=== PATIENT | male | born 1950 | race Caucasian/White ===

== ENCOUNTER → 2017-09-06 12:02 | Outpatient (CLI) | payer MEDICARE, OTHER, SELFPAY ==
--- NOTE | 2017-09-06 12:15 | XR_ITS ---
XR knee RT 3V HISTORY: ITS.REASON: ANNEL KNEE PAIN ORDERING PHYSICIAN: Kostas Campa MD PATIENT AGE: 67 years COMPARISON: 11/09/2011 FINDINGS: There are mild osteoarthritic changes of the medial compartment and patellofemoral joint. There is a defect involving the articular surface of the medial femoral condyle consistent with an osteochondral defect. No other significant anomalies are evident. 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
--- NOTE | 2017-09-06 12:15 | XR_ITS ---
XR knee LT 3V HISTORY: ITS.REASON: ANNEL KNEE PAIN ORDERING PHYSICIAN: Kostas Campa MD PATIENT AGE: 67 years COMPARISON: 04/07/2016 FINDINGS: There is an old fracture involving the proximal aspect of the tibia with callus formation and mild deformity. There are osteoarthritic changes involving the patellofemoral joint. There is mild spurring along the lateral aspect of the medial femoral condyle. No acute fracture or dislocation. No lytic or blastic change. IMPRESSION: No acute finding. Old proximal tibial fracture with mild osteoarthritis
== END ==
PROVIDERS: PCP Family Medicine; Visit Provider Family Medicine
DX: M25.561 Pain in right knee (principal); M25.562 Pain in left knee
CPT/HCPCS: 73562

== ENCOUNTER 2018-02-25 21:41 | Inpatient (IN) ==
--- NOTE | 2018-02-25 22:11 | Emergency Department Note ---
ED Disposition Clinical Impression: Febrile illness, acute, Renal insufficiency syndrome, Lymphadenopathy Disposition: Admitted as Observation Condition on Discharge: Good Instructions: DI for Nausea -- Adult Referrals: Kostas Campa MD [Primary Care Provider] - - Critical Care Critical Care Time: No Attestation: On 02/25/18, the high probability of a clinically significant, sudden or life threatening deterioration of the following system(s) required my full and direct attention, intervention and personal management. The time I documented below is in addition to time spent performing reported procedures but includes the following listed in this critical care notation. Medical Decision Making - Medical Records Medical records reviewed: Yes: I reviewed the patient's medical records. - Abraham Inquiry Pt receiving controlled substance: No Vital Signs: 02/25/18 21:44 02/25/18 23:06 Temperature 100.3 F H 102 F H Temperature Source Oral Oral Pulse Rate [Right Radial] 70 88 Respiratory Rate 15 18 Blood Pressure [Left Arm] 91/48 L 122/78 Blood Pressure Mean [Left Arm] 62 92 Blood Pressure Source [Left Arm] Automatic Cuff Automatic Cuff Blood Pressure Position [Left Arm] Sitting Sitting 02 Sat by Pulse Oximetry 93 L 92 L Oxygen Delivery Method Room Air Room Air - Lab Data Lab results reviewed: Yes: I reviewed the patient's lab results. Lab Results 02/25/18 22:00: WBC 9.4, RBC 4.88, Hgb 14.8, Hct 44.9, MCV 92.0, MCH 30.3, MCHC 33.0, RDW 13.3, Plt Count 114 L, MPV 7.6, Neut % (Auto) 91.7 H, Lymph % (Auto) 4.4 L, [place] % (Auto) 2.8, Eos % (Auto) 1.0, Baso % (Auto) 0.1, Neut # (Auto) 8.6 H, Lymph # (Auto) 0.4 L, [place] # (Auto) 0.3, Eos # (Auto) 0.1, Baso # (Auto) 0.0, Total Counted 100, Neutrophils % (Manual) 84 H, Band Neutrophils % 14.0 H, L ymphocytes % (Manual) 2 L, Platelet Estimate Slight decrease, RBC Morphology Normal 02/25/18 22:00: Sodium 137, Potassium 3.8, Chloride 100, Carbon Dioxide 28, Ani on Gap 12.8, BUN 24 H, Creatinine 1.39 H, Estimated Creat Clear 78, Estimated GFR 51 L, Est GFR ( Amer) 62, Glucose 127 H, Calcium 8.8, Total Bilirubin 0.6, AST 15, ALT 24, Alkaline Phosphatase 65, C-Reactive Protein 3.1 H, Total Protein 7.3, Albumin 3.7, Globulin 3.6 H, Albumin/Globulin Ratio 1.0 L 02/25/18 22:00: Lactate 1.5 02/25/18 22:00: Influenza Type A Ag Negative, Influenza Type B Ag Negative 02/25/18 22:00: ESR 7 02/25/18 22:10: Ammonia 21 02/25/18 22:50: Urine Color Yellow, Urine Appearance Clear, Urine pH 6.0, Ur Specific [place] 1.020, Urine Protein Negative, Urine Glucose (UA) Negative, Urine Ketones Negative, Urine Blood Negative, Urine Nitrate Negative, Urine Bilirubin Negative, Urine Urobilinogen 0.2, Ur Leukocyte Esterase Negative, Urine WBC 3-5, Amorphous Sediment 2+, Urine Mucus 4+ Result diagrams: 02/25/18 22:00 02/25/18 22:00 Orders (Tests/Meds): ED MEDICATIONS Generic Name Dose Route Start Last Admin Trade Name Freq PRN Reason Stop Dose Admin Ceftriaxone Sodium 1 gm/ 50 mls @ 100 mls/hr 02/25/18 23:30 Sodium Chloride IV 03/11/18 23:29 Q24H DARIEN Protocol Discontinued Medications Generic Name Dose Route Start Last Admin Trade Name Freq PRN Reason Stop Dose Admin Acetaminophen 1,000 mg 02/25/18 23:09 02/25/18 23:11 Tylenol 500mg Tablet PO 02/25/18 23:10 1,000 mg ONCE ONE Administration Sodium Chloride 1,000 mls @ 999 mls/hr 02/25/18 22:00 02/25/18 22:04 Sod Chlor 0.9% 1000ml Bag IV 02/25/18 23:00 999 mls/hr .Q1H1M DARIEN Administration Ketorolac Tromethamine 30 mg 02/25/18 22:12 02/25/18 22:50 Toradol 30mg/Ml Vial IV 02/25/18 22:13 30 mg ONCE ONE Administration Ondansetron HCl 4 mg 02/25/18 21:55 02/25/18 22:04 Zofran 4mg/2ml Vial IV 02/25/18 21:56 4 mg ONCE ONE Administration ORDERS Category Date Time Status CT abdomen pelvis wo con Stat Cat Scan 02/25/18 22:11 Taken CXR AP view [XR chest AP] Stat Exams 02/25/18 22:10 Taken Diarrhea Panel, PCR Stat Lab 02/25/18 22:12 Ordered UA [Urinalysis and Microscopic] Stat Lab 02/25/18 22:50 Ordered Blood Culture Stat Micro 02/25/18 22:00 Received Urine Culture Stat Micro 02/25/18 23:24 Ordered - Radiology Data #1 Image(s): Chest Image Reviewed: Yes I reviewed the patient's radiology image Preliminary Findings: Normal/NAD - CT Data CT Scan: Abdomen, Pelvis Time Received: 23:[address] Reviewed: Yes: I have viewed the radiologist's interpretation Preliminary Findings: Abnormal (see report) - Physician Consults Physician Consulted: sound Reason -: Admission Fever HPI - General Chief Complaint: Nausea/Vomiting/Diarrhea Stated Complaint: JACOB, nausea Time Seen by Provider: 02/25/18 22:00 Mode of Arrival: Wheelchair Source of Information: Patient, Relative, Medical Record Limitations: Physical Limitations Description of Symptoms (Recalled from ER Triage Doc. by RN): Pt reports fever nausea chills and generalized weakness that started today. Pt reports he took 400mg of Motrin about an hour ago. - History of Present Illness HPI Narrative: wm who has acute onset of fever and weakness and not feeling well with no rash or cough and nausa w/o vomiting MD complaint: fever, malaise, weakness Onset (ago): day(s) Associated symptoms: denies other symptoms Treatments prior to arrival fever: ibuprofen - Related Data Home Medications Medication Instructions Recorded Confirmed celecoxib 200 mg capsule 200 mg PO ONCE cap 09/15/17 02/25/18 clonazepam 2 mg tablet 5 mg PO ONCE tab 09/15/17 02/25/18 hydrocodone 10 mg-acetaminophen 1 tab PO Q12H PRN tab 09/15/17 02/25/18 325 mg tablet losartan 100 1 tab PO ONCE 09/15/17 02/25/18 mg-hydrochlorothiazide 12.5 mg tablet morphine ER 15 mg tablet,extended 15 mg PO ONCE tab 09/15/17 02/25/18 release omeprazole 20 mg capsule,delayed 40 mg PO ONCE 09/15/17 02/25/18 release pregabalin 150 mg capsule 150 mg PO ONCE cap 09/15/17 02/25/18 tadalafil 2.5 mg tablet 2.5 mg PO ONCE PRN 09/15/17 02/25/18 Duloxetine HCl [Cymbalta 30mg 30 mg PO DAILY 02/25/18 02/25/18 capsule] Allergies Allergy/AdvReac Type Severity Reaction Status Date / Time No Known Allergies Allergy Verified 02/25/18 21:54 [facility] History I have reviewed the patient's past medical history: Yes Medical History: Denies:: Chronic Obstructive Pulmonary Disease (COPD), Diabetes Mellitus Type 1 Other Medical History: Reports: Arthritis, Sinus Problems Laterality Cases: Right: Arthroscopy Knee, Bilateral: Other Amputation: No Fractures: Yes Comment: RT arthroscopy, LT tib-fib nailing/hardware removal, back sx x7, spinal cord stimulator placement - Social History Smoking Status: Never smoker Alcohol Intake: never Alcohol Intake Frequency:: a few times a month - Psychiatric History Expresses thoughts of harming self/others: None Suicide Plan Description: No Plan ROS Obtained: Yes All systems reviewed & no additional complaints - Constitutional Constitutional: Reports as per HPI, Reports chills, Reports fever(s) - Eyes Eyes: Denies photophobia - ENT Ears, Nose, Mouth, and Throat: Denies sore throat - Cardiovascular Cardiovascular: Denies chest pain - Respiratory Respiratory: No cough - Gastrointestinal Gastrointestingal: Reports: as per HPI, diarrhea, nausea, vomiting - Genitourinary Male Genitourinary: Denies hematuria - Musculoskeletal Musculoskeletal: Denies joint pain - Neurologic Neurologic: Reports headache(s), Denies seizure-like activity Physical Exam - General General appearance: alert - Head Head exam: normocephalic - Eye Eye exam: Present: PERRL, EOMI. Absent: scleral icterus - ENT ENT exam: Present: mucous membranes dry - Neck Neck exam: Present: trachea midline - Respiratory Respiratory exam: Present: normal lung sounds bilaterally - Cardiovascular Cardiovascular exam: Present: regular rate, systolic murmur. Absent: rubs - Abdominal Exam Abdominal exam: Present: soft - Extremities Exam Extremities exam: Absent: tenderness - Neurological Exam Neurological exam: Present: alert, CN II-XII intact - Psychiatric Psychiatric exam: Present: normal affect - Skin Skin exam: Absent: rash - Lymphatic Lymphatic Findings: no adenopathy
[2018-02-25 22:22] LABS: Basophils % 0.1 % (0.1-2.0); Eosinophils # 0.1 K/mm3 (0.0-0.4); Hematocrit 44.9 % (42.0-52.0); Hemoglobin 14.8 g/dL (14.1-18.0); Lymphocytes # 0.4 K/mm3 (0.7-4.5); Lymphocytes % 4.4 K/mm3 (10-50); Mean Corpuscular Hemoglobin 30.3 pg (27.0-31.2); Mean Platelet Volume 7.6 fl (7.4-10.4); Monocytes # 0.3 K/mm3 (0.1-1.0); Monocytes % 2.8 % (1.7-9.3); Neutrophils # 8.6 K/mm3 (1.8-7.8); Neutrophils % 91.7 % (37.0-80.0); Platelet Count 114 K/mm3 (142-424); Red Blood Count 4.88 M/mm3 (4.60-6.20); Red Cell Distribution Width 13.3 % (11.5-17.5); White Blood Count 9.4 K/mm3 (4.8-10.8)
[2018-02-25 22:35] LABS: Albumin Level 3.7 gm/dL (3.4-5.0); Anion Gap 12.8 mEq/L (5-15); Bilirubin,Total 0.6 mg/dL (0.2-1.0); C-Reactive Protein 3.1 mg/L (0.0-0.9); Calcium 8.8 mg/dL (8.5-10.1); Globulin 3.6 gm/dl (1.3-3.2); Potassium 3.8 mmoL/L (3.5-5.1); Total Protein,Serum 7.3 gm/dL (6.4-8.2)
[2018-02-25 22:40] LABS: Lymphocytes % 2 % (10-50); Neutrophils % 84 % (42-76); Total Cells Counted 100
[2018-02-25 22:41] LABS: RBC Morphology Normal
[2018-02-25 22:55] LABS: Microscopic, Urine URINE MICROSCOPIC (MICROSCOPIC)
[2018-02-25 22:58] LABS: Appearance,Urine CLEAR (Clear); Blood, Urine Negative (Negative); Color,Urine YELLOW (Yellow); Glucose,Urine (UA) Negative (Negative); Ketones,Urine Negative (Negative); Leukocyte Esterase,Urine Negative (Negative); Protein,Urine Negative (Negative); Urobilinogen,Urine 0.2 EU/dl (0.2)
[2018-02-25 23:03] LABS: Amorphous Sediment,Urine 2+ /lpf; Bilirubin,Urine Negative (Negative); Mucus,Urine 4+ /lpf
[2018-02-26 07:04] LABS: Anion Gap 10.3 mEq/L (5-15); Potassium 4.3 mmoL/L (3.5-5.1)
[2018-02-26 07:30] LABS: Basophils % 0.2 % (0.1-2.0); Eosinophils % 0.1 % (0.1-12.0); Hematocrit 42.2 % (42.0-52.0); Hemoglobin 13.8 g/dL (14.1-18.0); Lymphocytes # 0.3 K/mm3 (0.7-4.5); Mean Corpuscular HGB Conc 32.8 g/dL (31.8-35.4); Mean Corpuscular Hemoglobin 30.8 pg (27.0-31.2); Mean Platelet Volume 7.9 fl (7.4-10.4); Monocytes # 0.1 K/mm3 (0.1-1.0); Monocytes % 1.3 % (1.7-9.3); Neutrophils % 95.4 % (37.0-80.0); Platelet Count 96 K/mm3 (142-424); Red Blood Count 4.49 M/mm3 (4.60-6.20); Red Cell Distribution Width 13.3 % (11.5-17.5); White Blood Count 9.4 K/mm3 (4.8-10.8)
[2018-02-26 09:17] LABS: Lymphocytes % 4 % (10-50); Monocytes % 1 % (2-9); Neutrophils % 93 % (42-76); Total Cells Counted 100
--- NOTE | 2018-02-26 09:40 | History & Physical Report ---
*Admission Date: 02/25/18 *Chief complaint: fever and chills *History of present illness: Patient is a 67 year old who mentioned that was using the bathroom at home and all of a sudden he felt dizzy. He started having fever about 2 days ago that is not breakable with any medications. He also mentions that he has been having some headaches. He is getting extensive pain management interventions from multiple specialists. also mentions that he has spinal cord simulator put in few years ago and it is about time for him to get another simulator with morphine pump. However, his appt is on late February. He is denying any nausea, vomiting, diarrhea at this time. Positive for back pain that is chronic. No sites of infections and/or pus notable. [facility] History Medical History: Reports:: Cancer (Colon CA), Heart Murmur, Hypertension Denies:: Chronic Obstructive Pulmonary Disease (COPD), Diabetes Mellitus Type 1, Diabetes Mellitus Type 2, MRSA Other Medical History: Reports: Arthritis, Sinus Problems Laterality Cases: Right: Arthroscopy Knee, Bilateral: Other Other Surgeries: Yes: Colon Resection Amputation: No Fractures: Yes - *Social History Educational Level: Attended High School Smoking Status: Never smoker Alcohol Intake: current Alcohol Intake Frequency:: a few times a week Occupational Status: disabled Housing: house Household Members: spouse, family - Psychiatric History Expresses thoughts of harming self/others: None Suicide Plan Description: No Plan *Family Hx:: Diabetes, Heart Attack, Hyperlipidemia, Hypertension Review of Systems - Constitutional Reports chills, Reports fever(s), Reports headache(s), Reports malaise - Eyes Denies change in vision, Denies discharge - ENT Denies sore throat - *Cardiovascular Denies chest pain, Denies shortness of breath - *Respiratory Denies shortness of breath - *Gastrointestinal Denies abdominal pain, Denies change in bowel habits, Denies nausea, Denies vomiting - *Genitourinary Denies difficulty urinating - *Musculoskeletal Reports back pain (chronic) - *Neurologic Reports headache(s), Denies seizure-like activity Meds Home Medications Medication Instructions Recorded Confirmed Type celecoxib 200 mg capsule 200 mg PO DAILY cap 09/15/17 02/26/18 History hydrocodone 10 mg-acetaminophen 1 tab PO Q8H tab 09/15/17 02/26/18 History 325 mg tablet losartan 100 1 tab PO DAILY 09/15/17 02/26/18 History mg-hydrochlorothiazide 12.5 mg tablet morphine ER 15 mg tablet,extended 15 mg PO Q12H tab 09/15/17 02/26/18 History release omeprazole 20 mg capsule,delayed 40 mg PO DAILY 09/15/17 02/26/18 History release pregabalin 150 mg capsule 150 mg PO Q12H cap 09/15/17 02/26/18 History Tadalafil [Cialis] 5 mg PO DAILYP PRN 02/26/18 02/26/18 History clonazePAM [Clonazepam] 1 mg PO HS 02/26/18 02/26/18 History Allergies Allergy/AdvReac Type Severity Reaction Status Date / Time No Known Allergies Allergy Verified 02/25/18 21:54 Exam Vital signs and Labs for Last 24 Hours: Temp Pulse Resp BP Pulse Ox 101.9 F H 83 18 93/46 L 100 02/26/18 07:59 02/26/18 07:59 02/26/18 07:59 02/26/18 07:59 02/26/18 07:59 Laboratory Results - last 24 hr 02/25/18 22:00: WBC 9.4, RBC 4.88, Hgb 14.8, Hct 44.9, MCV 92.0, MCH 30.3, MCHC 33.0, RDW 13.3, Plt Count 114 L, MPV 7.6, Neut % (Auto) 91.7 H, Lymph % (Auto) 4.4 L, [place] % (Auto) 2.8, Eos % (Auto) 1.0, Baso % (Auto) 0.1, Neut # (Auto) 8.6 H, Lymph # (Auto) 0.4 L, [place] # (Auto) 0.3, Eos # (Auto) 0.1, Baso # (Auto) 0.0, Total Counted 100, Neutrophils % (Manual) 84 H, Band Neutrophils % 14.0 H, Lymphocytes % (Manual) 2 L, Platelet Estimate Slight decrease, RBC Morphology No rmal 02/25/18 22:00: Sodium 137, Potassium 3.8, Chloride 100, Carbon Dioxide 28, Anion Gap 12.8, BUN 24 H, Creatinine 1.39 H, Estimated Creat Clear 78, Estimated GFR 51 L, Est GFR ( Amer) 62, Glucose 127 H, Calcium 8.8, Total Bilirubin 0.6, AST 15, ALT 24, Alkaline Phosphatase 65, C-Reactive Protein 3.1 H , Total Protein 7.3, Albumin 3.7, Globulin 3.6 H, Albumin/Globulin Ratio 1.0 L 02/25/18 22:00: Lactate 1.5 02/25/18 22:00: Influenza Type A Ag Negative, Influenza Type B Ag Negative 02/25/18 22:00: ESR 7 02/25/18 22:10: Ammonia 21 02/25/18 22:50: Urine Color Yellow, Urine Appearance Clear, Urine pH 6.0, Ur Specific [place] 1.020, Urine Protein Negative, Urine Glucose (UA) Negative, Ur ine Ketones Negative, Urine Blood Negative, Urine Nitrate Negative, Urine Bilirubin Negative, Urine Urobilinogen 0.2, Ur Leukocyte Esterase Negative, Urine WBC 3-5, Amorphous Sediment 2+, Urine Mucus 4+ 02/26/18 06:38: WBC 9.4, RBC 4.49 L, Hgb 13.8 L, Hct 42.2, MCV 94.0, MCH 30.8, MCHC 32.8, RDW 13.3, Plt Count 96 L, MPV 7.9, Neut % (Auto) 95.4 H, Lymph % (Auto) 3.0 L, [place] % (Auto) 1.3 L, Eos % (Auto) 0.1, Baso % (Auto) 0.2, Neut # (Auto) 9.0 H, Lymph # (Auto) 0.3 L, [place] # (Auto) 0.1, Eos # (Auto) 0.0, Baso # (Auto) 0.0, Total Counted 100, Neutrophils % (Manual) 93 H, Band Neutrophils % 2.0, Lymphocytes % (Manual) 4 L, Monocytes % (Manual) 1 L, Platelet Estimate Moderate decrease 02/26/18 06:38: Sodium 137, Potassium 4.3, Chloride 100, Carbon Dioxide 31, Anion Gap 10.3, BUN 25 H, Creatinine 1.52 H, Estimated Creat Clear 70, Estimated GFR 46 L, Est GFR ( Amer) 56 L, Glucose 132 H, Calcium 8.0 L I & O for Last 24 hours: Intake & Output 02/23/18 02/24/18 02/25/18 02/26/18 11:59 11:59 11:59 11:59 Intake Total 0 / 0 Balance 0 / 0 Weight 225 lb 2 oz - *Routine HEENT Exam Head: Present: normocephalic Eye: Present: EOMI ENT: Present: mucous membranes moist - *Routine Neck Exam Present: supple - *Routine Respiratory Exam Present: CTA bilaterally - *Routine Cardiovascular Exam Present: RRR - *Routine Abdominal Exam Present: soft, normoactive bowel sounds - *Routine Extremities Exam Absent: edema - Routine Back/Spine/Pelvis Exam Back/Spine: Present: paraspinal tenderness, pain with flexion, pain with lateral flexion, warmth. Absent: erythema - *Routine Skin Exam Present: intact - *Routine Neurological Exam Present: alert, oriented X3 - Routine Psychiatric Exam Present: normal affect Assessment and Plan (1) Febrile illness, acute Current visit: Yes Status: Acute Category: Medical Code(s): R50.9 - Fever, unspecified will await for cultures and treat with IV broad spectrum abx until then (2) Renal insufficiency syndrome Current visit: Yes Status: Acute Category: Medical Code(s): N28.9 - Disorder of kidney and ureter, unspecified Hydrate and will trend renal function (3) Lymphadenopathy Current visit: Yes Status: Acute Category: Medical Code(s): R59.1 - Generalized enlarged lymph nodes (4) Chronic back pain Current visit: Yes Status: Acute Category: Medical Code(s): M54.9 - Dorsalgia, unspecified; G89.29 - Other chronic pain will hold Thompson for now but continue morphine and lyrica. (5) Spinal cord stimulator status Current visit: Yes Status: Acute Category: Medical Code(s): Z96.89 - Presence of other specified functional implants will get CT of lumbar spine to make sure there is no infection/abscess
--- NOTE | 2018-02-26 10:32 | Pharmacy Consult Notes ---
[facility] Pharmacy VTE Monitoring - Patient Demographics Admission date: 02/25/18 Report Date: 02/26/18 Time: 10:32 Allergies/Adverse Reactions: Patient Allergies No Known Allergies Allergy (Verified 02/25/18 21:54) Height: 1.78 m Weight: 102.115 kg Patient Problems: Current Active Problems Febrile illness, acute (Acute) Renal insufficiency syndrome (Acute) Lymphadenopathy (Acute) - VTE Risk Labs: VTE Related Lab Results Hgb 13.8 g/dL (14.1-18.0) L 02/26/18 06:38 Hct 42.2 % (42.0-52.0) 02/26/18 06:38 Plt Count 96 K/mm3 (142-424) L 02/26/18 06:38 BUN 25 mg/dL (7-18) H 02/26/18 06:38 Creatinine 1.52 mg/dL (0.70-1.30) H 02/26/18 06:38 Estimated Creat Clear 70 mL/min (0-300) 02/26/18 06:38 Was VTE Risk Assessment Performed: Yes VTE Score: 5 VTE Risk Level: Low Risk - Prophylaxis VTE Prophylaxis Ordered?: Yes Types of VTE Prophylaxis: TEDS Knee High Location of Applied Device: Bilateral Lower Extremeties
--- NOTE | 2018-02-27 10:14 | Progress Note ---
Internal Medicine - PN: Subj *Date: 02/27/18 *Time: 09:00 Interval history: Patient was still having spiking fevers overnight. He is still complaining of headaches. Exam Vital signs and Labs for Last 24 Hours: Temp Pulse Resp BP Pulse Ox 101.6 F H 61 18 98/47 L 96 02/27/18 07:27 02/27/18 07:27 02/27/18 07:27 02/27/18 07:27 02/27/18 07:27 I & O for Last 24 hours: Intake & Output 02/24/18 02/25/18 02/26/18 02/27/18 11:59 11:59 11:59 10:59 Intake Total 0 / 0 3190 / 3190 Output Total 650 / 650 Balance 0 / 0 2540 / 2540 Weight 225 lb 2 oz Microbiology Reports for the Last 24 Hours: Microbiology 02/25/18 22:00 Blood Blood Culture - Preliminary Gram Positive Cocci 02/25/18 22:00 Blood Blood Culture - Preliminary Gram Positive Cocci 02/25/18 22:50 Urine,Clean Catch Urine Culture - Preliminary NO GROWTH AFTER 24 HOURS - *Routine HEENT Exam Head: Present: normocephalic Eye: Present: EOMI ENT: Present: mucous membranes moist - *Routine Neck Exam Present: supple - *Routine Respiratory Exam Present: CTA bilaterally - *Routine Cardiovascular Exam Present: RRR - *Routine Abdominal Exam Present: soft. Absent: tenderness - *Routine Extremities Exam Absent: edema (Cellulitis on right leg noted, status dermatitis noted on the left leg) - Routine Back/Spine/Pelvis Exam Back/Spine: Present: paraspinal tenderness, vertebral tenderness, pain with flexion, pain with lateral flexion, pain with rotation. Absent: erythema, warmth - *Routine Skin Exam Present: erythema (On right lower leg) - *Routine Neurological Exam Present: alert, oriented X3 Assessment and Plan (1) Bacteremia due to Streptococcus Current visit: Yes Status: Acute Category: Medical Code(s): R78.81 - Bacteremia; B95.5 - Unspecified streptococcus as the cause of diseases classified elsewhere Secondary to Streptococcus pyogenes, group A. He mentioned that he had a recent dental implants done. Continue Rocephin, added Augmentin today. Advised to talk to his PCP about getting prescription for antibiotics for future dental implants as this could have contributed to his bacteremia. (2) Febrile illness, acute Problem details: Secondary to strep pygenes bacteremia Current visit: Yes Status: Acute Category: Medical Code(s): R50.9 - Fever, unspecified (3) Renal insufficiency syndrome Current visit: Yes Status: Acute Category: Medical Code(s): N28.9 - Disorder of kidney and ureter, unspecified Stable for now (4) Lymphadenopathy Current visit: Yes Status: Acute Category: Medical Code(s): R59.1 - Generalized enlarged lymph nodes (5) Chronic back pain Current visit: Yes Status: Acute Category: Medical Code(s): M54.9 - Dorsalgia, unspecified; G89.29 - Other chronic pain Continue home medication (6) Spinal cord stimulator status Current visit: Yes Status: Acute Category: Medical Code(s): Z96.89 - Presence of other specified functional implants No evidence of abscess or infection on CT scan
--- NOTE | 2018-02-28 09:30 | Progress Note ---
Internal Medicine - PN: Subj *Date: 02/28/18 *Time: 09:24 Interval history: Patient feels better today, still has a headache. He states there is more redness on the top part of his left thigh. Exam Vital signs and Labs for Last 24 Hours: Temp Pulse Resp BP Pulse Ox 98.4 F 62 18 114/42 L 94 L 02/28/18 07:49 02/28/18 07:49 02/28/18 07:49 02/28/18 07:49 02/28/18 07:49 I & O for Last 24 hours: Intake & Output 02/25/18 02/26/18 02/27/18 02/28/18 12:59 12:59 11:59 11:59 Intake Total 1748 / 1748 Output Total 150 / 150 Balance 1598 / 1598 Weight Microbiology Reports for the Last 24 Hours: Microbiology 02/25/18 22:00 Blood Blood Culture - Preliminary Strep pyogenes (grp a) 02/25/18 22:00 Blood Blood Culture - Preliminary Strep pyogenes (grp a) 02/25/18 22:50 Urine,Clean Catch Urine Culture - Final NO GROWTH AFTER 48 HOURS - Constitutional no acute distress - *Routine HEENT Exam Head: Present: normocephalic Eye: Present: EOMI, PERRL ENT: Present: mucous membranes moist - *Routine Neck Exam Present: supple. Absent: lymphadenopathy - *Routine Respiratory Exam Present: CTA bilaterally - *Routine Cardiovascular Exam Present: RRR - *Routine Abdominal Exam Present: soft, normoactive bowel sounds. Absent: tenderness - *Routine Extremities Exam Present: edema (both legs). Absent: clubbing - *Routine Skin Exam Present: warm, rash (Extensive, confluent redness over the shins, small area of redness on left upper thigh) - *Routine Neurological Exam Present: alert, oriented X3 Assessment and Plan (1) Bacteremia due to Streptococcus Current visit: Yes Status: Acute Category: Medical Code(s): R78.81 - Bacteremia; B95.5 - Unspecified streptococcus as the cause of diseases classified elsewhere (2) Febrile illness, acute Problem details: Secondary to strep pygenes bacteremia Current visit: Yes Status: Acute Category: Medical Code(s): R50.9 - Fever, unspecified (3) Renal insufficiency syndrome Current visit: Yes Status: Acute Category: Medical Code(s): N28.9 - Disorder of kidney and ureter, unspecified (4) Lymphadenopathy Current visit: Yes Status: Acute Category: Medical Code(s): R59.1 - Generalized enlarged lymph nodes (5) Chronic back pain Current visit: Yes Status: Acute Category: Medical Code(s): M54.9 - Dorsalgia, unspecified; G89.29 - Other chronic pain (6) Spinal cord stimulator status Current visit: Yes Status: Acute Category: Medical Code(s): Z96.89 - Presence of other specified functional implants (7) Obesity (BMI 30.0-34.9) Current visit: Yes Status: Acute Category: Medical Code(s): E66.9 - Obesity, unspecified (8) BMI 32.0-32.9,adult Current visit: Yes Status: Acute Category: Medical Code(s): Z68.32 - Body mass index (BMI) 32.0-32.9, adult (9) Bilateral lower leg cellulitis Current visit: Yes Status: Acute Category: Medical Code(s): L03.116 - Cellulitis of left lower limb; L03.115 - Cellulitis of right lower limb (10) History of colon cancer Current visit: Yes Status: Acute Category: Medical Code(s): Z85.038 - Personal history of other malignant neoplasm of large intestine - Assessment and plan all Dx Assessment and Plan for all problems:: Patient with extensive bilateral leg cellulitis and Group a Strep bacteremia. Will change antibiotics to Zosyn and Clindamycin today.
[2018-03-01 07:00] LABS: Basophils % 0.1 % (0.1-2.0); Eosinophils # 0.1 K/mm3 (0.0-0.4); Eosinophils % 1.7 % (0.1-12.0); Hematocrit 34.9 % (42.0-52.0); Hemoglobin 12.3 g/dL (14.1-18.0); Lymphocytes # 1.4 K/mm3 (0.7-4.5); Lymphocytes % 17.3 K/mm3 (10-50); Mean Corpuscular HGB Conc 35.1 g/dL (31.8-35.4); Mean Corpuscular Hemoglobin 32.8 pg (27.0-31.2); Mean Corpuscular Volume 93.3 fl (80-94); Mean Platelet Volume 8.2 fl (7.4-10.4); Monocytes # 0.4 K/mm3 (0.1-1.0); Monocytes % 4.6 % (1.7-9.3); Neutrophils # 6.1 K/mm3 (1.8-7.8); Neutrophils % 76.2 % (37.0-80.0); Platelet Count 114 K/mm3 (142-424); Red Blood Count 3.74 M/mm3 (4.60-6.20); Red Cell Distribution Width 13.7 % (11.5-17.5)
[2018-03-01 07:36] LABS: Anion Gap 10.7 mEq/L (5-15); Calcium 8.1 mg/dL (8.5-10.1); Potassium 3.7 mmoL/L (3.5-5.1)
--- NOTE | 2018-03-01 08:31 | Progress Note ---
<Yoselin Sanchez - Last Filed: 03/01/18 08:27> Internal Medicine - PN: Subj *Date: 03/01/18 *Time: 08:27 Interval history: Patient is aggravated this morning. Everyone keeps waking him up. He got the wrong breakfast. He needs a tooth less diet. He denies chest pain. He states he has been wheezing and is a little short of breath. He has been up to the bathroom. Bowels are moving. He is voiding without problems. Exam Vital signs and Labs for Last 24 Hours: Temp Pulse Resp BP Pulse Ox 99.6 F 78 17 119/62 96 03/01/18 07:39 03/01/18 07:39 03/01/18 07:39 03/01/18 07:39 03/01/18 07:39 Laboratory Results - last 24 hr 02/26/18 12:50: Ionized Calcium 4.9 03/01/18 06:35: WBC 8.0, RBC 3.74 L, Hgb 12.3 L, Hct 34.9 L, MCV 93.3, MCH 32.8 H, MCHC 35.1, RDW 13.7, Plt Count 114 L, MPV 8.2, Neut % (Auto) 76.2, Lymph % (Auto) 17.3, [place] % (Auto) 4.6, Eos % (Auto) 1.7, Baso % (Auto) 0.1, Neut # (Auto) 6.1, Lymph # (Auto) 1.4, [place] # (Auto) 0.4, Eos # (Auto) 0.1, Baso # (Auto) 0.0 03/01/18 06:35: Sodium 137, Potassium 3.7, Chloride 101, Carbon Dioxide 29, Anion Gap 10.7, BUN 19 H, Creatinine 1.27, Estimated Creat Clear 84, Estimated GFR 57 L, Est GFR ( Amer) 69 D, Glucose 92, Calcium 8.1 L I & O for Last 24 hours: Intake & Output 02/26/18 02/27/18 02/28/18 03/01/18 12:59 11:59 11:59 11:59 Intake Total 1748 / 1748 2486 / 2486 Output Total 150 / 150 Balance 1598 / 1598 2486 / 2486 Weight Microbiology Reports for the Last 24 Hours: Microbiology 02/25/18 22:00 Blood Blood Culture - Preliminary Strep pyogenes (grp a) 02/25/18 22:00 Blood Blood Culture - Preliminary Strep pyogenes (grp a) - Constitutional no acute distress Comments: Awakened for exam - *Routine Respiratory Exam Comments: Scattered expiratory wheezing anteriorly and posteriorly - *Routine Cardiovascular Exam Present: RRR - *Routine Abdominal Exam Present: soft, normoactive bowel sounds. Absent: tenderness - *Routine Extremities Exam Comments: Bilateral leg edema with the left being larger than the right. Erythemia on the right lower extremity appears less intense and with less area. Erythema on the left lower extremity appears more of a brownish color today. Left groin area with scattered papular rash is drying and also appears less intense. - *Routine Neurological Exam Present: alert, oriented X3 Assessment and Plan (1) Bacteremia due to Streptococcus Current visit: Yes Status: Acute Category: Medical Code(s): R78.81 - Bacteremia; B95.5 - Unspecified streptococcus as the cause of diseases classified elsewhere (2) Febrile illness, acute Problem details: Secondary to strep pygenes bacteremia Current visit: Yes Status: Acute Category: Medical Code(s): R50.9 - Fever, unspecified (3) Renal insufficiency syndrome Current visit: Yes Status: Acute Category: Medical Code(s): N28.9 - Disorder of kidney and ureter, unspecified (4) Lymphadenopathy Current visit: Yes Status: Acute Category: Medical Code(s): R59.1 - Generalized enlarged lymph nodes (5) Chronic back pain Current visit: Yes Status: Acute Category: Medical Code(s): M54.9 - Dorsalgia, unspecified; G89.29 - Other chronic pain (6) Spinal cord stimulator status Current visit: Yes Status: Acute Category: Medical Code(s): Z96.89 - Presence of other specified functional implants (7) Obesity (BMI 30.0-34.9) Current visit: Yes Status: Acute Category: Medical Code(s): E66.9 - Obesity, unspecified (8) BMI 32.0-32.9,adult Current visit: Yes Status: Acute Category: Medical Code(s): Z68.32 - Body mass index (BMI) 32.0-32.9, adult (9) Bilateral lower leg cellulitis Current visit: Yes Status: Acute Category: Medical Code(s): L03.116 - Cellulitis of left lower limb; L03.115 - Cellulitis of right lower limb (10) History of colon cancer Current visit: Yes Status: Acute Category: Medical Code(s): Z85.038 - Personal history of other malignant neoplasm of large intestine (11) Shortness of breath Current visit: Yes Status: Acute Category: Medical Code(s): R06.02 - Shortness of breath - Assessment and plan all Dx Assessment and Plan for all problems:: We will recheck chest x-ray and start DuoNeb treatments 3 times daily. We will continue with IV antibiotic treatment. <Kostas Campa - Last Filed: 03/01/18 08:47> Exam Vital signs and Labs for Last 24 Hours: Temp Pulse Resp BP Pulse Ox 99.6 F 78 17 119/62 96 03/01/18 07:39 03/01/18 07:39 03/01/18 07:39 03/01/18 07:39 03/01/18 07:39 Laboratory Results - last 24 hr 02/26/18 12:50: Ionized Calcium 4.9 03/01/18 06:35: WBC 8.0, RBC 3.74 L, Hgb 12.3 L, Hct 34.9 L, MCV 93.3, MCH 32.8 H, MCHC 35.1, RDW 13.7, Plt Count 114 L, MPV 8.2, Neut % (Auto) 76.2, Lymph % (Auto) 17.3, [place] % (Auto) 4.6, Eos % (Auto) 1.7, Baso % (Auto) 0.1, Neut # (Auto) 6.1, Lymph # (Auto) 1.4, [place] # (Auto) 0.4, Eos # (Auto) 0.1, Baso # (Auto) 0.0 03/01/18 06:35: Sodium 137, Potassium 3.7, Chloride 101, Carbon Dioxide 29, Anion Gap 10.7, BUN 19 H, Creatinine 1.27, Estimated Creat Clear 84, Estimated GFR 57 L, Est GFR ( Amer) 69 D, Glucose 92, Calcium 8.1 L I & O for Last 24 hours: Intake & Output 02/26/18 02/27/18 02/28/18 03/01/18 12:59 11:59 11:59 11:59 Intake Total 1748 / 1748 2486 / 2486 Output Total 150 / 150 Balance 1598 / 1598 2486 / 2486 Weight Microbiology Reports for the Last 24 Hours: Microbiology 02/25/18 22:00 Blood Blood Culture - Preliminary Strep pyogenes (grp a) 02/25/18 22:00 Blood Blood Culture - Preliminary Strep pyogenes (grp a) Assessment and Plan (1) Bacteremia due to Streptococcus Current visit: Yes Status: Acute Category: Medical Code(s): R78.81 - Bacteremia; B95.5 - Unspecified streptococcus as the cause of diseases classified elsewhere (2) Febrile illness, acute Problem details: Secondary to strep pygenes bacteremia Current visit: Yes Status: Acute Category: Medical Code(s): R50.9 - Fever, unspecified (3) Renal insufficiency syndrome Current visit: Yes Status: Acute Category: Medical Code(s): N28.9 - D isorder of kidney and ureter, unspecified (4) Lymphadenopathy Current visit: Yes Status: Acute Category: Medical Code(s): R59.1 - Generalized enlarged lymph nodes (5) Chronic back pain Current visit: Yes Status: Acute Category: Medical Code(s): M54.9 - Dorsalgia, unspecified; G89.29 - Other chronic pain (6) Spinal cord stimulator status Current visit: Yes Status: Acute Category: Medical Code(s): Z96.89 - Presence of other specified functional implants (7) Obesity (BMI 30.0-34.9) Current visit: Yes Status: Acute Category: Medical Code(s): E66.9 - Obesity, unspecified (8) BMI 32.0-32.9,adult Current visit: Yes Status: Acute Category: Medical Code(s): Z68.32 - Body mass index (BMI) 32.0-32.9, adult (9) Bilateral lower leg cellulitis Current visit: Yes Status: Acute Category: Medical Code(s): L03.116 - Cellulitis of left lower limb; L03.115 - Cellulitis of right lower limb (10) History of colon cancer Current visit: Yes Status: Acute Category: Medical Code(s): Z85.038 - Personal history of other malignant neoplasm of large intestine (11) Shortness of breath Current visit: Yes Status: Acute Category: Medical Code(s): R06.02 - Shortness of breath (12) Neuropathy Current visit: Yes Status: Acute Category: Medical Code(s): G62.9 - Polyneuropathy, unspecified - Assessment and plan all Dx Assessment and Plan for all problems:: Saw patient, agree with above note. He was afebrile the past 24 hours and his leg redness has improved slightly
--- NOTE | 2018-03-02 07:51 | Progress Note ---
<Yoselin Sanchez - Last Filed: 03/02/18 07:48> Internal Medicine - PN: Subj *Date: 03/02/18 *Time: 07:48 Interval history: Is doing better today. Slept some. Has ambulated in the room. He feels his legs are little better. Wheezing has resolved. He had Lasix last night and is voiding quantities. Bowels are moving and he is eating better Exam Vital signs and Labs for Last 24 Hours: Temp Pulse Resp BP Pulse Ox 98.4 F 77 16 136/65 95 03/02/18 07:45 03/02/18 07:45 03/02/18 07:45 03/02/18 07:45 03/02/18 07:45 I & O for Last 24 hours: Intake & Output 02/27/18 02/28/18 03/01/18 03/02/18 11:59 11:59 11:59 11:59 Intake Total 1748 / 1748 2486 / 2486 1560 / 1560 Output Total 150 / 150 2650 / 2650 Balance 1598 / 1598 2486 / 2486 -1090 / -1090 Radiology Reports for the Last 24 Hours: 02/29/2000 and 8 repeat chest x-ray IMPRESSION: Negative chest, no acute finding - Constitutional no acute distress Comments: Awake this a.m. Appears comfortable. - *Routine Respiratory Exam Present: CTA bilaterally (Anteriorly and posteriorly. No wheezing.) - *Routine Cardiovascular Exam Present: RRR - *Routine Abdominal Exam Present: soft, normoactive bowel sounds. Absent: tenderness, distended - *Routine Extremities Exam Comments: Bilateral leg edema has decreased. Left leg remains a little larger than the r ight. Lower legs coloration is more of a brownish red. Left upper inner thigh with fading erythema. - *Routine Neurological Exam Present: alert, oriented X3 Assessment and Plan (1) Bacteremia due to Streptococcus Current visit: Yes Status: Acute Category: Medical Code(s): R78.81 - Bacteremia; B95.5 - Unspecified streptococcus as the cause of diseases classified elsewhere (2) Febrile illness, acute Problem details: Secondary to strep pygenes bacteremia Current visit: Yes Status: Acute Category: Medical Code(s): R50.9 - Fever, unspecified (3) Renal insufficiency syndrome Current visit: Yes Status: Acute Category: Medical Code(s): N28.9 - Disorder of kidney and ureter, unspecified (4) Lymphadenopathy Current visit: Yes Status: Acute Category: Medical Code(s): R59.1 - Generalized enlarged lymph nodes (5) Chronic back pain Current visit: Yes Status: Acute Category: Medical Code(s): M54.9 - Dorsalgia, unspecified; G89.29 - Other chronic pain (6) Spinal cord stimulator status Current visit: Yes Status: Acute Category: Medical Code(s): Z96.89 - Presence of other specified functional implants (7) Obesity (BMI 30.0-34.9) Current visit: Yes Status: Acute Category: Medical Code(s): E66.9 - Obesity, unspecified (8) BMI 32.0-32.9,adult Current visit: Yes Status: Acute Category: Medical Code(s): Z68.32 - Body mass index (BMI) 32.0-32.9, adult (9) Bilateral lower leg cellulitis Current visit: Yes Status: Acute Category: Medical Code(s): L03.116 - Cellulitis of left lower limb; L03.115 - Cellulitis of right lower limb (10) History of colon cancer Current visit: Yes Status: Acute Category: Medical Code(s): Z85.038 - Personal history of other malignant neoplasm of large intestine (11) Shortness of breath Current visit: Yes Status: Acute Category: Medical Code(s): R06.02 - Shortness of breath (12) Neuropathy Current visit: Yes Status: Acute Category: Medical Code(s): G62.9 - Polyneuropathy, unspecified - Assessment and plan all Dx Assessment and Plan for all problems:: Continue with IV antibiotics. PICC line is planned for ongoing long-term antibiotics. <Kostas Campa - Last Filed: 03/02/18 08:28> Exam Vital signs and Labs for Last 24 Hours: Temp Pulse Resp BP Pulse Ox 98.4 F 77 16 136/65 95 03/02/18 07:45 03/02/18 07:45 03/02/18 07:45 03/02/18 07:45 03/02/18 07:45 I & O for Last 24 hours: Intake & Output 02/27/18 02/28/18 03/01/18 03/02/18 11:59 11:59 11:59 11:59 Intake Total 1748 / 1748 2486 / 2486 1560 / 1560 Output Total 150 / 150 2650 / 2650 Balance 1598 / 1598 2486 / 2486 -1090 / -1090 Assessment and Plan (1) Bacteremia due to Streptococcus Current visit: Yes Status: Acute Category: Medical Code(s): R78.81 - Bacteremia; B95.5 - Unspecified streptococcus as the cause of diseases classified elsewhere (2) Febrile illness, acute Problem details: Secondary to strep pygenes bacteremia Current visit: Yes Status: Acute Category: Medical Code(s): R50.9 - Fever, unspecified (3) Renal insufficiency syndrome Current visit: Yes Status: Acute Category: Medical Code(s): N28.9 - Disorder of kidney and ureter, unspecified (4) Lymphadenopathy Current visit: Yes Status: Acute Category: Medical Code(s): R59.1 - Generalized enlarged lymph nodes (5) Chronic back pain Current visit: Yes Status: Acute Category: Medical Code(s): M54.9 - Dorsalgia, unspecified; G89.29 - Other chronic pain (6) Spinal cord stimulator status Current visit: Yes Status: Acute Category: Medical Code(s): Z96.89 - Presence of other specified functional implants (7) Obesity (BMI 30.0-34.9) Current visit: Yes Status: Acute Category: Medical Code(s): E66.9 - Obesity, unspecified (8) BMI 32.0-32.9,adult Current visit: Yes Status: Acute Category: Medical Code(s): Z68.32 - Body mass index (BMI) 32.0-32.9, adult (9) Bilateral lower leg cellulitis Current visit: Yes Status: Acute Category: Medical Code(s): L03.116 - Cellulitis of left lower limb; L03.115 - Cellulitis of right lower limb (10) History of colon cancer Current visit: Yes Status: Acute Category: Medical Code(s): Z85.038 - Personal history of other malignant neoplasm of large intestine (11) Shortness of breath Current visit: Yes Status: Acute Category: Medical Code(s): R06.02 - Shortness of breath (12) Neuropathy Current visit: Yes Status: Acute Category: Medical Code(s): G62.9 - Polyneuropathy, unspecified - Assessment and plan all Dx Assessment and Plan for all problems:: Saw patient, agree with above note. He has improved some, will order PICC line today.
[2018-03-03 06:20] LABS: Basophils % 0.2 % (0.1-2.0); Eosinophils # 0.1 K/mm3 (0.0-0.4); Hematocrit 33.8 % (42.0-52.0); Hemoglobin 11.1 g/dL (14.1-18.0); Lymphocytes # 1.4 K/mm3 (0.7-4.5); Lymphocytes % 19.1 % (10-50); Mean Corpuscular HGB Conc 32.8 g/dL (31.8-35.4); Mean Corpuscular Hemoglobin 30.3 pg (27.0-31.2); Mean Corpuscular Volume 92.4 fl (80-94); Mean Platelet Volume 7.5 fl (7.4-10.4); Monocytes # 0.4 K/mm3 (0.1-1.0); Monocytes % 5.3 % (1.7-9.3); Neutrophils # 5.4 K/mm3 (1.8-7.8); Neutrophils % 74.4 % (37.0-80.0); Platelet Count 167 K/mm3 (142-424); Red Blood Count 3.65 M/mm3 (4.60-6.20); Red Cell Distribution Width 13.6 % (11.5-17.5); White Blood Count 7.2 K/mm3 (4.8-10.8)
[2018-03-03 06:27] LABS: Anion Gap 10.8 mEq/L (5-15); Calcium 8.7 mg/dL (8.5-10.1); Potassium 3.8 mmoL/L (3.5-5.1)
--- NOTE | 2018-03-03 08:15 | Progress Note ---
<Katarzyna Metcalf - Last Filed: 03/03/18 08:13> Internal Medicine - PN: Subj *Date: 03/03/18 *Time: 08:13 Interval history: Patient states he feels about the same today. His back and legs are still hurting. His states she thinks his legs look better this morning as does his groin. He is anxious to go home. Exam Vital signs and Labs for Last 24 Hours: Temp Pulse Resp BP Pulse Ox 98.3 F 60 19 134/61 97 03/03/18 04:00 03/03/18 04:00 03/03/18 04:00 03/03/18 04:00 03/03/18 04:00 Laboratory Results - last 24 hr 03/03/18 06:05: WBC 7.2, RBC 3.65 L, Hgb 11.1 L, Hct 33.8 L, MCV 92.4, MCH 30.3, MCHC 32.8, RDW 13.6, Plt Count 167 D, MPV 7.5, Neut % (Auto) 74.4, Lymph % ( Auto) 19.1, [place] % (Auto) 5.3, Eos % (Auto) 1.0, Baso % (Auto) 0.2, Neut # (Auto) 5.4, Lymph # (Auto) 1.4, [place] # (Auto) 0.4, Eos # (Auto) 0.1, Baso # (Auto) 0.0 03/03/18 06:05: Sodium 141, Potassium 3.8, Chloride 102, Carbon Dioxide 32, Anion Gap 10.8, BUN 13 D, Creatinine 0.94 D, Estimated Creat Clear 106, Estimated GFR 81, Est GFR ( Amer) 97 D, Glucose 99, Calcium 8.7 I & O for Last 24 hours: Intake & Output 02/28/18 03/01/18 03/02/18 03/03/18 11:59 11:59 11:59 11:59 Intake Total 1748 / 1748 2486 / 2486 1560 / 1560 360 / 360 Output Total 150 / 150 2650 / 2650 2575 / 2575 Balance 1598 / 1598 2486 / 2486 -1090 / -1090 -2215 / -2215 - Constitutional no acute distress - *Routine Respiratory Exam Present: CTA bilaterally - *Routine Cardiovascular Exam Present: RRR - *Routine Abdominal Exam Present: soft, normoactive bowel sounds. Absent: tenderness - *Routine Extremities Exam Present: edema (bilateral LE's (left worse than right)) - *Routine Skin Exam Comments: There is still erythema of the bilateral LE's (left worse than the right), there is improvement in the erythema of the left groin Assessment and Plan (1) Bacteremia due to Streptococcus Current visit: Yes Status: Acute Category: Medical Code(s): R78.81 - Bacteremia; B95.5 - Unspecified streptococcus as the cause of diseases classified elsewhere (2) Febrile illness, acute Problem details: Secondary to strep pygenes bacteremia Current visit: Yes Status: Acute Category: Medical Code(s): R50.9 - Fever, unspecified (3) Renal insufficiency syndrome Current visit: Yes Status: Acute Category: Medical Code(s): N28.9 - Disorder of kidney and ureter, unspecified (4) Lymphadenopathy Current visit: Yes Status: Acute Category: Medical Code(s): R59.1 - Generalized enlarged lymph nodes (5) Chronic back pain Current visit: Yes Status: Acute Category: Medical Code(s): M54.9 - Dorsalgia, unspecified; G89.29 - Other chronic pain (6) Spinal cord stimulator status Current visit: Yes Status: Acute Category: Medical Code(s): Z96.89 - Presence of other specified functional implants (7) Obesity (BMI 30.0-34.9) Current visit: Yes Status: Acute Category: Medical Code(s): E66.9 - Obes ity, unspecified (8) BMI 32.0-32.9,adult Current visit: Yes Status: Acute Category: Medical Code(s): Z68.32 - Body mass index (BMI) 32.0-32.9, adult (9) Bilateral lower leg cellulitis Current visit: Yes Status: Acute Category: Medical Code(s): L03.116 - Cellulitis of left lower limb; L03.115 - Cellulitis of right lower limb (10) History of colon cancer Current visit: Yes Status: Acute Category: Medical Code(s): Z85.038 - Personal history of other malignant neoplasm of large intestine (11) Shortness of breath Current visit: Yes Status: Acute Category: Medical Code(s): R06.02 - Shortness of breath (12) Neuropathy Current visit: Yes Status: Acute Category: Medical Code(s): G62.9 - Polyneuropathy, unspecified - Assessment and plan all Dx Assessment and Plan for all problems:: Patient got PICC line placed yesterday. Anxious to go home today. Will discuss disposition with Dr. Campa. <Kostas Campa - Last Filed: 03/03/18 08:52> Exam Vital signs and Labs for Last 24 Hours: Temp Pulse Resp BP Pulse Ox 98.3 F 60 19 134/61 97 03/03/18 04:00 03/03/18 04:00 03/03/18 04:00 03/03/18 04:00 03/03/18 04:00 Laboratory Results - last 24 hr 03/03/18 06:05: WBC 7.2, RBC 3.65 L, Hgb 11.1 L, Hct 33.8 L, MCV 92.4, MCH 30.3, MCHC 32.8, RDW 13.6, Plt Count 167 D, MPV 7.5, Neut % (Auto) 74.4, Lymph % (Auto) 19.1, [place] % (Auto) 5.3, Eos % (Auto) 1.0, Baso % (Auto) 0.2, Neut # (Auto) 5.4, Lymph # (Auto) 1.4, [place] # (Auto) 0.4, Eos # (Auto) 0.1, Baso # (Auto) 0.0 03/03/18 06:05: Sodium 141, Potassium 3.8, Chloride 102, Carbon Dioxide 32, Anion Gap 10.8, BUN 13 D, Creatinine 0.94 D, Estimated Creat Clear 106, Estimated GFR 81, Est GFR ( Amer) 97 D, Glucose 99, Calcium 8.7 I & O for Last 24 hours: Intake & Output 02/28/18 03/01/18 03/02/18 03/03/18 11:59 11:59 11:59 11:59 Intake Total 1748 / 1748 2486 / 2486 1560 / 1560 360 / 360 Output Total 150 / 150 2650 / 2650 2575 / 2575 Balance 1598 / 1598 2486 / 2486 -1090 / -1090 -2215 / -2215 Assessment and Plan (1) Bacteremia due to Streptococcus Current visit: Yes Status: Acute Category: Medical Code(s): R78.81 - Bacteremia; B95.5 - Unspecified streptococcus as the cause of diseases classified elsewhere (2) Febrile illness, acute Problem details: Secondary to strep pygenes bacteremia Current visit: Yes Status: Acute Category: Medical Code(s): R50.9 - Fever, unspecified (3) Renal insufficiency syndrome Current visit: Yes Status: Acute Category: Medical Code(s): N28.9 - Disorder of kidney and ureter, unspecified (4) Lymphadenopathy Current visit: Yes Status: Acute Category: Medical Code(s): R59.1 - Generalized enlarged lymph nodes (5) Chronic back pain Current visit: Yes Status: Acute Category: Medical Code(s): M54.9 - Ac salgia, unspecified; G89.29 - Other chronic pain (6) Spinal cord stimulator status Current visit: Yes Status: Acute Category: Medical Code(s): Z96.89 - Presence of other specified functional implants (7) Obesity (BMI 30.0-34.9) Current visit: Yes Status: Acute Category: Medical Code(s): E66.9 - Obesity, unspecified (8) BMI 32.0-32.9,adult Current visit: Yes Status: Acute Category: Medical Code(s): Z68.32 - Body mass index (BMI) 32.0-32.9, adult (9) Bilateral lower leg cellulitis Current visit: Yes Status: Acute Category: Medical Code(s): L03.116 - Cellulitis of left lower limb; L03.115 - Cellulitis of right lower limb (10) History of colon cancer Current visit: Yes Status: Acute Category: Medical Code(s): Z85.038 - Personal history of other malignant neoplasm of large intestine (11) Shortness of breath Current visit: Yes Status: Acute Category: Medical Code(s): R06.02 - Shortness of breath (12) Neuropathy Current visit: Yes Status: Acute Category: Medical Code(s): G62.9 - Polyneuropathy, unspecified - Assessment and plan all Dx Assessment and Plan for all problems:: Saw patient, agree with above note, he had a low grade fever last night but otherwise continues to improve. OK to discharge today with Rocephin 2 grams IV daily and Levaquin by mouth and Lasix 20 mg daily. He will need home health for PICC line care and IV antibiotics. Plan office f/u in 4 days.
--- NOTE | 2018-03-04 15:34 | Discharge Summary ---
General - General Admission date:: 02/26/18 Discharge date: 03/03/18 HPI HPI: Patient is a 67 year old who mentioned that he was using the bathroom at home and all of a sudden he felt dizzy. He started having fever about 2 days ago that is not breakable with any medications. He also mentions that he has been having some headaches. He is getting extensive pain management interventions from multiple specialists. also mentions that he had a spinal cord simulator put in a few years ago and it is about time for him to get another simulator with morphine pump. However, his appt is on late February. He is denying any nausea, vomiting, diarrhea at this time. Positive for back pain that is chronic. No sites of infections and/or pus notable. Hospital Course Hospital Course: A CT of the lumbar spine was ordered and showed no evidence of abscess or infection. He did have cellulitis of his bilateral LE's and he had positive blood cultures for Streptococcus pyogenes, group A. He mentioned that he had a recent dental implants done. He was continued on Rocephin and augmentin was added. He developed extensive bilateral leg cellulitis and with the group A bacteremia, his abx were then changed to Zosyn and Clindamycin. He began wheezing so duonebs were added and a repeat CXR was ordered. It was normal. He did get a dose of lasix and felt better. His wheezing resolved as did his fever. His cellulitis improved. He had a PICC line placed and was stable to be discharged on Rocephin 2 grams IV daily and Levaquin by mouth as well as lasix 20 mg daily. He will need home health for PICC line care and IV antibiotics. He will f/u in the office in 4 days. Objective Vital signs: Temp Pulse Resp BP Pulse Ox 98.6 F 73 19 128/53 L 98 03/03/18 08:00 03/03/18 08:00 03/03/18 08:00 03/03/18 08:00 03/03/18 08:00 Narrative: - *Routine HEENT Exam Head: Present: normocephalic Eye: Present: EOMI ENT: Present: mucous membranes moist - *Routine Neck Exam Present: supple - *Routine Respiratory Exam Present: CTA bilaterally - *Routine Cardiovascular Exam Present: RRR - *Routine Abdominal Exam Present: soft, normoactive bowel sounds - *Routine Extremities Exam Absent: edema - Routine Back/Spine/Pelvis Exam Back/Spine: Present: paraspinal tenderness, pain with flexion, pain with lateral flexion, warmth. Absent: erythema - *Routine Skin Exam Present: intact - *Routine Neurological Exam Present: alert, oriented X3 - Routine Psychiatric Exam Present: normal affect Results Labs on day of discharge: Preliminary micro results at discharge 02/25/18 22:00 Blood Culture - Preliminary Blood Strep pyogenes (grp a) 02/25/18 22:00 Blood Culture - Preliminary Blood Strep pyogenes (grp a) DS: Diagnosis - Discharge Diagnosis (1) Bacteremia due to Streptococcus Status: Acute (2) Febrile illness, acute Status: Acute Problem details: Secondary to strep pygenes bacteremia (3) Renal insufficiency syndrome Status: Acute (4) Lymphadenopathy Status: Acute (5) Chronic back pain Status: Acute (6) Spinal cord stimulator status Status: Acute (7) Obesity (BMI 30.0-34.9) Status: Acute (8) BMI 32.0-32.9,adult Status: Acute (9) Bilateral lower leg cellulitis Status: Acute (10) History of colon cancer Status: Acute (11) Shortness of breath Status: Acute (12) Neuropathy Status: Acute Discharge Plan - Patient Discharge Instructions ACTIVITY: Continue current activity DIET: continue same diet Additional Instructions: antibiotics given today will start tomorrow. watch for worsening of infection follow up as scheduled Patient Instructions: DI for Cellulitis -- Adult, Peripherally Inserted Central Catheter - Follow up Plan Follow up with: Kostas Campa MD [Primary Care Provider] - 03/07/18 Disposition: Home Health Service Home Medications: Home Medications Medication Instructions Recorded Confirmed Type celecoxib 200 mg capsule 200 mg PO DAILY cap 09/15/17 02/26/18 History hydrocodone 10 mg-acetaminophen 1 tab PO Q8H tab 09/15/17 02/26/18 History 325 mg tablet losartan 100 1 tab PO DAILY 09/15/17 02/26/18 History mg-hydrochlorothiazide 12.5 mg tablet morphine ER 15 mg tablet,extended 15 mg PO Q12H tab 09/15/17 02/26/18 History release omeprazole 20 mg capsule,delayed 40 mg PO DAILY 09/15/17 02/26/18 History release pregabalin 150 mg capsule 150 mg PO Q12H cap 09/15/17 02/26/18 History Tadalafil [Cialis] 5 mg PO DAILYP PRN 02/26/18 02/26/18 History clonazePAM [Clonazepam] 1 mg PO HS 02/26/18 02/26/18 History Prescriptions/Medication Reconciliation: New Furosemide [Lasix 20mg tab] 20 mg PO DAILY #30 tab levoFLOXacin [Levaquin 500mg tab] 500 mg PO DAILY #14 tablet Ceftriaxone Sodium [Rocephin 2gm ADV] 2 gm IV DAILY #13 vial.port Continue celecoxib 200 mg capsule 200 mg PO DAILY cap omeprazole 20 mg capsule,delayed release 40 mg PO DAILY losartan 100 mg-hydrochlorothiazide 12.5 mg tablet 1 tab PO DAILY hydrocodone 10 mg-acetaminophen 325 mg tablet 1 tab PO Q8H tab morphine ER 15 mg tablet,extended release 15 mg PO Q12H tab pregabalin 150 mg capsule 150 mg PO Q12H cap clonazePAM [Clonazepam] 1 mg PO HS Tadalafil [Cialis] 5 mg PO DAILYP PRN PRN Reason: ED
== END 2018-03-03 12:50 | disposition home health service (06) ==
LOC: ER 21:41 → 2ND 21:41
PROVIDERS: ADMIT Emergency Medicine; ATTEND Family Medicine

== ENCOUNTER → 2018-03-11 08:20 | Outpatient (CLI) | payer OTHER, MEDICARE, SELFPAY ==
--- NOTE | 2018-03-11 | CA_ITS ---
PROCEDURE: 2-D M-mode and color Doppler study INDICATIONS FOR THE TEST: Chest pain COPD Heart Murmur+ Tobacco Smoking Palpitations Fatigue Syncope Edema Hypertension+Diabetes Mellitus Rheumatic Fever SOB TELLEZ+Obesity Hyperlipidemia Family History HD+ Additional History colon cancer, murmur, dizziness PATIENT INFORMATION HEIGHT: 70 WEIGHT: 225 GENDER: Male B/P: 93/46 2-D/M-MODE INTERPRETATION: 2-D MEASUREMENTS OBSERVED VALUES IN CMS Right Ventricular Dimension (RVDd) 2.2 Interventricular Septum (Thickness)(IVsd) 1.2 Left Ventricular Internal Dimensions(LVIDd) 3.3 Left Ventricular Posterior Wall (Thickness)(LVPWd) 1.2 Aortic Root 2.8 Aortic Cusp Separation 2.2 Left Atrial Dimensions (LAD) 3.5 2D 1. Left atrium is mildly enlarged, left ventricle is normal size, mild concentric left ventricular hypertrophy, visually estimated ejection fraction of 55% with no regional wall motion abnormality. 2. The right atrium and right ventricle are normal size and contractility. 3. The aortic valve is minimally thickened and fibrosed. 4. Mitral and tricuspid valvular grossly normal. 5. The pulmonic valve is poorly visualized. 6. No significant pericardial effusion noted. DOPPLER INTERROGATION: Doppler interrogation of the aortic, mitral and tricuspid valvular presence of mild mitral and tricuspid regurgitation, calculated right ventricular systolic pressure 35 mmHg, grade 1 diastolic dysfunction seen without tissue Doppler evidence of raised left atrial pressure. CONCLUSION: 1. Mildly enlarged left atrium, normal left ventricular size, mild concentric left ventricular hypertrophy, visually estimated ejection fraction 55% with no regional wall motion abnormality, grade 1 diastolic dysfunction seen without tissue Doppler evidence of raised left atrial pressure. 2. Mild mitral and tricuspid regurgitation, calculated right ventricular systolic pressure is 35 mmHg consistent with mild pulmonary hypertension. 3. No significant pericardial effusion noted.
== END ==
PROVIDERS: PCP Family Medicine; Visit Provider Family Medicine
DX: R78.81 Bacteremia (principal)
CPT/HCPCS: 93306

== ENCOUNTER → 2018-04-20 06:20 | Outpatient (CLI) | payer OTHER, MEDICARE, SELFPAY ==
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
--- NOTE | 2018-04-20 06:22 | NM_ITS ---
CARDIOLITE SPECT MYOCARDIAL PERFUSION SCAN, REST AND STRESS: EXERCISE STRESS [facility] REVIEW QGS EF AND WALL MOTION EVALUATION: QPS - PERFUSION EVALUATION HISTORY: Abnormal EKG, SOB, HTN DOSE: 10.64 mCi technetium 99m mibi intravenously at rest followed by 31.3 mCi technetium 99m mibi following the intravenous ministration of 0.4 mg of Lexiscan. Resting blood pressure is 116/58. Stress blood pressure 109/59. FINDINGS: Ejection fraction is calculated to be 58%. Uniform myocardial activity at both stress and resting images calculated ejection fraction of 58% with normal wall motion IMPRESSION: No scintigraphic evidence of Lexiscan-induced myocardial ischemia with normal ejection fraction normal wall motion
--- NOTE | 2018-04-20 07:15 | HMH.ITSHM ---
Current Home Medications as stated by this patient Valente Gonzalez or client account representative. []PREGABALIN OMEPRAZOLE MORPHINE LOSARTAN LEVOFLOXACIN HYDROCODONE CLONAZEPAM CELECOXIB CIALIS LASIX ROCEPHIN
== END ==
PROVIDERS: PCP Family Medicine; Visit Provider Internal Medicine Cardiovascular Disease
DX: I10 Essential (primary) hypertension (principal); I27.20 Pulmonary hypertension, unspecified; R53.83 Other fatigue; R06.02 Shortness of breath
CPT/HCPCS: 36415; 71250; 78452; 83880; 93017; A9502; J2785

== ENCOUNTER → 2018-05-05 09:51 | Outpatient (CLI) | payer OTHER, MEDICARE, SELFPAY ==
[2018-05-05 10:24] LABS: Alanine Aminotransferase 27 U/L (12-78); Albumin Level 3.8 gm/dL (3.4-5.0); Alkaline Phosphatase 63 U/L (46-116); Aspartate Amino Transferase 20 U/L (15-37); Bilirubin,Direct 0.2 mg/dL (0.0-0.2); Bilirubin,Indirect 0.6 mg/dL (0.0-0.9); Bilirubin,Total 0.8 mg/dL (0.2-1.0); Chol/HDL Ratio 3.1 (1-3.5); Cholesterol 165 mg/dL (140-200); HDL Cholesterol 53 mg/dL (27-67); LDL Cholesterol 83 mg/dL (0-130); Total Protein,Serum 7.9 gm/dL (6.4-8.2); Triglycerides 144 mg/dL (30-200); VLDL Cholesterol 29 mg/dL (0-40)
== END ==
PROVIDERS: PCP Family Medicine; Visit Provider Internal Medicine Cardiovascular Disease
DX: G47.33 Obstructive sleep apnea (adult) (pediatric) (principal); I10 Essential (primary) hypertension; I27.20 Pulmonary hypertension, unspecified; I51.9 Heart disease, unspecified; R06.09 Other forms of dyspnea
CPT/HCPCS: 36415; 80061; 80076; G0399

== ENCOUNTER → 2018-07-22 12:41 | Outpatient (CLI) | payer OTHER, MEDICARE, SELFPAY ==
--- NOTE | 2018-07-22 12:50 | XR_ITS ---
XR knee RT 4V HISTORY: Chronic right knee pain ITS.REASON: Ap lateral, Serge paige weightbearing ORDERING PHYSICIAN: Sushma Cheatham MD PATIENT AGE: 68 years COMPARISON: 09 06 17 FINDINGS: There are moderate osteoarthritic changes of the medial compartment and patellofemoral joint. A cortical defect is once again noted involving the articular surface of the medial femoral condyle with an osteochondral defect. No acute fracture or dislocation is evident. No lytic changes are apparent. 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
== END ==
PROVIDERS: PCP Family Medicine; Visit Provider Orthopaedic Surgery
DX: M25.561 Pain in right knee (principal)
CPT/HCPCS: 73564

== ENCOUNTER → 2018-08-08 16:28 | Outpatient (CLI) | payer OTHER, MEDICARE, SELFPAY ==
[2018-08-08 17:47] LABS: Ferritin 68 ng/mL (8-388)
== END ==
PROVIDERS: Visit Provider Specialist
DX: E83.10 Disorder of iron metabolism, unspecified (principal); G47.33 Obstructive sleep apnea (adult) (pediatric)
CPT/HCPCS: 36415; 82728

== ENCOUNTER → 2018-09-21 11:55 | Outpatient (CLI) | payer OTHER, MEDICARE, SELFPAY ==
--- NOTE | 2018-09-21 12:00 | NVE_ITS ---
Venous Exam Indications: 729.5 Pain in limb. 729.5 Pain in limb. IMPRESSIONS 1. There is no evidence of significant Reflux. 2. No evidence of deep or superficial vein thrombosis involving the left lower extremity Left lower extremity venous duplex evaluation. Doppler flow study including spectral analysis, color and adams scale imaging. Location: Vascular laboratory. Patient status: Outpatient. CRITICAL FINDINGS - Reported to: [facility] - Read back and verified. - 09/21/18 - 1215 - NONE Tables: Venous flow and imaging: + +-------+ + Location Overall Flow properties + +-------+ + Left common femoral Patent Normal phasicity; spontaneous; normal augmentation; compressible + +-------+ + Left saphenofemoral junction Patent Compressible + +-------+ + Left profunda femoral Patent Compressible + +-------+ + Left femoral Patent Normal phasicity; spontaneous; normal augmentation; compressible + +-------+ + Left greater saphenous Patent Normal phasicity; spontaneous; normal augmentation; compressible + +-------+ + Left popliteal Patent Normal phasicity; spontaneous; normal augmentation; compressible + +-------+ + Left posterior tibial Patent Compressible + +-------+ + Left peroneal Patent Compressible + +-------+ + Left gastrocnemius Patent Compressible + +-------+ + Left soleal Patent Compressible + +-------+ + (Report amended ) Electronically signed by: Juanjo Coughlin [id number]
[2018-09-21 13:33] LABS: Basophils % 0.3 % (0.1-2.0); Eosinophils # 0.1 K/mm3 (0.0-0.4); Eosinophils % 2.4 % (0.1-12.0); Hematocrit 38.6 % (42.0-52.0); Hemoglobin 13.4 g/dL (14.1-18.0); Lymphocytes # 1.4 K/mm3 (0.7-4.5); Mean Corpuscular HGB Conc 34.8 g/dL (31.8-35.4); Mean Corpuscular Hemoglobin 31.2 pg (27.0-31.2); Mean Corpuscular Volume 89.8 fl (80-94); Mean Platelet Volume 7.6 fl (7.4-10.4); Monocytes # 0.3 K/mm3 (0.1-1.0); Monocytes % 5.3 % (1.7-9.3); Neutrophils % 67.8 % (37.0-80.0); Platelet Count 116 K/mm3 (142-424); Red Cell Distribution Width 14.8 % (11.5-17.5); White Blood Count 5.9 K/mm3 (4.8-10.8)
[2018-09-21 14:25] LABS: D-Dimer 229 ng/mL (0-400)
[2018-09-21 14:52] LABS: Blood Urea Nitrogen 17 mg/dL (7-18); Chloride 104 mmol/L (98-107); Potassium 3.9 mmoL/L (3.5-5.1); Sodium 142 mmol/L (136-145)
[2018-09-21 15:07] LABS: Alanine Aminotransferase 30 U/L (12-78); Albumin Level 3.6 gm/dL (3.4-5.0); Glucose 92 mg/dL (74-106); Troponin I < 0.02 ng/ml (0.00-0.06)
[2018-09-21 15:59] LABS: Albumin/Globulin Ratio 1.1 (1.1-1.8); Alkaline Phosphatase 77 U/L (46-116); Anion Gap 11.9 mEq/L (5-15); Aspartate Amino Transferase 13 U/L (15-37); Bilirubin,Total 0.5 mg/dL (0.2-1.0); CKMB Relative Index 1.1 U/L (0-4.0); Calcium 8.5 mg/dL (8.5-10.1); Carbon Dioxide 30 mmol/L (21.0-32.0); Creatine Kinase 65 U/L (39-308); Creatine Kinase MB 0.7 ng/ml (0.0-3.6); Estimated Glomerular Filt Rate 67 ml/min (>60); GFR (African American) 81 ML/MIN (>60); Globulin 3.4 gm/dl (1.3-3.2)
== END ==
PROVIDERS: PCP Physician Assistant; Visit Provider Physician Assistant
DX: R07.9 Chest pain, unspecified (principal); R06.02 Shortness of breath; R60.0 Localized edema; J06.9 Acute upper respiratory infection, unspecified; L53.9 Erythematous condition, unspecified
CPT/HCPCS: 36415; 80053; 82550; 82553; 83880; 84484; 85025; 85378; 87040; 93971

== ENCOUNTER → 2019-06-19 11:28 | Outpatient (CLI) | payer OTHER, MEDICARE, SELFPAY ==
[2019-06-19 12:47] LABS: Blood Urea Nitrogen 19 mg/dl (9-20); Estimated Glomerular Filt Rate 75 ml/min (>60); GFR (African American) 90 ML/MIN (>60)
== END ==
PROVIDERS: Visit Provider Physical Medicine & Rehabilitation
DX: Z01.812 Encounter for preprocedural laboratory examination (principal)
CPT/HCPCS: 36415; 82565; 84520

== ENCOUNTER → 2019-12-28 10:13 | Outpatient (CLI) | payer OTHER, MEDICARE, SELFPAY ==
[2019-12-28 10:45] LABS: Basophils % 0.3 % (0.1-2.0); Eosinophils # 0.1 K/mm3 (0.0-0.4); Eosinophils % 2.1 % (0.1-12.0); Hematocrit 40.2 % (42.0-52.0); Hemoglobin 13.6 g/dL (14.1-18.0); Lymphocytes # 1.7 K/mm3 (0.7-4.5); Lymphocytes % 34.4 % (10-50); Mean Corpuscular HGB Conc 33.8 g/dL (31.8-35.4); Mean Corpuscular Hemoglobin 31.7 pg (27.0-31.2); Mean Corpuscular Volume 93.8 fl (80-94); Mean Platelet Volume 8.1 fl (7.4-10.4); Monocytes # 0.2 K/mm3 (0.1-1.0); Monocytes % 4.2 % (1.7-9.3); Neutrophils # 2.9 K/mm3 (1.8-7.8); Platelet Count 127 K/mm3 (142-424); Red Blood Count 4.29 M/mm3 (4.60-6.20); Red Cell Distribution Width 14.5 % (11.5-17.5); White Blood Count 4.9 K/mm3 (4.8-10.8)
[2019-12-28 11:11] LABS: Alanine Aminotransferase 25 U/L (12-78); Albumin/Globulin Ratio 1.5 (1.1-1.8); Alkaline Phosphatase 69 U/L (38-126); Anion Gap 7.7 mEq/L (5-15); Aspartate Amino Transferase 25 U/L (17-59); Bilirubin,Total 0.4 mg/dl (0.2-1.3); Blood Urea Nitrogen 16 mg/dl (9-20); Calcium 9.2 mg/dl (8.4-10.2); Carbon Dioxide 36 mmol/L (22.0-30.0); Chloride 99 mmol/L (98-107); Chol/HDL Ratio 2.7 (1-3.5); Cholesterol 163 mg/dl (140-200); Estimated Glomerular Filt Rate 84 ml/min (>60); GFR (African American) 102 ML/MIN (>60); Globulin 2.7 g/dL (1.3-3.2); Glucose 119 mg/dl (74-100); HDL Cholesterol 60 mg/dl (40-60); Magnesium 2.3 mg/dl (1.6-2.3); Phosphorous 3.4 mg/dl (2.5-4.5); Potassium 4.7 mmoL/L (3.5-5.1); Sodium 138 mmol/L (136-145); Total Protein,Serum 6.7 g/dl (6.3-8.2); Triglycerides 133 mg/dl (30-150); VLDL Cholesterol 27 mg/dL (0-40)
[2019-12-28 11:23] LABS: Direct LDL Cholesterol 83.55 mg/dL (100-129)
[2019-12-28 11:41] LABS: Thyroid Stimulating Hormone 0.61 uIU/mL (0.465-4.68)
[2019-12-28 12:03] LABS: Creatinine,Urine Random 127 mg/dL (Not Estab.)
[2019-12-28 12:07] LABS: Microalbumin < 6.000 mg/L (0-16.7)
== END ==
PROVIDERS: Visit Provider Family Medicine
DX: R25.2 Cramp and spasm (principal); I10 Essential (primary) hypertension
CPT/HCPCS: 36415; 80053; 80061; 82043; 82570; 83735; 84100; 84443; 85025

== ENCOUNTER → 2020-02-03 11:44 | Outpatient (CLI) | payer OTHER, MEDICARE, SELFPAY ==
[2020-02-03 14:48] LABS: Coronavirus 19 IgG Antibody Negative (Negative); Coronavirus 19 IgM Antibody Negative (Negative)
== END ==
PROVIDERS: Visit Provider Internal Medicine Gastroenterology
DX: Z01.89 Encounter for other specified special examinations (principal); Z12.11 Encounter for screening for malignant neoplasm of colon
CPT/HCPCS: 36415; 86328

== ENCOUNTER 2020-02-05 12:48 | Day surgery (SDC) | payer OTHER, MEDICARE, SELFPAY ==
[2020-01-30 10:54] VITALS: BMI 34.4
[2020-02-05] VITALS (7 sets, daily range): BP systolic 122–136; BP diastolic 68–84; PULSE 59–95; RESP 18–19; TEMP 36.3–36.5; O2SAT 93–97
--- NOTE | 2020-02-05 14:38 | HMH.PROC ---
[facility] Procedure Note Procedure Note:: Colonoscopy Procedure Report: Colonoscopy with cold snare polypectomy Endoscopist: Iglesia Hyde II, MD Referring physician: Kostas Campa MD Date of Procedure: February 05, 2020 Equipment: Olympus 180 variable stiffness pediatric colonoscope Sedation: MAC sedation Indication: Mr. Gonzalez is a 69-year-old gentleman who is here for high risk rating colonoscopy secondary to a personal history of colon cancer. He was diagnosed with sigmoid colon cancer in August 2009 and had surgery (Dr. Abebe Amanda). The patient reports no abdominal pain, weight loss, change in his bowel habits or rectal bleeding. He reports no family history of colon cancer. His last colonoscopy was approximately 5 years ago (according to the patient). Procedure: Prior to the procedure, a history and physical exam was performed, and patient's medications and allergies were reviewed. The risks, benefits and alternatives of the sedation and procedure were discussed with the patient. All questions were answered and informed consent was obtained. The patient was brought to the procedure room. Patient identification and proposed procedure were verified by the physician and the nurse. The patient was placed in a left lateral decubitus position and the scope was passed under direct vision. Throughout the procedure, the patient's blood pressure, pulse, and oxygen saturations were monitored continuously. The colonoscopy was accomplished without difficulty. The patient tolerated the procedure well. Findings: On digital rectal examination there was normal rectal tone. There were no external hemorrhoids. The prostate was moderately firm but symmetric without nodules (2-3+). The colonoscope was introduced through the anal canal to the rectum and advanced to the cecum. The ileocecal valve and appendiceal orifice were identified. The scope was advanced a short distance into the ileum which appeared grossly normal. The scope was then withdrawn into the colon. There were a total of 4 colon polyps (cecum x3 (3, 4 and 5 mm) and sigmoid x1 (4 mm)) which were all removed via cold snare polypectomy. The remainder of the ascending, transverse, descending colon was normal. The anastomosis appeared normal. The rectum itself was normal. Upon retroflexion within the rectum there were 1-2 internal hemorrhoids. The preparation was excellent throughout with [place] Preparation Score of 9. The cecal time was 12 minutes. Impression: 1. Diminutive colonic polyps x4 2. Grade 1-2 internal hemorrhoids Plan: I will follow up the polyp pathology and recommend repeat colonoscopy again in 3-5 years based upon the polyp histology. I would encourage fiber supplementation on a long-term daily maintenance basis.
--- NOTE | 2020-02-05 16:22 | P.PN_ITS ---
[facility] Anesthesia Checklist - Structural Data Admitted From: Home Planned Operative Procedure/s: colonoscopy Consent for Planned Operative Procedure(s) Verified: Yes - Airway Assessment C-Spine Mobility Assessed: Yes TMJ Mobility Assessed: Yes Dentition: Good Dentition - Neurological Assessment Level of Consciousness: Awake, Alert, Appropriate - Anesthesia Plan Anesthesia Risk discussed: Yes Anesthesia Plan: Verified ASA Class: II Anesthesia Type: MAC [facility] History I have reviewed the patient's past medical history: Yes Medical History: Reports:: Cancer (colon), Heart Murmur, Hyperlipidemia, Hypertension Denies:: Chronic Obstructive Pulmonary Disease (COPD), Diabetes Mellitus Type 1, Diabetes Mellitus Type 2, Internal Pacemaker, MRSA, Seizures *Have you ever received a pneumonia vaccine?: No *Have you received a flu vaccine this season?: No Other Medical History: Reports: Arthritis, Sinus Problems Anesthesia experience/problems:: none Laterality Cases: Right: Arthroscopy Knee, Bilateral: Other Other Surgeries: Yes: Colon Resection, Other. No: Pacemaker Amputation: No Fractures: Yes - *Social History Smoking Status: Never smoker Alcohol Intake: never Alcohol Intake Frequency:: a few times a week Substance Use Type: denies use *Occupational Status:: retired Housing: house Household Members: spouse, family *Travel in the last 8 weeks: None Family Hx:: Diabetes, Heart Attack, Hyperlipidemia, Hypertension
== END 2020-02-05 15:35 | disposition home or self-care (01) ==
LOC: OUTP 12:51
PROVIDERS: PCP Family Medicine; Visit Provider Internal Medicine Gastroenterology
PROC: 0DJD8ZZ Inspection of Lower Intestinal Tract, Via Natural or Artificial Opening Endoscopic (ICD-10-PCS; CPT 45378; principal; 2020-02-05 14:00)
DX: Z12.11 Encounter for screening for malignant neoplasm of colon (principal); K63.5 Polyp of colon; K64.0 First degree hemorrhoids; Z85.038 Personal history of other malignant neoplasm of large intestine; E78.5 Hyperlipidemia, unspecified; I10 Essential (primary) hypertension; M19.90 Unspecified osteoarthritis, unspecified site; G47.33 Obstructive sleep apnea (adult) (pediatric); I27.20 Pulmonary hypertension, unspecified; Z87.39 Personal history of other diseases of the musculoskeletal system and connective tissue; Z96.89 Presence of other specified functional implants; Z79.899 Other long term (current) drug therapy
CPT/HCPCS: 45385

== ENCOUNTER 2020-11-30 16:42 | Emergency (ER) | payer OTHER, MEDICARE, SELFPAY ==
[2020-11-30 16:43] VITALS: BP 153/68; PULSE 77; RESP 18; TEMP 36.7; O2SAT 96; BMI 33.0
--- NOTE | 2020-11-30 17:40 | HMH.EDUTC ---
[facility] Disposition Clinical Impression: Infected blister of great toe of right foot Qualifiers: Encounter type: initial encounter Qualified Code(s): S90.421A - Blister (nonthermal), right great toe, initial encounter; L08.9 - Local infection of the skin and subcutaneous tissue, unspecified Edema Qualifiers: Edema type: unspecified Qualified Code(s): R60.9 - Edema, unspecified Disposition: Home, Self-Care Condition on Discharge: Good Instructions: DI for Skin Abscess Additional Instructions: Follow up with Dr Campa next week Return to [facility] or ER if infection worsens Prescriptions: Sulfamethoxazole/Trimethoprim [Bactrim DS tablet] 1 each PO BID 10 Days #20 tab Transmission Status: Pending to [facility] Furosemide [Lasix 20mg tab] 20 mg PO DAILY 3 Days #3 tab Transmission Status: Pending to [facility] Referrals: Kostas Campa MD [Primary Care Provider] - Time of Disposition: 17:52 Medical Decision Making - Abraham Inquiry Pt receiving controlled substance: No Vital Signs: 11/30/20 16:43 Temperature 98.1 F Temperature Source Oral Pulse Rate [Left Radial] 77 Respiratory Rate 18 Blood Pressure [Right Arm] 153/68 H Blood Pressure Mean [Right Arm] 96 Blood Pressure Source [Right Arm] Automatic Cuff Blood Pressure Position [Right Arm] Sitting 02 Sat by Pulse Oximetry 96 [facility] HPI - General Stated complaint: sore on r foot Time Seen by Provider: 11/30/20 17:40 Mode of Arrival: Ambulatory Source of Information: Patient Limitations: No Limitations Description of Symptoms (Recalled from Triage Doc. by RN): c/o right big toe sore for 2 weeks HEENT Symptoms (Recalled from RN notes): No Resp Symptoms (Recalled from RN notes): No Skin Symptoms (Recalled from RN notes): Yes MS Symptoms (Recalled from RN notes): No Functional Status (Recalled from RN notes): wnl - History of Present Illness Provider Complaint: Bottom of right great toe infected, swelling, peeling. Has had for two weeks. No pain. No history of diabetes. Has history of what sounds like MRSA sepsis, but he isn't sure. That was several years ago. No fever. He states his legs have been swollen the past few days as well. Onset (ago): week(s) (2) Location: right, lower extremity Relieving factors: none Exacerbating factors: none Associated symptoms: denies other symptoms Treatments prior to arrival: none - Related Data Home Medications Medication Instructions Recorded Confirmed celecoxib 200 mg capsule 200 mg PO DAILY cap 09/15/17 02/05/20 omeprazole 20 mg capsule,delayed 40 mg PO DAILY 09/15/17 02/05/20 release pregabalin 150 mg capsule 150 mg PO Q12H cap 09/15/17 02/05/20 clonazePAM [Clonazepam] 1 mg PO HS 02/26/18 02/05/20 tadalafiL [Cialis] 5 mg PO DAILYP PRN 02/26/18 02/05/20 morphine 15 mg tablet,extended 15 mg PO BID tab 06/10/18 02/05/20 release losartan 100 mg tablet 100 mg PO DAILY 10/07/18 02/05/20 Aspirin [Low Dose Aspirin EC] 81 mg PO DAILY 01/30/20 02/05/20 Oxycodone HCl/Acetaminophen 1 tab PO BID 01/30/20 02/05/20 [Percocet 10-325 mg Tablet] Pramipexole Di-HCl [Pramipexole 0.25 mg PO QHS 01/30/20 02/05/20 Dihydrochloride] Previous Rx's Medication Instructions Recorded Furosemide [Lasix 20mg tab] 20 mg PO DAILY 3 Days #3 tab 11/30/20 Sulfamethoxazole/Trimethoprim 1 each PO BID 10 Days #20 tab 11/30/20 [Bactrim DS tablet] Allergies Allergy/AdvReac Type Severity Reaction Status Date / Time No Known Allergies Allergy Verified 10/07/18 09:32 - Worker's Comp Is this a Worker's Comp case?: No [facility] History - Hepatitis A Screen Drug use history?: No High risk sexual behaviors?: No History of sexually transmitted infection?: No Currently employed?: No Childcare worker?: No Do you have indoor plumbing?: Yes Do you have electricity?: Yes Attestation statement:: This patient has been screened for Hepatitis A risk factors. I have reviewed the patient's pa
[2020-11-30 18:01] VITALS: BP 153/68; PULSE 77; RESP 18; TEMP 36.7; O2SAT 96
--- NOTE | 2020-12-03 10:43 | PC.NURSE ---
Lab Results- [facility]- Wound culture positive for MRSA
== END 2020-11-30 18:01 | disposition home or self-care (01) ==
PROVIDERS: Emergency Provider Physician Assistant; PCP Family Medicine
DX: S90.421A Blister (nonthermal), right great toe, initial encounter (principal); L08.9 Local infection of the skin and subcutaneous tissue, unspecified; R60.9 Edema, unspecified; I10 Essential (primary) hypertension; E78.5 Hyperlipidemia, unspecified; Z79.899 Other long term (current) drug therapy
CPT/HCPCS: 87070; 87077; 87186; 87205; 96372; 99202; G0463

== ENCOUNTER → 2020-12-06 11:28 | Outpatient (CLI) | payer OTHER, MEDICARE, SELFPAY ==
--- NOTE | 2020-12-06 11:34 | XR_ITS ---
PROCEDURE: XR FOOT RT MIN 3V CLINICAL INDICATION: RT FOOT PAIN COMPARISON: No exams were available for comparison FINDINGS: No fracture or dislocation. No lytic or blastic change. There is normal mineralization. The joint spaces are well-preserved. No significant degenerative/arthritic changes. No erosive changes evident. Other findings:None. IMPRESSION: No acute findings. Dictated by: Juanjo Coughlin MD 12/06/2020 12:04 Juanjo Coughlin MD in [place] 12/06/2020 12:04
== END ==
PROVIDERS: PCP Family Medicine; Visit Provider Family Medicine
DX: M79.671 Pain in right foot (principal); S91.101A Unspecified open wound of right great toe without damage to nail, initial encounter
CPT/HCPCS: 73630

== ENCOUNTER → 2021-02-03 12:11 | Outpatient (CLI) | payer OTHER, MEDICARE, SELFPAY ==
--- NOTE | 2021-02-03 12:17 | XR_ITS ---
PROCEDURE: XR CHEST 2V CLINICAL HISTORY: CHEST PAIN, UNSPECIFIED TYPE COMPARISON: CR CXR2 XR chest AP from 02/25/2018 CR [id number] XR chest portable from 03/01/2018 CR [id number] XR chest portable PICC plac from 03/02/[address] chest wo con from 04/20/2018 FINDINGS: The cardiomediastinal silhouette and pulmonary vascularity are within normal limits. The lungs are clear without infiltrates, suspicious nodules, or pleural effusions. There is a bifid 4th rib. Epidural stimulator devices are present extending from the lower thoracic region to the T8 level.. IMPRESSION: As above, no change no acute finding Dictated by: Juanjo Coughlin MD 02/03/2021 12:42 Juanjo Coughlin MD in [place] 02/03/2021 12:42
--- NOTE | 2021-02-03 12:48 | ECG_ITS ---
APPROVED REPORT Exam: Resting ECG HR:67 bpm ECG Measurements Heart Rate 67 AXES RI 160 P 43 QRSd 96 QRS -7 QT 382 T 59 QTc 403 Conclusion Normal sinus rhythm Normal ECG Electronically signed by : Charly Hilton MD 02/03/2021 21:18:59
[2021-02-03 13:22] LABS: Basophils # 0.1 K/mm3 (0-0.2); Eosinophils # 0.1 K/mm3 (0.0-0.4); Eosinophils % 1.5 % (0.1-12.0); Hematocrit 45.1 % (42.0-52.0); Hemoglobin 15.2 g/dL (14.1-18.0); Lymphocytes # 1.9 K/mm3 (0.7-4.5); Lymphocytes % 34.5 % (10-50); Mean Corpuscular HGB Conc 33.7 g/dL (31.8-35.4); Mean Corpuscular Volume 95.1 fl (80-94); Mean Platelet Volume 8.2 fl (7.4-10.4); Monocytes # 0.3 K/mm3 (0.1-1.0); Monocytes % 5.4 % (1.7-9.3); Neutrophils # 3.1 K/mm3 (1.8-7.8); Neutrophils % 57.6 % (37.0-80.0); Platelet Count 162 K/mm3 (142-424); Red Blood Count 4.75 M/mm3 (4.60-6.20); White Blood Count 5.4 K/mm3 (4.8-10.8)
[2021-02-03 13:47] LABS: Anion Gap 9.5 mEq/L (5-15); Blood Urea Nitrogen 18 mg/dl (9-20); Calcium 9.3 mg/dl (8.4-10.2); Carbon Dioxide 33 mmol/L (22.0-30.0); Chloride 102 mmol/L (98-107); Estimated Glomerular Filt Rate 67 ml/min (>60); GFR (African American) 81 ML/MIN (>60); Glucose 99 mg/dl (74-100); Potassium 4.5 mmoL/L (3.5-5.1); Sodium 140 mmol/L (136-145)
== END ==
PROVIDERS: PCP Family Medicine; Visit Provider Family Medicine
DX: R07.9 Chest pain, unspecified (principal); L03.031 Cellulitis of right toe
CPT/HCPCS: 36415; 71046; 80048; 85025; 93005

== ENCOUNTER → 2021-02-27 14:03 | Outpatient (CLI) | payer OTHER, MEDICARE, SELFPAY ==
[2021-02-27 14:33] LABS: Basophils # 0.1 K/mm3 (0-0.2); Basophils % 0.9 % (0.1-2.0); Eosinophils # 0.1 K/mm3 (0.0-0.4); Eosinophils % 1.6 % (0.1-12.0); Hematocrit 49.1 % (42.0-52.0); Lymphocytes # 2.2 K/mm3 (0.7-4.5); Mean Corpuscular HGB Conc 32.6 g/dL (31.8-35.4); Mean Corpuscular Hemoglobin 31.8 pg (27.0-31.2); Mean Corpuscular Volume 97.7 fl (80-94); Monocytes # 0.3 K/mm3 (0.1-1.0); Monocytes % 5.5 % (1.7-9.3); Neutrophils # 2.9 K/mm3 (1.8-7.8); Platelet Count 160 K/mm3 (142-424); Red Blood Count 5.02 M/mm3 (4.60-6.20); Red Cell Distribution Width 13.8 % (11.5-17.5); White Blood Count 5.6 K/mm3 (4.8-10.8)
[2021-02-27 15:18] LABS: Alanine Aminotransferase 26 U/L (12-78); Albumin Level 4.6 g/dl (3.5-5.0); Albumin/Globulin Ratio 1.6 (1.1-1.8); Alkaline Phosphatase 75 U/L (38-126); Anion Gap 13.3 mEq/L (5-15); Aspartate Amino Transferase 32 U/L (17-59); Bilirubin,Total 0.3 mg/dl (0.2-1.3); Blood Urea Nitrogen 19 mg/dl (9-20); Calcium 9.1 mg/dl (8.4-10.2); Carbon Dioxide 31 mmol/L (22.0-30.0); Chloride 101 mmol/L (98-107); Estimated Glomerular Filt Rate 74 ml/min (>60); GFR (African American) 90 ML/MIN (>60); Globulin 2.8 g/dL (1.3-3.2); Glucose 78 mg/dl (74-100); Potassium 4.3 mmoL/L (3.5-5.1); Sodium 141 mmol/L (136-145); Total Protein,Serum 7.4 g/dl (6.3-8.2)
[2021-02-27 15:23] LABS: C-Reactive Protein 5.7 mg/L (0-4)
[2021-02-27 15:37] LABS: Erythrocyte Sedimentation Rate 6 mm/hr (0-20)
== END ==
PROVIDERS: Visit Provider Nurse Practitioner
DX: Z51.89 Encounter for other specified aftercare (principal); L97.512 Non-pressure chronic ulcer of other part of right foot with fat layer exposed
CPT/HCPCS: 36415; 80053; 85025; 85651; 86140

== ENCOUNTER → 2021-03-18 09:55 | Outpatient (CLI) | payer OTHER, MEDICARE, SELFPAY ==
[2021-03-18 10:30] LABS: Basophils % 0.7 % (0.1-2.0); Eosinophils # 0.1 K/mm3 (0.0-0.4); Eosinophils % 1.5 % (0.1-12.0); Hematocrit 46.2 % (42.0-52.0); Lymphocytes # 2.1 K/mm3 (0.7-4.5); Lymphocytes % 38.1 % (10-50); Mean Corpuscular HGB Conc 34.6 g/dL (31.8-35.4); Mean Corpuscular Hemoglobin 31.8 pg (27.0-31.2); Mean Corpuscular Volume 91.9 fl (80-94); Mean Platelet Volume 8.5 fl (7.4-10.4); Monocytes # 0.3 K/mm3 (0.1-1.0); Monocytes % 5.1 % (1.7-9.3); Neutrophils # 3.1 K/mm3 (1.8-7.8); Neutrophils % 54.7 % (37.0-80.0); Platelet Count 174 K/mm3 (142-424); Red Blood Count 5.02 M/mm3 (4.60-6.20); Red Cell Distribution Width 13.6 % (11.5-17.5); White Blood Count 5.6 K/mm3 (4.8-10.8)
[2021-03-18 11:18] LABS: Chloride 102 mmol/L (98-107); Sodium 139 mmol/L (136-145)
[2021-03-18 11:19] LABS: Potassium 4.2 mmoL/L (3.5-5.1)
[2021-03-18 11:21] LABS: Alanine Aminotransferase 25 U/L (12-78); Alkaline Phosphatase 60 U/L (38-126); Anion Gap 11.2 mEq/L (5-15); Aspartate Amino Transferase 34 U/L (17-59); Bilirubin,Total 0.3 mg/dl (0.2-1.3); Blood Urea Nitrogen 20 mg/dl (9-20); Carbon Dioxide 30 mmol/L (22.0-30.0); Estimated Glomerular Filt Rate 67 ml/min (>60); GFR (African American) 81 ML/MIN (>60)
[2021-03-18 11:22] LABS: Albumin Level 4.5 g/dl (3.5-5.0); Albumin/Globulin Ratio 1.8 (1.1-1.8); Calcium 9.4 mg/dl (8.4-10.2); Globulin 2.5 g/dL (1.3-3.2); Glucose 130 mg/dl (74-100)
[2021-03-18 11:27] LABS: C-Reactive Protein 2.4 mg/L (0-4)
[2021-03-18 12:27] LABS: Erythrocyte Sedimentation Rate 15 mm/hr (0-20)
== END ==
PROVIDERS: Visit Provider Nurse Practitioner
DX: L08.9 Local infection of the skin and subcutaneous tissue, unspecified (principal); S90.421A Blister (nonthermal), right great toe, initial encounter
CPT/HCPCS: 36415; 80053; 85025; 85651; 86140

== ENCOUNTER 2021-04-20 09:20 | Emergency (ER) | payer OTHER, MEDICARE, SELFPAY ==
[2021-04-20 09:40] VITALS: BP 128/76; PULSE 76; RESP 18; TEMP 37; O2SAT 100; BMI 33.0
--- NOTE | 2021-04-20 10:37 | HMH.EDUTC ---
[facility] [place] Impression: Impacted cerumen of right ear Contact dermatitis Qualifiers: Contact dermatitis type: allergic Contact dermatitis trigger: other chemical product Qualified Code(s): L23.5 - Allergic contact dermatitis due to other chemical products Disposition: Home, Self-Care Condition on Discharge: Good Instructions: DI for Cerumen Impaction, DI for Contact Dermatitis Additional Instructions: follow up with pcp if symptoms worsen or do not improve return or be seen in ed Prescriptions: predniSONE [Prednisone 20mg Tab] 20 mg PO BID #10 tab Transmission Status: Pending to [facility] Referrals: Kostas Campa MD [Primary Care Provider] - Time of Disposition: 10:48 Medical Decision Making - Abraham Inquiry Pt receiving controlled substance: No Vital Signs: 04/20/21 09:40 Temperature 98.6 F Temperature Source Oral Pulse Rate [Right Brachial] 76 Respiratory Rate 18 Blood Pressure [Right Arm] 128/76 Blood Pressure Mean [Right Arm] 93 Blood Pressure Source [Right Arm] Automatic Cuff Blood Pressure Position [Right Arm] Sitting 02 Sat by Pulse Oximetry 100 Oxygen Delivery Method Room Air [facility] [place] - General Chief complaint: [facility] Stated complaint: right ear pain Time Seen by Provider: 04/20/21 10:37 Mode of Arrival: Ambulatory Source of Information: Patient, Spouse Limitations: No Limitations Description of Symptoms (Recalled from Triage Doc. by RN): PATIENT C/O RIGHT EAR PAIN AND FEVER BLISTERS ON MOUTH X 1 WEEK HEENT Symptoms (Recalled from RN notes): Yes Resp Symptoms (Recalled from RN notes): No Skin Symptoms (Recalled from RN notes): No MS Symptoms (Recalled from RN notes): No Functional Status (Recalled from RN notes): WNL - History of Present Illness Provider Complaint: 70 yr old male presnets for rt ear pain, hard to hear and he was working and stuck a metal pin in mouth and is allergic to it now has a rash to lip and chin. - Related Data Home Medications Medication Instructions Recorded Confirmed celecoxib 200 mg capsule 200 mg PO DAILY cap 09/15/17 04/01/21 omeprazole 20 mg capsule,delayed 40 mg PO DAILY 09/15/17 04/01/21 release pregabalin 150 mg capsule 150 mg PO Q12H cap 09/15/17 04/01/21 clonazePAM [Clonazepam] 1 mg PO HS 02/26/18 04/01/21 tadalafiL [Cialis] 5 mg PO DAILYP PRN 02/26/18 04/01/21 morphine 15 mg tablet,extended 15 mg PO BID tab 06/10/18 04/01/21 release losartan 100 mg tablet 100 mg PO DAILY 10/07/18 04/01/21 Aspirin [Low Dose Aspirin EC] 81 mg PO DAILY 01/30/20 04/01/21 Oxycodone HCl/Acetaminophen 1 tab PO BID 01/30/20 04/01/21 [Percocet 10-325 mg Tablet] cefuroxime axetil 500 mg tablet 500 mg PO tab 12/11/20 04/01/21 cyclobenzaprine 10 mg tablet 10 mg PO tab 12/11/20 04/01/21 Previous Rx's Medication Instructions Recorded clindamycin HCl 300 mg capsule 300 mg PO TID 14 Days #42 cap 03/17/21 predniSONE [Prednisone 20mg 20 mg PO BID #10 tab 04/20/21 Tab] Allergies Allergy/AdvReac Type Severity Reaction Status Date / Time No Known Allergies Allergy Verified 04/01/21 11:46 - Worker's Comp Is this a Worker's Comp case?: No H History - Hepatitis A Screen Drug use history?: No High risk sexual behaviors?: No History of sexually transmitted infection?: No Currently employed?: No Childcare worker?: No Do you have indoor plumbing?: Yes Do you have electricity?: Yes Attestation statement:: This patient has been screened for Hepatitis A risk factors. I have reviewed the patient's past medical history: Yes Medical History: Reports:: Cancer, Heart Murmur, Hyperlipidemia, Hypertension Denies:: Chronic Obstructive Pulmonary Disease (COPD), Diabetes Mellitus Type 1, Diabetes Mellitus Type 2, Internal Pacemaker, MRSA, Seizures Other Medical History: Reports: Arthritis, Sinus Problems Laterality Cases: Right: Arthroscopy Knee, Bilateral: Other Other Surgeries: Yes: Cancer Samuel
[2021-04-20 10:50] VITALS: BP 128/76; PULSE 76; RESP 18; TEMP 37; O2SAT 100
== END 2021-04-20 10:55 | disposition home or self-care (01) ==
PROVIDERS: Emergency Provider Nurse Practitioner Family; PCP Family Medicine
DX: L23.5 Allergic contact dermatitis due to other chemical products (principal); H61.21 Impacted cerumen, right ear; I10 Essential (primary) hypertension; E78.5 Hyperlipidemia, unspecified; Z79.899 Other long term (current) drug therapy
CPT/HCPCS: 99202; G0463

== ENCOUNTER → 2021-11-11 11:43 | Outpatient (CLI) | payer OTHER, MEDICARE, SELFPAY ==
--- NOTE | 2021-11-11 12:28 | XR_ITS ---
FINAL REPORT CLINICAL HISTORY: COVID OUTPATIENT, fever, cough COMPARISON: 02/03/2021 FINDINGS: SINGLE-VIEW CHEST The heart size is normal. The mediastinum is normal. The lungs are clear. There is no pneumothorax. Spinal stimulators are present. IMPRESSION: No acute cardiopulmonary process. Reviewed, Interpreted and Dictated by Abebe Bowser III, MD Transcribed by Yoselin Daniel Authenticated and [facility]
== END ==
PROVIDERS: PCP Family Medicine; Visit Provider Family Medicine
DX: Z20.822 Contact with and (suspected) exposure to COVID-19 (principal)
CPT/HCPCS: 71045; C9803; U0003; U0005

== ENCOUNTER 2022-12-19 08:27 | Emergency (ER) | payer BC, MEDICARE, SELFPAY ==
[2022-12-19 08:29] VITALS: BP 146/64; PULSE 86; RESP 23; TEMP 36.9; O2SAT 96; BMI 33.7
--- NOTE | 2022-12-19 08:33 | PC.NURSE ---
Dr. Callahan at bedside
[2022-12-19 08:39] VITALS: BP 146/64; PULSE 86; RESP 18; O2SAT 96
--- NOTE | 2022-12-19 08:41 | ECG_ITS ---
APPROVED REPORT Exam: Resting ECG HR:85 bpm ECG Measurements Heart Rate 85 AXES TX 172 P 74 QRSd 110 QRS -37 QT 372 T 59 QTc 414 Conclusion SINUS RHYTHM LEFT AXIS DEVIATION [QRS AXIS < -30] ABNORMAL ECG UNCONFIRMED REPORT Electronically signed by : Charly Hilton MD 12/22/2022 17:26:11
--- NOTE | 2022-12-19 08:46 | XR_ITS ---
PROCEDURE INFORMATION: Exam: XR Chest Exam date and time: 12/19/2022 9:13 AM Age: 72 years old Clinical indication: Dyspnea TECHNIQUE: Imaging protocol: Radiologic exam of the chest. Views: 1 view. COMPARISON: CR XR CHEST PORTABLE 11/11/2021 12:42 PM FINDINGS: Lungs: Unremarkable. No consolidation. Pleural spaces: Unremarkable. No pleural effusion. No pneumothorax. Heart/Mediastinum: Unremarkable. No cardiomegaly. Bones/joints: Unremarkable. IMPRESSION: No acute findings.
--- NOTE | 2022-12-19 08:48 | HMH.EDGENADL ---
Discharge Plan Disposition Patient Disposition: Home, Self-Care Prescriptions Prescriptions: New Paxlovid 300 mg (150 mg x 2)-100 mg tablets,dose pack See Rx Instructions PO .COMPLEX Qty: 30 0RF Rx Instructions: take TWO 150 mg tablets of nirmatrelvir with ONE 100 mg tablet of ritonavir twice daily for 5 days No Action pregabalin [Lyrica] 150 mg capsule 150 mg PO Q12H celecoxib 200 mg capsule 200 mg PO DAILY omeprazole 20 mg capsule,delayed release(DR/EC) 40 mg PO DAILY losartan 100 mg tablet 100 mg PO DAILY aspirin 81 MG tablet,delayed release (DR/EC) 81 mg PO DAILY hydroxyzine HCl 25 mg tablet 25 mg PO TIDP PRN (Reason: Muscle Pain) Referrals Follow up/Referrals: Kostas Campa MD [Primary Care Provider] - See instructions Activity Restrictions/Add. Instructions Additional Instructions/Restrictions: Return with worsening shortness of breath or other concerns. Take Tylenol and ibuprofen as needed for your symptoms. Clinical Impressions Clinical Impression: COVID-19, Acute viral syndrome Discharge ED Provider: Hiwot Fishman General Adult HPI General Chief complaint: Shortness of Breath/Dyspnea Stated complaint: JACOB, Walter, painful brathing Time Seen by Provider: 12/19/22 08:33 History of Present Illness HPI narrative: Patient is a 72-year-old male who presents with I think I have COVID. He began feeling ill yesterday where he was having some congestion and headache nausea and vomiting cough difficulty breathing and some pain with respirations. States that he had some household contacts that were recently positive for COVID. Denies any fevers at home but did have Tylenol just prior to arrival. Related Data Home Medications Medication Instructions Recorded Confirmed celecoxib 200 mg capsule 200 mg PO DAILY INFLAMMATION 09/15/17 12/19/22 omeprazole 20 mg capsule,delayed 40 mg PO DAILY STOMACH 09/15/17 12/19/22 release pregabalin 150 mg capsule (Lyrica) 150 mg PO Q12H NERVE PAIN 09/15/17 12/19/22 losartan 100 mg tablet 100 mg PO DAILY blood pressure 10/07/18 12/19/22 aspirin 81 mg tablet,delayed 81 mg PO DAILY Heart disease 01/30/20 12/19/22 release hydroxyzine HCl 25 mg tablet 25 mg PO TIDP PRN Muscle Pain 12/19/22 12/19/22 Previous Rx's Medication Instructions Recorded nirmatrelvir 300 mg (150 mg See Rx Instructions PO .COMPLEX 12/19/22 x2)-ritonavir 100 mg tablet,dose #30 tabs pack (Paxlovid) Allergies Allergy/AdvReac Type Severity Reaction Status Date / Time No Known Allergies Allergy Verified 04/01/21 11:46 [facility] Disclaimer: The information contained in this section may have been updated after the patient was seen, as this information can be updated by other users. Medical History (Updated 12/19/22 @ 10:02 by Earnestine Callahan MD) Fatigue HTN (hypertension) REY (obstructive sleep apnea) Pulmonary hypertension Social History Smoking Status: Never smoker alcohol intake: never substance use type: denies use current occupational status: retired Travel in the last 8 weeks: None household members: spouse and family housing: house current occupational exposures/hazards: No caffeine: Yes ROS Obtained: Yes All systems reviewed & no additional complaints except as documented Physical Exam General General appearance: alert Respiratory Respiratory exam: Absent normal lung sounds bilaterally, respiratory distress or wheezes Cardiovascular Cardiovascular exam: Present regular rate; Absent normal rhythm or tachycardia Neurological Exam Neurological exam: Present alert and oriented X3 Medical Decision Making Abraham Inquiry Pt receiving controlled substance: No Vital Signs: 12/19/22 08:29 12/19/22 08:39 12/19/22 09:00 Temperature 98.4 F Temperature Source Oral Pulse Rate 86 81 Pulse Rate [Right] 86 Respiratory Rate 23 18 18 Blood Pressure 146/64 H 138/63 Blood Pr
[2022-12-19 08:50] LABS: Influenza A, PCR Not Detected (NotDetected); Influenza B, PCR Not Detected (NotDetected)
[2022-12-19 09:00] VITALS: BP 138/63; PULSE 81; RESP 18; O2SAT 95
[2022-12-19 09:11] LABS: Coronavirus 19, PCR Detected (NotDetected)
[2022-12-19 09:42] LABS: Basophils % 0.2 % (0.1-2.0); Eosinophils % 1.1 % (0.1-12.0); Hematocrit 39.7 % (42.0-52.0); Hemoglobin 13.3 g/dL (14.1-18.0); Lymphocytes # 0.4 K/mm3 (0.7-4.5); Lymphocytes % 11.7 % (10-50); Mean Corpuscular HGB Conc 33.5 g/dL (31.8-35.4); Mean Corpuscular Hemoglobin 30.3 pg (27.0-31.2); Mean Corpuscular Volume 90.4 fl (80-94); Monocytes # 0.3 K/mm3 (0.1-1.0); Monocytes % 8.7 % (1.7-9.3); Neutrophils # 2.4 K/mm3 (1.8-7.8); Neutrophils % 78.3 % (37.0-80.0); Platelet Count 97 K/mm3 (142-424); Red Cell Distribution Width 13.9 % (11.5-17.5); White Blood Count 3.1 K/mm3 (4.8-10.8)
--- NOTE | 2022-12-19 09:43 | PC.NURSE ---
pt & updated on COVID + results.
[2022-12-19 09:51] LABS: Alanine Aminotransferase 24 U/L (12-78); Albumin Level 3.9 g/dl (3.5-5.0); Albumin/Globulin Ratio 1.4 (1.1-1.8); Alkaline Phosphatase 66 U/L (38-126); Aspartate Amino Transferase 31 U/L (17-59); Bilirubin,Total 0.3 mg/dl (0.2-1.3); Blood Urea Nitrogen 15 mg/dl (9-20); Calcium 8.6 mg/dl (8.4-10.2); Carbon Dioxide 31 mmol/L (22.0-30.0); Chloride 99 mmol/L (98-107); Creatinine Clearance Estimated 94 mL/min (50-200); Estimated Glomerular Filt Rate 66 ml/min (>60); GFR (African American) 80 ML/MIN (>60); Globulin 2.7 g/dL (1.3-3.2); Glucose 144 mg/dl (74-100); Sodium 138 mmol/L (136-145); Total Protein,Serum 6.6 g/dl (6.3-8.2)
[2022-12-19 10:05] LABS: Troponin I < 0.01 ng/ml (0.00-0.034)
[2022-12-19 10:09] VITALS: BP 135/65; PULSE 74; RESP 18; TEMP 36.7; O2SAT 95
== END 2022-12-19 10:09 | disposition home or self-care (01) ==
PROVIDERS: Student in an Organized Health Care Education/Training Program; Emergency Provider Physician Assistant; PCP Family Medicine
DX: U07.1 COVID-19 (principal); R51.9 Headache, unspecified; R06.02 Shortness of breath; R11.2 Nausea with vomiting, unspecified; B34.9 Viral infection, unspecified; I10 Essential (primary) hypertension; G47.33 Obstructive sleep apnea (adult) (pediatric); I27.20 Pulmonary hypertension, unspecified; I49.9 Cardiac arrhythmia, unspecified
CPT/HCPCS: 71045; 80053; 84484; 85025; 85378; 87636; 93005; 96361; 96374; 96375; 99285

== ENCOUNTER → 2023-02-16 10:17 | Outpatient (CLI) | payer BC, MEDICARE, SELFPAY ==
--- NOTE | 2023-02-16 10:22 | XR_ITS ---
FINAL REPORT CLINICAL HISTORY: RIGHT HIP PAIN FINDINGS: 2 views of the right hip and an AP pelvis were obtained. There is no acute fracture or dislocation. There are mild to moderate degenerative changes of the bilateral hips and lower lumbar spine. There are no soft tissue abnormalities. IMPRESSION: Mild to moderate degenerative change. Reviewed, Interpreted and Dictated by Abebe Bowser III, MD Transcribed by Jan Olvera Authenticated and [facility]
== END ==
PROVIDERS: PCP Family Medicine; Visit Provider Family Medicine
DX: M25.551 Pain in right hip (principal)
CPT/HCPCS: 73502

== ENCOUNTER 2023-11-12 08:19 | Day surgery (SDC) | payer MEDICARE, SELFPAY ==
[2023-11-10 15:30] VITALS: BMI 33.0
[2023-11-12] VITALS (7 sets, daily range): BP systolic 98–159; BP diastolic 54–76; PULSE 60–72; RESP 14–18; TEMP 36.2–36.8; O2SAT 94–96; BMI 33.0
[2023-11-12] MEDS: LACTATED RINGERS 1000ML 1,000 ML 25 ML IV (08:47)
--- NOTE | 2023-11-12 09:09 | P.PNANES_ITS ---
[facility] Disclaimer: The information contained in this section may have been updated after the patient was seen, as this information can be updated by other users. Medical History (Updated 11/12/23 @ 08:36 by Paradise Guan RN) Disc disorder Broken leg REY (obstructive sleep apnea) Pulmonary hypertension Fatigue HTN (hypertension) Surgical History (Updated 11/12/23 @ 08:35 by Paradise Guan RN) History of knee replacement Family History Other No significant family history Social History Smoking Status: Never smoker alcohol intake: never substance use type: denies use current occupational status: retired Travel in the last 8 weeks: None household members: spouse and family housing: house current occupational exposures/hazards: No caffeine: Yes [facility] Anesthesia Checklist Patient Identification Patient Identification: Arm Band Structural Data Admitted From: Home Planned Operative Procedure/s: Colonoscopy Consent for Planned Operative Procedure(s) Verified: Yes Verified Documents: Surgical Consent and History and Physical NPO Status Verified Time NPO: 00:00 Additional verifications Anesthesia Reactions: No Airway Assessment Mallampati Score:: Class III C-Spine Mobility Assessed: Yes TMJ Mobility Assessed: Yes Dentition: Dentures-good fit (removed) Neurological Assessment Level of Consciousness: Awake, Alert and Appropriate Anesthesia Plan Anesthesia Risk discussed: Yes Anesthesia Plan: Verified ASA Class: III Anesthesia Type: MAC
--- NOTE | 2023-11-12 09:58 | P.PCN_ITS ---
Procedure: Date: 11/12/23 Patient Date of :: 1950 Procedure Performed:: Total colonoscopy to terminal ileum with polypectomy x 2 using snare Indications:: Patient is a 73 year old male whom I had performed sigmoid colon resection on 09/16/2009. He had undergone colonoscopy just prior to that and had a sigmoid polyp removed that had cancer involving the base. Therefore this area was resected one week later. He had a followup colonoscopy on 08/04/2011. Dr. Iglesia Hyde had performed colonoscopy on 02/05/2020 at which time he had 3 tubular adenomas removed. . Performing Provider:: Abebe Amanda MD Referring Provider:: Kostas Campa MD . Sedation:: MAC Sedation Procedure:: Patient history was obtained and appropriate physical examination was performed. Patient's medications and allergies were reviewed. Informed consent was obtained after explaining the benefits, alternatives, and risks of the procedure including, but not limited to, bleeding, perforation, missed lesions, and adverse reaction to anesthesia medications. Patient was transported to endoscopy procedure room. Patient was connected to monitoring devices. Throughout the procedure the patient's blood pressure, pulse, and oxygen saturations were monitored continuously. Patient identification and planned procedure were verified by the staff. Patient was positioned in lateral decubitus position. Digital anorectal exam was performed. Variable stiffness Olympus colonoscope was inserted and advanced under direct visualization to the cecum. Adequacy of the colonic preparation was noted. The colonoscope was advanced a short distance into the terminal ileum. The colonoscope was then slowly withdrawn while carefully examining the color, texture, anatomy, and integrity of the mucosoa circumferentially. Within the rectum retroflexion was performed. Colonoscope was then withdrawn. IMPRESSION: Colonoscope was ultimately advanced to the cecum as there was some redundancy to the colon. There was some particulate stool in the colon which was mostly cleared with transcolonoscopic irrigation and suctioining. In the left colon there were a couple of large undigested mushrooms which somewhat limited visual ization. In the descending colon there was a small adenomatous appearing polyp removed with cold snare. In the rectum there was a small possible serrated adenoma removed with snare. There were minimal internal hemorroids. . Findings:: Adenomatous polyp in descending colon near splenic flexure Possible serrated polyp in rectum Undigested food matter in left colon . Recommendations:: Repeat colonoscopy pending pathology. Given history of colon cancer and early development of polyps likely 3 years. . Complications:: None immediately apparent Estimated blood obtained (mL): 2 Colonoscopy Component Colonoscopy Component Was a colonoscopy performed during today's procedure?: Yes Recommended follow up colonoscopy of at least 10 years?: No If no, follow up colonoscopy recommended in ___ years?: 3 Reason for not recommending >/= 10 yr follow-up interval?: See above
--- NOTE | 2023-11-12 11:08 | EXP.ANES.I ---
[facility] Anesthesia Record Part I Anesthesia Record I Intake, IV Amount: 350 Hydration: Adequate Estimated blood loss (mL): 1 Urine output (mL): 0 Blood Products used (#): none Blood Pressure: 98/54 SaO2: 94 Pulse Rate: 62 Airway Patency: Patent Respiratory Rate: 14 Temperature: 98.2 F Patient is:: Awake (Talking) and Stable Stable to PACU at:: 11:11
== END 2023-11-12 11:37 | disposition home or self-care (01) ==
PROVIDERS: PCP Family Medicine; Visit Provider Surgery
PROC: 0DJD8ZZ Inspection of Lower Intestinal Tract, Via Natural or Artificial Opening Endoscopic (ICD-10-PCS; CPT 45385; principal; 2023-11-12 09:30)
DX: Z12.11 Encounter for screening for malignant neoplasm of colon (principal); Z09 Encounter for follow-up examination after completed treatment for conditions other than malignant neoplasm; Z86.010 Personal history of colon polyps; Z08 Encounter for follow-up examination after completed treatment for malignant neoplasm; Z85.038 Personal history of other malignant neoplasm of large intestine; D12.4 Benign neoplasm of descending colon; K62.1 Rectal polyp; K64.8 Other hemorrhoids
CPT/HCPCS: 45385; J7120

== ENCOUNTER 2024-03-30 07:39 | Outpatient (CLI) | payer MEDICARE, SELFPAY ==
[2024-03-30 08:37] LABS: Basophils # 0.1 K/mm3 (0-0.2); Eosinophils # 0.1 K/mm3 (0.0-0.4); Eosinophils % 2.6 % (0.1-12.0); Hematocrit 41.9 % (42.0-52.0); Hemoglobin 14.7 g/dL (14.1-18.0); Lymphocytes # 1.8 K/mm3 (0.7-4.5); Lymphocytes % 49.9 % (10-50); Mean Corpuscular Hemoglobin 31.4 pg (27.0-31.2); Mean Corpuscular Volume 89.5 fl (80-94); Mean Platelet Volume 7.1 fl (7.4-10.4); Monocytes # 0.2 K/mm3 (0.1-1.0); Monocytes % 5.5 % (1.7-9.3); Neutrophils # 1.4 K/mm3 (1.8-7.8); Platelet Count 124 K/mm3 (142-424); Red Blood Count 4.69 M/mm3 (4.60-6.20); Red Cell Distribution Width 13.5 % (11.5-17.5); White Blood Count 3.6 K/mm3 (4.8-10.8)
[2024-03-30 09:04] LABS: Albumin Level 3.8 g/dl (3.5-5.0); Chloride 103 mmol/L (98-107); Sodium 141 mmol/L (136-145)
[2024-03-30 09:05] LABS: Potassium 4.2 mmoL/L (3.5-5.1)
[2024-03-30 09:07] LABS: Alanine Aminotransferase 22 U/L (12-78); Albumin/Globulin Ratio 1.6 (1.1-1.8); Alkaline Phosphatase 65 U/L (38-126); Anion Gap 9.2 mEq/L (5-15); Aspartate Amino Transferase 29 U/L (17-59); Bilirubin,Total 0.4 mg/dl (0.2-1.3); Blood Urea Nitrogen 16 mg/dl (9-20); Calcium 9.2 mg/dl (8.4-10.2); Carbon Dioxide 33 mmol/L (22.0-30.0); Cholesterol 182 mg/dl (140-200); Estimated Glomerular Filt Rate 60 ml/min (>60); GFR (African American) 72 ML/MIN (>60); Globulin 2.4 g/dL (1.3-3.2); Glucose 127 mg/dl (74-100); Magnesium 1.9 mg/dl (1.6-2.3); Total Protein,Serum 6.2 g/dl (6.3-8.2); Triglycerides 199 mg/dl (30-150); VLDL Cholesterol 40 mg/dL (0-40)
[2024-03-30 09:08] LABS: Chol/HDL Ratio 4.9 (1-3.5); HDL Cholesterol 37 mg/dl (40-60)
[2024-03-30 09:18] LABS: Direct LDL Cholesterol 105.97 mg/dL (100-129)
[2024-03-30 09:49] LABS: 25-OH Vitamin D, Total 27.4 ng/mL (30-100)
[2024-03-30 10:12] LABS: Hemoglobin A1C 6.2 % (4.0-6.0)
[2024-03-30 11:47] LABS: Vitamin B12 274 pg/mL (239-931)
== END 2024-03-30 23:59 | disposition home or self-care (01) ==
LOC: LAB 07:41
PROVIDERS: PCP Family Medicine; Visit Provider Physician Assistant
DX: E78.2 Mixed hyperlipidemia (principal); R73.09 Other abnormal glucose; E55.9 Vitamin D deficiency, unspecified; G25.0 Essential tremor; E53.8 Deficiency of other specified B group vitamins
CPT/HCPCS: 36415; 80053; 80061; 82306; 82607; 83036; 83735; 84443; 85025

== ENCOUNTER 2024-04-11 15:17 | Inpatient (IN) | payer MEDICARE, SELFPAY ==
[2024-04-11] VITALS (9 sets, daily range): BP systolic 128–161; BP diastolic 53–106; PULSE 75–84; RESP 13–22; TEMP 36.6–37; O2SAT 94–98; BMI 33.7
--- NOTE | 2024-04-11 15:26 | ECG_ITS ---
APPROVED REPORT Exam: Resting ECG HR:73 bpm ECG Measurements Heart Rate 73 AXES OR 160 P 73 QRSd 113 QRS -27 QT 392 T 52 QTc 418 Conclusion SINUS RHYTHM BORDERLINE LEFT AXIS DEVIATION Electronically signed by : DEMETRIUS LEUNG, 04/11/2024 23:54:55
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
--- NOTE | 2024-04-11 15:35 | CT_ITS ---
PROCEDURE INFORMATION: Exam: CTA Chest With Contrast Exam date and time: 04/11/2024 4:35 PM Age: 73 years old Clinical indication: Shortness of breath; Additional info: Post op, new SOA and cough TECHNIQUE: Imaging protocol: Computed tomographic angiography of the chest with contrast. Exam focused on the arteries. 3D rendering (Not supervised by radiologist): MIP and/or 3D reconstructed images were created by the technologist. Radiation optimization: All CT scans at this facility use at least one of these dose optimization techniques: automated exposure control; mA and/or kV adjustment per patient size (includes targeted exams where dose is matched to clinical indication); or iterative reconstruction. Contrast material: ISO 370; Contrast volume: 70 ml; Contrast route: INTRAVENOUS (IV); COMPARISON: CHESTWO CT chest wo con 04/20/2018 9:31 AM FINDINGS: Tubes, catheters and devices: Thoracic spine neurostimulator device in place. Pulmonary arteries: Normal. No pulmonary emboli. Aorta: Unremarkable. No aortic aneurysm. No aortic dissection. Lungs: Unremarkable. No consolidation. No masses. Pleural spaces: Unremarkable. No pneumothorax. No pleural effusion. Heart: Unremarkable. No cardiomegaly. No pericardial effusion. Lymph nodes: Unremarkable. No enlarged lymph nodes. Bones/joints: Mild multilevel degenerative disc change and osteophyte formation throughout the thoracic spine. No vertebral body compression or acute fracture. Soft tissues: Unremarkable. IMPRESSION: No acute abnormality.
--- NOTE | 2024-04-11 15:43 | PC.NURSE ---
Patient in room. Given a warm blanket.
[2024-04-11 15:49] LABS: Activated Partial Thrombo Time 25.4 seconds (22.8-30.6); Prothrombin Time 11.2 seconds (10.1-12.5)
[2024-04-11] MEDS: KETOROLAC 30MG/ML VIAL 15 MG IV (15:50)
[2024-04-11] MEDS: LORazepam 1MG TABLET 1 MG PO (15:50)
[2024-04-11 15:51] LABS: Albumin Level 3.9 g/dl (3.5-5.0); Chloride 94 mmol/L (98-107)
[2024-04-11 15:52] LABS: Potassium 3.6 mmoL/L (3.5-5.1); Sodium 128 mmol/L (136-145)
[2024-04-11 15:54] LABS: Alanine Aminotransferase 27 U/L (12-78); Albumin/Globulin Ratio 1.6 (1.1-1.8); Alkaline Phosphatase 44 U/L (38-126); Anion Gap 5.6 mEq/L (5-15); Aspartate Amino Transferase 64 U/L (17-59); Bilirubin,Total 0.7 mg/dl (0.2-1.3); Blood Urea Nitrogen 16 mg/dl (9-20); Carbon Dioxide 32 mmol/L (22.0-30.0); Estimated Glomerular Filt Rate 66 ml/min (>60); GFR (African American) 80 ML/MIN (>60); Globulin 2.5 g/dL (1.3-3.2); Total Protein,Serum 6.4 g/dl (6.3-8.2)
[2024-04-11 15:55] LABS: Calcium 8.6 mg/dl (8.4-10.2); Glucose 138 mg/dl (74-100); Magnesium 1.8 mg/dl (1.6-2.3)
[2024-04-11 15:58] LABS: Hematocrit 35.8 % (42.0-52.0); Hemoglobin 12.5 g/dL (14.1-18.0); Mean Corpuscular Volume 85.4 fl (80-94); Red Blood Count 4.19 M/mm3 (4.60-6.20); White Blood Count 7.9 K/mm3 (4.8-10.8)
[2024-04-11 15:59] LABS: Basophils % 0.1 % (0.1-2.0); Lymphocytes # 1.5 K/mm3 (0.7-4.5); Lymphocytes % 18.4 % (10-50); Mean Corpuscular HGB Conc 34.9 g/dL (31.8-35.4); Mean Corpuscular Hemoglobin 29.8 pg (27.0-31.2); Mean Platelet Volume 9.8 fl (7.4-10.4); Monocytes # 0.6 K/mm3 (0.1-1.0); Neutrophils # 5.8 K/mm3 (1.8-7.8); Neutrophils % 72.9 % (37.0-80.0); Platelet Count 127 K/mm3 (142-424)
[2024-04-11 16:04] LABS: NT Pro Brain Natriuretic Pep. 540 pg/mL (0-125)
[2024-04-11 16:11] LABS: Troponin I < 0.01 ng/ml (0.00-0.034)
--- NOTE | 2024-04-11 16:13 | ED_ITS ---
Discharge Plan Disposition Patient Disposition: Xfer Short-Term Hosp Chief Complaint: PAIN Prescriptions Prescriptions: No Action celecoxib 200 mg capsule 200 mg PO DAILY omeprazole 20 mg capsule,delayed release(DR/EC) 40 mg PO DAILY losartan 100 mg tablet 100 mg PO DAILY omeprazole 40 mg capsule,delayed release(DR/EC) 40 mg PO DAILY furosemide 20 mg tablet 20 mg PO DAILY aspirin 81 MG tablet,delayed release (DR/EC) 81 mg PO DAILY hydroxyzine HCl 25 mg tablet 25 mg PO TIDP PRN (Reason: Muscle Pain) Paxlovid 300 mg (150 mg x 2)-100 mg tablets,dose pack See Rx Instructions PO .COMPLEX Qty: 30 0RF Rx Instructions: take TWO 150 mg tablets of nirmatrelvir with ONE 100 mg tablet of ritonavir twice daily for 5 days tadalafil 5 mg Tablet 5 mg PO DAILY pregabalin 150 mg Capsule 150 mg PO DAILY lidocaine 5 % Adhesive Patch,Medicated 1 patch topical DAILY morphine (PF) 30 mg/30 mL (1 mg/mL) Patient Control.Analgesia Soln 0 mg continuous intrathecal infusion DAILY Rx Instructions: spinal cord stimulator implant Referrals Follow up/Referrals: Kostas Campa MD [Primary Care Provider] - See instructions Clinical Impressions Clinical Impression: Chest pain, Acute hyponatremia, Disorientation Print Language Print Language: [place] Discharge ED Provider: Jose Ace General Adult HPI General Chief complaint: PAIN Stated complaint: back surgery 04/10 so[facility] Time Seen by Provider: 04/11/24 15:18 Mode of Arrival: Family Vehicle Source of Information: Patient and Spouse Limitations: No Limitations Description of Symptoms (Recalled from ER Triage Doc. by RN): Pt c/o SOA, pain to legs ad all over , and nausea. states he woke up @ approx 230am having trouble breathing with his cpap after hainv gvomiting or spit-up coming up into the mask. He is post-op day 1 from lumbar discsectomy @ [facility] with Dr. Pham ([facility]). History of Present Illness HPI narrative: Please note that above description of symptoms, in this electronic medical record under categorization of recalled from ER triage doctor by RN are reflective of an initial nursing assessment, however, is not reflective of my full history and physical exam that was personally taken and clarified. Consequentially, this preceding description of symptoms, which may include the patient's categorized chief complaint in the EMR, do not reflect my personal clinical impression, and the ultimate description of history of present illness and patient stated complaints should be deferred to this section of the note. Unless stated otherwise or congruent with this section of the note, additional signs, symptoms, or incongruence should be interpreted as inaccurate with my clinical impression. Related Data Home Medications ?Medication ?Instructions ?Recorded ?Confirmed celecoxib 200 mg capsule 200 mg PO DAILY INFLAMMATION 09/15/17 11/12/23 omeprazole 20 mg capsule,delayed 40 mg PO DAILY STOMACH 09/15/17 11/12/23 release losartan 100 mg tablet 100 mg PO DAILY blood pressure 10/07/18 11/12/23 aspirin 81 mg tablet,delayed 81 mg PO DAILY Heart disease 01/30/20 11/12/23 release hydroxyzine HCl 25 mg tablet 25 mg PO TIDP PRN Muscle Pain 12/19/22 11/12/23 furosemide 20 mg tablet 20 mg PO DAILY 04/01/23 11/12/23 omeprazole 40 mg capsule,delayed 40 mg PO DAILY 04/01/23 11/12/23 release lidocaine 5 % topical patch 1 patch topical DAILY 11/12/23 11/12/23 morphine (PF) 30 mg/30 mL (1 0 mg continuous intrathecal 11/12/23 11/12/23 mg/mL) BARREL [employer]ATOR intravenous solution infusion DAILY pregabalin 150 mg capsule 150 mg PO DAILY 11/12/23 11/12/23 tadalafil 5 mg tablet 5 mg PO DAILY 11/12/23 11/12/23 Previous Rx's ?Medication ?Instructions ?Recorded nirmatrelvir 300 mg (150 mg See Rx Instructions PO .COMPLEX 12/19/22 x2)-ritonavir 100 mg tablet,dose #30 tabs pack (Paxlovid) Allergies Allergy/AdvReac Type Severity Reaction Status Date / Time No Known Allergies Allergy Verified 11/10/23 15:28 [facility] Disclaimer: The information contained in this section may have been updated after the patient was seen, as this information can be updated by other users. Medical History (Updated 04/11/24 @ 19:01 by Jose Ace MD) Disc disorder Broken leg REY (obstructive sleep apnea) Pulmonary hypertension Fatigue HTN (hypertension) Surgical History (Updated 11/12/23 @ 08:35 by Paradise Guan RN) History of knee replacement Family History Other No significant family history Social History Smoking Status: Never smoker alcohol intake: never substance use type: denies use current occupational status: retired Travel in the last 8 weeks: None household members: spouse and family housing: house current occupational exposures/hazards: No caffeine: Yes Have you lived/traveled outside US in past 30 days?: No Contact w/someone who lives/traveled outside US past 30 days?: No Exposure to someone with infectious disease in past 14 days?: No Do you have a fever (greater than 100.4 F or 38 C)?: No Have you tested positive for COVID-19: No Exposed to someone with COVID-19 in past 14 days?: No Do you have a sore throat?: No Do you have a cough?: No Do you have any weakness?: No Do you have any diarrhea?: No Are you experiencing any unusual bleeding?: No Do you have any muscle aches/pain?: No Do you have any abdominal pain?: No Are you experiencing loss of taste or smell?: No Other Medical History Have you received the Flu Vaccine for this season: No Have you received the Pneumonia Vaccine: No ROS Obtained: Yes All systems reviewed & no additional complaints except as documented Physical Exam General General appearance: alert, in no apparent distress and anxious Head Head exam: atraumatic and normocephalic Eye Eye exam: Present normal appearance, PERRL and EOMI Neck Neck exam: Present normal inspection, full ROM and trachea midline Respiratory Respiratory exam: Present normal lung sounds bilaterally; Absent respiratory distress, wheezes, stridor, accessory muscle use or prolonged expiratory phase Cardiovascular Cardiovascular exam: Present other (Pulses equal symmetric in upper and lower extremities) Abdominal Exam Abdominal exam: Present soft and scar; Absent distention, tenderness, guarding, rebound, rigidity or pulsatile mass Extremities Exam Extremities exam: Absent edema Back Exam Back exam: Present tenderness (Multiple incisions. Numerous postop incision clean, intact, serosanguineous drainage. Numerous david overlying. No evidence of dehiscence.) Neurological Exam Neurological exam: Present alert, oriented X3 and CN II-XII intact; Absent motor sensory deficit Psychiatric Psychiatric exam: Present anxious (With associated restless legs) Skin Skin exam: Present warm and dry; Absent diaphoresis or erythema Medical Decision Making Medical Records Medical records reviewed: Yes I reviewed the patient's medical records. Screening: Per USPSTF and CDC recommendations, given the prevalence of disease in our region, it is our hospital?s policy to screen for HIV and viral Hepatitis for all patients aged 18 and over and those with ongoing risk factors. Abraham Inquiry Pt receiving controlled substance: No Abraham was queried for this patient: No Vital Signs: 04/11/24 15:18 04/11/24 15:30 04/11/24 16:01 Temperature 98.6 F Temperature Source Oral Pulse Rate 75 82 Pulse Rate [Right] 75 Respiratory Rate 22 13 13 Blood Pressure 147/61 H 152/82 H Blood Pressure [Right Arm] 147/61 H Blood Pressure Mean Blood Pressure Mean [Right Arm] 89 Blood Pressure Source [Right Arm] Automatic Cuff 02 Sat by Pulse Oximetry 96 95 96 Oxygen Delivery Method Room Air Room Air Room Air 04/11/24 17:01 04/11/24 17:26 04/11/24 18:01 Temperature Temperature Source Pulse Rate 82 83 84 Pulse Rate [Right] Respiratory Rate 16 18 Blood Pressure 128/69 142/75 H 143/106 H Blood Pressure [Right Arm] Blood Pressure Mean 117 Blood Pressure Mean [Right Arm] Blood Pressure Source [Right Arm] 02 Sat by Pulse Oximetry 95 94 L 98 Oxygen Delivery Method Room Air Room Air Room Air 04/11/24 18:30 Temperature Temperature Source Pulse Rate 83 Pulse Rate [Right] Respiratory Rate Blood Pressure 153/71 H Blood Pressure [Right Arm] Blood Pressure Mean 98 Blood Pressure Mean [Right Arm] Blood Pressure Source [Right Arm] 02 Sat by Pulse Oximetry 95 Oxygen Delivery Method Room Air Lab Data Lab Results 04/11/24 15:28: WBC 7.9, RBC 4.19 L, Hgb 12.5 L, Hct 35.8 L, MCV 85.4, MCH 29.8, MCHC 34.9, RDW 12.0, Plt Count 127 L, MPV 9.8, Neut % (Auto) 72.9, Lymph % (Auto) 18.4, [place] % (Auto) 8.0, Eos % (Auto) 0.0 L, Baso % (Auto) 0.1, Neut # (Auto) 5.8, Lymph # (Auto) 1.5, [place] # (Auto) 0.6, Eos # (Auto) 0.0, Baso # (Auto) 0.0, PT 11.2, INR 1.00, APTT 25.4, Sodium 128 L, Potassium 3.6, Chloride 94 L, Carbon Dioxide 32 H, Anion Gap 5.6, BUN 16, Creatinine 1.10, Estimated GFR 66, Est GFR ( Amer) 80, Glucose 138 H, Calcium 8.6, Magnesium 1.8, Total Bilirubin 0.7, AST 64 H, ALT 27, Alkaline Phosphatase 44, Troponin I < 0.01, N T-Pro-B Natriuret Pep 540 H, Total Protein 6.4, Albumin 3.9, Globulin 2.5, Albumin/Globulin Ratio 1.6 04/11/24 15:28 04/11/24 15:28 Orders (Tests/Meds): ED MEDICATIONS Discontinued Medications Generic Name Dose Route Start Last Admin Trade Name Freq PRN Reason Stop Dose Admin Haloperidol Lactate 1.25 mg 04/11/24 17:34 04/11/24 18:06 Haloperidol Lactate 5 Mg/Ml Vial IV 04/11/24 17:35 1.25 mg ONCE ONE Administration Haloperidol Lactate 1.25 mg 04/11/24 18:05 04/11/24 18:06 Haloperidol Lactate 5 Mg/Ml Vial IV 04/11/24 18:06 1.25 mg ONCE ONE Administration Sodium Chloride 1,000 mls @ 999 mls/hr 04/11/24 17:36 04/11/24 18:05 Sod Chlor 0.9% 1000ml Bag IV 04/11/24 18:36 999 mls/hr .Q1H1M ONE Administration Iopamidol 70 ml 04/11/24 16:38 04/11/24 16:47 Iopamidol-370 (76%);100ml Bottle IV 04/11/24 16:39 70 ml ONCE ONE Administration Ketorolac Tromethamine 15 mg 04/11/24 15:35 04/11/24 15:50 Ketorolac 30mg/Ml Vial IV 04/11/24 15:36 15 mg ONCE ONE Administration Lorazepam 1 mg 04/11/24 15:38 04/11/24 15:50 Lorazepam 1mg Tablet PO 04/11/24 15:39 1 mg ONCE ONE Administration Sodium Chloride 10 ml 04/11/24 16:38 04/11/24 16:47 Sodium Chloride 0.9% 10ml Syr (Rad Only) IV 04/11/24 16:39 10 ml ONCE ONE Administration Sodium Chloride 50 ml 04/11/24 16:38 04/11/24 16:47 0.9 % Sodium Chloride 50 Ml Vial IV 04/11/24 16:39 50 ml ONCE ONE Administration ORDERS Category Date Time Status CT angio chest PE protocol Stat Cat Scan 04/11/24 15:35 Completed XR chest portable Stat Exams 04/11/24 15:35 Completed Complete Blood Count Auto Diff Stat Lab 04/11/24 15:28 Completed Comprehensive Metabolic Panel Stat Lab 04/11/24 15:28 Completed HIV Combo Stat Lab 04/11/24 15:28 Received Hep C Ab with Reflex to RNA Stat Lab 04/11/24 15:28 Received Magnesium Stat Lab 04/11/24 15:28 Completed NT Pro Brain Natriuretic Pep. Stat Lab 04/11/24 15:28 Completed PT INR [Prothrombin Time INR] Stat Lab 04/11/24 15:28 Completed PTT [Activated Partial Thrombo Time] Stat Lab 04/11/24 15:28 Completed Troponin I Q3H Lab 04/11/24 18:45 Ordered Troponin I Q3H Lab 04/11/24 21:45 Ordered Troponin I Stat Lab 04/11/24 15:28 Completed HEART Score History (anamnesis): Slightly suspicious ECG: Non-specific disturbance Age: >65 years Risk factors: 3 or more risk factors Troponin: </= normal limit HEART Score: 5 Medical Decision Narrative: 73-year-old male history of hypertension, hyperlipidemia, obesity, REY, CKD, chronic back pain with spinal stimulator in place as well as pain pump status post numerous back surgeries presenting with shortness of breath and chest pain after back surgery. Patient states that he had his seventh laminectomy/discectomy yesterday, 04/10 at [facility]. Was doing well postop, so sent home shortly thereafter. Has been having chest pain on and off since that time, getting worse throughout today. Came in for further evaluation at the behest of his surgeon. Stating that the chest pain is substernal, does not radiate, associate with shortness of breath and a feeling of smothering. Was wearing his CPAP last night, states that it was causing phlegm to come up, but he was unable to cough it out. No fevers or chills, nausea or vomiting, diarrhea. No new neurologic deficits from baseline. History was obtained via conversation with patient, family. On arrival, patient hemodynamically stable, alert, oriented x4, appropriate, GCS 15, moving all extremities spontaneously, pupils equal and reactive to light. Full physical exam performed and significant for anxious, restless legs. No acute distress and clinically well- appearing. Mildly hypertensive, nontachycardic. Lungs are clear to auscultation bilaterally anterior and posterior, no evidence of decreased breath sounds. Patient's abdomen is soft. Spinal surgery site very well-appearing. Differential includes mucous plug, pneumothorax, PE, pneumonia, ACS, PA, esophageal perforation, among others. Patient placed on continuous cardiac monitoring and continuous pulse ox with initial blood pressure 147/61, heart rate 75, saturation 96% on room air. Independent interpretation of EKG shows sinus rhythm 73 bpm with AL interval 160, QRS 113, QTc 418. Leftward bleeding axis. No acute ischemic change.. Patient was given Toradol and 1 mg p.o. Ativan for symptomatic management and correction of underlying abnormalities. Workup independently interpreted and significant for no acute changes on CBC, stable from 03/30. Coags normal. Chemistry with sodium acutely 128 down from 141 on 03/30 electrolytes normal. Troponin negative, BNP elevated 540. on independent interpretation of imaging, no PE or dissection, no pneumothorax. See radiology read for full review of final results. On reevaluation, patient having paradoxical reaction to Ativan which was given for anxiety and CT. Having visual and tactile hallucinations.. Patient was given total of 2.5 mg of Haldol which seemed to help. Because patient freshly postop, neurosurgery at [place] was contacted and case was discussed, they stated that he is appropriate for transfer, but no acute surgical emergency and they would consult on him. Hospitalist was contacted and case was discussed, graciously excepted transfer. Given patient presentation, workup, history, this most likely represents postop chest pain, acute hyponatremia, iatrogenic altered mental status. Because patient high risk for clinical decompensation if discharged, deemed appropriate for transfer and inpatient admission. Results were relayed to patient who voiced understanding and patient was agreeable to transfer, inpatient admission, and management. Patient was graciously accepted and transferred to [place] for further definitive management, under Dr. Morrow. Behavioral Technician disclaimer Much of this encounter note is an electronic service counselor spoken language to printed text. Electronic service counselor of the spoken language may permit errors. Although I have reviewed the note, some errors may still exist. Critical Care Critical Care Time Critical Care Time: Yes (metabolic, neuro) Attestation: On 04/11/24, the high probability of a clinically significant, sudden or life threatening deterioration of the following system(s) required my full and direct attention, intervention and personal management. The time I documented below is in addition to time spent performing reported procedures but includes the following listed in this critical care notation. Total Time Total Critical Care Time: 40
[2024-04-11] MEDS: IOPAMIDOL-370 (76%);100ML BOTTLE 70 ML IV (16:47)
[2024-04-11] MEDS: 0.9 % SODIUM CHLORIDE 50 ML VIAL IV (16:47)
[2024-04-11] MEDS: SODIUM CHLORIDE 0.9% 10ML SYR (RAD ONLY) 10 ML IV (16:47)
--- NOTE | 2024-04-11 17:54 | PC.NURSE ---
IS TALKING WITH FOR
[2024-04-11] MEDS: 0.9 % SODIUM CHLORIDE 1000ML 1,000 ML 999 ML IV (18:05)
[2024-04-11] MEDS: HALOPERIDOL LACTATE 5 MG/ML VIAL 1.25 MG IV ×2 (18:06)
--- NOTE | 2024-04-11 18:14 | PC.NURSE ---
Dr. Ace s/w Dr. Waggoner, hospitalist at [facility]
--- NOTE | 2024-04-11 18:50 | PC.NURSE ---
Dr. Ace s/w Dr. Morrow, hospitalist at [facility] for admission
--- NOTE | 2024-04-11 19:02 | PC.NURSE ---
[facility] SENT TO LAB AT THIS TIME
[2024-04-11 19:30] LABS: Troponin I < 0.01 ng/ml (0.00-0.034)
[2024-04-11] MEDS: HALOPERIDOL LACTATE 5 MG/ML VIAL 2.5 MG IV (20:16)
--- NOTE | 2024-04-11 20:19 | PC.NURSE ---
Spoke with [facility] to see if they have received a bed assignment and they do not have a available bed for him at this time. they are not sure when they will have one. Spoke with [facility] and we had talked about admitting pt here until [facility] got a bed available. Doctor is aware of this.
[2024-04-11 20:44] LABS: HIV Combo NEGATIVE (Negative)
--- NOTE | 2024-04-11 20:54 | PC.NURSE ---
Attempted to call report to Shana on M/S; unable to take report at this time. States she will call back in around 5 min
--- NOTE | 2024-04-11 20:59 | P.HP_ITS ---
History of Present Illness *Admission Date: 04/11/24 *Reason for visit:: Choking burning chest pain *History of present illness: 73-year-old male L3 L5 laminectomy at [facility] 04/10 presents to the emergency room today with choking chest discomfort/cough. 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 Per patient's , patient suffering from choking, cough like substernal discomfort since 2:30 AM after waking on CPAP. States patient complains of gas stomach. And dry heaving all morning. Patient brought to emergency room for evaluation, and given 1 mg p.o. Ativan prior to CTA chest then suffered from metabolic encephalopathy. Patient disoriented, shaking, slightly diaphoretic during my examination of patient today in emergency room. Patient already accepted by [facility] for transfer ELZA. Patient admitted while awaiting transfer to [facility] for metabolic encephalopathy management. Patient's brother and present in emergency room and acted as independent historians. Denies fevers, chills, known sick contacts, recent travel, dysuria. CTA chest: No pulmonary embolus, no acute disease. WBC 7.9, Hgb 12.5, platelets 127, NA 128, K3.6, CL 94, BUN 16, CR 1.1, BNP 540, AST 64, ALT 27, alk phos 44, troponin<0.01, ALB 3.9. [facility] Disclaimer: The information contained in this section may have been updated after the patient was seen, as this information can be updated by other users. Medical History (Updated 04/11/24 @ 19:01 by Jose Ace MD) Disc disorder Broken leg REY (obstructive sleep apnea) Pulmonary hypertension Fatigue HTN (hypertension) Surgical History (Updated 11/12/23 @ 08:35 by Paradise Guan RN) History of knee replacement Family History Other No significant family history Social History Smoking Status: Never smoker alcohol intake: never substance use type: denies use current occupational status: retired Travel in the last 8 weeks: None household members: spouse and family housing: house current occupational exposures/hazards: No caffeine: Yes Have you lived/traveled outside US in past 30 days?: No Contact w/someone who lives/traveled outside US past 30 days?: No Exposure to someone with infectious disease in past 14 days?: No Do you have a fever (greater than 100.4 F or 38 C)?: No Have you tested positive for COVID-19: No Exposed to someone with COVID-19 in past 14 days?: No Do you have a sore throat?: No Do you have a cough?: No Do you have any weakness?: No Do you have any diarrhea?: No Are you experiencing any unusual bleeding?: No Do you have any muscle aches/pain?: No Do you have any abdominal pain?: No Are you experiencing loss of taste or smell?: No Other Medical History Have you received the Flu Vaccine for this season: No Have you received the Pneumonia Vaccine: No Review of Systems Review of Systems Review of systems:: pertinent systems reviewed and negative unless documented below Constitutional Constitutional: Reports system reviewed and no additional complaints, except as documented Meds Home Medications and Allergies Home Medications ?Medication ?Instructions ?Recorded ?Confirmed ?Type celecoxib 200 mg capsule 200 mg PO DAILY INFLAMMATION 09/15/17 11/12/23 History omeprazole 20 mg capsule,delayed 40 mg PO DAILY STOMACH 09/15/17 11/12/23 History release losartan 100 mg tablet 100 mg PO DAILY blood pressure 10/07/18 11/12/23 History aspirin 81 mg tablet,delayed 81 mg PO DAILY Heart disease 01/30/20 11/12/23 History release hydroxyzine HCl 25 mg tablet 25 mg PO TIDP PRN Muscle Pain 12/19/22 11/12/23 History nirmatrelvir 300 mg (150 mg See Rx Instructions PO .COMPLEX 12/19/22 11/12/23 Rx x2)-ritonavir 100 mg tablet,dose #30 tabs pack (Paxlovid) furosemide 20 mg tablet 20 mg PO DAILY 04/01/23 11/12/23 History omeprazole 40 mg capsule,delayed 40 mg PO DAILY 04/01/23 11/12/23 History release lidocaine 5 % topical patch 1 patch topical DAILY 11/12/23 11/12/23 History morphine (PF) 30 mg/30 mL (1 0 mg continuous intrathecal 11/12/23 11/12/23 History mg/mL) [employer] intravenous solution infusion DAILY pregabalin 150 mg capsule 150 mg PO DAILY 11/12/23 11/12/23 History tadalafil 5 mg tablet 5 mg PO DAILY 11/12/23 11/12/23 History New Prescriptions to Start Prescriptions: Allergies Allergy/AdvReac Type Severity Reaction Status Date / Time No Known Allergies Allergy Verified 11/10/23 15:28 Exam Data for Last 24 hours Vital signs and Labs for Last 24 Hours: Temp Pulse Resp BP Pulse Ox O2 Del Method 98.6 F 83 18 144/53 H 95 Room Air 04/11/24 15:18 04/11/24 18:30 04/11/24 17:26 04/11/24 19:31 04/11/24 18:30 04/11/24 18:30 Laboratory Results - last 24 hr 04/11/24 15:28: WBC 7.9, RBC 4.19 L, Hgb 12.5 L, Hct 35.8 L, MCV 85.4, MCH 29.8, MCHC 34.9, RDW 12.0, Plt Count 127 L, MPV 9.8, Neut % (Auto) 72.9, Lymph % (Auto) 18.4, [place] % (Auto) 8.0, Eos % (Auto) 0.0 L, Baso % (Auto) 0.1, Neut # (Auto) 5.8, Lymph # (Auto) 1.5, [place] # (Auto) 0.6, Eos # (Auto) 0.0, Baso # (Auto) 0.0, PT 11.2, INR 1.00, APTT 25.4, Sodium 128 L, Potassium 3.6, Chloride 94 L, Carbon Dioxide 32 H, Anion Gap 5.6, BUN 16, Creatinine 1.10, Estimated GFR 66, Est GFR ( Amer) 80, Glucose 138 H, Calcium 8.6, Magnesium 1.8, Total Bilirubin 0.7, AST 64 H, ALT 27, Alkaline Phosphatase 44, Troponin I < 0.01, NT-Pro-B Natriuret Pep 540 H, Total Protein 6.4, Albumin 3.9, Globulin 2.5, Albumin/Globulin Ratio 1.6, HIV Ag/Ab Combo Qual Negative 04/11/24 19:00: Troponin I < 0.01 I & O for Last 24 hours: Intake & Output 04/08/24 04/09/24 04/10/24 04/11/24 23:59 23:59 23:59 23:59 Weight 106.594 kg Constitutional Constitutional: moderate distress, diaphoretic, disheveled and agitated *Routine HEENT Exam Head: Present normocephalic Eye: Present EOMI ENT: Present mucous membranes dry *Routine Neck Exam Neck: Present supple and full ROM *Routine Respiratory Exam Respiratory: Present decreased breath sounds and diminished air movement *Routine Cardiovascular Exam Cardiovascular: Present RRR, Normal S1 and Normal S2 *Routine Abdominal Exam Abdominal: Present soft and normoactive bowel sounds *Routine Rectal Exam Rectal:: deferred *Routine Genitalia Exam Genitalia:: deferred *Routine Extremities Exam Extremities: Present full ROM and normal capillary refill *Routine Skin Exam Skin: Present intact *Routine Neurological Exam Neurological: Present alert, altered mental status, abnormal gait, moving all extremities, normal tone, hearing grossly intact and tremors Assessment and Plan *Assessment and plan (1) Disorientation: Status: Acute Category: Medical Code(s): R41.0 - Disorientation, unspecified (2) Acute hyponatremia: Status: Acute Category: Medical Code(s): E87.1 - Hypo-osmolality and hyponatremia (3) Chest pain: Status: Acute Category: Medical Code(s): R07.9 - Chest pain, unspecified (4) Sacroiliac joint disease: Status: Acute Category: Medical Code(s): M53.3 - Sacrococcygeal disorders, not elsewhere classified (5) Renal insufficiency syndrome: Status: Acute Category: Medical Code(s): N28.9 - Disorder of kidney and ureter, unspecified (6) HTN (hypertension): Status: Chronic Qualifiers: Hypertension type: essential hypertension Qualified Code(s): I10 - Essential (primary) hypertension Category: Medical Code(s): I10 - Essential (primary) hypertension (7) Pulmonary hypertension: Status: Chronic Category: Medical Code(s): I27.20 - Pulmonary hypertension, unspecified Plan 73-year-old male L3 L5 laminectomy at [facility] 04/10 presents to the emergency room today with choking chest discomfort/cough. 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 Patient given 1 mg p.o. Ativan prior to CTA chest and currently suffering from metabolic encephalopathy. Patient admitted while awaiting transfer to [facility] for metabolic encephalopathy management. Problems as listed below: Lab/imaging reviewed at time of admission: ? Portable chest x-ray: No acute disease, CTA chest: No pulmonary embolus, no acute disease. ? WBC 7.9, Hgb 12.5, platelets 127, NA 128, K3.6, CL 94, serum bicarb 32, BUN 16, CR 1.1, BNP 540, AST 64, ALT 27, alk phos 44, troponin<0.01, ALB 3.9. I will repeat CMP, mag, CBC with differential in AM. Chest pain likely noncardiac: ? Patient's choking, coughing chest discomfort sounds more GI in etiology than cardiac. Will perform serial troponins overnight. Will monitor patient on telemetry. Order echocardiogram for a.m.. I expect remainder of chest discomfort workup to occur at [facility] after transfer; unless patient suf fers from worsening chest discomfort. Patient may require EGD after transfer to [facility] if choking/burning substernal chest discomfort continues. Will change patient's home p.o. omeprazole to IV Protonix during his hospitalization. Metabolic encephalopathy after Ativan with visual, auditory, tactile hallucination: ? Probably caused by Ativan. Explored patient's L3-L5 laminectomy site from 04/10 without signs of acute infection or purulent drainage. Will rule out infection with procalcitonin, lactic acid, respiratory panel. Will consider empirical antibiotics if procalcitonin/lactic acid elevated. Benadryl 50 mg IV x 1 to alleviate agitation. Patient received Haldol 1.25 IV x 2 and Haldol 2.5 mg x 1 in ED. Admit on seizure precautions.Will also check UA and urine culture. Will write for IM Haldol 2 mg every 8 as needed hallucinations Dehydration: Patient's sodium/chloride low at time of admission. Will place patient on MIVF 125 cc/h with 20 KCl x 24 hours. Status post L4-L5 laminectomy 04/10: - Surgical site without signs of infection. Nicho appropriately in place. Consult wound care. ?Morphine 2 mg IV every 6 hours as needed moderate pain, morphine 4 mg IV every 6 hours as needed severe pain. Flexeril 10 mg p.o. 3 times daily as needed pain Hypertension: Losartan 100 mg p.o. daily, furosemide 20 mg p.o. daily, hydralazine 10 mg IV every 6 as needed SBP greater than 160. Borderline diabetes: Hold metformin, twice daily Accu-Cheks, sliding scale insulin for Accu-Cheks REY: CPAP 10 cm H2O overnight GERD: IV Protonix 40 mg daily Renal insufficiency: Cautious use of nephrotoxic drugs during hospitalization CODE STATUS full PPx Lovenox subcutaneous Diet: Start with full liquids elevated. MDM: Copa: Moderate. Patient with acute metabolic encephalopathy, choking chest discomfort. Data: High. See above. Patient's brother and acted as independent historians during interview with Dr. Fernandez today. I spoke with emergency room doctor, and agreed that patient required admission for medical management until [facility] bed available for transfer. Risk: Moderate. Prescription drug management including MIVF, IV hydralazine/morphine as mentioned above. 35 minutes of total care time spent in patient by Dr. Fernandez 04/11/2024
--- NOTE | 2024-04-11 21:35 | PC.NURSE ---
Patient arrived to floor via stretcher from ED at 21:26.
[2024-04-11 22:20] LABS: Lactic Acid 1.5 mmol/L (0.7-2.1)
[2024-04-11 22:51] LABS: Troponin I < 0.01 ng/ml (0.00-0.034)
[2024-04-11] MEDS: 0.9% NaCl w/40mEq KCL 1,000 ML 125 ML IV (23:07)
[2024-04-11 23:19] LABS: POC Glucose,Bedside 157 (70-110)
[2024-04-11] MEDS: diphenhydrAMINE 50MG/ML VIAL 50 MG IV (23:24)
[2024-04-11] MEDS: humaLOG 100 UNITS/ML 10ML VIAL (SSI) SUBCUT (23:25)
[2024-04-11] MEDS: MORPHINE 2MG/ML SYRINGE 2 MG IV (23:27)
[2024-04-12] VITALS: BP 158/84; PULSE 76; RESP 22; TEMP 38.7; O2SAT 94
[2024-04-12] MEDS: ACETAMINOPHEN 325MG TAB 650 MG PO ×2 (00:41→14:18)
--- NOTE | 2024-04-12 00:50 | P.EN_ITS ---
Patient with temperature 101.7 overnight with O2 sat 94% on room air. UA without signs of infection. CTA chest shows no PE or signs of respiratory infection. Could possibly be atelectasis. However, considering patient just underwent laminectomy 04/10 extremely worried about possible surgical infection. As mentioned in H&P I thoroughly inspected wound site during my admission asses sment with no signs of purulent drainage, or wound infection. However, will empirically start IV Zosyn/cefepime. Anticipate patient will be transferred to [facility] when bed available. Lactic acid 0.15, procalcitonin 0.07 overnight. Will also order incentive spirometer and encourage patient to use every 2 hours.
[2024-04-12] MEDS: CEFEPIME HCL 1 GM in 0.9 % SODIUM CHLORIDE 50 ML IV (01:14)
[2024-04-12 02:14] LABS: Troponin I 0.01 ng/ml (0.00-0.034)
[2024-04-12 03:04] LABS: Adenovirus,PCR Not Detected (NotDetected); Bordetella Pertussis Not Detected (NotDetected); Chlamydophila Pneumoniae, PCR Not Detected (NotDetected); Coronavirus 19, PCR Not Detected (NotDetected); Coronavirus 229E Not Detected (NotDetected); Coronavirus NL63 Not Detected (NotDetected); Coronavirus OC43 Not Detected (NotDetected); Coronovirus HKU1,PCR Not Detected (NotDetected); Human Metapneumovirus Not Detected (NotDetected); Influenza A, PCR Not Detected (NotDetected); Influenza AH1, 2009 Not Detected (NotDetected); Influenza AH1, PCR Not Detected (NotDetected); Influenza AH3,PCR Not Detected (NotDetected); Influenza B, PCR Not Detected (NotDetected); Mycoplasma Pneumoniae, PCR Not Detected (NotDetected); Parainfluenza 1, PCR Not Detected (NotDetected); Parainfluenza 2, PCR Not Detected (NotDetected); Parainfluenza 3, PCR Not Detected (NotDetected); Parainfluenza 4, PCR Not Detected (NotDetected); Respiratory Syncytial Virus Not Detected (NotDetected); Rhinovirus/Enterovirus Not Detected (NotDetected)
[2024-04-12] MEDS: VANCOMYCIN HCL 1,000 MG in 0.9 % SODIUM CHLORIDE 250 ML 125 MG IV (03:45)
[2024-04-12 04:00] VITALS: BP 145/75; PULSE 75; RESP 18; TEMP 37.9; O2SAT 93; BMI 33.6
--- NOTE | 2024-04-12 04:32 | CT_ITS ---
PROCEDURE INFORMATION: Exam: CT Head Without Contrast Exam date and time: 04/12/2024 4:58 AM Age: 73 years old Clinical indication: Altered mental status/memory loss; Additional info: Confusion TECHNIQUE: Imaging protocol: Computed tomography of the head without contrast. Radiation optimization: All CT scans at this facility use at least one of these dose optimization techniques: automated exposure control; mA and/or kV adjustment per patient size (includes targeted exams where dose is matched to clinical indication); or iterative reconstruction. COMPARISON: No relevant prior studies available. FINDINGS: Brain: There is no evidence of acute parenchymal hemorrhage, extra-axial collection, or acute infarction. There is no mass effect, midline shift, or downward herniation. Cerebral ventricles: No ventriculomegaly. Paranasal sinuses: There is mild paranasal sinus mucosal thickening. Mastoid air cells: Visualized mastoid air cells are well aerated. Bones: Unremarkable. No acute fracture. Soft tissues: Unremarkable. IMPRESSION: No evidence of acute intracranial process.
--- NOTE | 2024-04-12 04:48 | PC.NURSE ---
Patient left floor with staff for CT at 04:47.
--- NOTE | 2024-04-12 05:03 | PC.NURSE ---
Patient back on floor from CT at 05:02.
--- NOTE | 2024-04-12 05:18 | PC.NURSE ---
Addendum entered by Sonia Araujo RN 04/12/24 05:19: Kal comfirmed it was ok to run the fluids together. the Cefapime dose followed by the Vancmycin dose. Original Note: 04/12/24 0110 I spoke to Kal at [facility] pharmacy to confirm it was OK to run Cefapime and Vancomycin in 0.9 NS with 40 meq KCL.
--- NOTE | 2024-04-12 05:21 | PC.NURSE ---
0450: Pt. to CT scan for CT of head.
[2024-04-12] MEDS: KETOROLAC 30MG/ML VIAL 15 MG IV (05:45)
[2024-04-12 06:18] LABS: POC Glucose,Bedside 150 (70-110)
[2024-04-12 06:22] LABS: HCV Ab Non Reactive (Non Reactive)
[2024-04-12 07:13] LABS: Albumin Level 3.6 g/dl (3.5-5.0); Chloride 98 mmol/L (98-107); Potassium 3.6 mmoL/L (3.5-5.1); Sodium 128 mmol/L (136-145)
[2024-04-12 07:16] LABS: Alanine Aminotransferase 24 U/L (12-78); Albumin/Globulin Ratio 1.5 (1.1-1.8); Alkaline Phosphatase 41 U/L (38-126); Anion Gap 6.6 mEq/L (5-15); Aspartate Amino Transferase 63 U/L (17-59); Bilirubin,Total 0.9 mg/dl (0.2-1.3); Blood Urea Nitrogen 16 mg/dl (9-20); Calcium 8.2 mg/dl (8.4-10.2); Carbon Dioxide 27 mmol/L (22.0-30.0); Creatinine Clearance Estimated 102 mL/min (50-200); Estimated Glomerular Filt Rate 74 ml/min (>60); GFR (African American) 89 ML/MIN (>60); Globulin 2.4 g/dL (1.3-3.2); Glucose 150 mg/dl (74-100); Magnesium 1.8 mg/dl (1.6-2.3)
[2024-04-12 07:37] VITALS: BP 155/70; PULSE 75; RESP 21; TEMP 37.4; O2SAT 96
[2024-04-12 08:04] LABS: Red Blood Count 3.87 M/mm3 (4.60-6.20); White Blood Count 7.1 K/mm3 (4.8-10.8)
--- NOTE | 2024-04-12 08:04 | PC.NURSE ---
04/12/24 0700 Pt. admitted overnight for metabolic encephalopathy . Pt. had Lamenectomy 04/10/24 at [facility]. Pt. was supposed to be transferred to [facility] but no bed were available. Overnight. pt. febrile, confused, restless. Head CT done . IVF and antibiotics were started. Pt. has lowback incision with david, oozing bright red blood, dressing changes x 2.
[2024-04-12 08:05] LABS: Hematocrit 32.8 % (42.0-52.0); Hemoglobin 11.6 g/dL (14.1-18.0); Lymphocytes % 13.5 % (10-50); Mean Corpuscular HGB Conc 35.4 g/dL (31.8-35.4); Mean Corpuscular Volume 84.8 fl (80-94); Mean Platelet Volume 9.9 fl (7.4-10.4); Monocytes # 0.7 K/mm3 (0.1-1.0); Monocytes % 9.4 % (1.7-9.3); Neutrophils # 5.4 K/mm3 (1.8-7.8); Neutrophils % 76.7 % (37.0-80.0); Platelet Count 105 K/mm3 (142-424); Red Cell Distribution Width 11.9 % (11.5-17.5)
--- NOTE | 2024-04-12 08:37 | HMH.PHAINT1 ---
Pharmacy Intervention Comments: MEDICATION RECONCILIATION COMPLETED ON PATIENT USING EXTERNAL FILL HISTORY FROM PHARMACY AND ISHAAN REPORT. -ELIZABETH CAMARENA, BROCKD
--- NOTE | 2024-04-12 08:47 | EXP.ACUTE.PN ---
Subjective *Date: 04/12/24 *Time: 08:55 Interval history: Patient has pain in his back. He has had movements of his arms and legs that have not stopped. The ativan made it worse. Morphine helped with pain but did not help the movements. He has been very confused. He has not slept. Medical Exam Vital signs and Labs for Last 24 Hours: Vital Signs Temp Pulse Pulse Resp BP BP Pulse Ox 04/12/24 07:37 99.3 F 75 21 155/70 H 96 04/12/24 07:00 04/12/24 05:00 04/12/24 04:00 100.3 F H 75 18 145/75 H 93 L 04/12/24 03:00 04/12/24 01:00 04/12/24 00:00 101.7 F H 76 22 158/84 H 94 L 04/11/24 23:00 04/11/24 21:30 04/11/24 21:10 97.9 F 83 16 161/74 H 04/11/24 21:00 04/11/24 19:31 144/53 H 04/11/24 18:30 83 153/71 H 95 04/11/24 18:01 84 143/106 H 98 04/11/24 17:26 83 18 142/75 H 94 L 04/11/24 17:01 82 16 128/69 95 04/11/24 16:01 82 13 152/82 H 96 04/11/24 15:30 75 13 147/61 H 95 04/11/24 15:18 98.6 F 75 22 147/61 H 96 O2 Del Method 04/12/24 07:37 Room Air 04/12/24 07:00 Room Air 04/12/24 05:00 Room Air 04/12/24 04:00 Room Air 04/12/24 03:00 Room Air 04/12/24 01:00 Room Air 04/12/24 00:00 Room Air 04/11/24 23:00 Room Air 04/11/24 21:30 Room Air 04/11/24 21:10 Room Air 04/11/24 21:00 Room Air 04/11/24 19:31 04/11/24 18:30 Room Air 04/11/24 18:01 Room Air 04/11/24 17:26 Room Air 12/17/24 17:01 Room Air 04/11/24 16:01 Room Air 04/11/24 15:30 Room Air 04/11/24 15:18 Room Air Intake and Output 04/11/24 04/12/24 04/12/24 19:59 03:59 11:59 Intake Total 20 / 20 Output Total 500 / 1025 525 / 1025 Balance -500 / -1005 -505 / -1005 Intake: Intake, Oral Amount 20 / 20 Output: Output, Urine Amount 500 / 1025 525 / 1025 Other: Number of Unmeasured Voids 0 0 Weight 235 lb 234 lb 15.992 oz Patient Weight 04/12/24 11:59 Weight 234 lb 15.992 oz Laboratory Results - last 24 hr 04/11/24 15:28: WBC 7.9, RBC 4.19 L, Hgb 12.5 L, Hct 35.8 L, MCV 85.4, MCH 29.8, MCHC 34.9, RDW 12.0, Plt Count 127 L, MPV 9.8, Neut % (Auto) 72.9, Lymph % (Auto) 18.4, [place] % (Auto) 8.0, Eos % (Auto) 0.0 L, Baso % (Auto) 0.1, Neut # (Auto) 5.8, Lymph # (Auto) 1.5, [place] # (Auto) 0.6, Eos # (Auto) 0.0, Baso # (Auto) 0.0, PT 11.2, INR 1.00, APTT 25.4, Sodium 128 L, Potassium 3.6, Chloride 94 L, Carbon Dioxide 32 H, Anion Gap 5.6, BUN 16, Creatinine 1.10, Estimated GFR 66, Est GFR ( Amer) 80, Glucose 138 H, Calcium 8.6, Magnesium 1.8, Total Bilirubin 0.7, AST 64 H, ALT 27, Alkaline Phosphatase 44, Troponin I < 0.01, NT-Pro-B Natriuret Pep 540 H, Total Protein 6.4, Albumin 3.9, Globulin 2.5, Albumin/Globulin Ratio 1.6, Hepatitis C Antibody Non reactive, HIV Ag/Ab Combo Qual Negative 04/11/24 19:00: Troponin I < 0.01 04/11/24 22:00: Lactate 1.5, Troponin I < 0.01, Procalcitonin 0.070 04/11/24 22:58: POC Glucose 157 H 04/12/24 01:35: Troponin I 0.01 04/12/24 02:45: Chlamy pneumoniae PCR Not detected, Adenovirus (PCR) Not detected, B. pertussis DNA (PCR) Not detected, Coronavirus OC43 (PCR) Not detected, Coronavirus HKU1 (PCR) Not detected, Coronavirus 229E (PCR) Not detected, SARS-CoV-2 (PCR) Not detected, Coronavirus NL63 (PCR) Not detected, Human Metapneumovir PCR Not detected, Influenza A (H1) PCR Not detected, Influ A (H1N1/09) PCR Not detected, Influenza A (H3) PCR Not detected, Influenza Type A (PCR) Not detected, Influenza Type B (PCR) Not detected, M. pneumoniae (PCR) Not detected, Parainfluenza 1 (PCR) Not detected, Parainfluenza 2 (PCR) Not detected, Parainfluenza 3 (PCR) Not detected, Parainfluenza 4 (PCR) Not detected, RSV (PCR) Not detected, Entero/Rhino (PCR) Not detected 04/12/24 05:59: POC Glucose 150 H 04/12/24 06:27: WBC 7.1, RBC 3.87 L, Hgb 11.6 L, Hct 32.8 L, MCV 84.8, MCH 30.0, MCHC 35.4, RDW 11.9, Plt Count 105 L, MPV 9.9, Neut % (Auto) 76.7, Lymph % (Auto) 13.5, [place] % (Auto) 9.4 H, Eos % (Auto) 0.0 L, Baso % (Auto) 0.0 L, Neut # (Auto) 5.4, Lymph # (Auto) 1.0, [place] # (Auto) 0.7, Eos # (Auto) 0.0, Baso # (Auto) 0.0, Sodium 128 L, Potassium 3.6, Chloride 98, Carbon Dioxide 27, Anion Gap 6.6, BUN 16, Creatinine 1.00, Estimated Creat Clear 102, Estimated GFR 74, Est GFR ( Amer) 89, Glucose 150 H, Calcium 8.2 L, Magnesium 1.8, Total Bilirubin 0.9, AST 63 H, ALT 24, Alkaline Phosphatase 41, Total Protein 6.0 L, Albumin 3.6, Globulin 2.4, Albumin/Globulin Ratio 1.5 I & O for Labs for Last 24 Hours: Intake & Output 04/09/24 04/10/24 04/11/24 04/12/24 11:59 11:59 11:59 11:59 Intake Total Output Total 1025 / 1025 Balance -1005 / -1005 Weight 234 lb 15.992 oz Constitutional: Present mild distress Respiratory: Present CTA bilaterally Cardiac: Present Reg Rate and Rhythm GI: Present soft; Absent distention or tenderness Extremities: Absent edema Comment:: surgical site on back is draining bloody drainage. dressing in place Neuro: Present Other (confused, can answer some questions, continuous movements of arms and legs) Assessment and Plan *Assessment and plan (1) Disorientation: Status: Acute Category: Medical Code(s): R41.0 - Disorientation, unspecified (2) Acute hyponatremia: Status: Acute Category: Medical Code(s): E87.1 - Hypo-osmolality and hyponatremia (3) Status post laminectomy: Status: Acute Category: Surgical Code(s): Z98.890 - Other specified postprocedural states (4) Chest pain: Status: Acute Category: Medical Code(s): R07.9 - Chest pain, unspecified (5) Sacroiliac joint disease: Status: Acute Category: Medical Code(s): M53.3 - Sacrococcygeal disorders, not elsewhere classified (6) Renal insufficiency syndrome: Status: Acute Category: Medical Code(s): N28.9 - Disorder of kidney and ureter, unspecified (7) HTN (hypertension): Status: Chronic Qualifiers: Hypertension type: essential hypertension Qualified Code(s): I10 - Essential (primary) hypertension Category: Medical Code(s): I10 - Essential (primary) hypertension (8) Pulmonary hypertension: Status: Chronic Category: Medical Code(s): I27.20 - Pulmonary hypertension, unspecified (9) Acute febrile illness: Status: Acute Category: Medical Code(s): R50.9 - Fever, unspecified (10) Drainage from surgical wound: Status: Acute Category: Medical Plan Patient has been started on antibiotics by the hospitalist. Chest CT and head CT normal. He is awaiting a bed at [facility]. Will discuss further care with Dr. Campa. Dr. Campa entry - Saw patient, agree with above note. He was admitted by the hospitalist overnight. See H&P, medical history/problem list updated, transfer to [facility] should be today, continue current treatment.
[2024-04-12] MEDS: hydrOXYzine pamoate 25MG CAPSULE 25 MG PO (09:03)
[2024-04-12] MEDS: IRBESARTAN 150MG TAB 150 MG PO (09:04)
[2024-04-12] MEDS: CYCLOBENZAPRINE 10MG TABLET 10 MG PO (09:04)
[2024-04-12] MEDS: ASPIRIN EC 81MG TABLET 81 MG PO (09:04)
[2024-04-12] MEDS: CELECOXIB 100MG CAPSULE 200 MG PO (09:04)
[2024-04-12] MEDS: ENOXAPARIN 40MG/0.4ML SYRINGE 40 MG SUBCUT (09:05)
[2024-04-12] MEDS: PREGABALIN 50MG CAPSULE 150 MG PO (09:09)
[2024-04-12] MEDS: CEFEPIME HCL 2 GM in 0.9 % SODIUM CHLORIDE 100 ML IV ×2 (10:00→16:14)
[2024-04-12] MEDS: 0.9% NaCl w/40mEq KCL 1,000 ML 125 ML IV (10:00)
[2024-04-12] MEDS: HALOPERIDOL LACTATE 5 MG/ML VIAL 2 MG IM (10:23)
[2024-04-12 11:38] LABS: POC Glucose,Bedside 146 (70-110)
[2024-04-12 11:56] VITALS: BP 157/65; PULSE 68; RESP 22; TEMP 38.2; O2SAT 96
--- NOTE | 2024-04-12 13:01 | CARE MANAGER ---
Addendum entered by Sheila Roland RN 04/12/24 15:47: Still no bed available. Spoke with Dr. Campa and let him know. Talked to access center again and paged neurosurgeon for Dr. Campa. They are to contact Dr. Campa soon. Original Note: Contacted access center at [facility] and updated on patient condition. Remains on list and still no beds available.
[2024-04-12] MEDS: IPRATROPIUM/ALBUTEROL 3 ML NEB IH (14:57)
[2024-04-12] MEDS: MORPHINE 2MG/ML SYRINGE 2 MG IV (14:58)
--- NOTE | 2024-04-12 15:42 | P.CONPHA_ITS ---
Pharmacy Consult Date: 04/12/24 Time: 15:43 Referring provider: DR. CAMPA Reason for Consult:: VANCOMYCIN DOSING Allergies Allergy/AdvReac Type Severity Reaction Status Date / Time No Known Allergies Allergy Verified 11/10/23 15:28 Home Medications ?Medication ?Instructions ?Recorded ?Confirmed ?Type celecoxib 200 mg capsule 200 mg PO DAILY 09/15/17 04/12/24 History aspirin 81 mg tablet,delayed 81 mg PO DAILY 01/30/20 04/12/24 History release hydroxyzine HCl 25 mg tablet 25 mg PO BIDP PRN Anxiety 12/19/22 04/12/24 History furosemide 20 mg tablet 20 mg PO DAILY 04/01/23 04/12/24 History omeprazole 40 mg capsule,delayed 40 mg PO BID 04/01/23 04/12/24 History release lidocaine 5 % topical patch 1 patch topical DAILY 11/12/23 04/12/24 History morphine (PF) 30 mg/30 mL (1 0 mg continuous intrathecal 11/12/23 04/12/24 History mg/mL) SKID MAN intravenous solution infusion DAILY pregabalin 150 mg capsule 150 mg PO BID 11/12/23 04/12/24 History losartan 25 mg tablet 25 mg PO DAILY 04/12/24 04/12/24 History metformin 500 mg tablet,extended 500 mg PO BID 04/12/24 04/12/24 History release 24 hr ondansetron 8 mg disintegrating 8 mg PO BIDP PRN Nausea And 04/12/24 04/12/24 History tablet Vomiting oxycodone-acetaminophen 5 mg-325 1 tab PO Q6HP PRN Moderate Pain 04/12/24 04/12/24 History mg tablet (Percocet) (Scale Score 5-6) New Prescriptions to Start Prescriptions: Height: 1.78 m Weight: 106.594 kg Laboratory Results:: Laboratory Results - last 24 hr 04/11/24 15:28: WBC 7.9, RBC 4.19 L, Hgb 12.5 L, Hct 35.8 L, MCV 85.4, MCH 29.8, MCHC 34.9, RDW 12.0, Plt Count 127 L, MPV 9.8, Neut % (Auto) 72.9, Lymph % (Auto) 18.4, [place] % (Auto) 8.0, Eos % (Auto) 0.0 L, Baso % (Auto) 0.1, Neut # (Auto) 5.8, Lymph # (Auto) 1.5, [place] # (Auto) 0.6, Eos # (Auto) 0.0, Baso # (Auto) 0.0, PT 11.2, INR 1.00, APTT 25.4, Sodium 128 L, Potassium 3.6, Chloride 94 L, Carbon Dioxide 32 H, Anion Gap 5.6, BUN 16, Creatinine 1.10, Estimated GFR 66, Est GFR ( Amer) 80, Glucose 138 H, Calcium 8.6, Magnesium 1.8, Total Bilirubin 0.7, AST 64 H, ALT 27, Alkaline Phosphatase 44, Troponin I < 0.01, NT-Pro-B Natriuret Pep 540 H, Total Protein 6.4, Albumin 3.9, Globulin 2.5, Albumin/Globulin Ratio 1.6, Hepatitis C Antibody Non reactive, HIV Ag/Ab Combo Qual Negative 04/11/24 19:00: Troponin I < 0.01 04/11/24 22:00: Lactate 1.5, Troponin I < 0.01, Procalcitonin 0.070 04/11/24 22:58: POC Glucose 157 H 04/12/24 01:35: Troponin I 0.01 04/12/24 02:45: Chlamy pneumoniae PCR Not detected, Adenovirus (PCR) Not detected, B. pertussis DNA (PCR) Not detected, Coronavirus OC43 (PCR) Not detected, Coronavirus HKU1 (PCR) Not detected, Coronavirus 229E (PCR) Not detected, SARS-CoV-2 (PCR) Not detected, Coronavirus NL63 (PCR) Not detected, Human Metapneumovir PCR Not detected, Influenza A (H1) PCR Not detected, Influ A (H1N1/09) PCR Not detected, Influenza A (H3) PCR Not detected, Influenza Type A (PCR) Not detected, Influenza Type B (PCR) Not detected, M. pneumoniae (PCR) Not detected, Parainfluenza 1 (PCR) Not detected, Parainfluenza 2 (PCR) Not detected, Parainfluenza 3 (PCR) Not detected, Parainfluenza 4 (PCR) Not detected, RSV (PCR) Not detected, Entero/Rhino (PCR) Not detected 04/12/24 05:59: POC Glucose 150 H 04/12/24 06:27: WBC 7.1, RBC 3.87 L, Hgb 11.6 L, Hct 32.8 L, MCV 84.8, MCH 30.0, MCHC 35.4, RDW 11.9, Plt Count 105 L, MPV 9.9, Neut % (Auto) 76.7, Lymph % (Auto) 13.5, [place] % (Auto) 9.4 H, Eos % (Auto) 0.0 L, Baso % (Auto) 0.0 L, Neut # (Auto) 5.4, Lymph # (Auto) 1.0, [place] # (Auto) 0.7, Eos # (Auto) 0.0, Baso # (Auto) 0.0, Sodium 128 L, Potassium 3.6, Chloride 98, Carbon Dioxide 27, Anion Gap 6.6, BUN 16, Creatinine 1.00, Estimated Creat Clear 102, Estimated GFR 74, Est GFR ( Amer) 89, Glucose 150 H, Calcium 8.2 L, Magnesium 1.8, Total Bilirubin 0.9, AST 63 H, ALT 24, Alkaline Phosphatase 41, Total Protein 6.0 L, Albumin 3.6, Globulin 2.4, Albumin/Globulin Ratio 1.5 04/12/24 11:29: POC Glucose 146 H Medical History: Medical History (Updated 04/12/24 @ 09:01 by Kostas Campa MD) Essential tremor Raynauds disease Depression OA (osteoarthritis) of hip IFG (impaired fasting glucose) Hyperlipidemia Vitamin D deficiency BPH (benign prostatic hyperplasia) GERD (gastroesophageal reflux disease) Bacteremia Colon cancer Disc disorder Broken leg REY (obstructive sleep apnea) Pulmonary hypertension Fatigue HTN (hypertension) Assessment and Plan Assessment and plan all Dx Assessment and Plan for all problems:: Pharmacokinetic dosing service Objective: Patient: Floor: Age: 73 yo Serum creatinine: 1.00 mg/dL Height: 70.1 Inches Weight (kg): 106.6 Assessment: IBW (kg): 73.23 Dosing wt(kg): 106.6 Estimated Creatinine clearance (ml/min): 70.2 CRCL method: Cockcroft and Gault using ibw(default). Drug selected: Vancomycin Loading dose (mg): Vd (liters): 85.3 (factor used: 0.8 L/kg) Tyree (hr-1): 0.063 Half life (hrs): 11.00 CLvanco=?? 5.374 L/hr Recommended dose: 2250 mg Interval: 18 hrs Infusion time (hrs): 2.0 Predicted peak (mcg/mL): 36.5 Predicted trough (mcg/mL): 13.32 Total body weight is being used for vancomycin dosing. Recommendations: Give Vancomycin 2250 mg q 18 hrs with an expected Cpeak of 36.5 mcg/ml and an expected Ctrough of 13.32 mcg/ml AUC 0-24 /KAMILLA Data: KAMILLA 0.5 mcg/mL:?? AUC/KAMILLA:? 1116.5 KAMILLA 1.0 mcg/mL:?? AUC/KAMILLA:? 558.2 --------- KAMILLA 1.5 mcg/mL:?? AUC/KAMILLA:? 372.2 KAMILLA 2.0 mcg/mL:?? AUC/KAMILLA:? 279.1 Thank you for the consult, will continue to follow. -ELIZABETH CAMARENA, BROCKD
[2024-04-12 16:00] VITALS: BP 160/80; PULSE 74; RESP 20; TEMP 37.1; O2SAT 94
[2024-04-12] MEDS: MORPHINE 2MG/ML SYRINGE 2 MG IM (16:48)
[2024-04-12 17:38] LABS: POC Glucose,Bedside 142 (70-110)
[2024-04-12] MEDS: VANCOMYCIN HCL 2,250 MG in 0.9 % SODIUM CHLORIDE 250 ML 125 MG IV (17:43)
[2024-04-12] MEDS: PROCHLORPERAZINE 10MG/2ML VIAL 10 MG IV (17:57)
[2024-04-12] MEDS: ALUMINUM/MAGNESIUM/SIMETHICONE 30ML UDC 30 ML PO (17:59)
--- NOTE | 2024-04-12 18:32 | PC.NURSE ---
TRANSFER TO [facility]. REPORT GIVEN TO [facility] ON 3B MED/SURG FLOOR. EMS EN ROUTE ETA UNKNOWN.
--- NOTE | 2024-04-12 21:36 | CA_ITS ---
APPROVED REPORT EXAM: Comprehensive 2D, Doppler, and color-flow Echocardiogram Construction Operations Manager: Stephanie Russo CRT Ht: 5 ft 10 in Wt: 235lbs BSA: 2.24 BP: 144/53 mmHg Indications: s/p Laminectomy L3-L5 12/16 [facility], fever, AMS, HTN, HLD, DM, Hx colon CA, REY Pt very confused and uncooperative moved thru out exam 2D Dimensions LA Volume 32.50 mL LA Volume Index 14.51 mL/m2 (M/F) 16-34 M-Mode Dimensions RVDd 2.34 cm (0.9-2.6) LA Diam 3.67 cm (1.9-4.0) LVDd 5.44 cm (3.5-5.7) LVDs 3.46 cm (3.5-5.7) IVSd 0.93 cm (0.6-1.1) PWd 0.60 cm (0.6-1.1) EF (Teich) 65.60% FS 36.40% EDV (Teich) 143.70 mL TAPSE 1.09 (<1.7) ESV (Teich) 49.50 mL LV Diastology MED A' 10.20 cm/s LAT A' 13.70 cm/s Aortic Valve AO Peak GR. 8.70 mmHg Pulmonary Valve PV Peak Velocity 102.0 (50-150 cm/s) Tricuspid Valve TR P. Velocity 173.00 cm/s RAP Estimate 10.00 mmHg RVSP 21.90 mmHg Left Ventricle The left ventricle is normal size. The left ventricular systolic function is normal. The left ventricular ejection fraction is within the normal range. There is increased LV wall thickness. There is normal LV segmental wall motion. The left ventricular diastolic function is normal. LVEF is 60%. Right Ventricle Right ventricle is mildly dilated. The right ventricular systolic function is normal. Atria The left atrium size is normal. The right atrium size is normal. There is no Doppler evidence of interatrial shunt. Aortic Valve Aortic valve is mildly thickened. There is no aortic valvular stenosis. No aortic regurgitation is present. Mitral Valve The mitral valve leaflets are mildly thickened. No evidence of mitral valve stenosis. Trace mitral regurgitation. Tricuspid Valve Tricuspid valve is grossly normal in structure and function. Trace tricuspid regurgitation. There is insufficient TR jet to estimate RVSP. Pulmonic Valve The pulmonary valve is normal in structure. Trace pulmonic regurgitation. Great Vessels The aortic root is normal in size. The ascending aorta is not well-visualized. IVC is normal in size and collapses >50% with inspiration. Pericardium Trivial, anterior pericardial effusion is present. No echo indications of tamponade. Other Information Study Quality: Fair Conclusion Normal biventricular systolic function. Mild RV dilation. No significant valvular stenosis or regurgitation. Trivial anterior pericardial effusion. No echo indications of tamponade. Electronically signed by : Eli Montelongo MD 04/12/2024 10:25:26
--- NOTE | 2024-04-14 15:21 | EXP.DC.SUM ---
General Admission date:: 04/11/24 Discharge date: 04/12/24 HPI HPI HPI: 73-year-old male L3 L5 laminectomy at [facility] 04/10 presents to the emergency room today with choking chest discomfort/cough. 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 Per patient's , patient suffering from choking, cough like substernal discomfort since 2:30 AM after waking on CPAP. States patient complains of gas stomach. And dry heaving all morning. Patient brought to emergency room for evaluation, and given 1 mg p.o. Ativan prior to CTA chest then suffered from metabolic encephalopathy. Patient disoriented, shaking, slightly diaphoretic during my examination of patient today in emergency room. Patient already accepted by [facility] for transfer ELZA. Patient admitted while awaiting transfer to [facility] for metabolic encephalopathy management. Patient's brother and present in emergency room and acted as independent historians. Denies fevers, chills, known sick contacts, recent travel, dysuria. CTA chest: No pulmonary embolus, no acute disease. WBC 7.9, Hgb 12.5, platelets 127, NA 128, K3.6, CL 94, BUN 16, CR 1.1, BNP 540, AST 64, ALT 27, alk phos 44, troponin<0.01, ALB 3.9. Hospital Course Hospital Course Hospital Course: The patient was given 1 mg p.o. of Ativan prior to his CTA and this caused him to be very confused and agitated. The hospitalist initially saw him and he was admitted while awaiting transfer to [facility] for metabolic encephalopathy management. Serial troponins were ordered for his chest discomfort and he was placed on telemetry. An echo was also ordered. The hospitalist did explore the patient's laminectomy site and there were no signs of acute infection or drainage. He did order a procalcitonin, lactic acid, and respiratory panel and started him on empiric antibiotics. He was given Benadryl 50 mg IV once to alleviate agitation and Haldol 2 mg every 8 hours was also ordered as needed. He had a low sodium and was started on IV fluids. Wound care was consulted for the surgical site and he was started on morphine 2 mg every 6 hours as needed. The patient did spike a fever of 101.7 during the night. By 04/12/2024, he was having continuous movements of his arms and legs. The morphine helped with his pain but did not stop the movements. He had not rested and been very confused. His surgical site was now draining. His respiratory panel was negative. A bed was found for him at [place] and he was transported for further evaluation and treatment. Exam Data for Last 24 hours Vital signs and Labs for Last 24 Hours: Temp Pulse Resp BP Pulse Ox O2 Del Method 98.8 F 74 20 160/80 H 94 L Room Air 04/12/24 16:00 04/12/24 16:00 04/12/24 16:00 04/12/24 16:00 04/12/24 16:00 04/12/24 18:32 I & O for Last 24 hours: Intake & Output 04/12/24 04/13/24 04/14/24 04/15/24 11:59 11:59 11:59 11:59 Intake Total 118 / 118 Output Total 1025 / 1025 550 / 550 Balance -1005 / -1005 -432 / -432 Weight 234 lb 15.992 oz 234 lb 15.992 oz Microbiology Reports for the Last 24 Hours: Microbiology 04/12/24 01:30 Blood Blood Culture - Preliminary NO GROWTH AFTER 48 HOURS 04/12/24 01:35 Blood Blood Culture - Preliminary NO GROWTH AFTER 48 HOURS Narrative: Constitutional Constitutional: moderate distress, diaphoretic, disheveled and agitated *Routine HEENT Exam Head: Present normocephalic Eye: Present EOMI ENT: Present mucous membranes dry *Routine Neck Exam Neck: Present supple and full ROM *Routine Respiratory Exam Respiratory: Present decreased breath sounds and diminished air movement *Routine Cardiovascular Exam Cardiovascular: Present RRR, Normal S1 and Normal S2 *Routine Abdominal Exam Abdominal: Present soft and normoactive bowel sounds *Routine Rectal Exam Rectal:: deferred *Routine Genitalia Exam Genitalia:: deferred *Routine Extremities Exam Extremities: Present full ROM and normal capillary refill *Routine Skin Exam Skin: Present intact *Routine Neurological Exam Neurological: Present alert, altered mental status, abnormal gait, moving all extremities, normal tone, hearing grossly intact and tremors Results Data Completed and Pending Labs on day of discharge: Preliminary micro results at discharge 04/12/24 01:30 Blood Culture - Preliminary Blood NO GROWTH AFTER 48 HOURS 04/12/24 01:35 Blood Culture - Preliminary Blood NO GROWTH AFTER 48 HOURS DS: Diagnosis Discharge Diagnosis (1) Disorientation: Status: Acute Code(s): R41.0 - Disorientation, unspecified (2) Acute hyponatremia: Status: Acute Code(s): E87.1 - Hypo-osmolality and hyponatremia (3) Status post laminectomy: Status: Acute Code(s): Z98.890 - Other specified postprocedural states (4) Chest pain: Status: Acute Code(s): R07.9 - Chest pain, unspecified (5) Sacroiliac joint disease: Status: Acute Code(s): M53.3 - Sacrococcygeal disorders, not elsewhere classified (6) Renal insufficiency syndrome: Status: Acute Code(s): N28.9 - Disorder of kidney and ureter, unspecified (7) HTN (hypertension): Status: Chronic Code(s): I10 - Essential (primary) hypertension Qualifiers: Hypertension type: essential hypertension Qualified Code(s): I10 - Essential (primary) hypertension (8) Pulmonary hypertension: Status: Chronic Code(s): I27.20 - Pulmonary hypertension, unspecified (9) Acute febrile illness: Status: Acute Code(s): R50.9 - Fever, unspecified (10) Drainage from surgical wound: Status: Acute Meds Home Medications and Allergies Home Medications ?Medication ?Instructions ?Recorded ?Confirmed ?Type celecoxib 200 mg capsule 200 mg PO DAILY 09/15/17 04/12/24 History aspirin 81 mg tablet,delayed 81 mg PO DAILY 01/30/20 04/12/24 History release hydroxyzine HCl 25 mg tablet 25 mg PO BIDP PRN Anxiety 12/19/22 04/12/24 History furosemide 20 mg tablet 20 mg PO DAILY 04/01/23 04/12/24 History omeprazole 40 mg capsule,delayed 40 mg PO BID 04/01/23 04/12/24 History release lidocaine 5 % topical patch 1 patch topical DAILY 11/12/23 04/12/24 History morphine (PF) 30 mg/30 mL (1 0 mg continuous intrathecal 11/12/23 04/12/24 History mg/mL) EMPLOYMENT [employer]UCATIONAL [employer]ORD intravenous solution infusion DAILY pregabalin 150 mg capsule 150 mg PO BID 11/12/23 04/12/24 History losartan 25 mg tablet 25 mg PO DAILY 04/12/24 04/12/24 History metformin 500 mg tablet,extended 500 mg PO BID 04/12/24 04/12/24 History release 24 hr ondansetron 8 mg disintegrating 8 mg PO BIDP PRN Nausea And 04/12/24 04/12/24 History tablet Vomiting oxycodone-acetaminophen 5 mg-325 1 tab PO Q6HP PRN Moderate Pain 04/12/24 04/12/24 History mg tablet (Percocet) (Scale Score 5-6) New Prescriptions to Start Prescriptions: Allergies Allergy/AdvReac Type Severity Reaction Status Date / Time No Known Allergies Allergy Verified 11/10/23 15:28 Discharge Plan Disposition Patient Disposition: Xfer Short-Term Hosp Condition: Serious Discharge Order Discharge Orders: Discharge Order (Routine); Ordered 04/12/24 Ordered By: Kostas Campa Follow up Plan Prescriptions/Medication Reconciliation: Continued celecoxib 200 mg capsule 200 mg PO DAILY omeprazole 40 mg capsule,delayed release(DR/EC) 40 mg PO BID furosemide 20 mg tablet 20 mg PO DAILY aspirin 81 MG tablet,delayed release (DR/EC) 81 mg PO DAILY ondansetron 8 mg tablet,disintegrating 8 mg PO BIDP PRN (Reason: Nausea And Vomiting) losartan 25 mg tablet 25 mg PO DAILY metformin 500 mg tablet extended release 24 hr 500 mg PO BID oxycodone-acetaminophen [Percocet] 5-325 mg Tablet 1 tab PO Q6HP PRN (Reason: Moderate Pain (Scale Score 5-6)) hydroxyzine HCl 25 mg tablet 25 mg PO BIDP PRN (Reason: Anxiety) pregabalin 150 mg Capsule 150 mg PO BID lidocaine 5 % Adhesive Patch,Medicated 1 patch topical DAILY morphine (PF) 30 mg/30 mL (1 mg/mL) Patient Control.Analgesia Soln 0 mg continuous intrathecal infusion DAILY Rx Instructions: spinal cord stimulator implant Problem Reconciliation Problems Reviewed?: Yes Patient Discharge Instructions ACTIVITY: Limited activity DIET: continue same diet Stand Alone Forms: Transfer Record Patient Instructions: DI for Hyponatremia, DI for Chest Pain Print Language: Tajik Providers Primary Care Provider: Kostas Campa Admit Provider: Kostas Campa Attending Provider: Kostas Campa
== END 2024-04-12 19:22 | disposition short-term general hospital (02) | DRG 640 ==
LOC: ER 19:03 → 2ND 20:43
PROVIDERS: Internal Medicine; Admitting Provider Family Medicine; Emergency Provider Emergency Medicine; PCP Family Medicine; Visit Provider Family Medicine
DX: E87.1 Hypo-osmolality and hyponatremia (principal); G93.41 Metabolic encephalopathy; R07.9 Chest pain, unspecified; M53.3 Sacrococcygeal disorders, not elsewhere classified; N28.9 Disorder of kidney and ureter, unspecified; I10 Essential (primary) hypertension; I27.20 Pulmonary hypertension, unspecified; Z98.890 Other specified postprocedural states; G47.33 Obstructive sleep apnea (adult) (pediatric); K21.9 Gastro-esophageal reflux disease without esophagitis
CPT/HCPCS: 36415; 70450; 71045; 71275; 80053; 82962; 83605; 83735; 83880; 84145; 84484; 85025; 85610; 85730; 86803; 87040; 87389; 87633; 93005; 93306; 99291; J0692; J0780; J1200; J1630; J1650; J1885; J2270; J3370; J7030; J7620; Q9967

== ENCOUNTER 2024-04-24 03:15 | Emergency (ER) | payer MEDICARE, SELFPAY ==
--- NOTE | 2024-04-24 03:22 | CT_ITS ---
PROCEDURE INFORMATION: Exam: CTA Chest With Contrast Exam date and time: 04/24/2024 3:53 AM Age: 73 years old Clinical indication: Shortness of breath; Prior surgery; Surgery date: <1 month; Surgery type: Laminectomy; Additional info: SOA recent laminectomy TECHNIQUE: Imaging protocol: Computed tomographic angiography of the chest with contrast. Exam focused on the arteries. 3D rendering (Not supervised by radiologist): MIP and/or 3D reconstructed images were created by the technologist. Radiation optimization: All CT scans at this facility use at least one of these dose optimization techniques: automated exposure control; mA and/or kV adjustment per patient size (includes targeted exams where dose is matched to clinical indication); or iterative reconstruction. Contrast material: ISOUVE 370; Contrast volume: 70 ml; Contrast route: INTRAVENOUS (IV); COMPARISON: CT ANGIO CHEST PE PROTOCOL 04/11/2024 4:35 PM FINDINGS: Tubes, catheters and devices: Incompletely evaluated nerve stimulator device. Pulmonary arteries: Normal. No pulmonary emboli. Aorta: Mild atherosclerotic disease of the aorta. Lungs: Right upper lobe nodule with partial calcification, likely evolving granulomatous disease. Pleural spaces: Unremarkable. No pneumothorax. No pleural effusion. Heart: Unremarkable. No cardiomegaly. No pericardial effusion. Coronary arteries: Moderate coronary calcified atherosclerotic disease. Lymph nodes: Right hilar calcified lymph nodes. Pancreas: Pancreatic atrophy, mild. Spleen: Splenic granulomas. Bones/joints: Diffuse degenerative change of the visualized osseous structures. Soft tissues: Stable heavy metallic object in the posterior right supraclavicular fossa. IMPRESSION: 1. No pulmonary embolus. 2. No acute thoracic findings.
--- NOTE | 2024-04-24 03:25 | ECG_ITS ---
APPROVED REPORT Exam: Resting ECG HR:79 bpm ECG Measurements Heart Rate 79 AXES WV 155 P 83 QRSd 94 QRS -72 QT 385 T 67 QTc 420 Conclusion SINUS RHYTHM LEFT AXIS DEVIATION [QRS AXIS < -30] no STEMI Electronically signed by : KAT WASHINGTON, 04/24/2024 07:42:04
--- NOTE | 2024-04-24 03:31 | ED_ITS ---
Discharge Plan Disposition Patient Disposition: Home, Self-Care Condition: Good Prescriptions Prescriptions: New ondansetron 4 mg tablet,disintegrating 4 mg PO Q6H PRN (Reason: nausea and vomiting) Qty: 7 0RF No Action celecoxib 200 mg capsule 200 mg PO DAILY omeprazole 40 mg capsule,delayed release(DR/EC) 40 mg PO BID furosemide 20 mg tablet 20 mg PO DAILY aspirin 81 MG tablet,delayed release (DR/EC) 81 mg PO DAILY ondansetron 8 mg tablet,disintegrating 8 mg PO BIDP PRN (Reason: Nausea And Vomiting) losartan 25 mg tablet 25 mg PO DAILY metformin 500 mg tablet extended release 24 hr 500 mg PO BID oxycodone-acetaminophen [Percocet] 5-325 mg Tablet 1 tab PO Q6HP PRN (Reason: Moderate Pain (Scale Score 5-6)) hydroxyzine HCl 25 mg tablet 25 mg PO BIDP PRN (Reason: Anxiety) pregabalin 150 mg Capsule 150 mg PO BID lidocaine 5 % Adhesive Patch,Medicated 1 patch topical DAILY morphine (PF) 30 mg/30 mL (1 mg/mL) Patient Control.Analgesia Soln 0 mg continuous intrathecal infusion DAILY Rx Instructions: spinal cord stimulator implant Referrals Follow up/Referrals: Kostas Campa MD [Primary Care Provider] - See instructions Activity Restrictions/Add. Instructions Additional Instructions/Restrictions: You were evaluated in the ER and are appropriate for discharge at this time. Use the provided inhaler 2 puffs every 6 hours if needed for shortness of breath. Continue taking the antibiotics that you were previously prescribed. Do not skip doses, do not stop taking them early. Take the prescribed ondansetron if needed for nausea or vomiting. Drink plenty of water to maintain good hydration. Make an appointment with your primary care doctor for reevaluation in a few days. Return to the ER with new, worsening, or otherwise concerning symptoms Clinical Impressions Clinical Impression: Cough, Shortness of breath, Influenza A Print Language Print Language: Malay Discharge ED Provider: Mayra Sandhu HPI General Chief Complaint: Upper Respiratory Infection Stated Complaint: SOA Time Seen by Provider: 04/24/24 03:21 History of Present Illness HPI narrative: 73-year-old male with history of multiple previous spine surgeries, neuropathy, REY, hypertension presents to the ER with complaints of cough, shortness of breath, persistent chest pain. Patient was evaluated in our ER on 04/11/2024 and had findings concerning for aspiration pneumonia. He was transferred to [place] where he had just had his laminectomy surgery 1 day prior. Patient and at bedside report he was treated with cefdinir for the pneumonia. He has completed the antibiotic. He is still on doxycycline which was originally prescribed by the back surgeon to prevent infection. Patient is also currently taking once daily Tamiflu for a 10-day course because his tested positive for flu 7 days ago. Patient reports he has been having chest pain, cough, shortness of breath since the time he was discharged from the hospital, his chest pain has been chronic, unchanged. He does describe it as midsternal but nonradiating. He denies fevers, chills, nausea, vomiting, does report that patient has had mild diarrhea but they are also concerned that he has had significant weight loss due to poor oral intake and generalized malaise. They report 20 pounds of weight loss since his laminectomy surgery on 04/10/2024. Patient reports he has never smoked, has no known history of COPD or asthma. Per review of ER note from 04/11, patient has substernal chest pain at that time and he reports it has not ever resolved. Related Data Home Medications ?Medication ?Instructions ?Recorded ?Confirmed celecoxib 200 mg capsule 200 mg PO DAILY 09/15/17 04/12/24 aspirin 81 mg tablet,delayed 81 mg PO DAILY 01/30/20 04/12/24 release hydroxyzine HCl 25 mg tablet 25 mg PO BIDP PRN Anxiety 12/19/22 04/12/24 furosemide 20 mg tablet 20 mg PO DAILY 04/01/23 04/12/24 omeprazole 40 mg capsule,delayed 40 mg PO BID 04/01/23 04/12/24 release lidocaine 5 % topical patch 1 patch topical DAILY 11/12/23 04/12/24 morphine (PF) 30 mg/30 mL (1 0 mg continuous intrathecal 11/12/23 04/12/24 mg/mL) CHECKER IN intravenous solution infusion DAILY pregabalin 150 mg capsule 150 mg PO BID 11/12/23 04/12/24 losartan 25 mg tablet 25 mg PO DAILY 04/12/24 04/12/24 metformin 500 mg tablet,extended 500 mg PO BID 04/12/24 04/12/24 release 24 hr ondansetron 8 mg disintegrating 8 mg PO BIDP PRN Nausea And 04/12/24 04/12/24 tablet Vomiting oxycodone-acetaminophen 5 mg-325 1 tab PO Q6HP PRN Moderate Pain 04/12/24 04/12/24 mg tablet (Percocet) (Scale Score 5-6) Previous Rx's ?Medication ?Instructions ?Recorded ondansetron 4 mg disintegrating 4 mg PO Q6H PRN nausea and 04/24/24 tablet vomiting #7 tabs Allergies Allergy/AdvReac Type Severity Reaction Status Date / Time No Known Allergies Allergy Verified 11/10/23 15:28 [facility] Disclaimer: The information contained in this section may have been updated after the patient was seen, as this information can be updated by other users. Medical History (Updated 04/24/24 @ 06:03 by Mayra Sandhu MD) COVID-19 Acute viral syndrome Contact dermatitis Impacted cerumen of right ear Skin ulcer of great toe with fat layer exposed Pain of right great toe Infected blister of great toe of right foot Bilateral lower leg cellulitis Bacteremia due to Streptococcus Essential tremor Raynauds disease Depression OA (osteoarthritis) of hip IFG (impaired fasting glucose) Hyperlipidemia Vitamin D deficiency BPH (benign prostatic hyperplasia) GERD (gastroesophageal reflux disease) Bacteremia Colon cancer Disc disorder Broken leg REY (obstructive sleep apnea) Pulmonary hypertension HTN (hypertension) Surgical History (Updated 04/16/24 @ 00:00 by Dionicio Ayoub) History of knee replacement Family History Other No significant family history Social History (Updated 04/11/24 @ 22:28 by Sonia Araujo RN) Smoking Status: Never smoker alcohol intake: never substance use type: denies use current occupational status: employed and retired Travel in the last 8 weeks: None household members: spouse and family housing: house current occupational exposures/hazards: No caffeine: Yes Have you lived/traveled outside [place] in past 30 days?: No Contact w/someone who lives/traveled outside US past 30 days?: No Exposure to someone with infectious disease in past 14 days?: No Do you have a fever (greater than 100.4 F or 38 C)?: No Have you tested positive for COVID-19: No Exposed to someone with COVID-19 in past 14 days?: No Do you have a sore throat?: No Do you have a cough?: No Do you have any weakness?: No Do you have any diarrhea?: No Are you experiencing any unusual bleeding?: No Do you have any muscle aches/pain?: No Do you have any abdominal pain?: No Are you experiencing loss of taste or smell?: No Other Medical History Have you received the Flu Vaccine for this season: No Have you received the Pneumonia Vaccine: No ROS Obtained: Yes Systems reviewed as appropriate & no additional complaints except as documented Per HPI Physical Exam General General appearance: alert and in no apparent distress Comment: Chronically ill-appearing Head Head exam: atraumatic and normocephalic Eye Eye exam: Present PERRL and EOMI ENT ENT exam: Present mucous membranes dry Neck Neck exam: Present normal inspection and full ROM Chest Chest inspection: Present symmetric chest wall rise Respiratory Respiratory exam: Present wheezes (Right lung ribera and expiratory); Absent normal lung sounds bilaterally (Mildly diminished breath sounds throughout, left lung ribera with rhonchi and rales), respiratory distress, stridor, accessory muscle use or prolonged expiratory phase Cardiovascular Cardiovascular exam: Present regular rate and normal rhythm Abdominal Exam Abdominal exam: Present soft and other (Pain device palpable in left lower quadrant abdominal wall); Absent distention or tenderness Extremities Exam Extremities exam: Present full ROM; Absent edema Neurological Exam Neurological exam: Present alert and oriented X3; Absent motor sensory deficit Psychiatric Psychiatric exam: Present normal affect and normal mood Skin Skin exam: Present warm and dry HEART Score HEART Score HEART Score assessment performed?: Yes History (anamnesis): Slightly suspicious ECG: Normal Age: >65 years Risk factors: 3 or more risk factors Troponin: </= normal limit HEART Score: 4 Critical Care Critical Care Time Critical Care Time: No Medical Decision Making Medical Records Medical records reviewed: Yes I reviewed the patient's medical records. MR Comment: See HPI; CT imaging of the chest from last encounter in our ER demonstrated no acute intrathoracic abnormality, no PE. Echocardiogram from 04/12/2024 demonstrates normal biventricular systolic function with mild RV dilation, trivial anterior pericardial effusion without tamponade. Abraham Inquiry Pt receiving controlled substance: No Vital Signs Vital Signs: 04/24/24 03:32 04/24/24 03:44 04/24/24 03:46 Temperature 98.7 F Temperature Source Oral Pulse Rate 81 79 Pulse Rate [Right Brachial] 78 Respiratory Rate 20 Blood Pressure Blood Pressure [Right Arm] 156/81 H Blood Pressure Mean [Right Arm] 106 Blood Pressure Source Blood Pressure Source [Right Arm] Automatic Cuff Blood Pressure Position 02 Sat by Pulse Oximetry 99 Oxygen Delivery Method Room Air 04/24/24 06:07 Temperature 98.4 F Temperature Source Oral Pulse Rate 78 Pulse Rate [Right Brachial] Respiratory Rate 20 Blood Pressure 144/84 H Blood Pressure [Right Arm] Blood Pressure Mean [Right Arm] Blood Pressure Source Automatic Cuff Blood Pressure Source [Right Arm] Blood Pressure Position Supine 02 Sat by Pulse Oximetry Oxygen Delivery Method Room Air Lab Data Labs: Lab Results 04/24/24 03:21: WBC 7.7, RBC 5.50, Hgb 16.4, Hct 45.7, MCV 83.1, MCH 29.8, MCHC 35.9 H, RDW 12.1, Plt Count 219, MPV 9.1, Neut % (Auto) 58.1, Lymph % (Auto) 34.2, [place] % (Auto) 6.3, Eos % (Auto) 0.5, Baso % (Auto) 0.4, Neut # (Auto) 4.5, Lymph # (Auto) 2.6, [place] # (Auto) 0.5, Eos # (Auto) 0.0, Baso # (Auto) 0.0, PT 11.3, INR 1.01, Sodium 132 L, Potassium 4.0, Chloride 96 L, Carbon Dioxide 25, Anion Gap 15.0, BUN 12, Creatinine 0.90, Estimated Creat Clear 91, Estimated GFR 83, Est GFR ( Amer) 101, Glucose 134 H, Calcium 10.0, Total Bilirubin 0.9, AST 34, ALT 37, Alkaline Phosphatase 67, Troponin I < 0.01, NT-Pro-B Natriuret Pep 36.7, Total Protein 7.9 D, Albumin 4.7, Globulin 3.2, Albumin/Globulin Ratio 1.5, HIV Ag/Ab Combo Qual Negative 04/24/24 03:27: SARS-CoV-2 (PCR) Not detected, Influenza A Untype (PCR) Detected A, Influenza Type B (PCR) Not detected 04/24/24 03:21 04/24/24 03:21 Response Orders (Tests/Meds): ED MEDICATIONS Generic Name Dose Route Start Last Admin Trade Name Jose Miguel PRN Reason Stop Dose Admin Sodium Chloride 10 ml 04/24/24 04:12 04/24/24 04:13 Sodium Chloride 0.9% 10ml Syr (Rad Only) IV 05/24/24 04:11 10 ml NEEDED PRN Administration Maintain IV Site Discontinued Medications Generic Name Dose Route Start Last Admin Trade Name Jose Miguel PRN Reason Stop Dose Admin Albuterol Sulfate 2 puff 04/24/24 04:55 04/24/24 04:57 Albuterol-Hfa 90mcg/Puff Inhaler 8gm IH 04/24/24 04:56 2 puff ONCE ONE Administration Albuterol/Ipratropium 3 ml 04/24/24 03:31 04/24/24 03:37 Ipratropium/Albuterol 3 Ml Neb IH 04/24/24 03:32 3 ml ONCE ONE Administration Lactated Ringer's 1,000 mls @ 999 mls/hr 04/24/24 03:46 04/24/24 04:21 Lactated Ringer's 1000 Ml Bag IV 04/24/24 04:46 999 mls/hr .Q1H1M ONE Administration Iopamidol 70 ml 04/24/24 04:12 04/24/24 04:13 Iopamidol-370 (76%);100ml Bottle IV 04/24/24 04:13 70 ml ONCE ONE Administration Ketorolac Tromethamine 15 mg 04/24/24 03:31 04/24/24 04:21 Ketorolac 30mg/Ml Vial IV 04/24/24 03:32 15 mg ONCE ONE Administration Miscellaneous 1 unit 04/24/24 04:55 04/24/24 04:57 Aerochamber/Optihaler MC 04/24/24 04:56 1 unit ONCE ONE Administration Sodium Chloride 40 ml 04/24/24 04:12 04/24/24 04:12 0.9 % Sodium Chloride 50 Ml Vial IV 04/24/24 04:13 40 ml ONCE ONE Administration ORDERS Category Date Time Status CT angio chest PE protocol Stat Cat Scan 04/24/24 03:22 Completed BNP [NT Pro Brain Natriuretic Pep.] Stat Lab 04/24/24 03:21 Completed CBC w/Auto Diff [Complete Blood Count Auto Diff] Stat Lab 04/24/24 03:21 Completed CMP [Comprehensive Metabolic Panel] Stat Lab 04/24/24 03:21 Completed HIV Combo Routine Lab 04/24/24 03:21 Completed PT INR [Prothrombin Time INR] Stat Lab 04/24/24 03:21 Completed Rapid PCR Covid and Flu A/B Stat Lab 04/24/24 03:27 Completed Trop I [Troponin I] Stat Lab 04/24/24 03:21 Completed Troponin I Q3H Lab 04/24/24 06:30 Ordered Troponin I Q3H Lab 04/24/24 09:30 Ordered MDM Narrative Medical Decision Narrative: In summary, this 73-year-old male with comorbidities as described in HPI presents to the emergency department today with cough, shortness of breath, chest pain. On initial evaluation patient is hemodynamically stable, afebrile, mucous membranes are dry, wheezing present in the right lung, rhonchi and rales present in the left lung. Remainder of exam reassuring. Differential diagnosis includes but is not limited to ACS, PE, pneumonia, lung abscess, pleural effusion, electrolyte abnormality, dehydration, among others. Based on these concerns, I ordered serum labs, CTA PE, cardiac workup. ECG personally interpreted demonstrates normal sinus rhythm, rate 79, left axis deviation, normal NC and QTc, no STEMI. Patient received IV fluids, DuoNeb for treatment. Labs personally reviewed demonstrate patient is positive for influenza A, no leukocytosis, no anemia, normal platelets, PT/INR normal, CMP nonactionable, troponin undetectably low less than 0.01 which is significantly reassuring given patient's duration of symptoms, I do not believe serial troponins are indicated at this time since he has had symptoms for so long that have been unchanged and has negative troponin with reassuring ECG at this time. CTA PE performed and personally interpreted does not demonstrate large pulmonary embolus, I do not appreciate any parenchymal disease either. This is reassuring against pneumonia. See radiology read for final interpretation. Patient has had dramatic improvement after receiving DuoNeb. He states he feels better now than he has since his surgery. He is breathing comfortably and saturating well on room air. Lungs are now clear to auscultation bilaterally. I believe he is appropriate for discharge at this time. He is tolerating oral intake and his nausea is controlled. I counseled him on the use of Tamiflu which she has already been prescribed, he received albuterol MDI and this was administered to him in the ER, the MDI was provided to him for home use with instructions on how to use it. I also prescribed ondansetron for nausea management. I instructed him to finish his previously prescribed antibiotics. Patient was given instructions on symptomatic management, follow up instructions, and return precautions for the emergency department. Patient indicated understanding and was discharged in stable condition.
[2024-04-24 03:32] VITALS: BP 156/81; PULSE 78; RESP 20; TEMP 37.1; O2SAT 99; BMI 30.1
[2024-04-24 03:34] LABS: Basophils % 0.4 % (0.1-2.0); Eosinophils % 0.5 % (0.1-12.0); Hematocrit 45.7 % (42.0-52.0); Hemoglobin 16.4 g/dL (14.1-18.0); Lymphocytes # 2.6 K/mm3 (0.7-4.5); Lymphocytes % 34.2 % (10-50); Mean Corpuscular HGB Conc 35.9 g/dL (31.8-35.4); Mean Corpuscular Hemoglobin 29.8 pg (27.0-31.2); Mean Corpuscular Volume 83.1 fl (80-94); Mean Platelet Volume 9.1 fl (7.4-10.4); Monocytes # 0.5 K/mm3 (0.1-1.0); Monocytes % 6.3 % (1.7-9.3); Neutrophils # 4.5 K/mm3 (1.8-7.8); Neutrophils % 58.1 % (37.0-80.0); Platelet Count 219 K/mm3 (142-424); Red Cell Distribution Width 12.1 % (11.5-17.5); White Blood Count 7.7 K/mm3 (4.8-10.8)
[2024-04-24 03:35] LABS: Coronavirus 19, PCR Not Detected (NotDetected); Influenza B, PCR Not Detected (NotDetected)
--- NOTE | 2024-04-24 03:36 | PC.NURSE ---
Pt alert and oriented x3 Skin pale warm and dry. Resp full and very slightly labored with exertion. Speech clear and appropriate. Report given to Jackeline MEDINA
[2024-04-24] MEDS: IPRATROPIUM/ALBUTEROL 3 ML NEB IH (03:37)
[2024-04-24 03:41] LABS: Albumin Level 4.7 g/dl (3.5-5.0); Chloride 96 mmol/L (98-107); Sodium 132 mmol/L (136-145)
[2024-04-24 03:43] LABS: Blood Urea Nitrogen 12 mg/dl (9-20); Creatinine Clearance Estimated 91 mL/min (50-200); Estimated Glomerular Filt Rate 83 ml/min (>60)
[2024-04-24 03:44] VITALS: PULSE 81
[2024-04-24 03:44] LABS: Alanine Aminotransferase 37 U/L (12-78); Albumin/Globulin Ratio 1.5 (1.1-1.8); Alkaline Phosphatase 67 U/L (38-126); Aspartate Amino Transferase 34 U/L (17-59); Bilirubin,Total 0.9 mg/dl (0.2-1.3); Carbon Dioxide 25 mmol/L (22.0-30.0); GFR (African American) 101 ML/MIN (>60); Globulin 3.2 g/dL (1.3-3.2); Glucose 134 mg/dl (74-100); INR 1.01 (0.9-1.1); Prothrombin Time 11.3 seconds (10.1-12.5); Total Protein,Serum 7.9 g/dl (6.3-8.2)
[2024-04-24 03:46] VITALS: PULSE 79
[2024-04-24 03:56] LABS: Troponin I < 0.01 ng/ml (0.00-0.034)
[2024-04-24 03:59] LABS: Influenza A, PCR Detected (NotDetected)
[2024-04-24 04:05] LABS: NT Pro Brain Natriuretic Pep. 36.7 pg/mL (0-125)
[2024-04-24] MEDS: 0.9 % SODIUM CHLORIDE 50 ML VIAL 40 ML IV (04:12)
[2024-04-24] MEDS: IOPAMIDOL-370 (76%);100ML BOTTLE 70 ML IV (04:13)
[2024-04-24] MEDS: SODIUM CHLORIDE 0.9% 10ML SYR (RAD ONLY) 10 ML IV (04:13)
[2024-04-24] MEDS: LACTATED RINGERS 1000ML 1,000 ML 999 ML IV (04:21)
[2024-04-24] MEDS: KETOROLAC 30MG/ML VIAL 15 MG IV (04:21)
[2024-04-24] MEDS: AEROCHAMBER/OPTIHALER 1 UNIT MC (04:57)
[2024-04-24] MEDS: ALBUTEROL-HFA 90MCG/PUFF INHALER 8GM 2 PUFF IH (04:57)
[2024-04-24 05:10] LABS: HIV Combo NEGATIVE (Negative)
[2024-04-24 06:07] VITALS: BP 144/84; PULSE 78; RESP 20; TEMP 36.9; O2SAT 96
== END 2024-04-24 06:23 | disposition home or self-care (01) ==
PROVIDERS: Emergency Provider Emergency Medicine; PCP Family Medicine
DX: J10.1 Influenza due to other identified influenza virus with other respiratory manifestations (principal); R06.02 Shortness of breath; R05.9 Cough, unspecified; R07.9 Chest pain, unspecified
CPT/HCPCS: 71275; 80053; 83880; 84484; 85025; 85610; 87389; 87636; 93005; 96361; 96374; 99285; J1885; J7120; J7620; Q9967

== ENCOUNTER 2024-07-06 12:03 | Emergency (ER) | payer MEDICARE, SELFPAY ==
[2024-07-06 12:28] VITALS: BP 117/75; PULSE 67; RESP 16; TEMP 37.1; O2SAT 96; BMI 30.2
--- NOTE | 2024-07-06 12:36 | XR_ITS ---
FINAL REPORT CLINICAL HISTORY: cp COMPARISON: 04/11/2024 FINDINGS: The heart size is normal. The mediastinum is normal. There is no focal infiltrate or edema. Mild chronic changes are present in the lung bases. Stimulator leads are present over the mid and lower thoracic region. There are no pleural effusions. There is no pneumothorax. There is no osseous abnormality. IMPRESSION: No acute cardiopulmonary process Reviewed, Interpreted and Dictated by Villa Lozada MD Transcribed by Noemi Thompson Authenticated and [facility]
--- NOTE | 2024-07-06 12:36 | CT_ITS ---
FINAL REPORT TECHNIQUE: Axial CT images were performed through the head. Coronal and sagittal reformatted images were submitted. This study was performed with techniques to keep radiation doses as low as reasonably achievable (ALARA). Individualized dose reduction techniques using automated exposure control or adjustment of mA and/or kV according to the patient's size were employed. CLINICAL HISTORY: confusion / headache COMPARISON: 04/12/2024 FINDINGS: CT HEAD: The ventricles are normal in size. There is no evidence of hemorrhage. There is no mass or edema identified. There is no abnormal extra-axial fluid seen. The sinuses are well aerated. Note is made of a small radiopaque foreign body in the premaxillary soft tissues of the left side of the face, measuring 3 mm in size, best seen on image #8 of series 3. This was present on the prior CT examination. IMPRESSION: No acute intracranial process. Reviewed, Interpreted and Dictated by Villa Lozada MD Transcribed by Noemi Thompson Authenticated and [facility]
[2024-07-06 12:46] LABS: Basophils % 0.4 % (0.1-2.0); Eosinophils # 0.2 K/mm3 (0.0-0.4); Eosinophils % 2.3 % (0.1-12.0); Hematocrit 43.6 % (42.0-52.0); Hemoglobin 14.6 g/dL (14.1-18.0); Lymphocytes # 2.2 K/mm3 (0.7-4.5); Lymphocytes % 30.6 % (10-50); Mean Corpuscular HGB Conc 33.5 g/dL (31.8-35.4); Mean Corpuscular Hemoglobin 29.9 pg (27.0-31.2); Mean Corpuscular Volume 89.2 fl (80-94); Mean Platelet Volume 9.1 fl (7.4-10.4); Monocytes # 0.5 K/mm3 (0.1-1.0); Monocytes % 6.2 % (1.7-9.3); Neutrophils # 4.4 K/mm3 (1.8-7.8); Neutrophils % 59.9 % (37.0-80.0); Platelet Count 147 K/mm3 (142-424); Red Blood Count 4.89 M/mm3 (4.60-6.20); Red Cell Distribution Width 13.2 % (11.5-17.5); White Blood Count 7.3 K/mm3 (4.8-10.8)
[2024-07-06 12:50] LABS: Alanine Aminotransferase 20 U/L (12-78); Albumin/Globulin Ratio 1.5 (1.1-1.8); Alkaline Phosphatase 70 U/L (38-126); Aspartate Amino Transferase 22 U/L (17-59); Bilirubin,Total 0.2 mg/dl (0.2-1.3); Blood Urea Nitrogen 16 mg/dl (9-20); Carbon Dioxide 37 mmol/L (22.0-30.0); Chloride 99 mmol/L (98-107); Creatinine Clearance Estimated 94 mL/min (50-200); Estimated Glomerular Filt Rate 74 ml/min (>60); GFR (African American) 89 ML/MIN (>60); Globulin 2.6 g/dL (1.3-3.2); Glucose 125 mg/dl (74-100); Sodium 137 mmol/L (136-145); Total Protein,Serum 6.6 g/dl (6.3-8.2)
--- NOTE | 2024-07-06 12:55 | PC.NURSE ---
PT TRANSPORTED TO CT SCAN VIA [employer]ERSON[employer] AND WHEELCHAIR
[2024-07-06 12:57] LABS: Ethyl Alcohol < 10 mg/dl (0-10)
[2024-07-06 13:03] LABS: Troponin I 0.02 ng/ml (0.00-0.034)
[2024-07-06 13:08] LABS: Procalcitonin 0.046 ng/mL (0.0-2.0)
[2024-07-06 13:23] VITALS: BP 144/80; PULSE 74; RESP 14; O2SAT 95
[2024-07-06 13:26] LABS: Microscopic, Urine URINE MICROSCOPIC (MICROSCOPIC)
[2024-07-06 13:30] VITALS: BP 125/70; PULSE 65; RESP 14; O2SAT 96
--- NOTE | 2024-07-06 13:30 | ED_ITS ---
Discharge Plan Disposition Patient Disposition: Home, Self-Care Condition: Good Prescriptions Prescriptions: No Action celecoxib 200 mg capsule 200 mg PO DAILY omeprazole 40 mg capsule,delayed release(DR/EC) 40 mg PO BID furosemide 20 mg tablet 20 mg PO DAILY aspirin 81 MG tablet,delayed release (DR/EC) 81 mg PO DAILY ondansetron 8 mg tablet,disintegrating 8 mg PO BIDP PRN (Reason: Nausea And Vomiting) losartan 25 mg tablet 25 mg PO DAILY metformin 500 mg tablet extended release 24 hr 500 mg PO BID oxycodone-acetaminophen [Percocet] 5-325 mg Tablet 1 tab PO Q6HP PRN (Reason: Moderate Pain (Scale Score 5-6)) ondansetron 4 mg tablet,disintegrating 4 mg PO Q6H PRN (Reason: nausea and vomiting) Qty: 7 0RF hydroxyzine HCl 25 mg tablet 25 mg PO BIDP PRN (Reason: Anxiety) pregabalin 150 mg Capsule 150 mg PO BID lidocaine 5 % Adhesive Patch,Medicated 1 patch topical DAILY morphine (PF) 30 mg/30 mL (1 mg/mL) Patient Control.Analgesia Soln 0 mg continuous intrathecal infusion DAILY Rx Instructions: spinal cord stimulator implant Referrals Follow up/Referrals: Kostas Campa MD [Primary Care Provider] - See instructions Activity Restrictions/Add. Instructions Additional Instructions/Restrictions: Today you were evaluated in the emergency department today. Your head CT is unremarkable for any acute changes. We have contacted the company for your pain pump, they should call you this evening. As we discussed, please return to the ED for any worsening of your condition. Clinical Impressions Clinical Impression: Back pain Qualifiers: Back pain location: low back pain Chronicity: chronic Back pain laterality: u nspecified Sciatica presence: unspecified whether sciatica present Qualified Code(s): M54.50 - Low back pain, unspecified Instructions Patient Instructions: DI for Altered Mental Status Print Language Print Language: Icelandic Discharge ED Provider: Adam Donohue Adult HPI <Aida Brown APRN - Last Filed: 07/06/24 21:15> General Chief complaint: Altered Mental Status Stated complaint: confused, unstable coordination Time Seen by Provider: 07/06/24 12:24 Mode of Arrival: Wheelchair Source of Information: Patient and Spouse Description of Symptoms (Recalled from ER Triage Doc. by RN): pt had a spinal procedure yesterday. complains of headache,weakness, confusion. History of Present Illness HPI narrative: patient is a 73-year-old male PMHx chronic pain (pain pump), history of multiple back surgeries, SI joint disease, diastolic dysfunction, neuropathy, obesity, pulmonary hypertension who presents to the ED for intermittent confusion over the past 5 days. Related Data Home Medications ?Medication ?Instructions ?Recorded ?Confirmed celecoxib 200 mg capsule 200 mg PO DAILY 09/15/17 04/12/24 aspirin 81 mg tablet,delayed 81 mg PO DAILY 01/30/20 04/12/24 release hydroxyzine HCl 25 mg tablet 25 mg PO BIDP PRN Anxiety 12/19/22 04/12/24 furosemide 20 mg tablet 20 mg PO DAILY 04/01/23 04/12/24 omeprazole 40 mg capsule,delayed 40 mg PO BID 04/01/23 04/12/24 release lidocaine 5 % topical patch 1 patch topical DAILY 11/12/23 04/12/24 morphine (PF) 30 mg/30 mL (1 0 mg continuous intrathecal 11/12/23 04/12/24 mg/mL) [employer] intravenous solution infusion DAILY pregabalin 150 mg capsule 150 mg PO BID 11/12/23 04/12/24 losartan 25 mg tablet 25 mg PO DAILY 04/12/24 04/12/24 metformin 500 mg tablet,extended 500 mg PO BID 04/12/24 04/12/24 release 24 hr ondansetron 8 mg disintegrating 8 mg PO BIDP PRN Nausea And 04/12/24 04/12/24 tablet Vomiting oxycodone-acetaminophen 5 mg-325 1 tab PO Q6HP PRN Moderate Pain 04/12/24 04/12/24 mg tablet (Percocet) (Scale Score 5-6) Previous Rx's ?Medication ?Instructions ?Recorded ondansetron 4 mg disintegrating 4 mg PO Q6H PRN nausea and 04/24/24 tablet vomiting #7 tabs Allergies Allergy/AdvReac Type Severity Reaction Status Date / Time No Known Allergies Allergy Verified 11/10/23 15:28 [facility] <Aida Brown APRN - Last Filed: 07/06/24 21:15> [facility] Disclaimer: The information contained in this section may have been updated after the patient was seen, as this information can be updated by other users. Medical History (Updated 07/06/24 @ 15:49 by Aida Brown APRN) COVID-19 Acute viral syndrome Contact dermatitis Impacted cerumen of right ear Skin ulcer of great toe with fat layer exposed Pain of right great toe Infected blister of great toe of right foot Bilateral lower leg cellulitis Bacteremia due to Streptococcus Essential tremor Raynauds disease Depression OA (osteoarthritis) of hip IFG (impaired fasting glucose) Hyperlipidemia Vitamin D deficiency BPH (benign prostatic hyperplasia) GERD (gastroesophageal reflux disease) Bacteremia Colon cancer Disc disorder Broken leg REY (obstructive sleep apnea) Pulmonary hypertension HTN (hypertension) Surgical History (Updated 04/16/24 @ 00:00 by Dionicio Ayoub) History of knee replacement Family History Other No significant family history Social History (Updated 04/11/24 @ 22:28 by Sonia Araujo RN) Smoking Status: Never smoker alcohol intake: never substance use type: denies use current occupational status: employed and retired Travel in the last 8 weeks: None household members: spouse and family housing: house current occupational exposures/hazards: No caffeine: Yes Have you lived/traveled outside [place] in past 30 days?: No Contact w/someone who lives/traveled outside US past 30 days?: No Exposure to someone with infectious disease in past 14 days?: No Do you have a fever (greater than 100.4 F or 38 C)?: No Have you tested positive for COVID-19: No Exposed to someone with COVID-19 in past 14 days?: No Do you have a sore throat?: No Do you have a cough?: No Do you have any weakness?: No Do you have any diarrhea?: No Are you experiencing any unusual bleeding?: No Do you have any muscle aches/pain?: No Do you have any abdominal pain?: No Are you experiencing loss of taste or smell?: No Other Medical History Have you received the Flu Vaccine for this season: No Have you received the Pneumonia Vaccine: No <Aida Brown APRN - Last Filed: 07/06/24 21:15> ROS Obtained: Yes Systems reviewed as appropriate & no additional complaints except as documented Physical Exam <Aida Brown APRN - Last Filed: 07/06/24 21:15> General General appearance: alert and in no apparent distress Head Head exam: atraumatic and normocephalic Eye Eye exam: Present normal appearance and PERRL ENT ENT exam: Present normal exam Neck Neck exam: Present normal inspection Chest Chest inspection: Present normal inspection and symmetric chest wall rise; Absent tenderness Respiratory Respiratory exam: Present normal lung sounds bilaterally Cardiovascular Cardiovascular exam: Present regular rate Abdominal Exam Abdominal exam: Present soft and normal bowel sounds; Absent tenderness Extremities Exam Extremities exam: Present normal inspection and full ROM Back Exam Back exam: Present normal inspection and full ROM Neurological Exam Neurological exam: Present alert and oriented X3 Psychiatric Psychiatric exam: Present normal affect and normal mood Skin Skin exam: Present warm and dry Medical Decision Making <Aida Brown APRN - Last Filed: 07/06/24 21:15> Medical Records Screening: Per USPSTF and CDC recommendations, given the prevalence of disease in our region, it is our hospital?s policy to screen for HIV and viral Hepatitis for all patients aged 18 and over and those with ongoing risk factors. Abraham Inquiry Pt receiving controlled substance: No Vital Signs: 07/06/24 12:28 07/06/24 13:23 07/06/24 13:30 Temperature 98.7 F Temperature Source Oral Pulse Rate 74 65 Pulse Rate [Right] 67 Respiratory Rate 16 14 14 Blood Pressure 144/80 H 125/70 Blood Pressure [Right Arm] 117/75 Blood Pressure Mean 101 102 Blood Pressure Mean [Right Arm] 89 02 Sat by Pulse Oximetry 96 95 96 Oxygen Delivery Method Room Air 07/06/24 14:00 07/06/24 14:30 07/06/24 16:05 Temperature 98 F Temperature Source Pulse Rate 63 63 61 Pulse Rate [Right] Respiratory Rate 14 14 15 Blood Pressure 117/66 126/66 123/72 Blood Pressure [Right Arm] Blood Pressure Mean 96 90 Blood Pressure Mean [Right Arm] 02 Sat by Pulse Oximetry 97 99 Oxygen Delivery Method Room Air Lab Data Lab Results 07/06/24 12:30: WBC 7.3, RBC 4.89, Hgb 14.6, Hct 43.6, MCV 89.2, MCH 29.9, MCHC 33.5, RDW 13.2, Plt Count 147, MPV 9.1, Neut % (Auto) 59.9, Lymph % (Auto) 30.6, [place] % (Auto) 6.2, Eos % (Auto) 2.3, Baso % (Auto) 0.4, Neut # (Auto) 4.4, Lymph # (Auto) 2.2, [place] # (Auto) 0.5, Eos # (Auto) 0.2, Baso # (Auto) 0.0, Sodium 137, Potassium 4.0, Chloride 99, Carbon Dioxide 37 H, Anion Gap 5.0, BUN 16, Creatinine 1.00, Estimated Creat Clear 94, Estimated GFR 74, Est GFR ( Amer) 89, Glucose 125 H, Calcium 9.0, Total Bilirubin 0.2, AST 22, ALT 20, Alkaline Phosphatase 70, Troponin I 0.02, Total Protein 6.6, Albumin 4.0, Globulin 2.6, Albumin/Globulin Ratio 1.5, Procalcitonin 0.046, Plasma/Serum Alcohol < 10 07/06/24 13:23: Urine Color Yellow, Urine Appearance Clear, Urine pH 5.5, Ur Specific Prosperity 1.025, Urine Protein Negative, Urine Glucose (UA) Negative, Urine Ketones Negative, Urine Blood Trace A, Urine Nitrate Negative, Urine Bilirubin Negative, Urine Urobilinogen 0.2, Ur Leukocyte Esterase Negative, Urine RBC Occasional, Urine WBC None, Ur Squamous Epith Cells Occasional, Urine Opiates Screen Positive H, Urine Methadone Screen Negative, Ur Barbituates Screen Negative, Ur Phencyclidine Scrn Negative, Ur Amphetamines Screen Negative, U Benzodiazepines Scrn Negative, Urine Cocaine Screen Negative, U Marijuana (THC) Screen Negative 07/06/24 15:01: Troponin I < 0.01 07/06/24 12:30 07/06/24 12:30 Orders (Tests/Meds): ORDERS Category Date Time Status CT head/brain wo con Stat Cat Scan 07/06/24 12:36 Completed CXR --portable [XR chest portable] Stat Exams 07/06/24 12:36 Completed CBC w/Auto Diff [Complete Blood Count Auto Diff] Stat Lab 07/06/24 12:30 Completed CMP [Comprehensive Metabolic Panel] Stat Lab 07/06/24 12:30 Completed Ethyl Alcohol Stat Lab 07/06/24 12:30 Completed Procalcitonin Stat Lab 07/06/24 12:30 Completed Trop I [Troponin I] Stat Lab 07/06/24 12:30 Completed Troponin I Q3H Lab 07/06/24 15:01 Completed UDS [Drug Screen,Urine] Stat Lab 07/06/24 13:23 Completed Urinalysis and Microscopic Stat Lab 07/06/24 13:23 Completed Blood Culture Stat Micro 07/06/24 12:45 Results Medical Decision Narrative: In summary, patient is a 73-year-old male PMHx chronic pain (pain pump), history of multiple back surgeries, SI joint disease, diastolic dysfunction, neuropathy, obesity, pulmonary hypertension who presents to the ED for intermittent confusion over the past 5 days. Patient's is present at bedside she states that since patient's pain pump dose was increased about 1 week ago he has had intermittent periods of confusion correlating with severe back pain and then suddenly having no back pain but confused. Patient's spouse is concerned that pain pump may be malfunctioning. She states that patient will seem confused at times, have unsteady gait intermittently. Upon initial exam, patient is alert, oriented and cooperative. Patient is hemodynamically stable. Physical exam is unremarkable, no spinal tenderness. Pupils are pinpoint however reactive, no nystagmus. Differential diagnosis includes stroke, ICH, mass, infectious process, electrolyte abnormalities, opioid use, medication mismanagement. Initial workup will be conducted with hematologic labs, imaging. Initial workup reviewed by me. CBC unremarkable for any leukocytosis, stable H&H. CMP unremarkable for any actionable abnormalities. First troponin < 0.02. Procalcitonin 0.046. EtOH < 10. Final read of the head CT without contrast is unremarkable for any acute intracranial abnormality Upon repeat evaluation, patient remained asymptomatic. He was ambulatory in the ED without difficulty. He was able to tolerate PO without difficulty. I discussed with patient that this may be related to his pain pump. We called the pain pump company and spoke to the office that placed it, they state they will call the patient to schedule him for follow-up. Shared decision making used with patient and spouse, they are comfortable going home at this time. I advised him not to take any additional pain medication due to unknown situation with the pain pump. I discussed that he will need follow- up with pain management and his PCP. We discussed very strict return precautions to the ED and patient and spouse verbalized understanding. <Adam Donohue MD - Last Filed: 07/09/24 20:41> Vital Signs: 07/06/24 12:28 07/06/24 13:23 07/06/24 13:30 Temperature 98.7 F Temperature Source Oral Pulse Rate 74 65 Pulse Rate [Right] 67 Respiratory Rate 16 14 14 Blood Pressure 144/80 H 125/70 Blood Pressure [Right Arm] 117/75 Blood Pressure Mean 101 102 Blood Pressure Mean [Right Arm] 89 02 Sat by Pulse Oximetry 96 95 96 Oxygen Delivery Method Room Air 07/06/24 14:00 07/06/24 14:30 07/06/24 16:05 Temperature 98 F Temperature Source Pulse Rate 63 63 61 Pulse Rate [Right] Respiratory Rate 14 14 15 Blood Pressure 117/66 126/66 123/72 Blood Pressure [Right Arm] Blood Pressure Mean 96 90 Blood Pressure Mean [Right Arm] 02 Sat by Pulse Oximetry 97 99 Oxygen Delivery Method Room Air Lab Data Lab Results 07/06/24 12:30: WBC 7.3, RBC 4.89, Hgb 14.6, Hct 43.6, MCV 89.2, MCH 29.9, MCHC 33.5, RDW 13.2, Plt Count 147, MPV 9.1, Neut % (Auto) 59.9, Lymph % (Auto) 30.6, [place]bon % (Auto) 6.2, Eos % (Auto) 2.3, Baso % (Auto) 0.4, Neut # (Auto) 4.4, Lymph # (Auto) 2.2, [place] # (Auto) 0.5, Eos # (Auto) 0.2, Baso # (Auto) 0.0, Sodium 137, Potassium 4.0, Chloride 99, Carbon Dioxide 37 H, Anion Gap 5.0, BUN 16, Creatinine 1.00, Estimated Creat Clear 94, Estimated GFR 74, Est GFR ( Amer) 89, Glucose 125 H, Calcium 9.0, Total Bilirubin 0.2, AST 22, ALT 20, Alkaline Phosphatase 70, Troponin I 0.02, Total Protein 6.6, Albumin 4.0, Globulin 2.6, Albumin/Globulin Ratio 1.5, Procalcitonin 0.046, Plasma/Serum Alcohol < 10 07/06/24 13:23: Urine Color Yellow, Urine Appearance Clear, Urine pH 5.5, Ur Specific [place]per[place] 1.025, Urine Protein Negative, Urine Glucose (UA) Negative, Urine Ketones Negative, Urine Blood Trace A, Urine Nitrate Negative, Urine Bilirubin Negative, Urine Urobilinogen 0.2, Ur Leukocyte Esterase Negative, Urine RBC Occasional, Urine WBC None, Ur Squamous Epith Cells Occasional, Urine Opiates Screen Positive H, Urine Methadone Screen Negative, Ur Barbituates Screen Negative, Ur Phencyclidine Scrn Negative, Ur Amphetamines Screen Negative, U Benzodiazepines Scrn Negative, Urine Cocaine Screen Negative, U Marijuana (THC) Screen Negative 07/06/24 15:01: Troponin I < 0.01 Orders (Tests/Meds): ORDERS Category Date Time Status CT head/brain wo con Stat Cat Scan 07/06/24 12:36 Completed CXR --portable [XR chest portable] Stat Exams 07/06/24 12:36 Completed CBC w/Auto Diff [Complete Blood Count Auto Diff] Stat Lab 07/06/24 12:30 Completed CMP [Comprehensive Metabolic Panel] Stat Lab 07/06/24 12:30 Completed Ethyl Alcohol Stat Lab 07/06/24 12:30 Completed Procalcitonin Stat Lab 07/06/24 12:30 Completed Trop I [Troponin I] Stat Lab 07/06/24 12:30 Completed Troponin I Q3H Lab 07/06/24 15:01 Completed UDS [Drug Screen,Urine] Stat Lab 07/06/24 13:23 Completed Urinalysis and Microscopic Stat Lab 07/06/24 13:23 Completed Blood Culture Stat Micro 07/06/24 12:45 Results Medical Decision Narrative: In summary, patient is a 73-year-old male PMHx chronic pain (pain pump), history of multiple back surgeries, SI joint disease, diastolic dysfunction, neuropathy, obesity, pulmonary hypertension who presents to the ED for intermittent confusion over the past 5 days. Patient's is present at bedside she states that since patient's pain pump dose was increased about 1 week ago he has had intermittent periods of confusion correlating with severe back pain and then suddenly having no back pain but confused. Patient's spouse is concerned that pain pump may be malfunctioning. She states that patient will seem confused at times, have unsteady gait intermittently. Upon initial exam, patient is alert, oriented and cooperative. Patient is hemodynamically stable. Physical exam is unremarkable, no spinal tenderness. Pupils are pinpoint however reactive, no nystagmus. Differential diagnosis includes stroke, ICH, mass, infectious process, electrolyte abnormalities, opioid use, medication mismanagement. Initial workup will be conducted with hematologic labs, imaging. Initial workup reviewed by me. CBC unremarkable for any leukocytosis, stable H&H. CMP unremarkable for any actionable abnormalities. First troponin < 0.02. Procalcitonin 0.046. EtOH < 10. Final read of the head CT without contrast is unremarkable for any acute intracranial abnormality Upon repeat evaluation, patient remained asymptomatic. He was ambulatory in the ED without difficulty. He was able to tolerate PO without difficulty. I discussed with patient that this may be related to his pain pump. We called the pain pump company and spoke to the office that placed it, they state they will call the patient to schedule him for follow-up. Shared decision making used with patient and spouse, they are comfortable going home at this time. I advised him not to take any additional pain medication due to unknown situation with the pain pump. I discussed that he will need follow- up with pain management and his PCP. We discussed very strict return precautions to the ED and patient and spouse verbalized understanding. I was consulted by the NAILA, and we discussed the complexity of the problems being addressed.I approved the treatment and management plan for this patient?s care in the Emergency Department, thus performing a substantive portion of the medical decision making.Signed, Adam Donohue MD MBA Critical Care <Aida Brown APRN - Last Filed: 07/06/24 21:15> Critical Care Time Critical Care Time: No
[2024-07-06 14:00] VITALS: BP 117/66; PULSE 63; RESP 14; O2SAT 97
[2024-07-06 14:23] LABS: Benzodiazepines Screen,Urine Negative ng/ml (<200)
[2024-07-06 14:24] LABS: Methadone Screen,Urine Negative ng/ml (<300)
[2024-07-06 14:25] LABS: Cannabinoid Screen,Urine Negative ng/ml (<50); Cocaine Screen,Urine Negative ng/ml (<300)
[2024-07-06 14:27] LABS: Phencyclidine Screen,Urine Negative ng/ml (<25)
[2024-07-06 14:29] LABS: Appearance,Urine Clear (Clear); Barbiturates Screen,Urine Negative ng/ml (<200); Color,Urine Yellow (Yellow); PH,Urine 5.5 (5.0-8.5); Specific Gravity, Urine 1.025 (1.005-1.030)
[2024-07-06 14:30] VITALS: BP 126/66; PULSE 63; RESP 14; O2SAT 99
[2024-07-06 14:30] LABS: Amphetamine/Metha Screen,Urine Negative ng/ml (<1000); Bilirubin,Urine Negative (Negative); Blood, Urine Trace (Negative); Glucose,Urine (UA) Negative (Negative); Ketones,Urine Negative (Negative); Leukocyte Esterase,Urine Negative (Negative); Nitrate,Urine Negative (Negative); Protein,Urine Negative (Negative); RBC,Urine Occasional #/hpf (0-3); Squamous Epithelial Cell,Urine Occasional #/hpf (0-5); Urobilinogen,Urine 0.2 EU/dl (0.2)
[2024-07-06 14:34] LABS: Opiate Screen,Urine Positive ng/ml (<300)
--- NOTE | 2024-07-06 15:16 | PC.NURSE ---
spoke with Dr. Austin office, Luz, who refills pts pain pump. She states pt has been exhibiting symptoms since march when he had his back surgery. She states she will call pts [facility]ino to check in and schedule him for a sooner appt if they feel necessary. She is going to relay all information to Dr. Austin
[2024-07-06 15:34] LABS: Troponin I < 0.01 ng/ml (0.00-0.034)
[2024-07-06 16:05] VITALS: BP 123/72; PULSE 61; RESP 15; TEMP 36.6; O2SAT 98
== END 2024-07-06 16:06 | disposition home or self-care (01) ==
PROVIDERS: Nurse Practitioner; Emergency Provider Emergency Medicine; PCP Family Medicine
DX: R51.9 Headache, unspecified (principal); R53.1 Weakness; R41.0 Disorientation, unspecified; M54.50 Low back pain, unspecified
CPT/HCPCS: 70450; 71045; 80053; 80307; 80320; 81001; 84145; 84484; 85025; 87040; 99284

== ENCOUNTER 2025-04-13 05:25 | Emergency (ER) | payer MEDICARE, SELFPAY ==
--- OUTSIDE RECORDS SUMMARY | 2024-04-21 05:45 | XMS_ITS ---
Author Organization [facility] Address [address] [place] [id number] Care Team Providers Care Turntable Man Name Role Phone Earnestine Kurtz Primary Care Provider Kostas Campa Unavailable [phone] Allergies Allergen (clinical drug ingredient) Drug/Non Drug Allergy documented on EMR Reaction Allergy Type Onset Date Status gabapentin Neurontin pin needles in feet, making feet hot Drug Allergy Active Results Component Value Reference Range Notes P-Basic Metabolic Panel (BMP ) Reviewed date:04/24/2024 10:05:23 AM Interpretation:Na 134, cl 95, gluc 142 Performing Lab: Notes/Report: Test performed by [facility] [address] [place] [address] , [address], [place] [address] Po Hadley MD, Nipple Threader CLIA: [id number] Sodium 134 135-145 mmol/L Potassium 4.0 3.5-5.3 mmol/L Chloride 95 97-108 mmol/L CO2 25 22-32 mmol/L Glucose 142 65-99 mg/dL BUN 9 8-23 mg/dL Creatinine 0.85 0.70-1.30 mg/dL Calcium 9.1 8.6-10.4 mg/dL eGFR by Creatinine 92 >59 mL/min/1.73m2 P-CBC With Platelet And Diff erential Reviewed date:04/24/2024 10:05:23 AM Interpretation:Normal Performing Lab: Notes/Report: Test performed by [facility] [address] [place] [address] , [address], [place] [address] Po Haldey MD, Nipple Threader CLIA: [id number] WBC 5.2 3.8-11.5 K/uL Red Blood Cell Count (RBC) 5.05 4.20-5.70 M/mm 3 Hemoglobin (Hgb) 15.5 13.1-17.5 gm/dL Hematocrit (HCT) 45.6 39.0-51.0 % MCV 90.3 79.0-99.0 fL MCH 30.7 26.9-35.0 pg MCHC 34.0 30.4-34.8 g/dL RDW 44.2 38.2-53.0 fL Platelet Count 148 137-397 K/cumm Neutrophils Automated 62.9 41.0-77.0 % Lymphocytes Automated 29.6 14.0-48.0 % Monocytes Automated 6.5 4.0-13.0 % Eosinophils Automated 0.2 0.0-8.0 % Basophils Automated 0.6 0.0-1.5 % Immature Granulocyte Automated 0.2 0.0-1.0 % REASON FOR VISIT [facility] F/U Medications Medication SIG (Take, Route, Frequency, Duration) Notes Start Date End Date Status Flonase Allergy Relief 50 MCG/ACT 1 spray in each nostril Nasally Once a day 07/08/2023 Active Loratadine 10 MG 1 tablet in the mornging Orally Once a day; Duration: 30 day(s) 07/08/2023 Active Furosemide 20 MG 1 tab(s) orally once a day; Duration: 30 days Not-Brennon g Tadalafil 5 MG TAKE 1 TABLET BY [facility] ONCE DAILY; Duration: 30 days Active Colace 100 MG 1 capsule as needed Orally Once a day 02/16/2023 Active Align 4 MG as directed Orally 02/16/2023 Active CareTouch CPAP & BIPAP Hose 1 DIRECTED 07/06/2022 Active Vitamin B Complex - 1 tab(s) orally once a day; Duration: 30 day(s) 06/24/2020 Active Lyrica 150 MG 1 cap(s) orally 2 ti mes a day Active Carafate 1 GM 1 tablet on an empty stomach Orally Three times a day; Duration: 30 day(s) 04/21/2024 Active Losartan Potassium 25 MG TAKE 1 TABLET B Y MOUTH ONCE DAILY Active Cefdinir 300 MG as directed Orally b id for 7 days Active Doxycycline Hyclate 100 MG 1 capsule Orally Twice a day for 10 days Active hydrOXYzine HCl 25 MG TAKE ONE TO TWO TA BLETS BY MOUTH AT BEDTIME NEEDED; Duration: 23 Active metFORMIN HCl ER (MOD) 1000 MG 1 tablet with evening meal Orally Once a day; Duration: 30 day(s) 04/07/2024 Not-Taking Celecoxib 200 MG TAKE 1 CAPSULE BY [facility] ONCE DAILY; Duration: 30 Active Omeprazole 40 MG TAKE 1 CAPSULE BY [facility] TWICE DAILY; Duration: 30 Active Vital Signs Blood pressure systolic 114 mm Hg 04/21/20 24 Blood pressure diastolic 68 mm Hg 024 Heart Rate 78 /min 04/21/2024 Height 70 in 04/21/2024 Weight 228 lbs 04/21/2024 BMI 32.71 kg/m2 04/21/2024 Encounters Encounter Location Date Provider Diagnosis [place] [address] [facility] [address] [place] [id number] 04/21/2024 Kostas Campa Pneumonia due to infectious organism, unspecified laterality, unspecified part of lung J18.9 ; Gastroesophageal reflux disease, esophagitis presence not specified K21.9 and Essential (primary) hypertension I10 Assessments Encounter Date Diagnosis (ICD Code) Assessment Notes Treatment Notes Treatment Clinical Notes Section Notes 04/21/2024 Pneumonia due to infectious organism, unspecified laterality, unspecified part of lung (ICD-10 - J18.9) 04/21/2024 Gastroesophageal reflux disease, esophagitis presence not specified (ICD-10 - K21.9) 04/21/2024 Essential (primary) hypertension (ICD-10 - I10) Plan Of Treatment Medication Medication Name Sig Start Date Stop Date Notes Carafate 1 GM 1 tablet on an empty stomach Orally Three times a day; Duration: 30 day(s) 04/21/2024 Losartan Potassium 25 MG TAKE 1 TABLET B Y MOUTH ONCE DAILY Cefdinir 300 MG as directed Orally b id for 7 days Doxycycline Hyclate 100 MG 1 capsule Ora lly Twice a day for 10 days Next Appt Details Follow Up: 2 Weeks, Reason: Provider Name:Kostas Workman ry, 04/30/2025 11:00:00 AM, [address] [facility], [address], [place], [phone], Progress Notes * PAXTON LINGEDOB: [birth year] (74 yo M)Acc No.[id number]:04/21/2024 Progress Notes Patient: PATRICIA BEVERLY Provider: Sylvie Campa M.D. :1950 A ge:73 Y S ex:Male Date:04/21/2024 Address:[place] [address], [id number] Pcp:Earnestine Kurtz Subjective: * Chief Complaints: * 1 . H F/U. * HPI: H PI: 73 year old male presents with c/o Here for follow up on: 06/12- [facility] and . [facility] h ospitalization, see pt docs. Pt admitted for pneumonia. Pt states he is still really weak, unable to sleep a nd is having trouble swallowing. Pt's is concerned because pt does not feel good . * ROS: D ERMATOLOGY: no R liss. n o H enrique. G ASTROENTEROLOGY: no N ausea. n o V omiting. U ROLOGY: no D ifficulty urinating. n o B lood in urine. * Medical History: C hronic Shoulder and Back Pain, foolowe by pain management, Hypertension, Seasonal Affective Disorder, Prostatitis, Restless Leg Syndrome, Colon Cancer, followed by Dr. Amanda, 08/2009, Bacteremia, Group A Strep, 02/2018, Neuropathy. * Surgical History: P rostiva Procedure with Bladder Neck Incision , Back Surgery- Rob Norelle 09/04/2005, PE tubes 1992, Back Surgery 03/13/2009, Sigmoid Colon Resection 09/17/2009, RT Knee 2012, LT Leg Repair 2015, Dental Surgery x 3 , LT Knee Cortizone Injection 08/2017, Low Back Nerve Stimulator 05/2018, RT Knee Replacement 02/2019, Bulging Disc Repair, Back 09/2019. * Hospitalization/Major Diagno stic Procedure: S tomach Pain- [facility] ER 04/29/2013, Strep A Bacteremia, Leg Cellulitis- [facility] 02/26-11/2017, RT Great Toe Infected- [facility] [place] 11/30/2020. * Family History: F ather: . M other: , COPD, diabetes. P aternal Grand Father: . P aternal Grand Mother: . M aternal Grand Father: . M aternal Grand Mother: . 4 brother(s) , 6 sister(s) . 1 son(s) , 2 daughter(s) . . * Social History: C URRENT TOBACCO USE S moking Status: Patient does NOT smoke. C affeine: no. Exercise: yes, walk. Home smoke detector use: yes. Marital Status: . New since last visit: none. Occupation: no. Past smoking status: no. Occup. exposure: none. Recreational drug use: no. Alcohol: socially, Type: , Frequency: ,Years: , Determination:. Sexually active: yes. Travel ouside [place]: no. * Medications: T aking Doxycycline Hyclate 100 MG Capsule 1 capsule Orally Twice a day for 10 days , Taking Cefdinir 300 MG Capsule as directed Orally bid for 7 days , Taking Lyrica 150 MG Capsule 1 cap(s) orally 2 times a day , Taking Vitamin B Complex - Tablet 1 tab(s) orally once a day , Taking CareTouch CPAP & BIPAP Hose MACHINE AND SUPPLIES 1 DIRECTED , Taking Align 4 MG Capsule as directed Orally , Taking Colace 100 MG Capsule 1 capsule as needed Orally Once a day , Taking Loratadine 10 MG Tablet 1 tablet in the mornging Orally Once a day , Taking Flonase Allergy Relief 50 MCG/ACT Suspension 1 spray in each nostril Nasally Once a day , Taking Tadalafil 5 MG Tablet TAKE 1 TABLET BY MOUTH ONCE DAILY , Taking Omeprazole 40 MG Capsule Delayed Release TAKE 1 CAPSULE BY MOUTH TWICE DAILY , Taking Celecoxib 200 MG Capsule TAKE 1 CAPSULE BY MOUTH ONCE DAILY , Taking hydrOXYzine HCl 25 MG Tablet TAKE ONE TO TWO TABLETS BY MOUTH AT BEDTIME NEEDED , Taking Losartan Potassium 25 MG Tablet TAKE 1 TABLET BY MOUTH ONCE DAILY , Not-Taking Furosemide 20 MG Tablet 1 tab(s) orally once a day , Not-Taking metFORMIN HCl ER (MOD) 1000 MG Tablet Extended Release 24 Hour 1 tablet with evening meal Orally Once a day , Discontinued Lexapro 20 MG Tablet 1 tablet Orally Once a day , Discontinued Tamiflu 75 MG Capsule 1 capsule Orally once daily , Discontinued buPROPion HCl ER (XL) 150 MG Tablet Extended Release 24 Hour 1 tablet in the morning Orally Once a day , Medication List reviewed and reconciled with the patient * Allergies: N eurontin: pin needles in feet, making feet hot. Objective: * Vitals: W t:228, Temp:98.5, BP:114/68, HR:78, O2 Sat:91% on RA, Nurse:ramón, Ht: 70, BMI:32.71. * Examination: G eneral Examination: General Appearance: N AD, sitting in a wheelchair, conversant. H EENT: u nremarkable. O ral cavity: n o lesions, mucosa moist and WNL, no erythema. H eart: R SR. L ungs: c lear to auscultation. P eripheral pulses: n ormal (2+) bilaterally. E xtremities: n o leg edema. Assessment: * Assessment: 1. P neumonia due to infectious organism, unspecified laterality, unspecified part of lung - J18.9 (Primary) 2 . G astroesophageal reflux disease, esophagitis presence not specified - K21.9 3 . E ssential (primary) hypertension - I10 Plan: * Treatment: Value Reference Range B asophils Automated 0.6 0.0-1.5 - % * E osinophils Automated 0.2 0.0-8.0 - % * H ematocrit (HCT) 45.6 39.0-51.0 - % * H emoglobin (Hgb) 15.5 13.1-17.5 - gm/dL * I mmature Granulocyte Automated 0.2 0.0-1.0 - % * L ymphocytes Automated 29.6 14.0-48.0 - % * M CH 30.7 26.9-35.0 - pg * M CHC 34.0 30.4-34.8 - g/dL * M CV 90.3 79.0-99.0 - fL * M onocytes Automated 6.5 4.0-13.0 - % * P latelet Count 148 137-397 - K/cumm * R ed Blood Cell Count (RBC) 5.05 4.20-5.70 - M/ mm3 * R DW 44.2 38.2-53.0 - fL * N eutrophils Automated 62.9 41.0-77.0 - % * W BC 5.2 3.8-11.5 - K/uL * Stefany Pollack 04/24/2024 10:0 5:19 AM >See phone encounter 2.?Gastroesophageal reflux disease, esophagitis presence not specified? Start Carafate Tablet, 1 GM, 1 tablet on an empty stomach, Orally, Three times a day, 30 day(s), 90Tablet, Refills 1.??3.?Essential (primary) hypertension? Continue Losartan Potassium Tablet, 25 MG, TAKE 1 TABLET BY MOUTH ONCE DAILY.?LAB: P-Basic Metabolic Panel (BMP) (Collection Date & Time - 04/21/2024 10:28 AM)?Na 134, cl 95, gluc 142* Value Reference Range B UN 9 8-23 - mg/dL * C alcium 9.1 8.6-10.4 - mg/dL * C hloride 95 L 97-108 - mmol/L * C O2 25 22-32 - mmol/L * C reatinine 0.85 0.70-1.30 - mg/dL * G lucose 142 H 65-99 - mg/dL * P otassium 4.0 3.5-5.3 - mmol/L * S odium 134 L 135-145 - mmol/L * e GFR by Creatinine 92 >59 - mL/min/1.73m2 * Stefany Pollack 04/24/2024 10:0 5:19 AM >See phone encounter * Procedure Codes: 9 4760 PULSE OX * Follow Up: 2 Weeks * Images: Billing Information: * Visit Code: 69290 Office Visit, Est Pt., Level 4. * Procedure Codes: 87105 PULSE OX. * Electronic signature of Roya Campa MD on 04/13/2025 at 06:20 AM EST Sign off status: Pending * Provider: Sylvie Campa M.D. Date: 06/22/2023 Generated for Eduardo waldron/Tiffani/eTransmitting on: 06/14/2024 06:20 AM EST History and Physical Notes * HPI (History of Present Illness) Category Sub-Category Detail Notes Category Not es HPI Here for follow up on: 04/11-2023 [facility] and [facility] hospitalization, see pt docs. Pt admitted for pneumonia. Pt states he is still really weak, unable to sleep and is having trouble swallowing. Pt's is concerned because pt does not feel good Examination Category Sub-Category Detail Notes Category Not es General Examination HEENT: unremarkable Heart: RSR Lungs: clear to auscultatio n Extremities: no leg edema General Appearance: NAD, sitting in a wh eelchair, conversant Oral cavity: no lesions, mucosa m oist and WNL, no erythema Peripheral pulses: normal (2+) bilatera lly
--- OUTSIDE RECORDS SUMMARY | 2024-04-24 06:15 | XMS_ITS ---
Author Organization [facility] Address [address] [place] [id number] Care Team Providers Care Traction Power Engineer Name Role Phone Earnestine Kurtz Primary Care Provider [phone] Kostas Campa [phone] REASON FOR VISIT [facility] F/U ER Encounters Encounter Location Date Provider Diagnosis [facility] [address] [place] [id number] 04/24/2024 Kostas Campa Plan Of Treatment Next Appt Details Provider Name:Kostas Workman ry, 04/30/2025 11:00:00 AM, [address], [address], [place], [phone], Progress Notes * PAXTON LINGEDOB: [birth year] (74 yo M)Acc No.[id number]:04/24/2024 Progress Notes Patient: PATRICIA BEVERLY Provider: Sylvie Campa M.D. :1950 A ge:73 Y S ex:Male Date:04/24/2024 Address: [id number] Pcp:Earnestine Kurtz Subjective: * Chief Complaints: * 1 . [facility] F/U ER. * Medical History: Objective: * Vitals: Assessment: Plan: * Treatment: * Images: Billing Information: * Visit Code: * Procedure Codes: * Electronic signature of Roya Campa MD on 04/13/2025 at 06:20 AM EST Sign off status: Pending * Provider: Sylvie Campa M.D. Date: Generated for Eduardo waldron/Tiffani/Denzel on: 06/14/2024 06:20 AM EST
--- OUTSIDE RECORDS SUMMARY | 2024-04-27 05:15 | XMS_ITS ---
Author Organization [facility] Address [address] [place] [phone] Care Team Providers Care Field Collector Name Role Phone Earnestine Kurtz Primary Care Provider Kostas Campa [phone] [facility] needs CBC,BMP and xray for this appt. Encounters Encounter Location Date Provider Diagnosis [facility] [address] [place] [phone] 04/27/2024 Kostas Campa Plan Of Treatment Next Appt Details Provider Name:Kostas Workman ry, 04/30/2025 11:00:00 AM, [address], [address], [place], [phone], Progress Notes * PAXTON LINGEDOB: [birth year] (74 yo M)Acc No.[id number]:04/27/2024 Progress Notes Patient: PATRICIA BEVERLY Provider: Sylvie Campa M.D. :1950 A ge:73 Y S ex:Male Date:04/27/2024 Address[address] [id number] Pcp:Earnestine Kurtz Subjective: * Chief Complaints: * [address] [facility] needs CBC,BMP and xray for this appt.. * Medical History: Objective: * Vitals: Assessment: Plan: * Treatment: * Images: Billing Information: * Visit Code: * Procedure Codes: * Electronic signature of Roya Campa MD on 04/13/2025 at 06:17 AM EST Sign off status: Pending * Provider: Sylvie Campa M.D. Date: 0 04/27/2024 Generated for Eduardo waldron/Tiffani/Denzel on: 06/14/2024 06:17 AM EST
--- OUTSIDE RECORDS SUMMARY | 2024-05-05 05:00 | XMS_ITS ---
Author Organization [facility] Address [address] [place] [id number] Care Team Providers Care Country Singer Name Role Phone Earnestine Kurtz Primary Care Provider Kostas Campa [phone] Allergies Allergen (clinical drug ingredient) Drug/Non Drug Allergy documented on EMR Reaction Allergy Type Onset Date Status gabapentin Neurontin pin needles in feet, making feet hot Drug Allergy Active REASON FOR VISIT 2 week F/U Medications Medication SIG (Take, Route, Frequency, Duration) Notes Start Date End Date Status Carafate 1 GM 1 tablet on an empty stomach Orally Three times a day; Duration: 30 day(s) 04/21/2024 Active hydrOXYzine HCl 25 MG TAKE ONE TO TWO TA BLETS BY MOUTH AT BEDTIME NEEDED; Duration: 23 Active Celecoxib 200 MG TAKE 1 CAPSULE BY MO [facility] ONCE DAILY; Duration: 30 Active Colace 100 MG 1 capsule as needed Orally Once a day 02/16/2023 Active Omeprazole 40 MG TAKE 1 CAPSULE BY MO [facility] TWICE DAILY; Duration: 30 Active Tadalafil 5 MG TAKE 1 TABLET BY NAYELI ONCE DAILY; Duration: 30 days Active Flonase Allergy Relief 50 MCG/ACT 1 spray in each nostril Nasally Once a day 07/08/2023 Active Loratadine 10 MG 1 tablet in the morn ging Orally Once a day; Duration: 30 day(s) 07/08/2023 Active Align 4 MG as directed Orally 02/16/2023 Active CareTouch CPAP & BIPAP Hose 1 DIRECTED 07/07/19 23 Active rOPINIRole HCl 0.5 MG 1 or 2 tablet 1 to 3 hours before bedtime Orally Once a day 05/05/2024 Active Vitamin B Complex - 1 tab(s) orally once a day; Duration: 30 day(s) 06/24/2020 Active Lyrica 150 MG 1 cap(s) orally 2 ti mes a day Active Losartan Potassium 25 MG TAKE 1 TABLET B Y MOUTH ONCE DAILY Active Problems Problem Type SNOMED Code ICD Code Onset Dates Problem Status W/U Status Risk Notes Problem Restless legs syndrome (34909182) Restless leg syndrome (G25.81) Active confirmed Vital Signs Blood pressure systolic 140 mm Hg 05/05/19 25 Blood pressure diastolic 80 mm Hg 025 Heart Rate 98 /min 05/05/2024 Height 70 in 05/05/2024 Weight 207.4 lbs 05/05/2024 BMI 29.76 kg/m2 05/05/2024 Encounters Encounter Location Date Provider Diagnosis [facility] [address] [place] [address] [address] [facility] [address] [place] [id number] 05/05/2024 Kostas Campa Restless leg syndrom e G25.81 Assessments Encounter Date Diagnosis (ICD Code) Assessment Notes Treatment Notes Treatment Clinical Notes Section Notes 05/05/2024 Restless leg syndrome (ICD-10 - G25.81) Plan Of Treatment Medication Medication Name Sig Start Date Stop Date Notes rOPINIRole HCl 0.5 MG 1 or 2 tablet 1 to 3 hours before bedtime Orally Once a day 05/05/2024 Next Appt Details Follow Up: 3 Months, Reason: Provider Name:Kostas Workman , 04/30/2025 11:00:00 AM, [facility] [address] [facility], [address], [place], [id number], Progress Notes * PAXTON LINGEDOB: [birth year] (74 yo M)Acc No.[id number]:05/05/2024 Progress Notes Patient: PATRICIA BEVERLY Provider: Sylvie Campa M.D. :1950 A ge:73 Y S ex:Male Date:05/05/2024 Address:[place] [address], [id number] Pcp:Earnestine Kurtz Subjective: * Chief Complaints: * 1 . 2 week F/U. * HPI: H PI: 73 year old male presents with c/o Here for follow up on: f param and pneumonia. Pt states he is feeling better but still really weak. Pt states he is having a hard time sleeping as well, slept for about an hour last night. Secor like his legs were moving almost constantly. * ROS: D ERMATOLOGY: no R liss. [...] Bladder Neck Incision , Back Surgery- Rob Jimenes 09/04/2005, PE tubes 1992, Back Surgery 03/13/2009, Sigmoid Colon Resection 09/17/2009, RT Knee 2012, LT Leg Repair 2015, Dental Surgery x 3 , LT Knee Cortizone Injection 08/2017, Low Back Nerve Stimulator 05/2018, RT Knee Replacement 02/2019, Bulging Disc Repair, Back 09/2019. * Hospitalization/Major Diagno stic Procedure: S tomach Pain- [facility] ER 04/29/2013, Strep A Bacteremia, Leg Cellulitis- [facility] 02/26-11/2017, RT Great Toe Infected- [facility] 11/30/2020. * Family History: F ather: . [...] ouside US: no. * Medications: T aking Lyrica 150 MG Capsule 1 cap(s) orally [...] BY MOUTH AT BEDTIME NEEDED , Taking Carafate 1 GM Tablet 1 tablet on an empty stomach Orally Three times a day , Taking Losartan Potassium 25 MG Tablet TAKE 1 TABLET BY MOUTH ONCE DAILY , Discontinued Doxycycline Hyclate 100 MG Capsule 1 capsule Orally Twice a day for 10 days , Discontinued Cefdinir 300 MG Capsule as directed Orally bid for 7 days , Discontinued Furosemide 20 MG Tablet 1 tab(s) orally once a day , Discontinued metFORMIN HCl ER (MOD) 1000 MG Tablet Extended Release 24 Hour 1 tablet with evening meal Orally Once a day , Medication List reviewed and reconciled with the patient * Allergies: N eurontin: pin needles in feet, making feet hot. Objective: * Vitals: W t:207.4, Temp:98.0, BP:140/80, HR:98, O2 Sat:98% on RA, Nurse:ramón, Ht: 70, BMI:29.76. * Examination: G eneral Examination: General Appearance: N AD, using a cane to assist with ambulation. H eart: R SR. L ungs: c lear to auscultation. E xtremities: n o leg edema. Assessment: * Assessment: 1. R estless leg syndrome - G25.81 (Primary) Plan: * Treatment: * Procedure Codes: G 2211 Complex e/m visit add on * Follow Up: 3 Months * Images: Billing Information: * Visit Code: 44900 Office Visit, Est Pt., Level 3. * Procedure Codes: G2211 Complex e/m visit add on. * Electronic signature of Roya Campa MD on 04/13/2025 at 06:20 AM EST Sign off status: Pending * Provider: Sylvie Campa M.D. Date: 0 05/05/2024 Generated for Eduardo waldron/Tiffani/Tobyitting on: 1 06/14/2024 06:20 AM EST History and Physical Notes * HPI (History of Present Illness) Category Sub-Category Detail Notes Category Not es HPI Here for follow up on: flu and p neumonia. Pt states he is feeling better but still really weak. Pt states he is having a hard time sleeping as well, slept for about an hour last night. Secor like his legs were moving almost constantly Examination Category Sub-Category Detail Notes Category Not es General Examination Heart: RSR Lungs: clear to auscultatio n Extremities: no leg edema General Appearance: NAD, using a cane to assist with ambulation
--- OUTSIDE RECORDS SUMMARY | 2024-05-25 09:00 | XMS_ITS ---
Author Organization [facility] Address [address] [place] [id number] Care Team Providers Care Inspector Bicycle Name Role Phone Earnestine Kurtz Primary Care Provider [phone] Kostas Campa Unavailable [phone] Katarzyna Metcalf Unavailable [phone] Allergies Allergen (clinical drug ingredient) Drug/Non Drug Allergy documented on EMR Reaction Allergy Type Onset Date Status gabapentin Neurontin pin needles in feet, making feet hot Drug Allergy Active Results Component Value Reference Range Notes Urinalysis - Inhouse Reviewed date:05/26/2024 08:55:55 AM Interpretation: Performing Lab: Notes/Report: Color/Clarity light yellow/clear Leuk neg Nitrite neg Urobili 3.2 Protein neg pH 8.0 Blood neg Sp. Gr. 1.015 Ketone neg Bili neg Gluc neg CBC Venipuncture (in house) Reviewed date:05/26/2024 08:56:17 AM Interpretation: Performing Lab: Notes/Report: wbc 3.4 3.5 - 10 lymph 33.0 15 - 50 mid 6.3 2 - 15 gran 60.7 35 - 80 rbc 5.79 3.5 - 5.5 hgb 17.4 11.5 - 16.5 hct 52.1 35 - 55 mcv 89.9 75 - 100 mch 30.1 25 - 35 mchc 33.4 31 - 38 platlet 75 100 - 400 P-Comprehensive Metabolic Pa kriss (CMP) Reviewed date:05/31/2024 02:50:10 PM Interpretation: Performing Lab: Notes/Report: Test performed by [facility] [address] [place] [address] , [address], [place] [address] Po Hadley MD, [employer] CLIA: [id number] Sodium 140 135-145 mmol/L Potassium 4.2 3.5-5.3 mmol/L Chloride 102 97-108 mmol/L CO2 29 22-32 mmol/L Glucose 132 65-99 mg/dL BUN 10 8-23 mg/dL Creatinine 0.88 0.70-1.30 mg/dL Calcium 9.4 8.6-10.4 mg/dL eGFR by Creatinine 91 >59 mL/min/1.73m2 Protein 6.5 6.0-8.3 g/dL Albumin 4.1 3.5-5.3 g/dL Alkaline Phosphatase 73 40-129 IU/L ALT (SGPT) 15 <5-55 IU/L AST (SGOT) 17 <5-46 IU/L Bilirubin, Total 0.3 <0.2-1.2 mg/dL A/G Ratio 1.7 1.1-2.5 Reason For Referral Diagnosis 1 Urinary hesitancy (R 39.11) Referral Organization [facility] Referring Provider First Name Katarzyna Referring Provider Last Name Tea Referring Provider Speciality Physician Will Call Order Clerk Referred Provider Urology, . Referred Provider Specialty Urology General Notes Katarzyna Metcalf 05/25 2:41:09 PM > Pt needs an appt with Dr. Zavala in [facility] DianaAlicia 05/25/2024 3:15:36 PM > faxed to Dr. Zavala's office Referral Priority Routine REASON FOR VISIT trouble with urine stream Medications Medication SIG (Take, Route, Frequency, Duration) Notes Start Date End Date Status Omeprazole 40 MG TAKE 1 CAPSULE BY MO [facility] TWICE DAILY; Duration: 30 Active Celecoxib 200 MG TAKE 1 CAPSULE BY MO [facility] ONCE DAILY; Duration: 30 Active Carafate 1 GM 1 tablet on an empty stomach Orally Three times a day; Duration: 30 day(s) 04/21/2024 Active rOPINIRole HCl 0.5 MG 1 or 2 tablet 1 to 3 hours before bedtime Orally Once a day 05/05/2024 Active Flonase Allergy Relief 50 MCG/ACT 1 spray in each nostril Nasally Once a day 07/08/2023 Active Vitamin B Complex - 1 tab(s) orally once a day; Duration: 30 day(s) 06/24/2020 Active CareTouch CPAP & BIPAP Hose 1 DIRECTED 07/07/19 Active Align 4 MG as directed Orally 02/16/2023 Active Colace 100 MG 1 capsule as needed Orally Once a day 02/16/2023 Active Loratadine 10 MG 1 tablet in the morn ging Orally Once a day; Duration: 30 day(s) 07/08/2023 Active Lyrica 150 MG 1 cap(s) orally 2 ti mes a day Active Losartan Potassium 25 MG 1 tablet Orally Once a day; Duration: 30 days Active hydrOXYzine HCl 25 MG TAKE ONE TO TWO TA BLETS BY MOUTH AT BEDTIME NEEDED Active Tadalafil 5 MG TAKE 1 TABLET BY NAYELI TH ONCE DAILY; Duration: 30 days Active Flomax 0.4 MG 1 capsule Orally Onc e a day 05/25/2024 Active Problems Problem Type SNOMED Code ICD Code Onset Dates Problem Status W/U Status Risk Notes Problem Urinary hesitancy (3436176) Urinary hesitancy (R39.11) Active confirmed Vital Signs Blood pressure systolic 130 mm Hg 05/25/19 25 Blood pressure diastolic 78 mm Hg 025 Heart Rate 80 /min 05/25/2024 Height 70 in 05/25/2024 Weight 229.2 lbs 05/25/2024 BMI 32.88 kg/m2 05/25/2024 Encounters Encounter Location Date Provider Diagnosis [facility] [address] [facility] [address] [place] [id number] 05/25/2024 Katarzyna Metcalf Urinary hesitancy R39.11 Assessments Encounter Date Diagnosis (ICD Code) Assessment Notes Treatment Notes Treatment Clinical Notes Section Notes 05/25/2024 Urinary hesitancy (ICD-10 - R39.11) Plan Of Treatment Medication Medication Name Sig Start Date Stop Date Notes Flomax 0.4 MG 1 capsule Orally Once a day 05/25/2024 Referrals Referral Date Details 05/25/2024 05/25/2024, . Urolog y Next Appt Details Follow Up: via phone to repo rt test results, Reason: Provider Name:Kostas Workman ry, 04/30/2025 11:00:00 AM, [address], [address], [place], [phone], Progress Notes * MIGUEL LINGOB: [birth year] (74 yo M)Acc No.[id number]:05/25/2024 Progress Notes Patient: PATRICIA BEVERLY Provider: CAMACHO Peterson :1950 A ge:73 Y S ex:Male Date:05/25/2024 Address:[place] [address], [id number] Pcp:Earnestine Kurtz Subjective: * Chief Complaints: * 1 . Trouble with urine stream. * HPI: U rology: 73 year old male presents with c/o urine flow begins P t is here today with c/o trouble with urine stream. Pt sts he has a weak stream and sts he has trouble getting the urine stream to start. Pt sts it has gotten worse within the last 2 weeks. Pt sts it is very uncomfortable and sts that 15 years or so ago he did have prostate issues. He saw a urologist a few years ago and was prescribed flomax, which really helped. He did not continue seeing the urologist and ran out of flomax.. c/o Difficulty urinating. * ROS: D ERMATOLOGY: no R liss. n o H enrique. G ASTROENTEROLOGY: no N ausea. n o V omiting. U ROLOGY: no D ifficulty urinating. n o B lood in urine. * Medical History: C hronic Shoulder and Back Pain, foolowe by pain management, Hypertension, Seasonal Affective Disorder, Prostatitis, Restless Leg Syndrome, Colon Cancer, followed by Dr. Amnada, 08/2009, Bacteremia, Group A Strep, 02/2018, Neuropathy. [...] Hospitalization/Major Diagno stic Procedure: S tomach Pain- [facility] ER 04/29/2013, Strep A Bacteremia, Leg Cellulitis- [facility] 02/26-11/2017, RT [facility] 11/30/[facility]. * Family History: F ather: . [...] nostril Nasally Once a day , Taking Omeprazole 40 MG Capsule Delayed Release TAKE 1 CAPSULE BY MOUTH TWICE DAILY , Taking Celecoxib 200 MG Capsule TAKE 1 CAPSULE BY MOUTH ONCE DAILY , Taking Carafate 1 GM Tablet 1 tablet on an empty stomach Orally Three times a day , Taking rOPINIRole HCl 0.5 MG Tablet 1 or 2 tablet 1 to 3 hours before bedtime Orally Once a day , Taking Losartan Potassium 25 MG Tablet 1 tablet Orally Once a day , Taking hydrOXYzine HCl 25 MG Tablet TAKE ONE TO TWO TABLETS BY MOUTH AT BEDTIME NEEDED , Taking Tadalafil 5 MG Tablet TAKE 1 TABLET BY MOUTH ONCE DAILY , Medication List reviewed and reconciled with the patient * Allergies: N eurontin: pin needles in feet, making feet hot. Objective: * Vitals: W t:229.2, Temp:98.0, BP:130/78, HR:80, O2 Sat:98% on RA, Nurse:MARIELA, Ht: 70, BMI:32.88. * Examination: G eneral Examination: General Appearance: N AD. C hest: n ormal shape and expansion. H eart: R SR. L ungs: c lear to auscultation. A bdomen: bowel sounds present, soft and nontender, no organomegaly or masses, no guarding or rigidity. ? Assessment: * Assessment: 1. U [facility] - R39.11 (Primary) Plan: * Treatment: Value Reference Range A /G Ratio 1.7 1.1-2.5 - * A lbumin 4.1 3.5-5.3 - g/dL * A lkaline Phosphatase 73 40-129 - IU/L * A LT (SGPT) 15 <5-55 - IU/L * A ST (SGOT) 17 <5-46 - IU/L * B ilirubin, Total 0.3 <0.2-1.2 - mg/dL * B UN 10 8-23 - mg/dL * C alcium 9.4 8.6-10.4 - mg/dL * C hloride 102 97-108 - mmol/L * C O2 29 22-32 - mmol/L * C reatinine 0.88 0.70-1.30 - mg/dL * G lucose 132 H 65-99 - mg/dL * P otassium 4.2 3.5-5.3 - mmol/L * S odium 140 135-145 - mmol/L * P rotein 6.5 6.0-8.3 - g/dL * e GFR by Creatinine 91 >59 - mL/min/1.73m2 * Katarzyna Metcalf 05/31/2024 12: 30:34 PM > please let patient know his renal function is normalGobleDanielle 05/31/2024 2:49:20 PM > pts informed ?LAB: Urinalysis - Inhouse (Collection Date & Time - 05/25/2024)* Value Reference Range C olor/Clarity light yellow/clear * L euk neg * N itrite neg * U robili 3.2 * P rotein neg * p H 8.0 * B lood neg * S p. Gr. 1.015 * K etone neg * B angela neg * G nestor neg * Flori Skinner 05/25/2024 2:48: 02 PM > , Provider reviewed results while patient in office. ?LAB: CBC Venipuncture (in house) (Collection Date & Time - 05/25/2024)* Value Reference Range w bc 3.4 3.5 - 10 * l ymph 33.0 15 - 50 * m id 6.3 2 - 15 * g ran 60.7 35 - 80 * r bc 5.79 3.5 - 5.5 * h gb 17.4 11.5 - 16.5 * h ct 52.1 35 - 55 * m cv 89.9 75 - 100 * m ch 30.1 25 - 35 * m chc 33.4 31 - 38 * p latlet 75 100 - 400 * Flori Skinner 05/25/2024 2:50: 23 PM > ? Referral To:. Urology??Urology ?Reason: * Procedure Codes: 9 4760 [place], [address] CBC WITH AUTO DIFF, 75793 VENIPUNCT, ROUTINE*, 93601 Urinalysis, no micro * Follow Up: v ia phone to report test results * Images: Billing Information: * Visit Code: 24830 Office Visit, Est Pt., Level 3. * Procedure Codes: [address] [place]. [address] CBC WITH AUTO DIFF. 71203 VENIPUNCT, ROUTINE*. 05894 Urinalysis, no micro. * Electronic signature of CAMACHO Grimaldo on 04/13/2025 at 06:19 AM EST Sign off status: Pending * Provider: CAMACHO Peterson Date: 0 05/25/2024 Generated for Eduardo ng/Faxing/eTransmitting on: 1 06/14/2024 06:19 AM EST History and Physical Notes * HPI (History of Present Illness) Category Sub-Category Detail Notes Category Not es Urology urine flow begins Pt is here tod ay with c/o trouble with urine stream. Pt sts he has a weak stream and sts he has trouble getting the urine stream to start. Pt sts it has gotten worse within the last 2 weeks. Pt sts it is very uncomfortable and sts that 15 years or so ago he did have prostate issues. He saw a urologist a few years ago and was prescribed flomax, which really helped. He did not continue seeing the urologist and ran out of flomax. Difficulty urinating Examination Category Sub-Category Detail Notes Category Not es General Examination Heart: RSR Lungs: clear to auscultatio n Abdomen: bowel sounds present , soft and nontender, no organomegaly or masses, no guarding or rigidity General Appearance: NAD Chest: normal shape and exp ansion Consultation Request Notes Referral Date Referring Provider Referred Provider Not es 05/25/2024 Katarzyna Metcalf Urology, .
--- OUTSIDE RECORDS SUMMARY | 2024-06-27 05:15 | XMS_ITS ---
[facility] Address [address] [place] [id number] Care Team Providers Care Pitch Worker Name Role Phone Earnestine Kurtz Primary Care Provider [phone] Kostas Campa Unavailable [phone] Allergies Allergen (clinical drug ingredient) Drug/Non Drug Allergy documented on EMR Reaction Allergy Type Onset Date Status gabapentin Neurontin pin needles in feet, making feet hot Drug Allergy Active REASON FOR VISIT Eval of Edema and Labs Medications Medication SIG (Take, Route, Frequency, Duration) Notes Start Date End Date Status Lyrica 150 MG 1 cap(s) orally 2 ti mes a day Active Loratadine 10 MG TAKE 1 TABLET BY NAYELI TH IN THE MORNING ONCE DAILY; Duration: 30 Active Vitamin B Complex - 1 tab(s) orally once a day; Duration: 30 day(s) 06/24/2020 Active Omeprazole 40 MG TAKE 1 CAPSULE BY MO [facility] TWICE DAILY; Duration: 30 Active Celecoxib 200 MG TAKE 1 CAPSULE BY MO [facility] ONCE DAILY TAKE WITH FOOD; Duration: 30 Active Losartan Potassium 25 MG 1 tablet Orally Once a day; Duration: 30 days Active DULoxetine HCl 30 MG 1 capsule Orally On ce a day; Duration: 30 day(s) 06/27/2024 Active Tadalafil 5 MG TAKE 1 TABLET BY NAYELI TH ONCE DAILY; Duration: 30 days Active hydrOXYzine HCl 25 MG TAKE ONE TO TWO TA BLETS BY MOUTH AT BEDTIME NEEDED Active Flomax 0.4 MG 1 capsule Orally Onc e a day 05/25/2024 Active Carafate 1 GM 1 tablet on an empty stomach Orally Three times a day; Duration: 30 day(s) 04/21/2024 Active Flonase Allergy Relief 50 MCG/ACT 1 spray in each nostril Nasally Once a day 07/08/2023 Active rOPINIRole HCl 0.5 MG 1 or 2 tablet 1 to 3 hours before bedtime Orally Once a day 05/05/2024 Active Colace 100 MG 1 capsule as needed Orally Once a day 02/16/2023 Active Align 4 MG as directed Orally 02/16/2023 Active CareTouch CPAP & BIPAP Hose 1 DIRECTED 07/07/19 23 Active Vital Signs Blood pressure systolic 122 mm Hg 06/28/19 25 Blood pressure diastolic 68 mm Hg 025 Heart Rate 100 /min 06/27/2024 Height 70 in 06/27/2024 Weight 222 lbs 06/27/2024 BMI 31.85 kg/m2 06/27/2024 Encounters Encounter Location Date Provider Diagnosis [facility] [address] [facility] [address] [facility] [address] [place] [phone] 06/27/2024 Kostas Campa Peripheral edema R60 .0 ; IFG (impaired fasting glucose) R73.01 and Depressive disorder F32.A Assessments Encounter Date Diagnosis (ICD Code) Assessment Notes Treatment Notes Treatment Clinical Notes Section Notes 06/27/2024 Peripheral edema (ICD-10 - R60.0) Call if symptoms return/worsen 06/27/2024 IFG (impaired fasting glucose) (ICD-10 - R73.01) OK to not take Metformin and recheck labs next month 06/27/2024 Depressive disorder (ICD-10 - F32.A) Plan Of Treatment Medication Medication Name Sig Start Date Stop Date Notes DULoxetine HCl 30 MG 1 capsule Orally On ce a day; Duration: 30 day(s) 06/27/2024 Treatment Notes Assessment Notes Peripheral edema Call if symptoms ret urn/worsen IFG (impaired fasting glucose) OK to not take Metformin and recheck labs next month Next Appt Details Follow Up: 3 or 4 Weeks, Sunita son: Provider Name:Kostas mcmahon, 04/30/2025 11:00:00 AM, [address] [facility] [address] [facility], [address], [place], [id number], Progress Notes * PAXTON LINGEDOB: [birth year] (74 yo M)Acc No.[id number]:06/27/2024 Progress Notes Patient: PATRICIA BEVERLY Provider: Sylvie Campa M.D. :1950 A ge:73 Y S ex:Male Date:06/27/2024 Address:[place] [address], [place], [id number] Pcp:Earnestine Kurtz Subjective: * Chief Complaints: * 1 . Eval of Edema and Labs. * HPI: C ardiology: 73 year old male presents with c/o Leg Edema P t complains of bilateral lower leg swelling last week. Pt states swelling has improved but he is still concerned. Pt states about a year ago legs swelled so bad that water came out of them . * ROS: D ERMATOLOGY: no R [...] Hospitalization/Major Diagno stic Procedure: S tomach Pain- [facility] 04/29/2013, Strep A Bacteremia, Leg Cellulitis- [facility] 02/26-11/2017, RT Great Toe Infected- [facility] 11/30/2020. * Family History: F ather: . [...] needed Orally Once a day , Taking Flonase Allergy Relief 50 MCG/ACT Suspension 1 spray in each nostril Nasally Once a day , Taking Carafate 1 GM Tablet 1 [...] TABLET BY MOUTH ONCE DAILY , Taking Flomax 0.4 MG Capsule 1 capsule Orally Once a day , Taking Omeprazole 40 MG Capsule Delayed Release TAKE 1 CAPSULE BY MOUTH TWICE DAILY , Taking Loratadine 10 MG Tablet TAKE 1 TABLET BY MOUTH IN THE MORNING ONCE DAILY , Taking Celecoxib 200 MG Capsule TAKE 1 CAPSULE BY MOUTH ONCE DAILY TAKE WITH FOOD , Medication List reviewed and reconciled with the patient * Allergies: N eurontin: pin needles in feet, making feet hot. Objective: * Vitals: W t:222, Temp:98.0, BP:122/68, HR:100, O2 Sat:92% on RA, Nurse:ramón, Ht: 70, BMI:31.85. * Examination: G eneral Examination: General Appearance: N AD, using a cane to assist with ambulation. H eart: R SR. L ungs: c lear to auscultation. E xtremities: t race left leg edema. P sychology: Grooming : a dequate. E ye contact : janneth ricketts. M ood : [facility]. Assessment: * Assessment: 1. P eripheral edema - R60.0 (Primary) 2 . I FG (impaired fasting glucose) - R73.01 3 . D epressive disorder - F32.A Plan: * Treatment: 2. I FG (impaired fasting glucose) Notes: OK to not take Metformin and recheck labs next month 3. D epressive disorder Start DULoxetine HCl Capsule Delayed Release Particles, 30 MG, 1 capsule, Orally, Once a day, 30 day(s), 30 Capsule, Refills 0. * Procedure Codes: G 2211 Complex e/m visit add on, 3074F SYST BP LT 130 MM HG, 3078F DIAST BP < 80 MM HG * Follow Up: 3 or 4 Weeks * Images: Billing Information: * Visit Code: 16753 Office Visit, Est Pt., Level 3. * Procedure Codes: G2211 Complex e/m visit add on. 3074F SYST BP LT 130 MM HG. 3078F DIAST BP < 80 MM HG. * Electronic signature of Roya Campa MD on 04/13/2025 at 06:19 AM EST Sign off status: Pending * Provider: Sylvie Campa M.D. Date: 0 06/27/2024 Generated for Eduardo waldron/Tiffani/Tobyitting on: 06/14/2024 06:19 AM EST History and Physical Notes * HPI (History of Present Illness) Category Sub-Category Detail Notes Category Not es Cardiology Leg Edema Pt complains of bilateral lower leg swelling last week. Pt states swelling has improved but he is still concerned. Pt states about a year ago legs swelled so bad that water came out of them Examination Category Sub-Category Detail Notes Category Not es General Examination Heart: RSR Lungs: clear to auscultatio n Extremities: trace left leg edema General Appearance: NAD, using a cane to assist with ambulation Psychology Grooming : adequate Eye contact : normal Mood : pleasant
--- OUTSIDE RECORDS SUMMARY | 2024-07-17 10:30 | XMS_ITS ---
Author Organization [facility] Address [address] [place] [id number] Care Team Providers Care Bed Teacher Name Role Phone Earnestine Kurtz Primary Care Provider Kostas Campa [phone] Allergies Allergen (clinical drug ingredient) Drug/Non Drug Allergy documented on EMR Reaction Allergy Type Onset Date Status gabapentin Neurontin pin needles in feet, making feet hot Drug Allergy Active Results Component Value Reference Range Notes P-Culture, Anaerobic and Aer obic w/Gram Stain Reviewed date:07/22/2024 11:50:18 AM Interpretation: Performing Lab: Notes/Report: CLIA: [id number] Po Hadley MD, Grey Roll Worker [facility] , [place] [address] Test performed by [email or web address], [employer] Specimen Source Abscess - open wound Culture, Anaerobic and Aerobic w/Gram Stain See Below Final Report : No Anaerobes isolated Sensitivity Panel See Below Organism Antibiotic Ceftaroline Clindamycin Daptomycin Erythromycin Gentamicin Levofloxacin Linezolid Moxifloxacin Oxacillin Penicillin Rifampin Tetracycline Trimeth/Sulfa Vancomycin S=SUSCEPTIBLE I=INTERMEDIATE R=RESISTANT P-Culture, Miscellaneous Aer obic w/Gram Stain Reviewed date:07/22/2024 11:49:56 AM Interpretation: Performing Lab: Notes/Report: Test performed by [email or web address], [address] , [address], [place] [address] Po Hadley MD, Grey Roll Worker CLIA: [id number] Specimen Source Abscess - open wound Gram Stain See Below No polymorphonuclear leukocytes seen No organisms seen Culture, Miscellaneous Aerobic w/Gram Stain See Below Preliminary Report : Pending, reincubate Methicillin Resistant Staphylococcus aureus Light Growth Methicillin Resistant Staphylococcus aureus Only sensitive results for Bactrim (Trimethoprim/Sulfamethox azole) are reported for Staphylococcus aureus. Resistance to Bactrim is not reported due to the upper breakpoint encompassing the sensitive/resistant range, which could lead to increased reporting of false resistance. Consider alternate antimicrobial treatment if clinically indicated. Sensitivity Panel See Below Organism MRSA Antibiotic INTERP Ceftaroline S Clindamycin S Daptomycin S Erythromycin R Gentamicin S Levofloxacin I Linezolid S Moxifloxacin S Oxacillin R Penicillin R Rifampin S Tetracycline S Trimeth/Sulfa S Vancomycin S S=SUSCEPTIBLE I=INTERMEDIATE R=RESISTANT REASON FOR VISIT spot on leg Medications Medication SIG (Take, Route, Frequency, Duration) Notes Start Date End Date Status Loratadine 10 MG TAKE 1 TABLET BY NAYELI IN THE MORNING ONCE DAILY; Duration: 30 Active Omeprazole 40 MG TAKE 1 CAPSULE BY [facility] TWICE DAILY; Duration: 30 Active Mupirocin 2 % 1 application Class B Truck Driver ally Three times a day 07/17/2024 Active Celecoxib 200 MG TAKE 1 CAPSULE BY [facility] ONCE DAILY TAKE WITH FOOD; Duration: 30 Active DULoxetine HCl 30 MG 1 capsule Orally On ce a day; Duration: 30 day(s) 06/27/2024 Active Flomax 0.4 MG 1 capsule Orally Onc e a day 05/25/2024 Active hydrOXYzine HCl 25 MG TAKE ONE TO TWO TA BLETS BY MOUTH AT BEDTIME NEEDED Activ e Tadalafil 5 MG TAKE 1 TABLET BY [facility] ONCE DAILY; Duration: 30 days Active rOPINIRole HCl 0.5 MG 1 or 2 tablet 1 to 3 hours before bedtime Orally Once a day 05/05/2024 Active Losartan Potassium 25 MG 1 tablet Orally Once a day; Duration: 30 days Active Align 4 MG as directed Orally 02/16/2023 Active Flonase Allergy Relief 50 MCG/ACT 1 spray in each nostril Nasally Once a day 07/08/2023 Active Carafate 1 GM 1 tablet on an empty stomach Orally Three times a day; Duration: 30 day(s) 04/21/2024 Activ e Colace 100 MG 1 capsule as needed Orally Once a day 02/16/2023 Active Cephalexin 500 MG 1 tablet Orally ever y 8 hrs Active CareTouch CPAP & BIPAP Hose 1 DIRECTED 07/06/2022 Active Lyrica 150 MG 1 cap(s) orally 2 ti mes a day Active Vitamin B Complex - 1 tab(s) orally once a day; Duration: 30 day(s) 06/24/2020 Active Vital Signs Blood pressure systolic 132 mm Hg 07/18/19 25 Blood pressure diastolic 74 mm Hg 025 Heart Rate 83 /min 07/17/2024 Height 70 in 07/17/2024 Weight 228.7 lbs 07/17/2024 BMI 32.81 kg/m2 07/17/2024 Encounters Encounter Location Date Provider Diagnosis [facility] [address] [place] [address] [address] [place], [place] [id number] 07/17/2024 Kostas Campa Open wound of left lower extremity, initial encounter S81.802A and Left leg cellulitis L03.116 Assessments Encounter Date Diagnosis (ICD Code) Assessment Notes Treatment Notes Treatment Clinical Notes Section Notes 07/17/2024 Open wound of left lower extremity, initial encounter (ICD-10 - S81.802A) 07/17/2024 Left leg cellulitis (ICD-10 - L03.116) Plan Of Treatment Medication Medication Name Sig Start Date Stop Date Notes Mupirocin 2 % 1 application Class B Truck Driver ally Three times a day 07/17/2024 Cephalexin 500 MG 1 tablet Orally every 8 hrs Next Appt Details Follow Up: via phone to repo rt progress, Reason: Provider Name:Kostas Workman , 04/30/2025 11:00:00 AM, [facility] [address] [facility], [address], [facility] [place], [id number], Progress Notes * PAXTON LINGEDOB: [birth year] (74 yo M)Acc No.[id number]:07/17/2024 Progress Notes Patient: PATRICIA BEVERLY Provider: Sylvie Campa M.D. :1950 A ge:74 Y S ex:Male Date:07/17/2024 Address:[place] [id number] Pcp:Earnestine Kurtz Subjective: * Chief Complaints: * 1 . Spot on leg. * HPI: D ermatology: 74 year old male presents with c/o Wound P t complains of open wound on lt trujillo. Pt states he noticed it on Wednesday and went [place] [facility] [place]. Pt states it may be a spider bite. Pt complains of it being painful to walk and states wound has improved since starting abx. * ROS: D ERMATOLOGY: no R liss. n o H enrique. G ASTROENTEROLOGY: no N ausea. n o V omiting. U ROLOGY: no D ifficulty urinating. n o B lood in urine. * Medical History: C hronic Shoulder and Back Pain, followed by pain management, Hypertension, Seasonal Affective Disorder, [...] Hospitalization/Major Diagno stic Procedure: S tomach Pain- [facility] ER 04/29/2013, Strep A Bacteremia, Leg Cellulitis- [facility] 02/26-11/2017, RT Great Toe Infected- [facility] 11/30/2020. * Family History: [...] ouside US: no. * Medications: T aking Cephalexin 500 MG Tablet 1 tablet Orally every 8 hrs , Taking Lyrica 150 MG Capsule 1 [...] MOUTH ONCE DAILY TAKE WITH FOOD , Taking DULoxetine HCl 30 MG Capsule Delayed Release Particles 1 capsule Orally Once a day , Medication List reviewed and reconciled with the patient * Allergies: N eurontin: pin needles in feet, making feet hot. Objective: * Vitals: W t: 228.7, Temp: 97.9, BP: 132/74, HR: 83, O2 Sat: 93% on RA, Nurse: ramón, Ht: 70, BMI:32.81. * Examination: G eneral Examination: General Appearance: N AD. S kin: d istal left anterior leg with a 1.5 cm wide wound with a small central ulceration, skin redness has receded from lines marked in the UTC. Assessment: * Assessment: 1. L eft leg cellulitis - L03.116 (Primary) 2 . O pen wound of left lower extremity, initial encounter - L68.017Z Plan: * Treatment: 2. O pen wound of left lower extremity, initial encounter Start Mupirocin Ointment, 2 %, 1 application, Externally, Three times a day, 22 grams, Refills 0.? L AB: P-Culture, Anaerobic and Aerobic w/Gram Stain (Collection Date & Time - 07/17/2024 02:53 PM) Value Reference Range C ulture, Anaerobic and Aerobic w/Gram Stain See Below - * S pecimen Source Abscess - open wound - * S ensitivity Panel See Below - * Stefany Pollack 07/21/2024 5:33: 00 PM >See phone encounterGofangDanielle 07/22/2024 11:50:10 AM > see phone encounter * Labs: * L ab: P-Culture, Miscellaneous Aerobic w/Gram Stain (Collection Date & Time - 07/17/2024 02:53 PM) Value Reference Range C ulture, Miscellaneous Aerobic w/Gram Stain See Below - * S pecimen Source Abscess - open wound - * G costa Stain See Below - * M ethicillin Resistant Staphylococcus aureus Light Growth Methicillin Resistant Staphylococcus aureus - * S ensitivity Panel See Below - * [facility], support 07/21/2024 04:00:06 : This order was created by the Interface. Stefany Pollack 07/21/2024 5:33:00 PM >See phone encounterGoDanielle headley 07/22/2024 11:49:49 AM > see phone encounter * Procedure Codes: G 2211 Complex e/m visit add on, 3075F SYST BP GE 130 - 139MM HG, 3078F DIAST BP < 80 MM HG * Follow Up: v ia phone to report progress * Images: Billing Information: * Visit Code: 26329 Office Visit, Est Pt., Level 3. * Procedure Codes: G2211 Complex e/m visit add on. 3075F SYST BP GE 130 - 139MM HG. 3078F DIAST BP < 80 MM HG. * Electronic signature of Roya Campa MD on 04/13/2025 at 06:18 AM EST Sign off status: Pending * Provider: Sylvie Campa M.D. Date: 0 07/17/2024 Generated for Eduardo waldron/Tiffani/Denzel on: 1 06/14/2024 06:18 AM EST History and Physical Notes * HPI (History of Present Illness) Category Sub-Category Detail Notes Category Not es Dermatology Wound Pt complains of open wound on lt trujillo. Pt states he noticed it on Wednesday and went to [facility] [place]. Pt states it may be a spider bite. Pt complains of it being painful to walk and states wound has improved since starting abx Examination Category Sub-Category Detail Notes Category Not es General Examination General Appearance: NAD Skin: distal left anterior leg with a 1.5 cm wide wound with a small central ulceration, skin redness has receded from lines marked in the UTC
--- OUTSIDE RECORDS SUMMARY | 2024-07-20 04:00 | XMS_ITS ---
Author Organization [facility] Address [address] [facility] [address] [facility] [address] [place] [id number] Care Team Providers Care Value Advisor Name Role Phone Earnestine Kurtz Primary Care Provider [phone] Kostas Campa [phone] REASON FOR VISIT 3 week f/u Encounters Encounter Location Date Provider Diagnosis [facility] [address] [place] [phone] 07/20/2024 Kostas Campa Plan Of Treatment Next Appt Details Provider Name:Kostas Workman ry, 04/30/2025 11:00:00 AM, [address], [address], [place], [place], [phone], Progress Notes * PAXTON LINGEDOB: [birth year] (74 yo M)Acc No.[id number]:07/20/2024 Patient: PATRICIA BEVERLY Provider: Sylvie Campa M.D. :1950 A ge:74 Y S ex:Male Date:07/20/2024 Address: [id number] Pcp:Earnestine Kurtz Subjective: * Chief Complaints: * 1 . 3 week f/u. * Medical History: Objective: * Vitals: Assessment: Plan: * Treatment: * Images: Billing Information: * Visit Code: * Procedure Codes: * Electronic signature of Roya Campa MD on 04/13/2025 at 06:20 AM EST Sign off status: Pending * Provider: Sylvie Campa M.D. Date: 0 07/20/2024 Generated for Eduardo waldron/Tiffani/Denzel on: 1 06/14/2024 06:20 AM EST
--- OUTSIDE RECORDS SUMMARY | 2024-08-14 06:30 | XMS_ITS ---
Author Organization [facility] Address [address] [place] [id number] Care Team Providers Care Black Studies Professor Name Role Phone Earnestine Kurtz Primary Care Provider Kostas Campa Unavailable [phone] Allergies Allergen (clinical drug ingredient) Drug/Non Drug Allergy documented on EMR Reaction Allergy Type Onset Date Status gabapentin Neurontin pin needles in feet, making feet hot Drug Allergy Active Results Component Value Reference Range Notes P-Comprehensive Metabolic Pa kriss (CMP) Reviewed date:08/15/2024 05:13:24 PM Interpretation:glu 195 Performing Lab: Notes/Report: Test performed by [facility] [address] [place] [address] , [address], [place] [address] Po Hadley MD, Package Winder CLIA: [id number] Sodium 137 135-145 mmol/L Potassium 3.9 3.5-5.3 mmol/L Chloride 97 97-108 mmol/L CO2 28 22-32 mmol/L Glucose 195 65-99 mg/dL BUN 9 8-23 mg/dL Creatinine 0.95 0.70-1.30 mg/dL Calcium 9.2 8.6-10.4 mg/dL eGFR by Creatinine 85 >59 mL/min/1.73m2 Protein 7.3 6.0-8.3 g/dL Albumin 4.2 3.5-5.3 g/dL Alkaline Phosphatase 68 40-129 IU/L ALT (SGPT) 13 <5-55 IU/L AST (SGOT) 18 <5-46 IU/L Bilirubin, Total 0.3 <0.2-1.2 mg/dL A/G Ratio 1.4 1.1-2.5 P-Ferritin Reviewed date:08/15/2024 05:13:24 PM Interpretation:Normal Performing Lab: Notes/Report: Test performed by [facility] [address] [place] [address] , [place] [address] Po Hadley MD, Package Winder CLIA: [id number] Ferritin 89.1 30.0-400.0 ng/mL P-Hemoglobin A1C Reviewed date:08/15/2024 05:13:24 PM Interpretation:7.2 Performing Lab: Notes/Report: Test performed by [facility] [address] [place] [address] , [place] [address] Po Hadley MD, Package Winder CLIA: [id number] Hemoglobin A1C 7.2 <5.7 % The following HbA1c ranges recommended by the [place] [employer] (ADA) may be used as an aid in the diagnosis of diabetes mellitus. HbA1c Suggested Diagnosis >=6.5% Diabetic 5.7% - 6.4% Pre-Diabetic <5.7% Non-Diabetic P-Vitamin D 25-Hydroxy Reviewed date:08/15/2024 05:13:24 PM Interpretation:24.7 Performing Lab: Notes/Report: Test performed by [facility] [address] [place] [address] , [place] [address] Po Hadley MD, Package Winder CLIA: [id number] Vitamin D 25-Hydroxy 24.7 30.0-100.0 ng/mL Interpretation of Vitamin D 25 OH: < 20 ng/mL - Deficiency 20 - 29 ng/mL - Insufficiency 30 - 100 ng/mL - Sufficiency > 100 ng/mL - Super-therapeutic- toxicity may occur above this level. Clinical correlation required. Estimated Average Glucose Reviewed date:08/15/2024 05:13:24 PM Interpretation:160 Performing Lab: Notes/Report: Test performed by [facility] [address] [place] [address] [place] [address] Po Hadley MD, Package Winder CLIA: [id number] Estimated Average Glucose (eAG) 160 Estimated Average Glucose (eAG) is calculated using the equation eAG = (28.7 x HbA1c) - 46.7 based on the guidelines established by the ADA. If the patient has certain diseases including kidney disease, sickle cell anemia, thalassemia, or is taking medications such as dapsone, erythropoietin, or iron, eAG should not be evaluated. REASON FOR VISIT 3 months Medications Medication SIG (Take, Route, Frequency, Duration) Notes Start Date End Date Status rOPINIRole HCl 0.5 MG 1 or 2 tablet 1 to 3 hours before bedtime Orally Once a day 05/05/2024 Not-Taking DULoxetine HCl 30 MG 1 capsule Orally On ce a day; Duration: 30 day(s) 06/27/2024 Not-Taking Celecoxib 200 MG TAKE 1 CAPSULE BY MOUTH ONCE DAILY TAKE WITH FOOD; Duration: 30 Active Cyclobenzaprine HCl 5 MG 1 tablet as nee ded Orally Three times a day 08/14/2024 Active Tadalafil 5 MG TAKE 1 TABLET BY MOUTH ONCE DAILY; Duration: 30 days Active Omeprazole 40 MG TAKE 1 CAPSULE BY MOUTH TWICE DAILY; Duration: 30 Active Flomax 0.4 MG 1 capsule Orally Onc e a day 05/25/2024 Active Loratadine 10 MG TAKE 1 TABLET BY MOUTH IN THE MORNING ONCE DAILY; Duration: 30 Active hydrOXYzine HCl 25 MG TAKE ONE TO TWO TABLETS BY MOUTH AT BEDTIME NEEDED Active Losartan Potassium 25 MG 1 tablet Orally Once a day; Duration: 30 days Active Colace 100 MG 1 capsule as needed Orally Once a day 02/16/2023 Active Carafate 1 GM 1 tablet on an empty stomach Orally Three times a day; Duration: 30 day(s) 04/21/2024 Active Flonase Allergy Relief 50 MCG/ACT 1 spray in each nostril Nasally Once a day 07/08/2023 Active Potassium Chloride ER 10 MEQ 1 tablet with food Orally Once a day; Duration: 90 days 08/14/2024 Active Align 4 MG as directed Orally 02/16/2023 Active Lyrica 150 MG 1 cap(s) orally 2 times a day Active CareTouch CPAP & BIPAP Hose 1 DIRECTED 07/07/19 Active Vitamin B Complex - 1 tab(s) orally once a day; Duration: 30 day(s) 06/24/2020 Active Furosemide 20 MG 2 tab(s) orally once a day Active Problems Problem Type SNOMED Code ICD Code Onset Dates Problem Status W/U Status Risk Notes Problem Opioid dependence (66920253) Opioid dependence, uncomplicated (F11.20) Active confirmed Problem Obese class I ([id number]) BMI 33.0-33.9,adult (Z68.33) Active confirmed Vital Signs Blood pressure systolic 124 mm Hg 08/15/19 25 Blood pressure diastolic 60 mm Hg 025 Heart Rate 75 /min 08/14/2024 Height 70 in 08/14/2024 Weight 231.8 lbs 08/14/2024 BMI 33.26 kg/m2 08/14/2024 Encounters Encounter Location Date Provider Diagnosis [facility] [address] [facility] [address] [place], [place] [phone] 08/14/2024 Kostas Campa Peripheral edema R60 .0 ; Vitamin D deficiency E55.9 ; Restless leg syndrome G25.81 ; IFG (impaired fasting glucose) R73.01 ; Other chronic pain G89.29 ; Mixed hyperlipidemia E78.2 ; Essential hypertension I10 ; Opioid dependence, uncomplicated F11.20 and BMI 33.0-33.9,adult Z68.33 Assessments Encounter Date Diagnosis (ICD Code) Assessment Notes Treatment Notes Treatment Clinical Notes Section Notes 08/14/2024 Peripheral edema (ICD-10 - R60.0) 08/14/2024 Vitamin D deficiency (ICD-10 - E55.9) 08/14/2024 Restless leg syndrome (ICD-10 - G25.81) 08/14/2024 IFG (impaired fasting glucose) (ICD-10 - R73.01) 08/14/2024 Other chronic pain (ICD-10 - G89.29) 08/14/2024 Mixed hyperlipidemia (ICD-10 - E78.2) 08/14/2024 Essential hypertension (ICD-10 - I10) 08/14/2024 Opioid dependence, uncomplicated (ICD-10 - F11.20) 08/14/2024 BMI 33.0-33.9,adult (ICD-10 - Z68.33) Plan Of Treatment Medication Medication Name Sig Start Date Stop Date Notes Cyclobenzaprine HCl 5 MG 1 tablet as nee ded Orally Three times a day 08/14/2024 Potassium Chloride ER 10 MEQ 1 tablet wi th food Orally Once a day; Duration: 90 days 08/14/2024 Furosemide 20 MG 2 tab(s) orally once a day Next Appt Details Follow Up: 4 Months, Reason: Provider Name:Kostas Workman ry, 04/30/2025 11:00:00 AM, [address], [place], [id number], Progress Notes * PAXTON LINGEDOB: [birth year] (74 yo M)Acc No.[id number]:08/14/2024 Progress Notes Patient: PATRICIA BEVERLY Provider: Sylvie Campa M.D. :1950 A ge:74 Y S ex:Male Date:08/14/2024 Address:[place] [address], [id number] Pcp:Earnestine Kurtz Subjective: * Chief Complaints: * 1 . 3 months. * HPI: E ndocrinology: 74 year old male presents with c/o Maintenance P t presents today for a 3 month check up. Pt sts he needs an A1c today and may need other labs as well. C ardiology: c/o Leg Edema P t sts that he would like to discuss getting his Lasix increased due to his leg swelling. * ROS: D ERMATOLOGY: no R liss. [...] Hospitalization/Major Diagno stic Procedure: S tomach Pain- [facility] ER 04/29/2013, Strep A Bacteremia, Leg Cellulitis- [facility] 02/26-11/2017, RT Great Toe Infected- [facility] 11/30/2020. * Family History: F ather: . [...] ONCE DAILY TAKE WITH FOOD , Taking Furosemide 20 MG Tablet 2 tab(s) orally once a day , Not-Taking rOPINIRole HCl 0.5 MG Tablet 1 or 2 tablet 1 to 3 hours before bedtime Orally Once a day , Not-Taking DULoxetine HCl 30 MG Capsule Delayed Release Particles 1 capsule Orally Once a day , Discontinued Cephalexin 500 MG Tablet 1 tablet Orally every 8 hrs , Discontinued Mupirocin 2 % Ointment 1 application Externally Three times a day , Medication List reviewed and reconciled with the patient * Allergies: N eurontin: pin needles in feet, making feet hot. Objective: * Vitals: W t: 231.8, Temp: 98.1, BP: 124/60, HR: 75, O2 Sat: 95% on RA, Nurse: BENNY, Ht: 70, BMI:33.26. * Examination: G eneral Examination: General Appearance: N AD, using a cane to assist with ambulation. H eart: R SR. L ungs: c lear to auscultation. E xtremities: t race left leg edema. Assessment: * Assessment: 1. P eripheral edema - R60.0 (Primary) 2 . V itamin D deficiency - E55.9? 3. R estless leg syndrome - G25.81 4 . I FG (impaired fasting glucose) - R73.01 5 . O ther chronic pain - G89.29 6 . M ixed hyperlipidemia - E78.2 7 . E ssential hypertension - I10 8 .?Opioid dependence, uncomplicated - F11.20 9 . B SD 33.0-33.9,adult - Z68.33? Plan: * Treatment: Value Reference Range A /G Ratio 1.4 1.1-2.5 - * A lbumin 4.2 3.5-5.3 - g/dL * A lkaline Phosphatase 68 40-129 - IU/L * A LT (SGPT) 13 <5-55 - IU/L * A ST (SGOT) 18 <5-46 - IU/L * B ilirubin, Total 0.3 <0.2-1.2 - mg/dL * B UN 9 8-23 - mg/dL * C alcium 9.2 8.6-10.4 - mg/dL * C hloride 97 97-108 - mmol/L * C O2 28 22-32 - mmol/L * C reatinine 0.95 0.70-1.30 - mg/dL * G lucose 195 H 65-99 - mg/dL * P otassium 3.9 3.5-5.3 - mmol/L * S odium 137 135-145 - mmol/L * P rotein 7.3 6.0-8.3 - g/dL * e GFR by Creatinine 85 >59 - mL/min/1.73m2 * Danielle Mayers 08/15/2024 05: 13:17 PM > See phone encounter 2.?Vitamin D deficiency?LAB: P-Vitamin D 25-Hydroxy (Collection Date & Time - 08/14/2024 11:12 AM)? 24.7* Value Reference Range V itamin D 25-Hydroxy 24.7 L 30.0-100.0 - ng/mL * Danielle Mayers 08/15/2024 05: 13:17 PM > See phone encounter 3.?Restless leg syndrome?LAB: P-Ferritin (Collection Date & Time - 08/14/2024 11:12 AM)?Normal* Value Reference Range F erritin 89.1 30.0-400.0 - ng/mL * Danielle Mayers 08/15/2024 05: 13:17 PM > See phone encounter 4.?IFG (impaired fasting glucose)?LAB: P-Hemoglobin A1C (Collection Date & Time - 08/14/2024 11:12 AM)?7.2* Value Reference Range H emoglobin A1C 7.2 H <5.7 - % * Danielle Mayers 08/15/2024 05: 13:17 PM > See phone encounter 5.?Other chronic pain? Start Cyclobenzaprine HCl Tablet, 5 MG, 1 tablet as needed, Orally, Three times a day, 30, Refills 0.??6.?Others? Start Potassium Chloride ER Tablet Extended Release, 10 MEQ, 1 tablet with food, Orally, Once a day, 90 days, 90 Tablet, Refills 0.?? * Labs: * L ab: Estimated Average Glucose (Collection Date & Time - 08/14/2024 11:12 AM) 1 60 Value Reference Range E stimated Average Glucose 160 - mg/dL * [facility], IT support 08/15/2024 07:30:07 : This order was created by the Interface. Danielle Mayers 08/15/2024 05:13:17 PM > See phone encounter * Procedure Codes: G 2211 Complex e/m visit add on, 3051F HG A1C>EQUAL 7.0%<8.0%, 3074F SYST BP LT 130 MM HG, 3078F DIAST BP < 80 MM HG * Follow Up: 4 Months * Images: Billing Information: * Visit Code: 90458 Office Visit, Est Pt., Level 4. * Procedure Codes: G2211 Complex e/m visit add on. 3051F HG A1C>EQUAL 7.0%<8.0%. 3074F SYST BP LT 130 MM HG. 3078F DIAST BP < 80 MM HG. * Electronic signature of Roya Campa MD on 04/13/2025 at 06:18 AM EST Sign off status: Pending * Provider: Sylvie Campa M.D. Date: 0 08/14/2024 Generated for Eduardo waldron/Tiffani/Ganeshsmitting on: 1 06/14/2024 06:18 AM EST History and Physical Notes * HPI (History of Present Illness) Category Sub-Category Detail Notes Category Not es Endocrinology Maintenance Pt presents toda y for a 3 month check up. Pt sts he needs an A1c today and may need other labs as well Cardiology Leg Edema Pt sts that he w ould like to discuss getting his Lasix increased due to his leg swelling Examination Category Sub-Category Detail Notes Category Not es General Examination Heart: RSR Lungs: clear to auscultatio n Extremities: trace left leg edema General Appearance: NAD, using a cane to assist with ambulation
--- OUTSIDE RECORDS SUMMARY | 2024-12-11 04:45 | XMS_ITS ---
Author Organization [facility] Address [address] [place] [id number] Care Team Providers Care Urology Teacher Name Role Phone Earnestine Kurtz Primary Care Provider Kostas Campa [phone] Allergies Allergen (clinical drug ingredient) Drug/Non Drug Allergy documented on EMR Reaction Allergy Type Onset Date Status gabapentin Neurontin pin needles in feet, making feet hot Drug Allergy Active Results Component Value Reference Range Notes Glucose (In-House) Reviewed date:12/11/2024 10:49:38 AM Interpretation: Performing Lab: Notes/Report: blood glucose 135 74 - 106 mg/dL Glycohemoglobin A1c (in hous e) Reviewed date:12/11/2024 10:49:26 AM Interpretation: Performing Lab: Notes/Report: glycohemoglobin 6.5% 5 - 6.5 % P-Vitamin D 25-Hydroxy Reviewed date:12/12/2024 08:57:01 AM Interpretation:28.5 Performing Lab: Notes/Report: CLIA: [id number] Po Hadley MD, Safety Relief Valve Technician [facility] [place] , [address], [place] [address] Test performed by [facility], [place] Vitamin D 25-Hydroxy 28.5 30.0-100.0 ng/mL Interpretation of Vitamin D 25 OH: < 20 ng/mL - Deficiency 20 - 29 ng/mL - Insufficiency 30 - 100 ng/mL - Sufficiency > 100 ng/mL - Super-therapeutic- toxicity may occur above this level. Clinical correlation required. REASON FOR VISIT 4 month f/u Medications Medication SIG (Take, Route, Frequency, Duration) Notes Start Date End Date Status Celecoxib 200 MG TAKE 1 CAPSULE BY MO UTH ONCE DAILY TAKE WITH FOOD; Duration: 30 Active Loratadine 10 MG TAKE 1 TABLET BY NAYELI TH EVERY MORNING; Duration: 30 Active Omeprazole 40 MG TAKE 1 CAPSULE BY MO UTH TWICE DAILY; Duration: 30 Active Tadalafil 5 MG TAKE 1 TABLET BY NAYELI TH ONCE DAILY; Duration: 30 Active Furosemide 20 MG 2 tab(s) orally once a day; Duration: 90 days Active Flonase Allergy Relief 50 MCG/ACT 1 spray in each nostril Nasally Once a day 07/08/2023 Active Carafate 1 GM 1 tablet on an empty stomach Orally Three times a day; Duration: 30 day(s) 04/21/2024 Active Flomax 0.4 MG 1 capsule Orally Onc e a day 05/25/2024 Active Align 4 MG as directed Orally 02/16/2023 Active Colace 100 MG 1 capsule as needed Orally Once a day 02/16/2023 Active Cyclobenzaprine HCl 5 MG 1 tablet as nee ded Orally Three times a day 08/14/2024 Active Lyrica 150 MG 1 cap(s) orally 2 ti mes a day Active Potassium Chloride ER 10 MEQ 1 tablet wi th food Orally Once a day; Duration: 90 days 08/14/2024 Active Vitamin B Complex - 1 tab(s) orally once a day; Duration: 30 day(s) 06/24/2020 Active CareTouch CPAP & BIPAP Hose 1 DIRECTED 07/07/19 Active metFORMIN HCl ER 500 MG 1 tablet with ev ening meal Orally Once a day; Duration: 30 day(s) 12/11/2024 Active hydrOXYzine HCl 25 MG 1 or 2 tablets Ora lly Once a day at bedtime Active Losartan Potassium 25 MG 1 tablet Orally Once a day; Duration: 30 days Active Immunizations Vaccine Route Administration Date Status Comme nts Prevnar (PCV20) IM Intramuscular 12/11/2024 Administered Problems Problem Type SNOMED Code ICD Code Onset Dates Problem Status W/U Status Risk Notes Problem Type II diabetes mellitus without complication (183177103) Type 2 diabetes mellitus without complication, without long-term current use of insulin (E11.9) Active confirmed Problem Diabetic peripheral neuropathy associated with type 2 diabetes mellitus (9079960390297) Type 2 diabetes mellitus with diabetic neuropathy, unspecified whether long-term insulin use (E11.40) Active confirmed Problem Rheumatoid arthritis (54317407) Rheumatoid arthritis, involving unspecified site, unspecified whether rheumatoid factor present (M06.9) Active confirmed Problem Body mass index 30.00 to 34.99 (177991317760970 ) BMI 34.0-34.9,adult (Z68.34) Active confirmed Vital Signs Blood pressure systolic 124 mm Hg 12/12/19 25 Blood pressure diastolic 72 mm Hg 025 Heart Rate 77 /min 12/11/2024 Height 70 in 12/11/2024 Weight 238.8 lbs 12/11/2024 BMI 34.26 kg/m2 12/11/2024 Encounters Encounter Location Date Provider Diagnosis [facility] [address] [place], [place] [id number] 12/11/2024 Kostas Campa Type 2 diabetes casper itus without complication, without long-term current use of insulin E11.9 ; Vitamin D deficiency E55.9 ; Insomnia, unspecified type G47.00 ; Encounter for immunization Z23 ; Colon cancer screening Z12.11 ; Type 2 diabetes mellitus with diabetic neuropathy, unspecified whether integrated logistics support manager insulin use E11.40 ; Rheumatoid arthritis, involving unspecified site, unspecified whether rheumatoid factor present M06.9 and BMI 34.0-34.9,adult Z68.34 Assessments Encounter Date Diagnosis (ICD Code) Assessment Notes Treatment Notes Treatment Clinical Notes Section Notes 12/11/2024 Type 2 diabetes mellitus without complication, without long-term current use of insulin (ICD-10 - E11.9) 12/11/2024 Vitamin D deficiency (ICD-10 - E55.9) 12/11/2024 Insomnia, unspecified type (ICD-10 - G47.00) 12/11/2024 Encounter for immunization (ICD-10 - Z23) 12/11/2024 Colon cancer screening (ICD-10 - Z12.11) 12/11/2024 Type 2 diabetes mellitus with diabetic neuropathy, unspecified whether long-term insulin use (ICD-10 - E11.40) 12/11/2024 Rheumatoid arthritis, involving unspecified site, unspecified whether rheumatoid factor present (ICD-10 - M06.9) 12/11/2024 BMI 34.0-34.9,adult (ICD-10 - Z68.34) Plan Of Treatment Medication Medication Name Sig Start Date Stop Date Notes metFORMIN HCl ER 500 MG 1 tablet with ev ening meal Orally Once a day; Duration: 30 day(s) 12/11/2024 hydrOXYzine HCl 25 MG 1 or 2 tablets Ora lly Once a day at bedtime Pending Test Test Name Order Date colonoscopy 12/11/2024 Next Appt Details Follow Up: 4 Months, Reason: Provider Name:Kostas Workman ry, 04/30/2025 11:00:00 AM, [address], [address], [place], [phone], Progress Notes * MIGUEL LINGOB: [birth year] (74 yo M)Acc No.[id number]:12/11/2024 Progress Notes Patient: PATRICIA BEVERLY Provider: Sylvie Campa M.D. :1950 A ge:74 Y S ex:Male Date:12/11/2024 Address:[place] [address], [id number] Pcp:Earnestine Kurtz Subjective: * Chief Complaints: * 1 . 4 month f/u. * HPI: C ardiology: 74 year old male presents with c/o Blood Pressure Elevated P t here to check up on hypertension. Pt states he is doing well and does not have any concerns today. * ROS: D ERMATOLOGY: no R liss. [...] Amanda, 08/2009, Bacteremia, Group A Strep, 02/2018, Neuropathy, Type 2 diabetes. * Surgical History: P rostiva Procedure with [...] Hospitalization/Major Diagno stic Procedure: S tomach Pain- [facility] ER 04/29/2013, Strep A Bacteremia, Leg Cellulitis- [facility] 02/26-11/2017, RT Great Toe Infected- [facility] 11/30/2020. * Family History: F ather: . M other: , COPD, diabetes. P aternal Grand Father: . P aternal Grand Mother: . M aternal Grand Father: . M aternal Grand Mother: . 4 brother(s) , 6 sister(s) . 1 son(s) , 2 daughter(s) . . * Social History: C URRENT TOBACCO USE: No S moking Status: Patient does NOT smoke. C affeine: no. Exercise: yes, walk. Home smoke detector use: yes. Marital Status: . New since last visit: none. Occupation: no. Past smoking status: no. Occup. exposure: none. Recreational drug use: no. Alcohol: socially, Type: , Frequency: ,Years: , Determination:. Sexually active: yes. Travel ouside [place]: no. * Medications: T aking Potassium Chloride ER 10 MEQ Tablet Extended Release 1 tablet with food Orally Once a day , Taking Cyclobenzaprine HCl 5 MG Tablet 1 tablet as needed Orally Three times a day , Taking Lyrica 150 MG Capsule 1 [...] Orally Three times a day , Taking Flomax 0.4 MG Capsule 1 capsule Orally Once a day , Taking Tadalafil 5 MG Tablet TAKE 1 TABLET BY MOUTH ONCE DAILY , Taking Celecoxib 200 MG Capsule TAKE 1 CAPSULE BY MOUTH ONCE DAILY TAKE WITH FOOD , Taking Loratadine 10 MG Tablet TAKE 1 TABLET BY MOUTH EVERY MORNING , Taking Omeprazole 40 MG Capsule Delayed Release TAKE 1 CAPSULE BY MOUTH TWICE DAILY , Taking Furosemide 20 MG Tablet 2 tab(s) orally once a day , Taking hydrOXYzine HCl 25 MG Tablet 1 or 2 tablets Orally Once a day at bedtime , Taking Losartan Potassium 25 MG Tablet 1 tablet Orally Once a day , Discontinued rOPINIRole HCl 0.5 MG Tablet 1 or 2 tablet 1 to 3 hours before bedtime Orally Once a day , Discontinued DULoxetine HCl 30 MG Capsule Delayed Release Particles 1 capsule Orally Once a day , Medication List reviewed and reconciled with the patient * Allergies: N eurontin: pin needles in feet, making feet hot. Objective: * Vitals: W t: 238.8, Temp: 97.7, BP: 124/72, HR: 77, O2 Sat: 93% on RA, Nurse: ramón, Ht: 70, BMI:34.26. * Examination: G eneral Examination: General Appearance: N AD, using a cane to assist with ambulation. H eart: R SR. L ungs: c lear to auscultation. E xtremities: n o leg edema. Assessment: * Assessment: 1. T ype 2 diabetes mellitus without complication, without long-term current use of insulin - E11.9 (Primary) 2 . V itamin D deficiency - E55.9 3 . I nsomnia, unspecified type - G47.00 4 . E ncounter for immunization - Z23 5. C olon cancer screening - Z12.11 6 . T ype 2 diabetes mellitus with diabetic neuropathy, unspecified whether long-term insulin use - E11.40 7 . R heumatoid arthritis, involving unspecified site, unspecified whether rheumatoid factor present - M06.9? 8. B PR 34.0-34.9,adult - Z68.34 Plan: * Treatment: Value Reference Range b lood glucose 135 74 - 106 mg/dL * Anila Butler 12/11/2024 10:37: 54 AM EDT > Provider reviewed results while patient in office. ?LAB: Glycohemoglobin A1c (in house) (Collection Date & Time - 12/11/2024)* Value Reference Range g lycohemoglobin 6.5% 5 - 6.5 % * Anila Butler 12/11/2024 10:38: 23 AM EDT > Provider reviewed results while patient in office. 2.?Vitamin D deficiency?LAB: P-Vitamin D 25-Hydroxy (Collection Date & Time - 12/11/2024 09:20 AM)? 28.5* Value Reference Range V itamin D 25-Hydroxy 28.5 L 30.0-100.0 - ng/mL * Stefany Pollack 12/12/2024 08:5 6:54 AM EDT > See phone encounter 3.?Insomnia, unspecified type? Refill hydrOXYzine HCl Tablet, 25 MG, 1 or 2 tablets, Orally, Once a day at bedtime, 60, Refills 5. ?4.?Colon cancer screening?Imaging: colonoscopy* Alicia Adamson 11/24 10:56:49 AM EDT > faxed to Dr. Hyde officeTaylorAlicia 12/20/2024 03:28:01 PM EDT > patient is not due for colonoscopy; had one in 10/2023 * Immunizations: Prevnar (PCV20) : 0.5 mL (Route: Intramuscular) given by Anila Butler on Left Deltoid (Encounter for immunization) * Procedure Codes: G 2211 Complex e/[place], [address] GLUCOSE TEST, 68004 GLYCATED HEMOGLOBIN TEST, Modifiers: QW , 3044F HG A1C LEVEL LT 7.0%, 1036F TOBACCO NON-USER, G8783 BP SCR PRFRM RCMDD DEFIND SCR INTVL, G8752 MOST RECENT SYSTOLIC BP < 140MM HG, G8754 MOST RECENT DIASTOLIC BP < 90MM HG, 4040F PNEUMOC IMM ORDER/ADMIN, 3017F COLORECTAL CA SCREEN DOC REV * Preventive Medicine: Screening / Special Tests: C olonoscopy 1 Dr. Hyde, polyps, hemorrhoids, repeat 3-5 years, ordered today. * Follow Up: 4 Months * Images: Drawing:[address] [facility] addendum Billing Information: * Visit Code: 04573 Office Visit, Est Pt., Level 4. * Procedure Codes: G2211 Complex e/[place]. [address] GLUCOSE TEST. 62714 GLYCATED HEMOGLOBIN TEST. Modifiers: QW 3044F HG A1C LEVEL LT 7.0%. 1036F TOBACCO NON-USER. G8783 BP SCR PRFRM RCMDD DEFIND SCR INTVL. G8752 MOST RECENT SYSTOLIC BP < 140MM HG. G8754 MOST RECENT DIASTOLIC BP < 90MM HG. 4040F PNEUMOC IMM ORDER/ADMIN. 3017F COLORECTAL CA SCREEN DOC REV. * Electronic signature of Roya Campa MD on 04/13/2025 at 06:17 AM EST Sign off status: Pending * Provider: Sylvie Campa M.D. Date: 0 12/11/2024 Generated for Eduardo waldron/Tiffani/Tobyitting on: 1 06/14/2024 06:17 AM EST History and Physical Notes * HPI (History of Present Illness) Category Sub-Category Detail Notes Category Not es Cardiology Blood Pressure Elevated Pt here to check up on hypertension. Pt states he is doing well and does not have any concerns today Examination Category Sub-Category Detail Notes Category Not es General Examination Heart: RSR Lungs: clear to auscultatio n Extremities: no leg edema General Appearance: NAD, using a cane to assist with ambulation
--- NOTE | 2025-04-13 05:29 | HMH.EDGENADL ---
Discharge Plan Disposition Patient Disposition: Home, Self-Care Prescriptions Prescriptions: No Action celecoxib 200 mg capsule 200 mg PO DAILY omeprazole 40 mg capsule,delayed release(DR/EC) 40 mg PO BID furosemide 20 mg tablet 20 mg PO DAILY cephalexin 500 mg tablet 500 mg PO Q8H 7 Days Qty: 21 0RF aspirin 81 MG tablet,delayed release (DR/EC) 81 mg PO DAILY losartan 25 mg tablet 25 mg PO DAILY metformin 500 mg tablet extended release 24 hr 500 mg PO BID hydroxyzine HCl 25 mg tablet 25 mg PO BIDP PRN (Reason: Anxiety) pregabalin 150 mg Capsule 150 mg PO BID lidocaine 5 % Adhesive Patch,Medicated 1 patch topical DAILY Referrals Follow up/Referrals: Kostas Campa MD [Primary Care Provider, Medical] - See instructions Activity Restrictions/Add. Instructions Additional Instructions/Restrictions: Please follow-up with your primary care provider. Please return to the emergency department if you develop any new or worsening symptoms or become concerned for your health. Clinical Impressions Clinical Impression: Leg pain, bilateral Print Language Print Language: Portuguese Discharge ED Provider: Quique Ghotra General Adult HPI General Chief complaint: PAIN Stated complaint: leg severe pain both, pain pump-switched meds Time Seen by Provider: 04/13/25 05:29 History of Present Illness HPI narrative: 74-year-old male with history of chronic back pain and leg pain, extensive history of back surgeries, presents for worsening back and bilateral leg pain after his pain pump was switched from morphine to fentanyl recently. His pain began after the switch, they upped the fentanyl dosing once already which helped a little bit, but they have not been able to get back to see him and the pain has gotten significantly worse. He denies any trauma. Denies any infection. He has had no recent surgery. The only change is in his medication. No new numbness. Reports chronic weakness. No changes in bowel or bladder function. Related Data Home Medications ?Medication ?Instructions ?Recorded ?Confirmed celecoxib 200 mg capsule 200 mg PO DAILY 09/15/17 07/15/24 aspirin 81 mg tablet,delayed 81 mg PO DAILY 01/30/20 07/15/24 release hydroxyzine HCl 25 mg tablet 25 mg PO BIDP PRN Anxiety 12/19/22 07/15/24 furosemide 20 mg tablet 20 mg PO DAILY 04/01/23 07/15/24 omeprazole 40 mg capsule,delayed 40 mg PO BID 04/01/23 07/15/24 release lidocaine 5 % topical patch 1 patch topical DAILY 11/12/23 07/15/24 pregabalin 150 mg capsule 150 mg PO BID 11/12/23 07/15/24 losartan 25 mg tablet 25 mg PO DAILY 04/12/24 07/15/24 metformin 500 mg tablet,extended 500 mg PO BID 04/12/24 07/15/24 release 24 hr Previous Rx's ?Medication ?Instructions ?Recorded cephalexin 500 mg tablet 500 mg PO Q8H 7 days #21 tabs 07/15/24 Allergies Allergy/AdvReac Type Severity Reaction Status Date / Time No Known Allergies Allergy Verified 07/15/24 09:28 [facility] Disclaimer: The information contained in this section may have been updated after the patient was seen, as this information can be updated by other users. Medical History COVID-19 Acute viral syndrome Contact dermatitis Impacted cerumen of right ear Skin ulcer of great toe with fat layer exposed Pain of right great toe Infected blister of great toe of right foot Bilateral lower leg cellulitis Bacteremia due to Streptococcus Essential tremor Raynauds disease Depression OA (osteoarthritis) of hip IFG (impaired fasting glucose) Hyperlipidemia Vitamin D deficiency BPH (benign prostatic hyperplasia) GERD (gastroesophageal reflux disease) Bacteremia Colon cancer Disc disorder Broken leg REY (obstructive sleep apnea) Pulmonary hypertension HTN (hypertension) Surgical History History of knee replacement Family History Other No significant family history Social History Smoking Status: Never smoker alcohol intake: never substance use type: denies use current occupational status: employed and retired Travel in the last 8 weeks?: None household members: spouse and family housing: house current occupational exposures/hazards: No caffeine: Yes Have you lived/traveled outside US in past 30 days?: No Contact w/someone who lives/traveled outside US past 30 days?: No Exposure to someone with infectious disease in past 14 days?: No Do you have a fever (greater than 100.4 F or 38 C)?: No Have you tested positive for COVID-19?: No Exposed to someone with COVID-19 in past 14 days?: No Do you have a sore throat?: No Do you have a cough?: No Do you have any weakness?: No Do you have any diarrhea?: No Are you experiencing any unusual bleeding?: No Do you have any muscle aches/pain?: No Do you have any abdominal pain?: No Are you experiencing loss of taste or smell?: No Other Medical History Have you received the Flu Vaccine for this season: No Have you received the Pneumonia Vaccine: No ROS Obtained: Yes All systems reviewed & no additional complaints except as documented Physical Exam General General appearance: alert and in no apparent distress Head Head exam: atraumatic and normocephalic Eye Eye exam: Present normal appearance, PERRL and EOMI ENT ENT exam: Present normal oropharynx and normal external ear exam Neck Neck exam: Present normal inspection and full ROM Chest Chest inspection: Present normal inspection and symmetric chest wall rise; Absent tenderness Respiratory Respiratory exam: Present normal lung sounds bilaterally; Absent respiratory distress Cardiovascular Cardiovascular exam: Present regular rate and normal rhythm Abdominal Exam Abdominal exam: Present soft; Absent distention, tenderness or guarding Extremities Exam Extremities exam: Present normal inspection; Absent edema or joint swelling Back Exam Back exam: Present normal inspection; Absent tenderness Neurological Exam Neurological exam: Present alert and oriented X3; Absent motor sensory deficit Psychiatric Psychiatric exam: Present normal affect and normal mood Skin Skin exam: Present warm, dry and normal color Lymphatic Lymphatic Findings: no adenopathy Medical Decision Making Medical Records Medical records reviewed: Yes I reviewed the patient's medical records. Screening: Per USPSTF and CDC recommendations, given the prevalence of disease in our region, it is our hospital?s policy to screen for HIV and viral Hepatitis for all patients aged 18 and over and those with ongoing risk factors. Abraham Inquiry Pt receiving controlled substance: No Abraham was queried for this patient: No Vital Signs: 04/13/25 05:37 Temperature 98.8 F Temperature Source Oral Pulse Rate [Right] 76 Respiratory Rate 18 Blood Pressure [Right Arm] 178/87 H Blood Pressure Mean [Right Arm] 117 02 Sat by Pulse Oximetry 100 Oxygen Delivery Method Room Air Lab Data Lab results reviewed: Yes I reviewed the patient's lab results. Orders (Tests/Meds): ED MEDICATIONS Discontinued Medications Generic Name Dose Route Start Last Admin Trade Name Freq PRN Reason Stop Dose Admin Acetaminophen 1,000 mg 04/13/25 05:38 04/13/25 05:44 Acetaminophen 1,000mg/100ml Vial IV 04/13/25 05:39 1,000 mg ONCE ONE Administration Ketorolac Tromethamine 30 mg 04/13/25 05:38 04/13/25 05:45 Ketorolac 30mg/Ml Vial IV 04/13/25 05:39 30 mg ONCE ONE Administration Methocarbamol 1,500 mg 04/13/25 05:38 04/13/25 05:44 Methocarbamol 500mg Tablet PO 04/13/25 05:39 1,500 mg ONCE ONE Administration Morphine Sulfate 4 mg 04/13/25 05:38 04/13/25 05:45 Morphine 4mg/Ml Syringe IV 04/13/25 05:39 4 mg ONCE ONE Administration Morphine Sulfate 4 mg 04/13/25 06:10 04/13/25 06:13 Morphine 4mg/Ml Syringe IV 04/13/25 06:11 4 mg ONCE ONE Administration Oxycodone HCl 5 mg 04/13/25 06:10 04/13/25 06:13 Oxycodone 5mg Immediate Release Tablet PO 04/13/25 06:11 5 mg ONCE ONE Administration Medical Decision Narrative: 74-year-old male with history as documented above presents for worsening acute on chronic back and bilateral leg pain after changing his pain pump medication from morphine to fentanyl.. History was obtained via interactive discussion with patient, family, chart review. On arrival, patient is [afebrile, hemodynamically stable, satting appropriately, alert, oriented x4, GCS 15], moving all extremities spontaneously. Full physical exam performed and significant for bilateral leg tremors. I considered obtaining labs and imaging, but I have no significant concern for acute spinal pathology given no trauma, infection, recent surgery, no new weakness or changes in bowel or bladder function. Presentation most consistent with pain resulting from change in medication. Patient was given multimodal pain control with some improvement. He was given an additional dose of morphine and oxycodone for longer-lasting pain control and he will follow-up with his pain doctor when his clinic opens up in a few hours. Procedures Risk/Benefits of Procedure(s) Were Explained: Yes Critical Care Critical Care Time Critical Care Time: No
[2025-04-13 05:37] VITALS: BP 178/87; PULSE 76; RESP 18; TEMP 37.1; O2SAT 100; BMI 34.0
[2025-04-13] MEDS: ACETAMINOPHEN 1,000MG/100ML VIAL 1000 MG IV (05:44)
[2025-04-13] MEDS: METHOCARBAMOL 500MG TABLET 1500 MG PO (05:44)
[2025-04-13] MEDS: KETOROLAC 30MG/ML VIAL 30 MG IV (05:45)
[2025-04-13] MEDS: MORPHINE 4MG/ML SYRINGE 4 MG IV ×2 (05:45→06:13)
--- NOTE | 2025-04-13 05:45 | PC.NURSE ---
Morphine pulled by CAROL Chandra and scanned by Charmaine Yi RN with [facility] present
[2025-04-13] MEDS: OXYCODONE 5MG IMMEDIATE RELEASE TABLET 5 MG PO (06:13)
--- OUTSIDE RECORDS SUMMARY | 2025-04-13 06:18 | XMS_ITS | Referral Summary ---
Author Organization [employer] ([place], [place], [place], [place], [place]) Address [address] [place] [address] Care Team Providers Care Sole Scraper Name Role Phone Kostas Campa MD Primary Care Provider + [phone] Allergies No known active allergies Medications tadalafiL (TADALAFIL ORAL) 5 MG tablet Take 1 tablet (5 mg total) by mouth daily as needed for erectile dysfunction. Active omeprazole (PriLOSEC) 40 MG capsule Take 1 capsule (40 mg total) by mouth 2 (two) times daily. Active hydrOXYzine (ATARAX) 25 MG tablet Take 1 tablet (25 mg total) by mouth nightly 1-2 tabs. Active furosemide (LASIX) 20 MG tablet Take 1 tablet (20 mg total) by mouth daily. Active pregabalin (LYRICA) 150 MG capsule Take 1 capsule (150 mg total) by mouth 2 (two) times daily. Active lidocaine (LIDODERM) 5 % patch Place 1 patch on the skin daily Remove & Discard patch within 12 hours or as directed by MD. Active losartan (COZAAR) 25 MG tablet Take 1 tablet (25 mg total) by mouth daily. Active fluticasone propionate (FLONASE) 50 mcg/actuation nasal spray Administer 1 spray into each nostril daily. Active Missing or Non-Formulary Medication Pain pump with Morphine and Prialt. Active loratadine (CLARITIN) 10 mg tablet Take 1 tablet (10 mg total) by mouth daily. Active ondansetron (ZOFRAN-ODT) 8 MG disintegrating tablet Take 1 tablet (8 mg total) by mouth 2 (two) times daily as needed for nausea or vomiting. 4 Active cyclobenzaprine (FLEXERIL) 10 MG tablet Take 1 tablet (10 mg total) by mouth 3 (three) times daily as needed for muscle spasms for up to 12 doses. 12 tablet 5 Active celecoxib (CeleBREX) 200 MG capsule Take 1 capsule (200 mg total) by mouth 2 (two) times daily Look-alike/S ound-alike medication. Active cephalexin (KEFLEX) 500 MG capsule Take 1 capsule (500 mg total) by mouth 3 (three) times daily. Active Active Problems Problem Noted Date Diagnosed Date Fever 04/12/2024 Osteoarthritis 04/03/2024 Cancer of colon 04/03/2024 DDD (degenerative disc disease), lumbar 04/03/20 Disorder of prostate 04/03/2024 Gastroesophageal reflux disease 04/03/2024 Hearing loss 04/03/2024 High blood pressure 04/03/2024 History of obstructive sleep apnea 04/03/2024 Obesity with body mass index 30 or greater 04/03 Chronic back pain 09/12/2020 Social History Tobacco Use Types Packs/Day Years Used Date Smoking Tobacco: Never Smokeless Tobacco: Never Tobacco Cessation:Counseling Given: Not Answered Alcohol Use Standard Drinks/Week Comments Yes 1 (1 standard drink = 0.6 oz pur e alcohol) occasional Utilities Answer Date Recorded In the past 12 months, has t he electric, gas, oil, or water company threatened to shut off services in your home? No 04/12/2024 Interpersonal Safety Answer Date Record ed How often does anyone, ailrezaeric lopez family and friends, physically hurt you? Never 04/12/2024 How often does anyone, chiquita lopez family and friends, insult or talk down to you? Never 04/12/2024 How often does anyone, chiquita lopez family and friends, threaten you with harm? Never 04/12/2024 How often does anyone, chiquita lopez family and friends, scream or curse at you? Never 04/12/2024 Housing Stability Answer Date Recorded What is your living situation today? I have a st adri place to live 04/12/[address] you li ve. Do you have problems with any of the following? None of the above 04/12/2024 Food Insecurity Answer Date Recorded Within the past 12 months, y ou worried that your food would run out before you got money to buy more. Never true 04/12/2024 Within the past 12 months, t he food you bought just didn't last and you didn't have money to get more. Never true 04/12/2024 Transportation Needs Answer Date Record ed In the past 12 months, has l ack of reliable transportation kept you from medical appointments, meetings, work or from getting things needed for daily living? No 04/12/2024 Financial Resource Strain Answer Date R ecorded How hard is it for you to pa y for the very basics like food, housing, medical care, and heating? Would you say it is: Not hard at all 04/12/2024 Employment Answer Date Recorded Do you want help finding or keeping work or a job? I do not need or want help 04/12/2024 Family and Community Support Answer Jose e Recorded If for any reason you need h elp with day-to-day activities such as bathing, preparing meals, shopping, managing finances, etc., do you get the help you need? I don't need any help 04/12/2024 Feeling Lonely or Isolated 0 04/12 Educational Attainment Answer Date Hansel rded Do you speak a language other than Indonesian at [facility]? No 04/12/2024 Do you want help with school or training? For example, starting or completing job training or getting a high school diploma, GED or equivalent. No 04/12/2024 Physical Activity Answer Date Recorded Number of minutes of exercise per week 0 04/12/2024 Self Management Answer Date Recorded Because of a physical, menta l, or emotional condition, do you have serious difficulty concentrating, remembering, or making decisions? (5 years or older) No 04/12/2024 Because of a physical, menta l, or emotional condition, do you have difficulty doing errands alone such as visiting a doctor's office or shopping? (15 years or older) No 04/12/2024 Substance Use Answer Date Recorded How many times in the past y ear have you used prescription drugs for non-medical reasons? Never 04/12/2024 How many times in the past year have you used [place] legal drugs? Never 04/12/2024 Mental Health Answer Date Recorded Calculation of above two rows 0 Sex and Gender Information Value Date Recorded Sex Assigned at Not on file Legal Sex Male 6:57 PM CDT Gender Identity Not on file Sexual Orientation Not on file Last Filed Vital Signs Vital Sign Reading Time Taken Comments Blood Pressure 120/59 07/19/2024 1:35 PM EDT Pulse 66 07/19/2024 1:35 PM EDT Temperature 36.4 C (97.6 F) 07/19/2024 10:47 AM EDT Respiratory Rate 18 07/19/2024 10:47 AM EDT Oxygen Saturation 94% 07/19/2024 1:35 PM EDT Inhaled Oxygen Concentration 40% 04/13/2024 1 :00 AM EST Weight 99.8 kg (220 lb) 07/19/2024 10:47 AM EDT Height 177.8 cm (5' 10 ) 07/19/2024 10:47 AM EDT Body Mass Index 31.57 07/19/2024 10:47 AM EDT Plan of Treatment Not on file Insurance [id number] (Home) [address] ACCESS PPO MAP Advance Directives For more information, please contact: [phone] * Full Code (Latest Code Status on File) Date Activated Date Inactivated Comments 04/12/2024 8:10 PM 04/15/2024 7:21 PM Care Teams Sole Scraper Relationship Specialty Start Date End Date Kostas Campa MD [address] [facility] [address] [place] [id number] PCP - General Family Medicine 06/26/24
--- OUTSIDE RECORDS SUMMARY | 2025-04-13 06:18 | XMS_ITS | Encounter Summary ---
Author Organization [employer] ([place], [place], [place], [place], [place]) Address [address] [place] [address] Care Team Providers Care Therapist Rrt Name Role Phone Kostas Campa MD Primary Care Provider + [phone] Kostas Campa MD Primary Care Provider + [phone] Encounter Details Date Type Department Care Team (Late st Contact Info) Description 04/12/[address] [facility] [place] Family Medicine [address] [place] [address] ProviderLance MD [address] [place] [id number] Social History Tobacco Use Types Packs/Day Years Used Date Smoking Tobacco: Never Assessed Sex and Gender Information Value Date Recorded Sex Assigned at Not on file Legal Sex Male 6:57 PM CDT Gender Identity Not on file Sexual Orientation Not on file documented as of this encounter Miscellaneous Notes * Cerner Conversion Note - Lance Rosales MD - 04/12/2020 6:28 PM SOFT METALS HAND ENGRAVER Patient: BAYLEE LING Age: 69 Years Sex: Male : 1950 FOLLOW-UP DATE OF SERVICE: 03/15/2020 CHIEF COMPLAINT: Lower back, leg and feet pain, knee pain. HISTORY OF PRESENT ILLNESS: The patient is a 69 y/o male who returns to the clinic for follow-up on his low back pain that goes to his bilateral lower extremities that he has had since 1984. His Nevro spinal cord stimulator doesn't help much. He states he talked to Dr. Petty at the last visit about switching it out for a Medtronic. He has had 2 Medtronics and he switched to the Nevro about [address] Conteh implanted it and they reprogrammed, but he is just not happy with it. He rates his pain as 4/10 on the pain scale. Quality is aching, burning, numbness, tingling, dull, sharp, constant. He gets 75% relief with his current medication. His pain is increased with sitting, lying, walking and decreased with repositioning, medication, rest. Fall risk info sheet has been provided. SOCIAL HISTORY: Allergies: No known drug allergies. Marital status: The patient is . Current work status: He states he is disabled. Illicit drug use: Denies. Alcohol use: He drinks alcohol 3-4 drinks a week. Current tobacco use: Denies. Caffeine use: He drinks caffeine. Past Medical History: Arthritis. Colon cancer. Heartburn and GERD. High blood pressure. Obstructive sleep apnea. Prostate enlargement. Past Surgical History: Intestine, colon. Knee. Prostate. Spinal surgery of the back. Vasectomy. Spinal cord stimulator implants and explants and then another implant. Open reduction internal fixation of leg. Past Family History: Lung cancer. Diabetes. Heart disease. Acid reflux. REVIEW OF SYSTEMS: Complete ten system review was performed and noted to be positive for the following: General: Fatigue. Respiratory: Negative. Neurological: Numbness and tingling. Gastrointestinal: Constipation, diarrhea, acid reflux. Musculoskeletal: Joint pain, stiffness, back pain. Cardiovascular: Leg pain with walking. Psychiatric: Negative. HEENT: Negative. Endocrine: Negative. Hematology: Negative. VITAL SIGNS: Vital signs are reviewed. BP 111/69, heart rate 66, respiratory rate 16, O2 SATs 100%, height 5???10?? , weight 230 lbs. PHYSICAL EXAMINATION: Constitutional: The patient is freely conversant, no acute distress. Integumentary: Deferred. HEENT: Deferred. Neck: Deferred. Chest and Lung: Deferred. Cardiovascular: Deferred. Abdomen: Deferred. Peripheral Vascular: Deferred Neurologic: Deferred. Psychiatric: Alert and oriented x 3 with normal mood and affect. He scored an 11 on the depression questionnaire. He is treated. He has suicidal ideation but no plan to harm himself. Musculoskeletal: Deferred. Established patient exam is deferred. DIAGNOSTIC STUDIES: Not present. MEDICAL DECISION MAKING: The patient's ISHAAN has been reviewed and is appropriate. Patient's medications are reviewed and are listed in the patient's file. ASSESSMENT: Stable. 1. Chronic pain syndrome. 2. Lumbar degenerative disc disease. 3. Lumbar radiculitis, bilateral lower extremities. 4. Lumbar spondylosis. PROCEDURE/TEST ORDERED: Not present. CURRENT PLAN: Unfortunately, Dr. Petty' note from the last visit was not available, so I talked to him and he stated that he had written for the patient to have ketamine and just to let him know we have been slowed down on those because of COVID and other technicalities, but we would be doing them soon and they we want to try that first to reset his receptors and may help that the medication is more effective for him and that Dr. Petty' recommendation would be to pursue an intrathecal pain pump instead of switching out his spinal cord stimulator which we will discuss in the future after he has ketamine. We will continue him on his Percocet 10 mg every 8 hours, Klonopin 1 mg 1 p.o. q.h.s., Lyrica 150 mg every 12 hours, MS Contin extended release 15 mg every 12 hours, Flexeril 10 mg q.h.s. The patient is understanding of the plan. We will see him back in follow-up in two months. Lena Bai M.D. ALICE/indy Electronically signed by Juanis [facility] Conversion Correctional Sergeant Cerner at 08/13/2022 6:40 PM CDT documented in this encounter Plan of Treatment Not on file documented as of this encounter Visit Diagnoses Not on filedocumented in this encounter Care Teams Therapist Rrt Relationship Specialty Start Date End Date Kostas Campa MD [address] [facility] [address] [place] [phone] PCP - General Family Medicine 04/03/24 06/25/24 Kostas Campa MD [address] [place] [facility] [address] [place] [phone] PCP - General Family Medicine 06/26/24 documented as of this encounter
--- OUTSIDE RECORDS SUMMARY | 2025-04-13 06:18 | XMS_ITS | Encounter Summary ---
Author Organization [employer] ([place], [place], [place], [place], [place]) Address [address] [place] [address] Care Team Providers Care Vehicle Maintenance Technician Name Role Phone Kostas Campa MD Primary Care Provider + [phone] Kostas Campa MD Primary Care Provider + [phone] Encounter Details Date Type Department Care Team (Late st Contact Info) Description 09/29/2019 Transcribed Document [facility] [place] Family Medicine [address] [place] [address] ProviderLance MD [address] [place] [id number] Social History Tobacco Use Types Packs/Day Years Used Date Smoking Tobacco: Never Assessed Sex and Gender Information Value Date Recorded Sex Assigned at Not on file Legal Sex Male 6:57 PM CDT Gender Identity Not on file Sexual Orientation Not on file documented as of this encounter Miscellaneous Notes * Cerner Conversion Note - Lance Rosales MD - 09/29/2019 4:57 PM CDT DATE OF PROCEDURE: 09/29/2019 NEUROSURGERY OPERATIVE REPORT SURGEON: Willian Warner MD REGISTRAR ASSISTANT: CAMACHO Durant. Scrubbed and present assisting in cleaning and closure of the wound. PREOPERATIVE DIAGNOSIS: Right L4-5 disk herniation. POSTOPERATIVE DIAGNOSIS: Right L4-5 disk herniation. PROCEDURE: Right L4-5 MIS microdiskectomy. ANESTHESIA: General endotracheal anesthesia. ESTIMATED BLOOD LOSS: 30 mL. COMPLICATIONS: None. BRIEF HISTORY: Mr. Gonzalez suffers from chronic back pain. He has had multiple back surgeries in the past. He presented with worsening right leg pain present for the last [address] myelogram was performed showing a large disk protrusion/herniation at L4-5 on the right side that correlated with these new symptoms. In spite of his need for daily narcotics, his pain had previously been well controlled and at this point this new issue was causing significant discomfort. He failed to respond to conservative measures. I recommended proceeding with a lumbar diskectomy, explained the risks, benefits, indications. We talked about the expectations of the surgery including the potential to not meet these expectations even with a successful operation. OPERATIVE DETAILS: The patient was intubated without incident, flipped from the supine to the prone position onto the operating table. The pressure points were identified and padded. Lumbar spine was prepped and draped. Time-out was performed. Antibiotics were given. Films were available and reviewed in the room prior to incision. The incision was localized with a spinal needle and C-arm fluoroscopy. The right paramedian incision was marked out. Incision performed with a 15-blade knife, continued cautery dissection through the subcu fat. The lumbar fascia was incised. Metrics dilators were docked over the L4 lamina. A 6 cm x 18 mm tube was secured in place. The operative microscope was brought into the field. The x-ray confirmed location. Periosteal dissection was undertaken exposing the L4 lamina, laminotomy, and partial removal of the medial facet was performed with the Midas drill. The ligament was mobilized and removed with Kerrisons. The thecal sac and the traversing nerve root were readily identified using microsurgical technique. The thecal sac was dissected. The disk was further defined. An annulotomy was performed. The subannular disk fragments were removed. A broad paracentral disk bulge was appreciated. This was reduced with downgoing curettes, pituitaries, and Kerrison. At this point, longer ball hook could be swept along the course of the nerve and adequate decompression had been achieved. The wound was inspected a final time, copiously irrigated, then the operative microscope was brought out of the field. The METRx dilators removed. The muscle was injected with 0.25% Marcaine. The fascia and subcuticular layers were closed separately. Steri-Strips were placed over the skin for final wound closure, dressing placed over the wound. The patient was flipped from prone to supine position, extubated without incident, and left the OR in stable condition. /[id number] Willian Warner MD GP/AQ / GP / MODL /[id number] Electronically signed by [facility] Conversion Label Pinker Cerner at 08/13/2022 6:39 PM CDT documented in this encounter Plan of Treatment Not on file documented as of this encounter Visit Diagnoses Not on filedocumented in this encounter Care Teams Vehicle Maintenance Technician Relationship Specialty Start Date End Date Kostas Campa MD [address] [facility] [address] [place] [phone] PCP - General Family Medicine 04/03/24 06/25/24 Kostas Campa MD [address] [facility] [address] [place] [phone] PCP - General Family Medicine 06/26/24 documented as of this encounter
--- OUTSIDE RECORDS SUMMARY | 2025-04-13 06:18 | XMS_ITS | Encounter Summary ---
Author Organization [employer] ([place], [place], [place], [place], [place]) Address [address] [place] [address] Care Team Providers Care Paginator Name Role Phone Kostas Campa MD Primary Care Provider + [phone] Kostas Campa MD Primary Care Provider + [phone] Encounter Details Date Type Department Care Team (Late st Contact Info) Description 09/29/2019 Transcribed Document [facility] [place] [address] [place] [address] ProviderLance MD [address] [place], [place] [id number] Social History Tobacco Use Types Packs/Day Years Used Date Smoking Tobacco: Never Assessed Sex and Gender Information Value Date Recorded Sex Assigned at Not on file Legal Sex Male 6:57 PM CDT Gender Identity Not on file Sexual Orientation Not on file documented as of this encounter Miscellaneous Notes * Cerner Conversion Note - Lance ProviderMD - 09/29/2019 2:44 PM CDT Patient: BAYLEE LING Age: 69 Years Sex: Male : 1950 Please update the History and Physical on your patient by completing the appropriate section (H&Ps performed within 30 days prior to admission must be updated prior to surgery/procedure) _X__ UPDATE: The History and Physical performed by:_Kaleb Hastings PA-C on 09/07/19_ has been reviewed; patient was examined; there have been no clinically significant changes since the prior History and Physical was completed. ___ UPDATE: The History and Physical performed by:__ has been reviewed; patient was examined; clinically significant changes since the prior History and Physical was completed are indicated below: Significant Changes: documented in this encounter Plan of Treatment Not on file documented as of this encounter Visit Diagnoses Not on filedocumented in this encounter Care Teams Paginator Relationship Specialty Start Date End Date Kostas Campa MD [address] [place] [address] [place] [phone] PCP - General Family Medicine 04/03/24 06/25/24 Kostas Campa MD [address] [place] [facility] [address] [place] [phone] PCP - General Family Medicine 06/26/24 documented as of this encounter
--- OUTSIDE RECORDS SUMMARY | 2025-04-13 06:18 | XMS_ITS | Encounter Summary ---
Author Organization [employer] ([place], [place], [place], [place], [place]) Address [address] [place] [address] Care Team Providers Care Legal Document Assistant Name Role Phone Kostas Campa MD Primary Care Provider + [phone] Kostas Campa MD Primary Care Provider + [phone] Encounter Details Date Type Department Care Team (Late st Contact Info) Description 01/02/2022 Transcribed Document [facility] [place] [address] ProviderLance MD [address] [place] [address] [id number] Social History Tobacco Use Types Packs/Day Years Used Date Smoking Tobacco: Never Assessed Sex and Gender Information Value Date Recorded Sex Assigned at Not on file Legal Sex Male 6:57 PM CDT Gender Identity Not on file Sexual Orientation Not on file documented as of this encounter Miscellaneous Notes * Cerner Conversion Note - Lance Rosales MD - 01/02/2022 7:47 AM CDT Patient Education Materials Follows: Neurosurgery Intrathecal Pump Implantation Spinal Cord Stimulator Implantation Post-Operative Instructions What to expect after surgery: You may have mild swelling at and around the surgical site. This should go away over time. Expect some stiffness and pain at the surgical site. You may: --Remove the bandage over the incision on the 3rd day after surgery. You should have an appointment for staple removal in 7-10 days prior to leaving the hospital. If you do not, call your physicians office to make arrangements. Always wash your hands with antibacterial soap before and after contact with the incision and discard soiled dressings in a plastic bag. -- If you were prescibed an abdominal binder, this should be worn for extra protection at ALL times for extra protection when you are up and active. This should be snug but not tight. -- Use Acetaminophen(Tylenol) between or instead of your narcotic pain medication directed doses. --Do NOT take more than 4000mg of acetaminophen (Tylenol) in 24 hours. --That includes the acetaminophen (Tylenol) in your narcotic pain medication (eg. Percocet 5/325 - this has 325mg of acetaminophen in it --Take prescription medication as indicated. Follow directions closely. As needed means you should take the medication only when you are feeling pain as the intervals directed. Refills will be given ONLY if you use the medication appropriately as directed. Refills will not be given on weekends or after office hours.Please contact your main management physician for medicaiton adjustments. Do Not: --Get your incision saturated during the first two weeks following surgery. Do not submerge in the pool, bathtub, hot tub, or allow shower to saturate the incision. --Do heavy housework or yard work until you go back to your follow-up appointment. Please watch for over sedation, if you are experiencing yourself being extra drowsy or you feel off please call your pain management physician. Surgery Outpatient Surgery, Adult, Care After This sheet gives you information about how to care for yourself after your procedure. Your health care provider may also give you more specific instructions. If you have problems or questions, contact your health care provider. What can I expect after the procedure? After the procedure, it is common to have: ??? Tenderness and numbness at the surgical site. ??? Swelling, bruising, and numbness around the surgical site. ??? Nausea. Follow these instructions at home: For the time period you were told by your health care provider: ??? Rest. ??? Do not participate in activities where you could fall or become injured. ??? Do not drive or use machinery. ??? Do not drink alcohol. ??? Do not take sleeping pills or medicines that cause drowsiness. ??? Do not make important decisions or sign legal documents. ??? Do not take care of children on your own. Medicines ??? Take wjlr-jda-lckhrav and prescription medicines only as told by your health care provider. ??? If you were prescribed an antibiotic medicine, take it as told by your health care provider. Do not stop taking the antibiotic even if you start to feel better. ??? Ask your health care provider if the medicine prescribed to you: ? Requires you to avoid driving or using machinery. ? Can cause constipation. You may need to take these actions to prevent or treat constipation: ? Drink enough fluid to keep your urine pale yellow. ? Take yejb-tgy-pcfbzne or prescription medicines. ? Eat foods that are high in fiber, such as beans, whole grains, and fresh fruits and vegetables. ? Limit foods that are high in fat and processed sugars, such as fried or sweet foods. Eating and drinking ??? Follow the diet recommended by your health care provider. ??? When you are hungry, begin eating light and bland foods, such as toast. Gradually return to your regular diet. ??? If you vomit: ? Drink clear fluids slowly and in small amounts as you are able. Clear fluids include water, ice chips, low-calorie sports drinks, and fruit juice that has water added (diluted fruit juice). ? Eat bland, bijk-mt-pangwn foods in small amounts as you are able. These foods include bananas, applesauce, rice, lean meats, toast, and crackers. Incision care ??? Follow instructions from your health care provider about how to take care of an incision, if you have one. Make sure you: ? Wash your hands with soap and water for at least 20 seconds before and after you change your bandage (dressing). If soap and water are not available, use hand millstone cleaner. ? Change your dressing as told by your health care provider. ? Leave stitches (sutures), skin glue, or adhesive strips in place. These skin closures may need to stay in place for 2 weeks or longer. If adhesive strip edges start to loosen and curl up, you may trim the loose edges. Do not remove adhesive strips completely unless your health care provider tells you to do that. ??? Check your incision area every day for signs of infection. Check for: ? Redness, swelling, or pain. ? Fluid or blood. ? Warmth. ? Pus or a bad smell. Activity ??? Do not play contact sports until your health care provider says it is okay. ??? Follow instructions from your health care provider about lifting heavy objects. You may be told not to lift things that weigh more than a certain amount. ??? Return to your normal activities as told by your health care provider. Ask your health care provider what activities are safe for you. General instructions ??? If you have sleep apnea, surgery and certain medicines can increase your risk for breathing problems. Follow instructions from your health care provider about wearing your sleep device: ? Anytime you are sleeping, including during daytime naps. ? While taking prescription pain medicines, sleep medicines, or medicines that make you drowsy. ??? Have a responsible adult stay with you for the time you are told. It is important to have someone help care for you until you are awake and alert. ??? Do not use any products that contain nicotine or tobacco, such as cigarettes, e-cigarettes, and chewing tobacco. These can delay healing after surgery. If you need help quitting, ask your health care provider. ??? Ask your health care provider when you can take baths or showers, swim, or use a hot tub. You may only be allowed to take sponge baths. ??? Keep all follow-up visits as told by your health care provider. This is important. Contact a health care provider if: ??? You have any of these signs of infection: ? Redness, swelling, or pain around your incision or IV site. ? Fluid or blood coming from your incision. ? Warmth coming from your incision. ? Pus or a bad smell coming from your incision. ? A fever. ??? You feel light-headed or you faint. ??? You develop a rash. ??? You keep feeling nauseous or keep vomiting. ??? You have severe pain, even after taking the medicines your health care provider has prescribed or recommended. ??? You have constipation. Get help right away if: ??? You cannot urinate. ??? You have trouble breathing. ??? You have chest pain. ??? Your legs become painful or swollen. These symptoms may represent a serious problem that is an emergency. Do not wait to see if the symptoms will go away. Get medical help right away. Call your local emergency services (911 in the [place] Do not drive yourself to the hospital. Summary ??? Nausea is common after a procedure. ??? Have a responsible adult stay with you for the time you are told. It is important to have someone help care for you until you are awake and alert. ??? Follow the diet recommended by your health care provider. If you vomit, drink clear fluids slowly and eat bland, bgcy-bv-nyuzsn foods in small amounts. ??? Ask your health care provider what activities are safe for you. This information is not intended to replace advice given to you by your health care provider. Make sure you discuss any questions you have with your health care provider. Document Revised: 08/09/2020 Document Reviewed: 02/01/2020 [employer] Patient Education ? 2021 [employer]. documented in this encounter Plan of Treatment Not on file documented as of this encounter Visit Diagnoses Not on filedocumented in this encounter Care Teams Legal Document Assistant Relationship Specialty Start Date End Date Kostas Campa MD [address] [facility] [address] [place] [id number] PCP - General Family Medicine 04/03/24 06/25/24 Kostas Campa MD [address] [facility] [address] [place] [phone] PCP - General Family Medicine 06/26/24 documented as of this encounter
--- OUTSIDE RECORDS SUMMARY | 2025-04-13 06:18 | XMS_ITS | Encounter Summary ---
Author Organization [employer] ([place], [place], [place], [place], [place]) Address [address] [place] [address] Care Team Providers Care Airport Representative Name Role Phone Kostas Campa MD Primary Care Provider + [phone] Kostas Campa MD Primary Care Provider + [phone] Encounter Details Date Type Department Care Team (Late st Contact Info) Description 10/18/2019 Transcribed Document [facility] [place] [address] [place] [address] ProviderLance MD [address] [place] [id number] Social History Tobacco Use Types Packs/Day Years Used Date Smoking Tobacco: Never Assessed Sex and Gender Information Value Date Recorded Sex Assigned at Not on file Legal Sex Male 6:57 PM CDT Gender Identity Not on file Sexual Orientation Not on file documented as of this encounter Miscellaneous Notes * Cerner Conversion Note - Lance ProviderMD - 10/18/2019 4:02 PM CDT Patient: BAYLEE LING Age: 69 Years Sex: Male : 1950 FOLLOWUP DATE OF SERVICE: 09/28/2019 CHIEF COMPLAINT: Lower back and leg pain. HISTORY OF PRESENT ILLNESS: The patient is a 69-year-old male who returns to the clinic for followup on his low back pain that goes to his bilateral legs and feet. He is having back surgery tomorrow, 09/29/2019 at [facility] on his lumbar spine with Dr. Warner. He states he has a history of Medtronic spinal cord stimulator. The battery went and he switched to a Nevro but it is not working. He would like to go back to Medtronic but he does not want it done with Dr. Conteh or in [place] as previously. He rates his pain as 7/10 on the pain scale. Quality is aching, burning, numbness/tingling, dull, and sharp. He gets 75% relief with his current medication. He has decreased pain with lying and increased pain with activity. Fall risk information sheet provided. HISTORY: Allergies: Not listed. Social History: Marital status: . Current work status: Not answered. Current tobacco use: Denies. Illicit drug use: Denies. Alcohol use: He has three drinks of alcohol per week. Caffeine use: He drinks caffeine. Past Medical History: Arthritis. Colon cancer. Heartburn/GERD. High blood pressure. Obstructive sleep apnea. Prostate disease. Prostate enlargement. Past Surgical History: Ears. Intestine/Colon. Knee. Prostate. Sinus. Spinal surgery of the back. Vasectomy. Spinal cord stimulator implant x3. Past Family History: Lung cancer. Diabetes. Heart disease. Acid-reflux. REVIEW OF SYSTEMS: The patient's ten system Review of Systems was reviewed. General: Fatigue. Respiratory: Negative. Neurological: Numbness/tingling. Gastrointestinal: Negative. Musculoskeletal: Joint pain/stiffness, back pain. Cardiovascular: Leg pain with walking. Psychiatric: Negative. HEENT: Negative. Endocrine: Negative. Hematology: Negative. Skin: Negative. Genitourinary: Negative. VITAL SIGNS: Vital signs are reviewed. BP 156/83, heart rate 68, respiratory rate 18, O2 SATs 96%, height 5'10 , weight 235 lb. PHYSICAL EXAMINATION: Constitutional: Freely conversant and in no acute distress. Integumentary: Deferred. HEENT: Deferred. Neck: Deferred. Chest and Lung: Deferred. Cardiovascular: Deferred. Abdomen: Deferred. Peripheral Vascular: Deferred Neurologic: Deferred. Neuropsychiatric: Alert and oriented x3. He scored an 11 on his depression questionnaire. He has thoughts that he would be better off but no plan to harm himself. He is treated for anxiety. Musculoskeletal: His gait is antalgic. He uses a cane. MEDICAL DECISION MAKING: ISHAAN is reviewed and is appropriate. Patient???s medications are reviewed. See list in patient???s file. ASSESSMENT: Stable. 1. Chronic pain syndrome. 2. Lumbar degenerative disc disease. 3. 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 4. Lumbar radiculitis to the right lower extremity, status post spinal cord stimulator implantation (Nevro system). 5. Lumbar spondylosis. CURRENT PLAN: I am going to continue Mr. Villanueva on his current medication of Lyrica 150 mg q.12h, Flexeril 10 mg q.h.s., MS Contin Extended Release 15 mg q.12h, Klonopin 1 mg one p.o. q.h.s., Percocet 10 mg q.8h. He denies any side-effects. He will have his surgery. We will wait until he has recovered from that and then I will have him see Dr. Petty to discuss his desire to go back to a Medtronic spinal cord stimulator system. I had ordered for him to have it reprogrammed at his last visit and that was done by Malinda but he stated it did not help. He states he has had multiple reprogrammings and it still does not help. He is in agreement with the above plan. We will see him back in followup in two months. Lena Bai M.D. SIMON/baron Electronically signed by Faheem Olivarez Conversion Shipboard Intelligence Analyst Cerner at 08/13/2022 6:36 PM CDT documented in this encounter Plan of Treatment Not on file documented as of this encounter Visit Diagnoses Not on filedocumented in this encounter Care Teams Airport Representative Relationship Specialty Start Date End Date Kostas Campa MD [address] [facility] [address] [place] [phone] PCP - General Family Medicine 04/03/24 06/25/24 Kostas Campa MD [address] [facility] [address] [place] [phone] PCP - General Family Medicine 06/26/24 documented as of this encounter
--- OUTSIDE RECORDS SUMMARY | 2025-04-13 06:18 | XMS_ITS | Encounter Summary ---
Author Organization [employer] ([place], [place], [place], [place], [place]) Address [address] [place] [address] Care Team Providers Care Video Network Engineer Name Role Phone Kostas Campa MD Primary Care Provider + [phone] Kostas Campa MD Primary Care Provider + [phone] Encounter Details Date Type Department Care Team (Late st Contact Info) Description 09/29/2019 Transcribed Document [facility] [place] [address] [place] [address] ProviderLance MD [address] [place], [place] [id number] Social History Tobacco Use Types Packs/Day Years Used Date Smoking Tobacco: Never Assessed Sex and Gender Information Value Date Recorded Sex Assigned at Not on file Legal Sex Male 6:57 PM CDT Gender Identity Not on file Sexual Orientation Not on file documented as of this encounter Miscellaneous Notes * Cerner Conversion Note - Lance ProviderMD - 09/29/2019 3:19 PM CDT [facility] Main OR PACU Summary Primary Physician: ELISSA GAN, MD CHRIS Finalized Date/Time: 09/29/19 18:37:34 Pt. Name: ANURADHA BAYLEEMADY Lobato D.O.B./Sex: 1950 Male Med Rec #: [id number] Physician: ELISSA GAN, MD CHRIS Financial #: [id number] Pt. Type: O Room/Bed: /14 Admit/Disch: 09/29/19 06:49:00 - Institution: [facility] Main OR PACU I Case Times Entry 1 In PACU I 09/29/19 17:00:00 Ready for PACU 09/29/19 18:15:00 Discharge Discharge from PACU 09/29/19 18:15:00 I Last Modified By: JUDY PERAZA RN 09/29/19 18:37:26 Finalized By: JUDY PERAZA, RN Document Signatures Signed By: JUDY PERAZA RN 09/29/19 18:37 Electronically signed by Juanis [facility] Conversion Account Underwriter Cerner at 08/13/2022 6:37 PM CDT documented in this encounter Plan of Treatment Not on file documented as of this encounter Visit Diagnoses Not on filedocumented in this encounter Care Teams Video Network Engineer Relationship Specialty Start Date End Date Kostas Campa MD [address] [facility] [address] [place] [phone] PCP - General Family Medicine 04/03/24 06/25/24 Kostas Campa MD [address] [facility] [address] [place] [phone] PCP - General Family Medicine 06/26/24 documented as of this encounter
--- OUTSIDE RECORDS SUMMARY | 2025-04-13 06:18 | XMS_ITS | Encounter Summary ---
Author Organization [employer] ([place], [place], [place], [place], [place]) Address [address] [place] [address] Care Team Providers Care Multiple Wire Sawyer Name Role Phone Kostas Campa MD Primary Care Provider + [phone] Kostas Campa MD Primary Care Provider + [phone] Encounter Details Date Type Department Care Team (Late st Contact Info) Description 09/29/2019 Transcribed Document [facility] [place] [address] [place] [address] ProviderLance MD [address] [place], [place] [id number] Social History Tobacco Use Types Packs/Day Years Used Date Smoking Tobacco: Never Assessed Sex and Gender Information Value Date Recorded Sex Assigned at Not on file Legal Sex Male 6:57 PM CDT Gender Identity Not on file Sexual Orientation Not on file documented as of this encounter Miscellaneous Notes * Cerner Conversion Note - Lance ProviderMD - 09/29/2019 3:15 PM CDT [facility] Main OR Preop Summary Primary Physician: ELISSA GAN, MD CHRIS Finalized Date/Time: 09/29/19 15:21:26 Pt. Name: ANURADHA BAYLEEMADY Lobato D.O.B./Sex: 1950 Male Med Rec #: [id number] Physician: ELISSA GAN, MD CHRIS Financial #: [id number] Pt. Type: O Room/Bed: /14 Admit/Disch: 09/29/19 06:49:00 - Institution: [facility] PreOp Case Times Entry 1 In Preop 09/29/19 11:21:00 Ready for Holding n/a Room Patient Ready for 09/29/19 12:26:00 Surgery Patient Out of Preop 09/29/19 14:48:00 Patient Out of n/a Holding Room Last Modified By: Bibiana Perez RN 09/29/19 15:21:25 [facility] PreOp Case Times Audit 09/29/19 15:21:25 Hogshead Mat Assembler: ROMEROAV Modifier: CINDRIM <+> 1 Patient Out of Preop 09/29/19 12:25:38 Hogshead Mat Assembler: ROMEROAV Modifier: ROMEROAV <+> 1 Patient Ready for Surgery Finalized By: Bibiana Perez, RN Document Signatures Signed By: Bibiana Perez RN 09/29/19 15:21 Electronically signed by Juanis [facility] Conversion Environmental Engineering Technician Cerner at 08/13/2022 6:36 PM CDT documented in this encounter Plan of Treatment Not on file documented as of this encounter Visit Diagnoses Not on filedocumented in this encounter Care Teams Multiple Wire Sawyer Relationship Specialty Start Date End Date Kostas Campa MD [address] [facility] [address] [place] [phone] PCP - General Family Medicine 04/03/24 06/25/24 Kostas Campa MD [address] [facility] [address] [place] [phone] PCP - General Family Medicine 06/26/24 documented as of this encounter
--- OUTSIDE RECORDS SUMMARY | 2025-04-13 06:18 | XMS_ITS | Encounter Summary ---
Author Organization [employer] ([place], [place], [place], [place], [place]) Address [address] [place] [address] Care Team Providers Care Vocational Placement Specialist Name Role Phone Kostas Campa MD Primary Care Provider + [phone] Kostas Campa MD Primary Care Provider + [phone] Encounter Details Date Type Department Care Team (Late st Contact Info) Description 12/08/2019 Transcribed Document [facility] [address] [place] [address] ProviderLance MD [address] [place] [address] [id number] Social History Tobacco Use Types Packs/Day Years Used Date Smoking Tobacco: Never Assessed Sex and Gender Information Value Date Recorded Sex Assigned at Not on file Legal Sex Male 6:57 PM CDT Gender Identity Not on file Sexual Orientation Not on file documented as of this encounter Miscellaneous Notes * Cerner Conversion Note - Lance Rosales MD - 12/08/2019 10:57 AM CDT Patient: BAYLEE LING Age: 69 Years Sex: Male : 1950 FOLLOW-UP Date of Service: 11/23/2019 CHIEF COMPLAINT: Low back pain. HISTORY OF PRESENT ILLNESS: This is a 69 y/o male being seen in follow-up with a 45 year history of low back pain that radiates into the bilateral lower extremities with some numbness and tingling, status post spinal cord stimulator implant. He has previously had the Medtr[employer] system and then underwent a revision and was implanted with Nevro. He has undergone multiple reprogrammings and states that while he does feel some increased relief from his pain it is not to the same extent that he did with the [employer]tron[employer] system. He overall describes his pain as constant, aching, burning, numb, tingling, dull and sharp. The pain is exacerbated with activities such as standing, walking, lifting, bending, reduced with lying down and medication. He currently rates the pain as a 5/10 VAS and reports a 75% reduction with medication for the first two hours. Medication list reviewed. Pertinent medications are noted to be MS Contin Er 15 mg 1 p.o. q 12 h, Percocet 10 mg 1 p.o. q 8 h, Lyrica 150 mg 1 p.o. q 12 h, Flexeril 10 mg 1 p.o. at bedtime, Klonopin 1 mg 1 p.o. at bedtime. Nursing intake reviewed. Fall info sheet provided. HISTORY: Allergies: None. Social History: Marital status: . Current work status: Disabled Illicit drug use: Denies. Alcohol use: Enjoys 3 social ETOH drinks weekly. Current tobacco use: Denies. Caffeine use: Enjoys caffeine. Past Medical History: Arthritis Colon cancer Heartburn Hypertension Obstructive sleep apnea Prostate disease Prostate enlargement Past Surgical History: Ears Intestine Colon Knee Sinus Vasectomy Spinal cord stimulator implant x 3. Past Family History: Reviewed. REVIEW OF SYSTEMS: General: Fatigue. Respiratory: Negative. Neurological: Numbness and tingling. Gastrointestinal: Last bowel movement 11/22, soft. Musculoskeletal: Joint pain, stiffness, back pain. Cardiovascular: Leg pain with walking. Psychiatric: Negative HEENT: Negative. Endocrine: Negative. Hematology: Negative. Skin: Negative. Genitourinary: Negative. VITAL SIGNS: Vital signs are reviewed. BP 155/74, heart rate 78, respiratory rate 18, O2 SATs 96% on room air, height 5???10?? , weight 235 lbs PHYSICAL EXAMINATION: Constitutional: Conversant, no acute distress, well-nourished. Integumentary: Deferred. HEENT: Normocephalic. Neck: Deferred. Chest and Lung: Deferred. Cardiovascular: Deferred. Abdomen: Deferred. Peripheral Vascular: Deferred Neurologic: Deferred. Musculoskeletal: Ambulatory with a cane. Able to transition independently. He has an antalgic gait. Psychiatric: Alert and oriented x 3. Denies suicidal ideation. Normal mood and affect. No signs of impairment. DIAGNOSTIC STUDIES: Not present MEDICAL DECISION MAKING: Stable. ASSESSMENT: 1. Chronic pain syndrome. 2. Lumbar degenerative disc disease. 3. Lumbar radiculitis of the bilateral lower extremities, status post spinal cord stimulator (Nevro), status post multiple reprogrammings recently with minimal appreciable benefit. PROCEDURE/TEST ORDERED: Not present. CURRENT PLAN: Urine tox screen today. We will continue current medications. ISHAAN reviewed. Baylee states that he has spoken with Dr. Petty previously before about his concern and questions regarding the Nevro system seemingly not as effective as the Medtronics system was. He states he was told there is nothing we can do . I will have him follow-up in two months with Dr. Petty to discuss any possible spinal cord stimulator revision. He was encouraged to bring these recurrent questions and concerns to Dr. Petty for a more fruitful appointment, and in that way moving forward he may simply have to practice more mindfulness exercises in regards to acceptance and ongoing adaptation. Questions answered to his satisfaction and he verbalized understanding. Return to the clinic in two months. ANNE Gottlieb/hans Electronically signed by Juanis [facility] Conversion Director Operating Cerner at 08/13/2022 6:39 PM CDT documented in this encounter Plan of Treatment Not on file documented as of this encounter Visit Diagnoses Not on filedocumented in this encounter Care Teams Vocational Placement Specialist Relationship Specialty Start Date End Date Kostas Campa MD [address] [facility] [address] [place] [id number] PCP - General Family Medicine 04/03/24 06/25/24 Kostas Campa MD [address] [place] [facility] [address] [place] [id number] PCP - General Family Medicine 06/26/24 documented as of this encounter
--- OUTSIDE RECORDS SUMMARY | 2025-04-13 06:18 | XMS_ITS | Encounter Summary ---
Author Organization [employer] ([place], [place], [place], [place], [place]) Address [address] [place] [address] Care Team Providers Care Lavatory Attendant Name Role Phone Kostas Campa MD Primary Care Provider + [phone] Kostas Campa MD Primary Care Provider + [phone] Encounter Details Date Type Department Care Team (Late st Contact Info) Description 09/29/2019 Transcribed Document [facility] [place] [facility] [address] [place] [address] ProviderLance MD [address] [place] [address] Social History Tobacco Use Types Packs/Day Years Used Date Smoking Tobacco: Never Assessed Sex and Gender Information Value Date Recorded Sex Assigned at Not on file Legal Sex Male 6:57 PM CDT Gender Identity Not on file Sexual Orientation Not on file documented as of this encounter Miscellaneous Notes * Cerner Conversion Note - Lance ProviderMD - 09/29/2019 5:45 PM CDT [facility] [place] [address] BAYLEE LING :1950 Visit Time:09/29/2019 What to do next Your Diagnosis Radiculopathy, lumbar region, Radiculopathy, lumbar region Instructions From Your Care Team Diet after Discharge: Resume usual diet as tolerated, Do not drink any alcoholic beverages, Drink at least 8-10 glasses of water per day Activity after Discharge: As tolerated, Rest and relax today, No strenuous activity Lifting Restrictions: No heavy lifting over 10 pounds, no excessive bending, lifting or twisting or bending Driving after Discharge: Do not drive until 24 hours after no longer taking pain medications May Return to Work/School: when cleared by the surgeon Showering/Bathing: May shower in 3 days, do not soak the incision, No tub bathing, soaking or swimming Notify Provider of: temperature 101 or greater, redness, swelling, excessive bleeding, pus drainage, new numbness or weakness, if the pain is not relieved Wound/Incision Care after Discharge: Keep operative site/wound site clean and dry, _remove outer dressing in 3 days and leave steri strips intact until the fall off on their own Medical Equipment for Home Use: ice pack on first 72 hours, 30 min on 30 min off Follow Specific discharge instructions sheet provided for Lumbar Surgery Follow-Up Appointments Follow Up with ELISSA GAN, MD CHRIS When 11/09/2019 09:00 AM EDT Comments see the appointment card provided Where: [address] (WEDNESDAY ONLY) [place] [phone]- Medications What How Much When Instructions Next Dose losartan 100 Milligram(s) Oral At Bedtime acetaminophen-oxyCODONE (Percocet 7.5/ 325) 1 Tablet(s) Oral Three Times A Day aspirin 81 Milligram(s) Oral Every Day celecoxib 200 Milligram(s) Oral Every Day clonazePAM 1 Milligram(s) Oral At Bedtime cyclobenzaprine 10 Milligram(s) Oral At Bedtime morphine 15 Milligram(s) Oral Every 12 hours as needed for as needed for pain states takes at night omeprazole 40 Milligram(s) Oral At Bedtime pregabalin (Lyrica) 150 Milligram(s) Oral Two Times A Day sildenafil 20 Milligram(s) Oral Every Day as needed for prostate Take your medications faithfully. Do NOT skip medication. Do NOT stop taking medications without the direction of a physician. Carry a list of your medications with you at all times, and take this medication list with you to your first follow up visit. Report any side effects. Avoid herbal remedies unless discussed with your physician. As part of your treatment plan, your physician may have prescribed a limited course of a controlled substance. This medication may be given to help people with moderate or severe pain or for other medical conditions, but there are risks involved with treatment. Common side effects may include nausea, constipation, drowsiness, sweating, itching, dry mouth, and rash. More serious side effects may include cognitive and motor impairment, like problems with thinking, concentrating, alertness, and movement (e.g. slowed reflexes), and driving and operating heavy machinery can be dangerous. It is important for you to talk to your physician if you have these side effects or questions. These controlled substances can produce physical dependence and be habit-forming if taken for an extended period of time, which means that the body has gotten used to them and may experience withdrawal symptoms if they are abruptly stopped. Withdrawal symptoms can include runny nose, sweating, goose bumps, diarrhea, abdominal cramping, rapid heartbeat, difficulty sleeping, and nervousness. Please dispose of unused and medications per pharmacy guidance. Education Materials General Anesthesia, Adult, Care After This sheet gives you information about how to care for yourself after your procedure. Your health care provider may also give you more specific instructions. If you have problems or questions, contact your health care provider. What can I expect after the procedure? After the procedure, the following side effects are common: ??? Pain or discomfort at the IV site. ??? Nausea. ??? Vomiting. ??? Sore throat. ??? Trouble concentrating. ??? Feeling cold or chills. ??? Weak or tired. ??? Sleepiness and fatigue. ??? Soreness and body aches. These side effects can affect parts of the body that were not involved in surgery. Follow these instructions at home: For at least 24 hours after the procedure: ??? Have a responsible adult stay with you. It is important to have someone help care for you until you are awake and alert. ??? Rest as needed. ??? Do not: ? Participate in activities in which you could fall or become injured. ? Drive. ? Use heavy machinery. ? Drink alcohol. ? Take sleeping pills or medicines that cause drowsiness. ? Make important decisions or sign legal documents. ? Take care of children on your own. Eating and drinking ??? Follow any instructions from your health care provider about eating or drinking restrictions. ??? When you feel hungry, start by eating small amounts of foods that are soft and easy to digest (bland), such as toast. Gradually return to your regular diet. ??? Drink enough fluid to keep your urine pale yellow. ??? If you vomit, rehydrate by drinking water, juice, or clear broth. General instructions ??? If you have sleep apnea, surgery and certain medicines can increase your risk for breathing problems. Follow instructions from your health care provider about wearing your sleep device: ? Anytime you are sleeping, including during daytime naps. ? While taking prescription pain medicines, sleeping medicines, or medicines that make you drowsy. ??? Return to your normal activities as told by your health care provider. Ask your health care provider what activities are safe for you. ??? Take mxpy-hly-enikqhu and prescription medicines only as told by your health care provider. ??? If you smoke, do not smoke without supervision. ??? Keep all follow-up visits as told by your health care provider. This is important. Contact a health care provider if: ??? You have nausea or vomiting that does not get better with medicine. ??? You cannot eat or drink without vomiting. ??? You have pain that does not get better with medicine. ??? You are unable to pass urine. ??? You develop a skin rash. ??? You have a fever. ??? You have redness around your IV site that gets worse. Get help right away if: ??? You have difficulty breathing. ??? You have chest pain. ??? You have blood in your urine or stool, or you vomit blood. Summary ??? After the procedure, it is common to have a sore throat or nausea. It is also common to feel tired. ??? Have a responsible adult stay with you for the first 24 hours after general anesthesia. It is important to have someone help care for you until you are awake and alert. ??? When you feel hungry, start by eating small amounts of foods that are soft and easy to digest (bland), such as toast. Gradually return to your regular diet. ??? Drink enough fluid to keep your urine pale yellow. ??? Return to your normal activities as told by your health care provider. Ask your health care provider what activities are safe for you. This information is not intended to replace advice given to you by your health care provider. Make sure you discuss any questions you have with your health care provider. Document Released: 07/19/2001 Document Revised: 11/26/2017 Document Reviewed: 11/26/2017 [employer] Interactive Patient Education ?? 2020 [employer]. oxycodone (ox i KOE done) Oxaydo, OxyCONTIN, Oxyfast, Roxicodone, Xtampza ER What is the most important information I should know about oxycodone? MISUSE OF OPIOID MEDICINE CAN CAUSE ADDICTION, OVERDOSE, OR . Keep the medication in a place where others cannot get to it. Taking opioid medicine during may cause life-threatening withdrawal symptoms in the . Fatal side effects can occur if you use opioid medicine with alcohol, or with other drugs that cause drowsiness or slow your breathing. What is oxycodone? Oxycodone is an opioid pain medication used to treat moderate to severe pain. The extended-release form of oxycodone is for cwdoka-iah-vkbil treatment of pain and should not be used on an as-needed basis for pain. Oxycodone may also be used for purposes not listed in this medication guide. What should I discuss with my healthcare provider before using oxycodone? You should not use oxycodone if you are allergic to it, or if you have: ?? severe asthma or breathing problems; or ?? a blockage in your stomach or intestines. You should not use oxycodone unless you are already using a similar opioid medicine and are tolerant to it. Most brands of oxycodone are not approved for use in people under 18. OxyContin should not be given to a child younger than 11 years old. Tell your doctor if you have ever had: ?? breathing problems, sleep apnea; ?? a head injury, or seizures; ?? drug or alcohol addiction, or mental illness; ?? liver or kidney disease; ?? urination problems; or ?? problems with your gallbladder, pancreas, or thyroid. If you use opioid medicine while you are , your baby could become dependent on the drug. This can cause life-threatening withdrawal symptoms in the baby after it is born. Babies born dependent on opioids may need medical treatment for several weeks. Do not breast-feed. Oxycodone can pass into breast milk and may cause drowsiness, breathing problems, or in a nursing baby. How should I use oxycodone? Follow the directions on your prescription label and read all medication guides. Never use oxycodone in larger amounts, or for longer than prescribed. Tell your doctor if you feel an increased urge to take more of this medicine. Never share opioid medicine with another person, especially someone with a history of drug abuse or addiction. MISUSE CAN CAUSE ADDICTION, OVERDOSE, OR . Keep the medication in a place where others cannot get to it. Selling or giving away opioid medicine is against the law. Stop taking all other dpcmxe-bxd-ejmwq narcotic pain medicines when you start taking extended-release oxycodone. Take oxycodone with food. Swallow the capsule or tablet whole to avoid exposure to a potentially fatal overdose. Do not crush, chew, break, open, or dissolve. Never crush or break an oxycodone pill to inhale the powder or mix it into a liquid to inject the drug into your vein. This can cause in . Measure liquid medicine carefully. Use the dosing syringe provided, or use a medicine dose-measuring device (not a kitchen spoon). You should not stop using oxycodone suddenly. Follow your doctor's instructions about tapering your dose. Store at room temperature, away from heat, moisture, and light. Keep track of your medicine. Oxycodone is a drug of abuse and you should be aware if anyone is using your medicine improperly or without a prescription. Do not keep leftover opioid medication. Just one dose can cause in someone using this medicine accidentally or improperly. Ask your pharmacist where to locate a drug take-back disposal program. If there is no take-back program, flush the unused medicine down the toilet. What happens if I miss a dose? Since oxycodone is used for pain, you are not likely to miss a dose. Skip any missed dose if it is almost time for your next dose. Do not use two doses at one time. What happens if I overdose? Seek emergency medical attention or call the Poison Help line at . An oxycodone overdose can be fatal, especially in a child or other person using the medicine without a prescription. Overdose can cause severe muscle weakness, pinpoint pupils, very slow breathing, extreme drowsiness, or coma. What should I avoid while using oxycodone? Do not drink alcohol. Dangerous side effects or could occur. Avoid driving or operating machinery until you know how oxycodone will affect you. Dizziness or severe drowsiness can cause falls or other accidents. Avoid medication errors. Always check the brand and strength of oxycodone you get from the pharmacy. What are the possible side effects of oxycodone? Get emergency medical help if you have signs of an allergic reaction: hives; difficult breathing; swelling of your face, lips, tongue, or throat. Opioid medicine can slow or stop your breathing, and may occur. A person caring for you should seek emergency medical attention if you have slow breathing with long pauses, blue colored lips, or if you are hard to wake up. Call your doctor at once if you have: ?? noisy breathing, sighing, shallow breathing, breathing that stops during sleep; ?? a slow heart rate or weak pulse; ?? a light-headed feeling, like you might pass out; ?? confusion, unusual thoughts or behavior; ?? seizure (convulsions); or ?? low cortisol levels-- nausea, vomiting, loss of appetite, dizziness, worsening tiredness or weakness. Seek medical attention right away if you have symptoms of serotonin syndrome, such as: agitation, confusion, fever, sweating, fast heart rate, chest pain, feeling short of breath, muscle stiffness, trouble walking, or feeling faint. Serious side effects may be more likely in older adults and those who are malnourished or debilitated. Long-term use of opioid medication may affect fertility (ability to have children) in men or women. It is not known whether opioid effects on fertility are permanent. Common side effects may include: ?? drowsiness, headache, dizziness, tiredness; or ?? constipation, stomach pain, nausea, vomiting. This is not a complete list of side effects and others may occur. Call your doctor for medical advice about side effects. You may report side effects to FDA at 3-496-EBV-4372. What other drugs will affect oxycodone? You may have breathing problems or withdrawal symptoms if you start or stop taking certain other medicines. Tell your doctor if you also use an antibiotic, antifungal medication, heart or blood pressure medication, seizure medication, or medicine to treat HIV or hepatitis C. Opioid medication can interact with many other drugs and cause dangerous side effects or . Be sure your doctor knows if you also use: ?? cold or allergy medicines, bronchodilator asthma/COPD medication, or a diuretic ('water pill'); ?? medicines for motion sickness, irritable bowel syndrome, or overactive bladder; ?? other narcotic medications--opioid pain medicine or prescription cough medicine; ?? a sedative like Valium--diazepam, alprazolam, lorazepam, Xanax, Klonopin, Versed, and others; ?? drugs that make you sleepy or slow your breathing--a sleeping pill, muscle relaxer, medicine to treat mood disorders or mental illness; or ?? drugs that affect serotonin levels in your body--a stimulant, or medicine for depression, Parkinson's disease, migraine headaches, serious infections, or nausea and vomiting. This list is not complete and many other drugs may affect oxycodone. This includes prescription and jkee-vdn-mwsfkhc medicines, vitamins, and herbal products. Not all possible drug interactions are listed here. Where can I get more information? Your pharmacist can provide more information about oxycodone. Remember, keep this and all other medicines out of the reach of children, never share your medicines with others, and use this medication only for the indication prescribed. Every effort has been made to ensure that the information provided by [employer]') is accurate, up-to-date, and complete, but no guarantee is made to that effect. Drug information contained herein may be time sensitive. [employer] information has been compiled for use by healthcare practitioners and consumers in the [place] and therefore [employer] does not warrant that uses outside of the [place] are appropriate, unless specifically indicated otherwise. [employer]'s drug information does not endorse drugs, diagnose patients or recommend therapy. [employer] drug information is an informational resource designed to assist licensed healthcare practitioners in caring for their patients and/or to serve consumers viewing this service as a supplement to, and not a substitute for, the expertise, skill, knowledge and judgment of healthcare practitioners. The absence of a warning for a given drug or drug combination in no way should be construed to indicate that the drug or drug combination is safe, effective or appropriate for any given patient. [employer] does not assume any responsibility for any aspect of healthcare administered with the aid of information [employer] provides. The information contained herein is not intended to cover all possible uses, directions, precautions, warnings, drug interactions, allergic reactions, or adverse effects. If you have questions about the drugs you are taking, check with your doctor, nurse or pharmacist. Copyright 9033-7315 Christopher Pro Breath MD. Version: 13.03. Revision Date: 02/06/2019. Emergency Awareness and Preventative Care STROKE is an EMERGENCY Every Minute Counts Act FAST and Check for these signs: FACE Does the face look uneven? ARM Does one arm drift down? SPEECH Does their speech sound strange? TIME Call at any sign of stroke Stroke Risk Factors Atrial Fibrillation (irregular heartbeat) Diabetes Family history of stroke Heart Disease Heavy alcohol use High Blood Pressure High Cholesterol Physical inactivity and obesity Smoking Cigarette Smoking The facts are clear, cigarette smoking will shorten your life. Smoking can cause many illnesses along the way. As a healthcare provider, we recommend that you stop smoking. Assistance with quitting is available by contacting 8-042-EMWRAppcoreNOW. This is a free resource providing counseling, support, and referral. Or you may contact your personal physician. National Suicide Prevention Lifeline: The National Suicide Prevention Lifeline is a national network of local crisis centers that provides free and confidential emotional support to people in suicidal crisis or emotional distress 24 hours a day, 7 days a week. Don't Wait! Stop a Heart Attack Before it Starts What is a heart attack? A heart attack is damage or to a part of the heart from severely decreased or lack of blood flow to the heart. Over time, arteries can become narrow from the buildup of fat and cholesterol, which is called plaque. The plaque can rupture causing a blood clot to form. When the blood clot forms, the artery can become severely narrowed or completely blocked, causing a heart attack. Heart attack is the leading cause of in the [place]. 85% of muscle damage occurs within the first 2 hours. Delay in the recognition of heart attack symptoms increases the chances of . Know the early symptoms of a heart attack: Nausea Feeling of fullness in chest Jaw Pain Pain that travels down one or both arms Fatigue/being tired Anxiety Back Pain Chest pressure, squeezing, or discomfort Shortness of breath Sweating, or a cold sweat Feeling of impending doom There are unusual signs of a heart attack, too! Women, the elderly, and diabetics may present with atypical symptoms: Fainting/dizziness Weakness Confusion Risk Factors for a Heart Attack Some heart disease risk factors, such as age and family history, cannot be changed. Others, like smoking and lack of exercise, can be changed. Smoking High Cholesterol High Blood Pressure Family History Obesity Age Gender (Males are at higher risk) Lack of Exercise Diabetes Diet Stress Excessive Alcohol Intake If you or someone you know is experiencing the signs and symptoms of a heart attack, DON???T DELAY. Call immediately and seek help. If someone collapses, perform CPR! Do not attempt to drive if you are having symptoms of heart attack. Hands-Only CPR Why Hands-Only CPR? Hands-Only CPR has been shown to be as effective as conventional CPR for cardiac arrests that occur outside of a hospital. Survival depends on immediately receiving CPR from someone nearby. How do you perform Hands-Only CPR? There are two easy steps: Call if you see a teen or adult collapse Push hard and fast in the center of the chest at a beat of 100 beats per minute. Save a life! 4 WAYS TO GET AHEAD OF SEPSIS SEPSIS is a MEDICAL EMERGENCY. Time matters! Infections put you and your family at risk for a life-threatening condition called sepsis. Sepsis is the body's extreme response to an infection. It is life-threatening, and without timely treatment, sepsis can rapidly lead to tissue damage, organ failure, and . Sepsis happens when an infection you already have-in your skin, lungs, urinary tract or somewhere else-triggers a chain reaction throughout your body. 1 PREVENT INFECTIONS Take good care of chronic conditions. Talk to your doctor about getting the recommended vaccines. 2 PRACTICE GOOD HYGIENE Wash your hands frequently. Keep cuts or open sores clean and covered until they are healed. 3 KNOW THE SYMPTOMS Confusion or disorientation Shortness of breath High heart rate Fever, shivering, or feeling very cold Extreme pain or discomfort Clammy or sweaty skin 4 ACT FAST Get medical care IMMEDIATELY if you suspect sepsis or if you have an infection that is not getting better or is getting worse. To learn more about sepsis and how to prevent infections, visit www.cdc.gov/sepsis. Test Results Laboratory or Other Results This Visit (last charted value for your 09/29/2019 visit) Hematology 09/26/2019 9:46 AM WBC: 4.8 K/uL -- Normal range between ( 3.6 and 9.5 ) RBC: 4.68 Million/uL -- Normal range between ( 4.20 and 5.70 ) Hct: 42.9 % -- Normal range between ( 40.1 and 51.0 ) Hgb: 14.6 g/dL -- Normal range between ( 13.5 and 17.3 ) Platelet Count: 142 K/uL -- Normal range between ( 163 and 369 ) MCH: 31.2 pg -- Normal range between ( 25.6 and 32.2 ) MCHC: 34.0 Gram/dL -- Normal range between ( 32.2 and 36.5 ) MCV: 91.7 fL -- Normal range between ( 79.0 and 94.8 ) Slide Review: No RDW: 13.6 % -- Normal range between ( 11.7 and 14.9 ) MPV: 10.0 fL -- Normal range between ( 9.4 and 12.4 ) Urinalysis 09/26/2019 9:46 AM Urine Nitrite: Negative Urine Leukocyte Esterase: Negative Urine Appearance: Clear Urine Glucose Dipstick: Negative Urine Blood Dipstick: Negative Urine Type: U CleanCatch Urine Urobilinogen Dipstick: 0.2 EU/dL Urine Protein Dipstick: Negative Urine Color: Yellow Urine Ketones Dipstick: Negative Urine pH Dipstick: 5.5 -- Normal range between ( 6.0 and 8.0 ) Urine Bilirubin Dipstick: Negative Urine Specific [place]: 1.025 -- Normal range between ( 1.005 and 1.030 ) Microbiology 09/26/2019 12:30 PM Novel Coronavirus 2019: Negative General Chemistry 09/26/2019 9:46 AM Creatinine Level: 1.00 mg/dL -- Normal range between ( 0.70 and 1.30 ) Sodium Level: 138 mmol/L -- Normal range between ( 136 and 146 ) Potassium Level: 4.4 mmol/L -- Normal range between ( 3.5 and 5.1 ) Chloride Level: 102 mmol/L -- Normal range between ( 102 and 112 ) Carbon Dioxide Level: 31 mmol/L -- Normal range between ( 21 and 32 ) Anion Gap: 9 -- Normal range between ( 9 and 20 ) Bun/Creatinine: 15.0 -- Normal range between ( 8.0 and 20.0 ) Calcium Level: 8.6 mg/dL -- Normal range between ( 8.4 and 10.1 ) eGFR : >60 mL/min/1.73m2 eGFR NonAfrican: >60 mL/min/1.73m2 Glucose Level: 101 mg/dL -- Normal range between ( 74 and 106 ) Blood Urea Nitrogen: 15 mg/dL -- Normal range between ( 7 and 22 ) Patient Name:BAYLEE LING I have received this information and was given the opportunity to ask questions. Patient/Credit Verifier Name: Patient/Credit Verifier Signature: Relationship to Patient: Clinician/Hospital Credit Verifier Signature: Date: documented in this encounter Plan of Treatment Not on file documented as of this encounter Visit Diagnoses Not on filedocumented in this encounter Care Teams Lavatory Attendant Relationship Specialty Start Date End Date Kostas Campa MD [address] [place] [id number] PCP - General Family Medicine 04/03/24 06/25/24 Kostas Campa MD [address] [facility] [address] [place] [id number] PCP - General Family Medicine 06/26/24 documented as of this encounter
--- OUTSIDE RECORDS SUMMARY | 2025-04-13 06:18 | XMS_ITS | Encounter Summary ---
Author Organization [employer] ([place], [place], [place], [place], [place]) Address [address] [place] [address] Care Team Providers Care Clutch Rebuilder Name Role Phone Kostas Campa MD Primary Care Provider + [phone] Kostas Campa MD Primary Care Provider + [phone] Encounter Details Date Type Department Care Team (Late st Contact Info) Description 02/17/2019 Transcribed Document [facility] [place] Family Medicine [address] [place] [address] ProviderLance MD [address] [place] [id number] Social History Tobacco Use Types Packs/Day Years Used Date Smoking Tobacco: Never Assessed Sex and Gender Information Value Date Recorded Sex Assigned at Not on file Legal Sex Male 6:57 PM CDT Gender Identity Not on file Sexual Orientation Not on file documented as of this encounter Miscellaneous Notes * Cerner Conversion Note - Lance ProviderMD - 02/17/2019 2:42 PM CDT Patient: BAYLEE LING Age: 68 Years Sex: Male : 1950 DATE OF SERVICE: 02/16/2019. CHIEF COMPLAINT: Low back pain. HISTORY OF PRESENT ILLNESS: This is a 68 year old male being seen in follow-up with a 30 year history of low back pain that goes down the bilateral lower extremities that he overall describes as constant, aching, numbness, tingling, and dull. The pain is exacerbated with activity such as prolonged standing, walking, lifting, bending, twisting, and reduced with rest and medication. The patient currently rates the pain as 5/10 VAS and reports a 75% reduction with medication. He remains unhappy with the coverage of his current spinal cord stimulator which is the Rasmussen system. He states that when he turns it up high enough to cover the pain in his feet it ends up causing his abdomen to ache and hurt which he has difficulty tolerating. He states he would love to be able to have the [employer] system pack as he does not feel like the Rasmussen system has been a good device for him. Med list reviewed. Pertinent meds noted to be MS Contin 15 mg. one p.o. q.12 hours, Hydrocodone 10 mg. one p.o. q.8 hours, Lyrica 150 mg. one p.o. q.12 hours, Klonopin 1 mg. one p.o. at bedtime, Flexeril 10 mg. one p.o. at bedtime. Nursing intake is reviewed. Fall risk information sheet has been provided. HISTORY: ALLERGIES: NONE LISTED. Social history: Marital status: . Current work status: _ Current tobacco use: Denied. Illicit drug use: Denied. Alcohol use: Enjoys 3 EtOH drinks weekly. Caffeine use: Enjoys caffeine. PAST MEDICAL HISTORY: Arthritis. Colon cancer. Heartburn. Hypertension. Obstructive sleep apnea. Prostate disease. Prostate enlargement. PAST SURGICAL HISTORY: Ears. Colon. Knee. Prostate. Sinus. Back. Vasectomy. Spinal cord stimulator implant x3. PAST FAMILY HISTORY: Lung disease. Lung cancer. Diabetes. Heart disease. Acid reflux. REVIEW OF SYSTEMS: General: Fatigue. Respiratory: Negative. Neurological: Numbness and tingling. Gastrointestinal: Last bowel movement 02/15/2019, soft. Musculoskeletal: Joint pain, stiffness, back pain. Cardiovascular: Leg pain with walking. Psychiatric: Negative. HEENT: Negative. Endocrine: Negative. Hematology: Negative. Skin: Negative. Genitourinary: Negative. VITAL SIGNS: Vital signs are reviewed. B/P 159/78, heart rate 82, respiratory rate 18, O2 SATs 94% on room air, height 5???10?? , weight 230 lb. PHYSICAL EXAMINATION: Constitutional: Conversant, no acute distress, well-nourished. General: Deferred. Integumentary: Deferred. HEENT: Normocephalic. Neck: Deferred. Chest and Lung: Deferred. Cardiovascular: Deferred. Abdomen: Deferred. Peripheral Vascular: Deferred Neurologic: Deferred. Psychiatric: A&O x3. PHQ-9 score of 10. Denies suicidal ideation and is treated. Normal mood and affect. No signs of impairment. Musculoskeletal: Ambulatory with a cane. Able to transition slowly independently from walking, sitting and standing. Mildly antalgic gait. DIAGNOSTIC STUDIES: Not present. MEDICAL DECISION MAKING: Stable. ASSESSMENT: 1. Chronic pain syndrome secondary to multisite osteoarthritis primarily of the bilateral knees. 2. Lumbar radiculitis status post spinal cord stimulator with recent reprogramming. 3. Lumbar degenerative disc disease. PROCEDURE/TEST ORDERED: Not present. CURRENT PLAN: Continue current medication. ISHAAN reviewed. Return to the clinic in two months for a visit with Dr. Petty to discuss revision of the treatment plan if it is indeed possible. Questions answered to his satisfaction, verbalized understanding. Constanza Hernandez APRN SF:sergei Electronically signed by [facility] Conversion Correctional Probation Officer Cerner at 08/13/2022 6:24 PM CDT documented in this encounter Plan of Treatment Not on file documented as of this encounter Visit Diagnoses Not on filedocumented in this encounter Care Teams Clutch Rebuilder Relationship Specialty Start Date End Date Kostas Campa MD [address] [facility] [address] [place] [phone] PCP - General Family Medicine 04/03/24 06/25/24 Kostas Campa MD [address] [facility] [address] [place] [phone] PCP - General Family Medicine 06/26/24 documented as of this encounter
--- OUTSIDE RECORDS SUMMARY | 2025-04-13 06:18 | XMS_ITS | Encounter Summary ---
Author Organization [employer] ([place], [place], [place], [place], [place]) Address [address] [place] [address] Care Team Providers Care Celery Wrapper Name Role Phone Kostas Campa MD Primary Care Provider + [phone] Kostas Campa MD Primary Care Provider + [phone] Encounter Details Date Type Department Care Team (Late st Contact Info) Description 09/29/2019 Transcribed Document [facility] [place] Family Medicine [address] [place] [address] ProviderLance MD [address], [place] [address] Social History Tobacco Use Types Packs/Day Years Used Date Smoking Tobacco: Never Assessed Sex and Gender Information Value Date Recorded Sex Assigned at Not on file Legal Sex Male 6:57 PM CDT Gender Identity Not on file Sexual Orientation Not on file documented as of this encounter Miscellaneous Notes * Cerner Conversion Note - Lance ProviderMD - 09/29/2019 3:19 PM CDT [facility] Main OR IntraOp Summary Primary Physician: ELISSA GAN, MD CHRIS Finalized Date/Time: 10/02/19 11:33:36 Pt. Name: ANURADHAANJEL MILLERMADY Lobato D.O.B./Sex: 1950 Male Med Rec #: [id number] Physician: ELISSA GAN, MD CHRIS Financial #: [id number] Pt. Type: O Room/Bed: /14 Admit/Disch: 09/29/19 06:49:00 - Institution: [facility] IntraOp Case Attendance Entry 1 Entry 2 Entry 3 Case Attendee ELISSA GAN, MD Alfredo PEREZ Charlie D, RN JESSICA MOTA ST Role Performed Surgeon/Proceduralist, Medical Stenographer, First Scrub, First First Time In 09/29/19 14:51:00 09/29/19 14:51:00 09/29/19 14:51:00 Time Out 09/29/19 16:58:00 09/29/19 16:58:00 09/29/19 16:58:00 Procedure Discectomy Minimally Discectomy Minimally Discectomy Minimally Invasive Invasive Invasive Other Attendee Superficial Wound Closed By: Last Modified By: Reji Fuentes, RN Reji Fuentes, Reji Sousa, RN 09/29/19 17:01:55 09/29/19 17:01:55 09/29/19 17:01:55 Entry 4 Entry 5 Entry 6 Case Attendee DANIELLE DICKSON KRISTEN, JONO RODRÍGUEZ, STONE RUBBER FABIOLA GALLEGOS Role Performed Scrub, Second STONE RUBBER/Nurse Bundle Clerk Physician clinical trials assistant Time In 09/29/19 14:51:00 09/29/19 14:51:00 09/29/19 14:51:00 Time Out 09/29/19 16:58:00 09/29/19 16:58:00 09/29/19 16:58:00 Procedure Discectomy Minimally Discectomy Minimally Discectomy Minimally Invasive Invasive Invasive Other Attendee Superficial Wound Closed By: Last Modified By: Reji Fuentes, Reji Sousa, Reji Sousa, RN 09/29/19 17:01:55 09/29/19 17:01:55 09/29/19 17:01:55 Entry 7 Entry 8 Entry 9 Case Attendee Rebecca Hyde, OTHER, ATTENDEE #1 SUREKHA STAPLES, Egg Crater -ANS Role Performed Leak Hunter Student Anesthesiologist of Record Time In 09/29/19 14:51:00 09/29/19 14:51:00 09/29/19 14:51:00 Time Out 09/29/19 16:58:00 09/29/19 15:39:00 09/29/19 16:58:00 Procedure Discectomy Minimally Discectomy Minimally Discectomy Minimally Invasive Invasive Invasive Other Attendee JOSE MORENO Superficial Wound Closed By: Last Modified By: Reji Fuentes, Reji Sousa RN Byrd, Charlie D, RN 09/29/19 17:01:55 09/29/19 17:01:55 09/29/19 17:01:55 Entry 10 Case Attendee JALEESA TEJADA RN Role Performed Medical Stenographer, Second Time In 09/29/19 14:51:00 Time Out 09/29/19 16:58:00 Procedure Discectomy Minimally Invasive Other Attendee Superficial Wound Closed By: Last Modified By: Reji Fuentes RN 09/29/19 17:01:55 [facility] IntraOp Case Attendance Audit 09/29/19 17:01:55 Cork Insulator: CHARAN Modifier: [email or web address] 1 <+> Time Out 1 <*> Procedure Discectomy Minimally Invasive 2 <+> Time Out 2 <*> Procedure Discectomy Minimally Invasive 3 <+> Time Out 3 <*> Procedure Discectomy Minimally Invasive 4 <+> Time Out 4 <*> Procedure Discectomy Minimally Invasive 5 <+> Time Out 5 <*> Procedure Discectomy Minimally Invasive 6 <+> Time Out 6 <*> Procedure Discectomy Minimally Invasive 7 <+> Time Out 7 <*> Procedure Discectomy Minimally Invasive 8 <*> Procedure Discectomy Minimally Invasive 9 <+> Time Out 9 <*> Procedure Discectomy Minimally Invasive 10 <+> Time Out 10 <*> Procedure Discectomy Minimally Invasive 09/29/19 15:39:22 Cork Insulator: [email or web address] Modifier: [email or web address] 1 <*> Procedure Discectomy Minimally Invasive 2 <*> Procedure Discectomy Minimally Invasive 3 <*> Procedure Discectomy Minimally Invasive 4 <*> Procedure Discectomy Minimally Invasive 5 <*> Procedure Discectomy Minimally Invasive 6 <*> Procedure Discectomy Minimally Invasive 7 <*> Procedure Discectomy Minimally Invasive 8 <+> Time Out 8 <*> Procedure Discectomy Minimally Invasive 9 <*> Procedure Discectomy Minimally Invasive 10 <+> Time In 10 <*> Procedure Discectomy Minimally Invasive 09/29/19 15:26:41 Cork Insulator: CHARAN Modifier: CHARAN 1 <*> Procedure Discectomy Minimally Invasive 2 <+> Time In 2 <*> Procedure Discectomy Minimally Invasive 3 <+> Time In 3 <*> Procedure Discectomy Minimally Invasive 4 <+> Time In 4 <*> Procedure Discectomy Minimally Invasive 5 <+> Time In 5 <*> Procedure Discectomy Minimally Invasive 6 <+> Time In 6 <*> Procedure Discectomy Minimally Invasive 7 <+> Time In 7 <*> Procedure Discectomy Minimally Invasive 8 <+> Time In 8 <*> Procedure Discectomy Minimally Invasive 9 <+> Time In 9 <*> Procedure Discectomy Minimally Invasive <+> 10 Case Attendee <+> 10 Role Performed <+> 10 Procedure 09/29/19 15:26:29 Cork Insulator: CHARAN Modifier: CHARAN <+> 1 Procedure <+> 2 Case Attendee <+> 2 Role Performed <+> 2 Procedure <+> 3 Case Attendee <+> 3 Role Performed <+> 3 Procedure <+> 4 Case Attendee <+> 4 Role Performed <+> 4 Procedure <+> 5 Case Attendee <+> 5 Role Performed <+> 5 Procedure <+> 6 Case Attendee <+> 6 Role Performed <+> 6 Procedure <+> 7 Case Attendee <+> 7 Role Performed <+> 7 Procedure <+> 8 Case Attendee <+> 8 Role Performed <+> 8 Procedure <+> 8 Other Attendee <+> 9 Case Attendee <+> 9 Role Performed <+> 9 Procedure [facility] IntraOp Case Times Entry 1 Patient In Room Time 09/29/19 14:51:00 Out Room Time 09/29/19 16:58:00 Anesthesia Start Time 09/29/19 14:51:00 Stop Time 09/29/19 16:58:00 Surgery / Procedure Times Start Time 09/29/19 15:19:00 Stop Time 09/29/19 16:40:00 Last Modified By: Reji Fuentes RN 09/29/19 17:01:54 [facility] IntraOp Case Times Audit 09/29/19 17:01:54 Cork Insulator: CHARAN Modifier: CHARAN <+> 1 Out Room Time <+> 1 Stop Time 09/29/19 16:42:26 Cork Insulator: CHARAN Modifier: [email or web address] <+> 1 Stop Time [facility] IntraOp Cautery Entry 1 Entry 2 ESU Identification Cautery Type Monopolar ESU BiPolar ESU Cautery Type Comments ID Number [id number] ID Type Hospital Number Hospital Number Cautery Settings Cut Setting 45 8 Coag Setting 45 45 Blend Setting Bipolar Setting Argon Setting Argon Garcia ESU Grounding Pad Ground Pad Type Adult Grounding Pad Type Comment Grounding Pad Site Left thigh Grounding Pad Site Comment Grounding Pad Reji Fuentes RN Applied By Grounding Pad Site Warm, Dry, Intact Skin Condition Before Cautery Site Skin Condition Before Comment Grounding Pad Site Unchanged Skin Condition After Cautery Site Skin Condition After Comment Last Modified By: Reji Fuentes RN Byrd, Charlie D, RN 09/29/19 15:33:24 09/29/19 15:33:24 [facility] IntraOp Counts Verification Entry 1 Procedure Discectomy Minimally Invasive Count Info Count Type Sponge, Sharps, Miscellaneous Counts Verification Baseline/pre-procedure Sequence Count Results Not Applicable Counts Performed By Count Performed By DANIELLE DICKSON (Scrub) Count Performed By JALEESA TEJADA RN (RN) Last Modified By: Reji Fuentes RN 09/29/19 15:27:00 [facility] IntraOp Counts Final Entry 1 Procedure Discectomy Minimally Invasive Final Count Info Count Type Sponge, Sharps, Miscellaneous Counts Verification Skin Closure/end of Sequence procedure Count Results Correct, surgeon notified Counts Performed By Count Performed By DANIELLE DICKSON (Scrub) Count Performed By Reji Fuentes, RN (RN) Last Modified By: Reji Fuentes RN 09/29/19 16:42:22 [facility] IntraOp Departure from OR Entry 1 Integumentary Assessment Integumentary WDL Assessment WDL Transfer/Handoff Transfer to PACU Phase I Handoff Method Bedside/Face to face, Phone call Post-op Transport Stretcher/Stefano Via Patient Transport MILA WOLFE APRN, Accompanied by Alfredo HOWARD Charlie D, RN Last Modified By: Reji Fuentes RN 09/29/19 16:54:14 [facility] IntraOp Departure from OR Audit 09/29/19 16:54:14 Cork Insulator: CHARAN Modifier: CHARAN 1 <*> Patient Transport Accompanied by EL ALVARADO PA-INT [facility] IntraOp Dressing and Packing Entry 1 Type Dressing Location OP SITE Wound Dressing Item Other, Occlusive dressing Applied By EL ALVARADO PA-INT Other Comments MASTISOL, STERISTRIPS, COVADERM Last Modified By: Reji Fuentes RN 09/29/19 15:34:53 [facility] IntraOp Fire Risk Assessment Entry 1 Fire Info Surgical Site or 0- No Incision Above the Xyphoid Open O2 Source 0- No (Mask or Cannula) Available Ignition 1- Yes (ESU, Laser, Light Source) Fire Risk 1 Assessment Score Fire Score Fire Risk Yes Assessment Complete Fire Risk Reji Fuentes weed sprayer Verified By Fire Risk 09/29/19 14:50:00 Assessment Verified Date/Time Fire Risk Standard Fire Yes Safety Precautions Followed Last Modified By: Reji Fuentes RN 09/29/19 15:27:30 [facility] IntraOp General Case Numberer And Wirer 1 Case Information OR OR 10 [facility] Case Level 1 Room Verified Yes Wound Class I - Clean Specialty SN Neurosurgery Anesthesia Type General ASA Class 3 Diagnosis Preop Diagnosis RADICULAR LEG PAIN Postop Same As Preop No Postop Diagnosis SEE MD POST OP NOTE Last Modified By: Reji Fuentes RN 09/29/19 15:28:09 [facility] IntraOp Intraoperative Assessment Entry 1 Handoff Method Online nursing summary Valid History / Yes Physical in Chart Preoperative Yes Checklist Reviewed/Evaluated Allergies Reviewed Yes Patient is Latex No Sensitive Isolation Not applicable Precautions Noted Level of WDL Consciousness (WDL = Alert, Oriented to Person, Place, and Time) Skin Assessment No Verified Present Upon IVs Arrival to OR Last Modified By: Reji Fuentes RN 09/29/19 15:28:18 [facility] IntraOp Intraoperative Equipment Entry 1 Type Equipment Equipment Equipment Yosvany Suction System ID Number [id number] Setting 180 MM HG Intraop Monitoring Electrocardiogram Five lead placement (ECG) Electrode Placement Blood Pressure Non-Invasive BP Device Source Blood Pressure Arm, right upper Location Pulse Oximeter Hand, left Probe Site Antiembolic Devices Antiembolic Devices Sequential compression device, knee high Antiembolic Device Bilateral Location Antiembolic Device [id number] ID Number Scopes Photo/Video Documentation Photo No Video No Last Modified By: Reji Fuentes RN 09/29/19 15:28:58 [facility] IntraOp Medication Admin Entry 1 Entry 2 Entry 3 Medication/Irrigant lidocaine 1% w/ Bacitracin 50,00units thrombin 5000units epinephrine 1:100,000 powder vial topical powder - 30ml vial - [id number] Combo Med List Time Administered Route of LOCAL ADDED TO NS IRRIGATION TOPICAL Administration Dose Dose 20 73131 5000 Unit of Measure ml units units Volume Administered By ELISSA GAN, MD ELISSA PEREZ MD, MD ELISSA PEREZ MD, MD CHRIS Procedure Irrigation Irrigant Volume In Irrigant Volume Out Last Modified By: Reji Fuentes RN Byrd, Charlie D, RN Byrd, Charlie D, RN 09/29/19 15:32:42 09/29/19 15:32:42 09/29/19 15:32:42 Entry 4 Entry 5 Medication/Irrigant SPNG SURGFOAM Marcaine 0.25% 30ml [id number] vial - [id number] Combo Med List Time Administered Route of TOPICAL LOCAL Administration Dose Dose 1 30 Unit of Measure pkt ml Volume Administered By CHRIS BOWERS MD, MD PHILLIPS MD, MD CHRIS Procedure Irrigation Irrigant Volume In Irrigant Volume Out Last Modified By: Reji Fuentes RN Byrd, Charlie D, RN 09/29/19 15:32:42 09/29/19 15:32:42 General Comments: ANCEF 2 GRAM IV PER ANESTHESIA [facility] IntraOp Patient Positioning Entry 1 Procedure Discectomy Minimally Invasive Body Position Prone Left Arm Position Secured on padded arm board Right Arm Position Secured on padded arm board Left Leg Position Elevated Right Leg Position Elevated Feet Uncrossed Yes Pressure Points Yes Checked Positioning Devices Niels Frame, Pillows, Arm Board, Head Rest, Pad, Arm, Pad, Elbow, Safety Strap, Thighs Device Position PRONE ON NIELS FRAME Positioned By Reji Fuentes, CAROL, ELISSA GAN, MD CHRIS, MILA WOLFE, OPHTHALMIC NURSE, STONE RUBBER, EL ALVARADO PA-INT Position Verified Positioning Yes Verified by Anesthesia Positioning Yes Verified by Surgeon Last Modified By: Reji Fuentes RN 09/29/19 15:30:43 [facility] IntraOp Sign In Entry 1 Patient, Site, Yes Procedure Identified Surgical Consent Yes Confirmed Relevant Surgical Yes Documents Available Surgical Site N/A Marked by person performing procedure Anesthesia Machine Yes Check Completed Medication Checks Yes Completed Allergies Yes Airway Difficult No Airway/Aspiration Risk Difficult Yes Airway/Aspiration Intervention Equipment Available Blood Loss Risk No Blood Loss Yes Intervention Equipment Prepared and Ready Blood Identifiers Not applicable Verified Per Policy Hypothermia Risk No Warming Measures Yes Taken Last Modified By: Reij Fuentes RN 09/29/19 15:29:15 [facility] IntraOp Sign In Audit 09/29/19 15:29:15 Cork Insulator: CHARAN Modifier: [email or web address] 1 <*> Surgical Site Marked by person Yes performing procedure 1 <+> Allergies 1 <+> Difficult Airway/Aspiration Risk 1 <+> Difficult Airway/Aspiration Intervention Equipment Available 1 <+> Blood Identifiers Verified Per Policy [facility] IntraOp Sign Out Entry 1 RN Confirmation Surgical Yes Procedure(s) Identified Instrument, Sponge Yes and Sharps Counts Correct/Documented Equipment Problems N/A Documented Specimen Labeled N/A Correctly Urinary Catheter N/A Documented in IView Mustafa Patient Yes Recovery Concerns Reviewed with Anesthesia Provider, Surgeon and RN Mustafa Patient Yes Management Concerns Reviewed with Anesthesia Provider, Surgeon and RN Safety Checklist Yes Elements Complete? RN Sign Out Reji Fuentes, RN Signature RN Sign Out 09/29/19 17:02:00 Signature Date/Time Plan of Care Outcome - Fire Risk OUTCOME STATEMENT: Goal met Patient is free from injury related to surgical fire Plan of Care Outcome - Pt Positioning OUTCOME STATEMENT: Goal met Absence of signs and symptoms of positioning injury. Plan of Care Outcome - Skin Prep OUTCOME STATEMENT: Goal met Intraoperative care is consistent with measures to prevent infection Plan of Care Outcome - Xray/Images OUTCOME STATEMENT: Goal met Absence of observable signs or symptoms of radiation injury Plan of Care Outcome - Counts OUTCOME STATEMENT: Goal met Absence of signs and symptoms of injury related to extraneous objects Last Modified By: Reji Fuentes RN 09/29/19 17:02:01 [facility] IntraOp Sign Out Audit 09/29/19 17:02:01 Cork Insulator: CHARAN Modifier: [email or web address] <+> 1 RN Sign Out Signature Date/Time [facility] IntraOp Skin Prep Entry 1 Entry 2 Procedure Discectomy Minimally Discectomy Minimally Invasive Invasive Prescribed Yes Yes Pre-Surgical Prep Completed Prep Area BACK BACK Intraop Prep Integumentary WDL WDL Assessment WDL WDL Patient Exceptions Patients Normal Integumentary Variance(s) Integumentary Assessment Comment Prep Agents Alcohol, Chlorhexadine DuraPrep gluconate Prep by ELISSA GAN, MD Alfredo PEREZ Charlie D, RN Skin Prep Comment Hair Removal Methods No hair removal No hair removal performed performed Hair Removal Site Hair Removal By Nick Modified By: Reji Fuentes, RN Reji Fuentes, RN 09/29/19 15:31:12 09/29/19 15:31:12 [facility] IntraOp Surgical Procedures Entry 1 Procedure Discectomy Minimally Invasive Additional (RT L4-5 MIS Procedure MICRODISCECTOMY) Description Primary Procedure Yes Primary Surgeon ELISSA GAN, MD CHRIS Start 09/29/19 15:19:00 Stop 09/29/19 16:40:00 Anesthesia Type General Specialty SN Neurosurgery Wound Class I - Clean Last Modified By: Reji Fuentes RN 09/29/19 16:42:27 [facility] IntraOp Surgical Procedures Audit 09/29/19 16:42:27 Cork Insulator: [email or web address] Modifier: [email or web address] <+> 1 Stop [facility] IntraOp Temp Regulation Devices Entry 1 Temp Regulation Temperature Warm blankets, Forced Regulation Device Air Warming device, Room temperature Temperature 36796 Regulation Device Serial/Unit Number Temperature Upper body Regulation Site Temperature Device 43 C Setting Temperature MILA WOLFE APRN, Regulation Device STONE RUBBER Applied by [facility] Modified By: Reji Fuentes RN 09/29/19 15:29:50 [facility] IntraOP Time Out Entry 1 Procedure to be Discectomy Minimally Performed Invasive Time Out Time Out Pause Time 09/29/19 15:18:00 All activity Yes suspended (unless life threatening emergency) Team Verbally Correct patient Confirms Information identity, Consent form is present and accurate, Agreement on the procedure to be done, Correct patient position, Relevant images/results properly labeled/appropriately displayed, Confirm antibiotics have been administered, Confirm the skin prep has dried, Confirm prosthesis/implant/devic e is present, Performed in location of procedure after prepped/draped Antibiotic Yes Prophylaxis Administered Or In Progress Within the Last 60 Minutes Beta Elma N/A Administered Venous Yes Thromboembolism Prophylaxis Required Anticipated Critical Events Surgeon None expected Anesthesia Provider None expected Nursing Assures Sterility of instruments, Equipment concerns or issues, Implant Availability Essential Imaging Yes Labeled and Displayed Last Modified By: Reji Fuentes RN 09/29/19 15:22:04 [facility] IntraOp X-Ray and Images Entry 1 X-Ray/Imaging Type Fluoroscopy Fluoroscopy Type C-Arm Site BACK Grip Wrapper Name Rebecca Hyde, Egg Crater Protective Devices Yes Used Last Modified By: Reji Fuentes RN 09/29/19 15:27:09 Case Comments <None> Finalized By: KELI GARCIA Document Signatures Signed By: Reji Fuentes RN 09/29/19 17:02 KELI GARCIA 10/02/19 11:33 Unfinalized History Date/Time Username Reason for Unfinalizing Freetext Reason for Unfinalizing 10/02/19 11:33 MICHAEL Correct Billing Electronically signed by Juanis [facility] Conversion Horticulture Professor Cerner at 08/13/2022 6:38 PM CDT documented in this encounter Plan of Treatment Not on file documented as of this encounter Visit Diagnoses Not on filedocumented in this encounter Care Teams Celery Wrapper Relationship Specialty Start Date End Date Kostas Campa MD [address] [facility] [address] [place] [address] PCP - General Family Medicine 04/03/24 06/25/24 Kostas Campa MD [address] [facility] [address] [place] [address] PCP - General Family Medicine 06/26/24 documented as of this encounter
--- OUTSIDE RECORDS SUMMARY | 2025-04-13 06:18 | XMS_ITS | Encounter Summary ---
Author Organization [employer] ([place], [place], [place], [place], [place]) Address [address] [place] [address] Care Team Providers Care Mammography Technologist Name Role Phone Kostas Campa MD Primary Care Provider + [phone] Kostas Campa MD Primary Care Provider + [phone] Encounter Details Date Type Department Care Team (Late st Contact Info) Description 12/29/2018 Transcribed Document [facility] [place] [address] [place] [address] ProviderLance MD [address] [place] [address] Social History Tobacco Use Types Packs/Day Years Used Date Smoking Tobacco: Never Assessed Sex and Gender Information Value Date Recorded Sex Assigned at Not on file Legal Sex Male 6:57 PM CDT Gender Identity Not on file Sexual Orientation Not on file documented as of this encounter Miscellaneous Notes * Cerner Conversion Note - Lance Rosales MD - 12/29/2018 12:32 PM CDT Patient: BAYLEE LING Age: 68 Years Sex: Male : 1950 FOLLOWUP DATE OF SERVICE: 12/22/2018 CHIEF COMPLAINT: Low back pain, bilateral foot pain. HISTORY OF PRESENT ILLNESS: The patient is a 68-year-old male who returns to clinic today with a 30-year history significant for low back pain, bilateral foot pain, and knee pain. The patient states his knees are getting much worse at this time. He had recently seen a physician at [facility] and is scheduled to see Dr. Ruiz Conteh at his next visit two weeks from now. He states they are in the process of trying to get this individual in for x-rays as well as MRIs of the knees. His pain level today is 4/10 on the numerical pain scale rating. He is reporting 60% pain relief with the use of Menasha 10/325 mg t.i.d., Lyrica 150 mg b.i.d., MS-Contin 15 mg he utilizes twice daily, Klonopin 1 mg q.h.s. and Flexeril 10 mg 1 q.h.s. He is also utilizing a spinal cord stimulator to control his leg pain. He is not very happy at this time with his Nevro spinal cord stimulator system. Nursing intake was reviewed and on today's visit, this individual has a BP 155/82, HR 64, respirations 18, oxygen saturation is 97% on room air. The patient is 5'10 tall and weighs 230 pounds. HISTORY: Allergies: No known drug allergies at this time. Social History: Marital status: . Current work status: Not listed. Current tobacco use: Denied. Illicit drug use: Denied. Alcohol use: Typically 3 drinks a week. Caffeine use: Caffeine use is daily. Past Medical History: Positive for osteoarthritis, colon cancer, heartburn, hypertension, obstructive sleep apnea, prostate disease, prostate enlargement. Past Surgical History: Myringotomy, colonoscopy, arthroscopic knee surgery, prostate surgery, sinus surgery, spinal surgery, lumbar spine spinal cord stimulator trial and subsequent implant with revision. Past Family History: This individual has a history of cancer, type 2 diabetes, heart disease, and acid reflux disease in his family. REVIEW OF SYSTEMS: The patient's ten-system review of systems was reviewed. On today's visit, this individual complains of the following: General: Fatigue. Respiratory: Negative Neurological: Numbness and tingling. Musculoskeletal: Joint pain, stiffness, back pain. Cardiovascular: Leg pain with walking. All other systems reviewed and were found to be negative. PHYSICAL EXAMINATION: Vital signs: Reviewed today. Constitutional: Conversant. Well nourished. Psychiatric: Alert and oriented to self, time and place today. Normal mood and affect at today's visit. There is mild depression on the depression questionnaire completed today. Physical examination is deferred. MEDICAL DECISION MAKING: ISHAAN report is appropriate on review today. ASSESSMENT: 1. Chronic pain syndrome secondary to multisite osteoarthritis involving primarily the bilateral knees, right worse than left. 2. Postlaminectomy pain syndrome lumbar spine. 3. Lumbar radiculitis involving the bilateral lower extremities, status post spinal cord stimulator implantation in need of reprogramming. 4. Lumbar degenerative disc disease. CURRENT PLAN: I am going to continue Mr. Lnig on his current medication regimen from our facility at this time. If he has surgery, I have instructed him on what he needs to do for postoperative pain medicine notification. He has agreed to do this. I also contacted the [facility] spinal cord stimulator rep and he did meet Mr. Ling at today's visit and reprogramming was done which was successful for enhancing the stimulation of the patient's feet as well as changing the rate for this individual. He will return to clinic in two months for followup appointment. Kostas Hyde PA-C Electronically signed by [facility] Conversion Graduate Civil Engineer Cerner at 08/13/2022 6:43 PM CDT documented in this encounter Plan of Treatment Not on file documented as of this encounter Visit Diagnoses Not on filedocumented in this encounter Care Teams Mammography Technologist Relationship Specialty Start Date End Date Kostas Campa MD [address] [facility] [address] [place] [phone] PCP - General Family Medicine 04/03/24 06/25/24 Kostas Campa MD [address] [facility] [address] [place] [phone] PCP - General Family Medicine 06/26/24 documented as of this encounter
--- OUTSIDE RECORDS SUMMARY | 2025-04-13 06:19 | XMS_ITS | Encounter Summary ---
Author Organization [employer] ([place], [place], [place], [place], [place]) Address [address] [place] [address] Care Team Providers Care Veneer Supervisor Name Role Phone Kostas Campa MD Primary Care Provider + [phone] Kostas Campa MD Primary Care Provider + [phone] Encounter Details Date Type Department Care Team (Late st Contact Info) Description 01/02/2022 Transcribed Document [facility] Neurology - [address] [id number] Puneet Pham Jr., MD [address] [place] [address] Social History Tobacco Use Types Packs/Day Years Used Date Smoking Tobacco: Never Assessed Sex and Gender Information Value Date Recorded Sex Assigned at Not on file Legal Sex Male 6:57 PM CDT Gender Identity Not on file Sexual Orientation Not on file documented as of this encounter Miscellaneous Notes * Cerner Conversion Note - Puneet Pham Jr., MD - 01/02/2022 10:55 AM EDT DATE OF PROCEDURE: 01/02/2022 SURGEON: Puneet Pham Jr, MD PREOPERATIVE DIAGNOSIS: Chronic pain syndrome. POSTOPERATIVE DIAGNOSIS: Chronic pain syndrome. PROCEDURE PERFORMED: Placement of Medtronic 20 mL SynchroMed II intrathecal narcotic pain pump system (patient will be receiving 0.15 mg morphine per day). SALESPERSON HEARING AIDS: Richard Rojas PA-C. Richard Rojas PA-C, assisted through the entire operation with tasks such as suctioning, soft tissue retraction, placement of pain pump, and wound closure. ANESTHESIA: General endotracheal anesthesia. BLOOD LOSS: Less than 10 mL. COMPLICATIONS: None. SPECIMEN: None. DRAINS: None. CONDITION: Stable to the PACU. INDICATIONS FOR PROCEDURE: Mr. Gonzalez is 71 years old with chronic pain. He underwent a successful intrathecal narcotic trial. He is referred for implantation. I met with him in the office and went over the procedure, reviewed a CT myelogram, reviewed a CT of the abdomen. He wants the pain pump in the left abdomen. He has a right-sided stimulator system. I met with him and his prior to the operation and went over everything and answered all their questions, and consent was signed for surgery. DESCRIPTION OF PROCEDURE: After informed consent was obtained, the patient was brought to the operating room. General endotracheal anesthesia was induced routinely. He was placed in a right lateral decubitus position. He was secured to the bed with padded straps, tape and an inflatable beanbag. An axillary roll was placed. The hair was clipped from the belly and the back. A paramedian left incision was made a couple of centimeters off the midline just at the intercristal line. An abdominal incision was made just lateral to the umbilicus transversely. The back, belly, and flank were prepped and draped in usual fashion. Prophylactic antibiotics were given. The back incision was opened with a scalpel. Bovie cautery was used to dissect down to the fascia. Using lateral fluoroscopy, I made a single pass into thecal sac at L2-3. CSF was clear under normal pressure. I fed a catheter up to the T9-10 disk space. A pursestring silk suture was placed around the Tuohy needle as it entered the fascia and then another silk was placed above, and then another was placed below the fascia. The Tuohy needle was backed out. The inner stylet was removed from the inner part of the catheter. A deployable anchor was pushed over the catheter into the fascia. A pursestring silk suture was cinched around the catheters and fascia. Then, the anchor was secured to the fascia with the two previously placed silk sutures. CSF was dripping from the catheter. The belly incision was opened. Bovie cautery was used to dissect down the anterior abdominal fascia and we created a pocket for the pump. The Passer was pushed from the back incision to the belly incision and the pump tubing was pulled around. I cut off about 20 of the catheter. The O[employer] account retention representative measured the exact length. A sutureless connector was affixed to the intrathecal catheter. The 20 cc pump was filled with 1 mg/mL morphine, it was brought onto the table. He will be receiving a starting dose at 0.15 mg per day. The pump was affixed to the connector. Redundant tubing was placed behind the pump. The pump was secured at the 4 anchor points with silk sutures to the anterior abdominal fascia. Palak's layer and the dermis closed with interrupted Vicryl sutures at both incisions. The back incision was closed with running nylon at the skin level and the belly incision was closed with david at the skin level. After we tunneled the catheter, the last x-ray showed that the catheter tip had not moved. Dressings were applied. The patient was ultimately extubated and went to the recovery room in good condition. /[id number] Puneet Pham Jr, MD RDO/AQ / RDO / MODL /[id number] documented in this encounter Plan of Treatment Not on file documented as of this encounter Visit Diagnoses Not on filedocumented in this encounter Care Teams Veneer Supervisor Relationship Specialty Start Date End Date Kostas Campa MD [address] [place] [address] [address] [place] [phone] PCP - General Family Medicine 04/03/24 06/25/24 Kostas Campa MD [address] [facility] [address] [place] [phone] PCP - General Family Medicine 06/26/24 documented as of this encounter
--- OUTSIDE RECORDS SUMMARY | 2025-04-13 06:19 | XMS_ITS | Encounter Summary ---
Author Organization [employer] ([place], [place], [place], [place], [place]) Address [address] [place] [address] Care Team Providers Care City Superintendent Name Role Phone Kostas Campa MD Primary Care Provider + [phone] Kostas Campa MD Primary Care Provider + [phone] Encounter Details Date Type Department Care Team (Late st Contact Info) Description 08/13/2020 Transcribed Document [facility] [place] Medicine [address] [place] [address] ProviderLance MD [address] [place] [address] Social History Tobacco Use Types Packs/Day Years Used Date Smoking Tobacco: Never Assessed Sex and Gender Information Value Date Recorded Sex Assigned at Not on file Legal Sex Male 6:57 PM CDT Gender Identity Not on file Sexual Orientation Not on file documented as of this encounter Miscellaneous Notes * Cerner Conversion Note - Lance ProviderMD - 08/13/2020 5:29 PM CDT [facility] [place] [address] BAYLEE LING :1950 Visit Time:08/13/2020 What to do next Your Diagnosis Other chronic pain, Other chronic pain Instructions From Your Care Team Diet after Discharge: Resume usual diet as tolerated, Do not drink any alcoholic beverages, Drink at least 8-10 glasses of water per day Activity after Discharge: As tolerated, Rest and relax today, No strenuous activity Lifting Restrictions: No heavy lifting over 10 pounds Driving after Discharge: Do not drive until 24 hours after no longer taking pain medications Showering/Bathing: May shower, No tub bathing, soaking or swimming Notify Provider of: signs of infection, fever greater then 101, severe pain, swelling and or bleeding. Wound/Incision Care after Discharge: Keep operative site/wound site clean and dry, remove dressing in 3 days but do not get incision wet for 1 week. may shower in 24 hours if covered with plastic wrap. Follow-Up Appointments Follow Up with CHRIS BOWERS When Within 2 to 3 days Comments Follow-up as instructed Where: [address] [facility] [address] [place] [address]- Business (1) Medications What How Much When Instructions Next Dose acetaminophen-oxyCODONE (Percocet 10 mg-325 mg oral tablet) 1 Tablet(s) Oral Three Times A Day as needed for as needed for pain acetaminophen-oxyCODONE (Percocet 7.5/ 325 oral tablet) 1 Tablet(s) Oral Every 4 Hours as needed for for pain take q 6 hours ofr breakthrough pain after surgery Pickup at [facility] aspirin (aspirin 81 mg oral delayed release tablet) 1 Tablet(s) Oral Every Day restart in 5 days celecoxib 200 Milligram(s) Oral Every Day clonazePAM (clonazePAM 1 mg oral tablet) 1 Tablet(s) Oral At Bedtime cyclobenzaprine (cyclobenzaprine 10 mg oral tablet) 1 Tablet(s) Oral Every Day as needed for as needed for spasm losartan (losartan 100 mg oral tablet) 1 Tablet(s) Oral Every Day morphine (morphine 15 mg oral tablet) 1 Tablet(s) Oral Two Times A Day omeprazole (omeprazole 40 mg oral delayed release capsule) 1 Capsule(s) Oral Every Day pregabalin (Lyrica 150 mg oral capsule) 1 Capsule(s) Oral Two Times A Day sildenafil (sildenafil 20 mg oral tablet) 1 Tablet(s) Oral Every Day multivitamin (Vitamin B Complex oral tablet) 1 Tablet(s) Oral Every Day Pharmacy Information [facility]: [address] [facility] [address] [place], [place] [id number] [phone] Take your medications faithfully. Do NOT skip [...] and medications per pharmacy guidance. Education Materials Outpatient Surgery, Adult, Care After These instructions provide you with information about caring for yourself after your procedure. Your health care provider may also give you more specific instructions. Your treatment has been planned according to current medical practices, but problems sometimes occur. Call your health care provider if you have any problems or questions after your procedure. What can I expect after the procedure? After the procedure, it is common to have: ??? Tenderness and numbness at the surgical site. ??? Swelling and bruising around the surgical site. ??? Nausea. Follow these instructions at home: For at [...] Take care of children on your own. Activity ??? Return to your normal activities as told by your health care provider. Ask your health care provider what activities are safe for you. ??? Do not lift anything that is heavier than 10 lb (4.5 kg), or the limit that your health care provider tells you, until your health care provider says it is okay. ??? Do not play contact sports until your health care provider says it is okay. Incision care ??? Follow instructions from your health care provider about how to take care of an incision, if you have one. Make sure you: ? Wash your hands with soap and water before you change your bandage (dressing). If soap and water are not available, use hand sql server consultant. ? Change your dressing as told by [...] for signs of infection. Check for: ? More redness, swelling, or pain. ? More fluid or blood. ? Warmth. ? Pus or a bad smell. Medicines ??? Take bzoi-[id number] and prescription medicines only as told by your health care provider. ??? Do not drive or use heavy machinery while taking prescription pain medicines. Eating and drinking ??? Follow the diet recommended by your health care provider. ??? When you are hungry, begin eating light and bland foods such as toast. Gradually return to your regular diet. ??? If you vomit: ? Drink water, juice, or soup when you can drink without vomiting. ? Make sure you have little or no nausea before eating solid foods. General instructions ??? If you have sleep apnea, surgery and certain medicines can increase your risk for breathing problems. Follow instructions from your HCP about wearing your sleep device: ? Anytime you are sleeping, including during daytime naps. ? While taking prescription pain medicines, sleeping medicines, or medicines that make you drowsy. ??? Do not use any tobacco products, such as cigarettes, chewing tobacco, and e-cigarettes, for as long as possible. ??? If you smoke, do not smoke without supervision. ??? Keep all follow-up visits as told by your health care provider. This is important. Contact a health care provider if: ??? You have more redness, swelling, or pain around your incision. ??? You have more fluid or blood coming from your incision. ??? Your incision feels warm to the touch. ??? You have pus or a bad smell coming from your incision. ??? You have a fever. ??? You feel light-headed or you faint. ??? You develop a rash. ??? You keep feeling nauseous or keep vomiting. ??? You have very bad pain, even after taking the medicines your health care provider has prescribed or recommended. ??? You have constipation. Get help right away if: ??? You are unable to pass urine. ??? You have trouble breathing. Summary ??? Have a responsible adult stay with you for at least 24 hours after the procedure. ??? Nausea is common after a procedure. Make sure you have little or no nausea before eating solid foods. Follow the diet recommended by your health care provider. ??? Ask your health care provider what activities are safe for you. This information is not intended to replace advice given to you by your health care provider. Make sure you discuss any questions you have with your health care provider. Document Revised: 07/11/2018 Document Reviewed: 08/02/2016 [employer] Patient Education ?? 2020 [employer] Emergency Awareness and Preventative Care STROKE is [...] Assistance with quitting is available by contacting 3-260-OXAQ-NOW. This is a free resource providing counseling, [...] This Visit (last charted value for your 08/13/2020 visit) Hematology 08/13/2020 11:57 AM WBC: 3.5 K/uL -- Normal range between ( 3.6 and 9.5 ) RBC: 4.55 Million/uL -- Normal range between ( 4.20 and 5.70 ) Hct: 41.3 % -- Normal range between ( 40.1 and 51.0 ) Hgb: 13.8 g/dL -- Normal range between ( 13.5 and 17.3 ) Platelet Count: 156 K/uL -- Normal range between ( 163 and 369 ) MCH: 30.3 pg -- Normal range between ( 25.6 and 32.2 ) MCHC: 33.4 Gram/dL -- Normal range between ( 32.2 and 36.5 ) MCV: 90.8 fL -- Normal range between ( 79.0 and 94.8 ) Slide Review: No Eos %: 3.7 % -- Normal range between ( 0.0 and 7.0 ) Shoshone #: 0.32 K/uL -- Normal range between ( 0.16 and 1.00 ) Eos #: 0.13 x10(3)/uL -- Normal range between ( 0.00 and 0.80 ) Shoshone %: 9.1 % -- Normal range between ( 3.0 and 9.0 ) Baso %: 0.6 % -- Normal range between ( 0.0 and 1.5 ) Baso #: 0.02 x10(3)/uL -- Normal range between ( 0.00 and 0.20 ) RDW: 12.2 % -- Normal range between ( 11.7 and 14.9 ) Neut %: 36.7 % -- Normal range between ( 34.0 and 71.0 ) Neut #: 1.29 K/uL -- Normal range between ( 1.56 and 6.13 ) Lymph %: 49.3 % -- Normal range between ( 19.3 and 53.1 ) Lymph #: 1.73 x10(3)/uL -- Normal range between ( 1.00 and 3.90 ) MPV: 9.3 fL -- Normal range between ( 9.4 and 12.4 ) IG#: 0.02 x10(3)/uL -- Normal range between ( 0.00 and 0.05 ) IG%: 0.60 % -- Normal range between ( 0.00 and 0.60 ) Urinalysis 08/13/2020 11:57 AM Urine Nitrite: Negative Urine Leukocyte Esterase: Negative Urine Appearance: Clear Urine Glucose Dipstick: Negative Urine Blood Dipstick: Negative Urine Type: U CleanCatch Urine Urobilinogen Dipstick: 1.0 EU/dL Urine Protein Dipstick: Negative Ur Bacteria: Trace Urine Color: Yellow Ur WBC: 0-2 /HPF Urine Ketones Dipstick: Negative Ur Mucous: 2+ Urine pH Dipstick: 7.0 -- Normal range between ( 6.0 and 8.0 ) Urine Bilirubin Dipstick: Negative Urine Specific [place]: 1.019 -- Normal range between ( 1.005 and 1.030 ) Microbiology 08/09/2020 2:30 PM SARS-CoV-2 (COVID19 PCR): Negative General Chemistry 08/13/2020 12:31 PM Creatinine Level: 0.80 mg/dL -- Normal range between ( 0.70 and 1.30 ) Sodium Level: 140 mmol/L -- Normal range between ( 136 and 146 ) Potassium Level: 3.9 mmol/L -- Normal range between ( 3.5 and 5.1 ) Chloride Level: 106 mmol/L -- Normal range between ( 102 and 112 ) Carbon Dioxide Level: 34 mmol/L -- Normal range between ( 21 and 32 ) Anion Gap: 4 -- Normal range between ( 9 and 20 ) Bun/Creatinine: 12.5 -- Normal range between ( 8.0 and 20.0 ) Calcium Level: 8.9 mg/dL -- Normal range between ( 8.4 and 10.1 ) eGFR : >60 mL/min/1.73m2 eGFR NonAfrican: >60 mL/min/1.73m2 Glucose Level: 104 mg/dL -- Normal range between ( 74 and 106 ) Blood Urea Nitrogen: 10 mg/dL -- Normal range between ( 7 and 22 ) Patient Name:BAYLEE LING I have received this information and was given the opportunity to ask questions. Patient/System Support Analyst Name: Patient/System Support Analyst Signature: Relationship to Patient: Clinician/Hospital System Support Analyst Signature: Date: documented in this encounter Plan of Treatment Not on file documented as of this encounter Visit Diagnoses Not on filedocumented in this encounter Care Teams City Superintendent Relationship Specialty Start Date End Date Kostas Campa MD [address] [facility] [address] [place] [phone] PCP - General Family Medicine 04/03/24 06/25/24 Kostas Campa MD [address] [facility] [address] [place] [phone] PCP - General Family Medicine 06/26/24 documented as of this encounter
--- OUTSIDE RECORDS SUMMARY | 2025-04-13 06:19 | XMS_ITS | Encounter Summary ---
Author Organization [employer] ([place], [place], [place], [place], [place]) Address [address] [place] [address] Care Team Providers Care Platform Mill Supervisor Name Role Phone Kostas Campa MD Primary Care Provider + [phone] Kostas Campa MD Primary Care Provider + [phone] Encounter Details Date Type Department Care Team (Late st Contact Info) Description 01/02/2022 Transcribed Document [facility] Neurology - [address] [phone] Bethany House Jr., MD [address] [place] [address] Social History Tobacco Use Types Packs/Day Years Used Date Smoking Tobacco: Never Assessed Sex and Gender Information Value Date Recorded Sex Assigned at Not on file Legal Sex Male 6:57 PM CDT Gender Identity Not on file Sexual Orientation Not on file documented as of this encounter Miscellaneous Notes * Cerner Conversion Note - Bethany House Jr., MD - 01/02/2022 10:49 AM EDT Patient: BAYLEE LING Age: 71 Years Sex: Male : 1950 *Operation placement of 20 ml medtronic pain pump (0.15 mg/day) Anesthesia Type General CORNEATESSA MD-ANS (Anesthesiologist of Record) *Preoperative Diagnosis chronic pain syndrome *Postoperative Diagnosis see MD postop notes *Surgeon(s) Primary Surgeon BETHANY HOUSE MD-SNU (Surgeon/Proceduralist, First) *Estimated Blood Loss <10 ml *Findings expected *Specimen(s) none Complications none Date of Service Date/Time of Service SN - Proc - Start Time: 01/02/22 08:43:00 (01/02/22 08:49:00) documented in this encounter Plan of Treatment Not on file documented as of this encounter Visit Diagnoses Not on filedocumented in this encounter Care Teams Platform Mill Supervisor Relationship Specialty Start Date End Date Kostas Campa MD [address] [facility] [address] [place] [phone] PCP - General Family Medicine 04/03/24 06/25/24 Kostas Campa MD [address] [facility] [address] [place] [phone] PCP - General Family Medicine 06/26/24 documented as of this encounter
--- OUTSIDE RECORDS SUMMARY | 2025-04-13 06:19 | XMS_ITS | Encounter Summary ---
Author Organization [employer] ([place], [place], [place], [place], [place]) Address [address] [place] [address] Care Team Providers Care Space Studies Faculty Member Name Role Phone Kostas Campa MD Primary Care Provider + [phone] Kostas Campa MD Primary Care Provider + [phone] Encounter Details Date Type Department Care Team (Late st Contact Info) Description 09/29/2019 Transcribed Document [facility] [place] Family Medicine [address] [place] [address] ProviderLance MD [address] [place] [address] Social History Tobacco Use Types Packs/Day Years Used Date Smoking Tobacco: Never Assessed Sex and Gender Information Value Date Recorded Sex Assigned at Not on file Legal Sex Male 6:57 PM CDT Gender Identity Not on file Sexual Orientation Not on file documented as of this encounter Miscellaneous Notes * Cerner Conversion Note - Lance ProviderMD - 09/29/2019 5:43 PM CDT [facility] [place] [address] BAYLEE LING :1950 Visit Time:09/29/2019 What [...] see the appointment card provided Where: [address] (WEDNESDAY ONLY) [place] [id number]- Medications What How Much When Instructions Next [...] activities are safe for you. ??? Take zvru-tqo-gaiphev and prescription medicines only as told by [...] 07/19/2001 Document Revised: 11/26/2017 Document Reviewed: 11/26/2017 [employer] Interactive Patient Education ?? 2020 Via optronics. oxycodone (ox i KOE done) Oxaydo, OxyCONTIN, [...] The extended-release form of oxycodone is for vitpbo-hlz-gnfaf treatment of pain and should not be [...] against the law. Stop taking all other ltzdwl-igx-xxjwk narcotic pain medicines when you start taking [...] may report side effects to FDA at 8-306-BXG-0039. What other drugs will affect oxycodone? You [...] may affect oxycodone. This includes prescription and uejd-bya-chsgmya medicines, vitamins, and herbal products. Not all [...] to ensure that the information provided by [employer]. ('[employer]') is accurate, up-to-date, and complete, but no guarantee is made to that effect. Drug information contained herein may be time sensitive. [employer] acquired by [employer] information has been compiled for use by healthcare practitioners and consumers in the [place] and therefore [employer] acquired by [employer] does not warrant that uses outside of the [place] are appropriate, unless specifically indicated otherwise. [employer] acquired by [employer]'s drug information does not endorse drugs, diagnose patients or recommend therapy. [employer] drug information is an informational resource designed [...] effective or appropriate for any given patient. [employer] acquired by [employer] does not assume any responsibility for any aspect of healthcare administered with the aid of information [employer] acquired by [employer] provides. The information contained herein is not intended to cover all possible uses, directions, precautions, warnings, drug interactions, allergic reactions, or adverse effects. If you have questions about the drugs you are taking, check with your doctor, nurse or pharmacist. Copyright 3680-7977 Christopher Roll20. Version: 13.03. Revision Date: 02/06/2019. Emergency Awareness [...] Assistance with quitting is available by contacting 7-993-MSYFNealyWearNOW. This is a free resource providing counseling, [...] ) Urine Bilirubin Dipstick: Negative Urine Specific [place]: 1.025 -- Normal range between ( 1.005 [...] was given the opportunity to ask questions. Patient/Vocational Rehabilitation Counselor Name: Patient/Vocational Rehabilitation Counselor Signature: Relationship to Patient: Clinician/Hospital Vocational Rehabilitation Counselor Signature: Date: documented in this encounter Plan of Treatment Not on file documented as of this encounter Visit Diagnoses Not on filedocumented in this encounter Care Teams Space Studies Faculty Member Relationship Specialty Start Date End Date Kostas Campa MD [address] [place] [facility] [address] [place] [id number] PCP - General Family Medicine 04/03/24 06/25/24 Kostas Campa MD [address] [facility] [address] [place] [address] PCP - General Family Medicine 06/26/24 documented as of this encounter
--- OUTSIDE RECORDS SUMMARY | 2025-04-13 06:19 | XMS_ITS | Encounter Summary ---
Author Organization [employer] ([place], [place], [place], [place], [place]) Address [address] [place] [address] Care Team Providers Care Pleat Taper Name Role Phone Kostas Campa MD Primary Care Provider + [phone] Kostas Campa MD Primary Care Provider + [phone] Encounter Details Date Type Department Care Team (Late st Contact Info) Description 01/02/2022 Transcribed Document [facility] [place] [address] [place] [address] ProviderLance MD [address] [place] [address] Social History Tobacco Use Types Packs/Day Years Used Date Smoking Tobacco: Never Assessed Sex and Gender Information Value Date Recorded Sex Assigned at Not on file Legal Sex Male 6:57 PM CDT Gender Identity Not on file Sexual Orientation Not on file documented as of this encounter Miscellaneous Notes * Cerner Conversion Note - Lance ProviderMD - 01/02/2022 10:43 AM CDT [facility] [place] [address] BAYLEE LING :1950 Visit Time:01/02/2022 What to do next Your Diagnosis Other spondylosis with myelopathy, lumbar region, Other spondylosis with myelopathy, lumbar region Instructions From Your Care Team Diet after Discharge: Resume usual diet as tolerated, Do not drink any alcoholic beverages, Drink at least 8-10 glasses of water per day if allowed Activity after Discharge: Rest and relax today. No overhead work. walk 2-3 times/day . you may climb stairs. Lifting Restrictions: No heavy lifting over 10 pounds Driving after Discharge: Do not drive until 24 hours after no longer taking pain medications May Return to Work/School: When Ok'd by the Doctor Showering/Bathing: see separate sheet for instructions Notify Provider of: Excessive bleeding, pain, swelling, loss of sensation (numbness/tingling), or signs of infection (fever, redness/swelling and pus-like drainage) Wound/Incision Care after: Keep incision clean and dry. Leave steri-strips, sutures, and/or david in place if present. NO lotions, powders, ointments to incision site. Medical Equipment for Home Use: ice pack for 10 min every hour as needed for 2 days Pain medication: take with food and use stool softener 2-3 times/day while on pain medicine. Do not exceed 4000 mg of Tylenol (acetaminophen) per day See separate sheet for additional discharge instructions Follow-Up Appointments Follow Up with [facility] When 01/20/2022 03:00 PM EDT Where: [address] [place] [address] [place] [address]- Business (1) Medications What How Much When Instructions Next Dose acetaminophen-hydrocodone (Aurora 10 mg-325 mg oral tablet) 1/2 Tab Oral Two Times A Day weaning off completely before surgery aspirin (aspirin 81 mg oral delayed release tablet) 1 Tablet(s) Oral Every Day celecoxib 200 Milligram(s) Oral Every Day clonazePAM (clonazePAM 1 mg oral tablet) 1 Tablet(s) Oral At Bedtime cyclobenzaprine (cyclobenzaprine 10 mg oral tablet) 1 Tablet(s) Oral Every Day as needed for as needed for spasm losartan (losartan 100 mg oral tablet) 1 Tablet(s) Oral Every Day omeprazole (omeprazole 40 mg oral delayed release capsule) 1 Capsule(s) Oral Two Times A Day pregabalin (Lyrica 150 mg oral capsule) 1 Capsule(s) Oral Two Times A Day sildenafil (sildenafil 20 mg oral tablet) 1 Tablet(s) Oral As needed for for ED Take your medications faithfully. Do NOT skip [...] and medications per pharmacy guidance. Education Materials Neurosurgery Intrathecal Pump Implantation Spinal Cord Stimulator [...] off please call your pain management physician. Outpatient Surgery, Adult, Care After This sheet [...] children on your own. Medicines ??? Take yqxb-svv-nsaqylj and prescription medicines only as told by [...] keep your urine pale yellow. ? Take qhen-tba-zkjvqus or prescription medicines. ? Eat foods that [...] added (diluted fruit juice). ? Eat bland, abee-hc-ambedu foods in small amounts as you are [...] and water are not available, use hand architectural practice manager. ? Change your dressing as told by [...] drink clear fluids slowly and eat bland, vbxe-dk-pvyjdf foods in small amounts. ??? Ask your health care provider what activities are safe for you. This information is not intended to replace advice given to you by your health care provider. Make sure you discuss any questions you have with your health care provider. Document Revised: 08/09/2020 Document Reviewed: 02/01/2020 ElseWemoLab Patient Education ?? 2021 Mob[employer]am. Emergency Awareness and Preventative Care STROKE is [...] Assistance with quitting is available by contacting 2-828-DZJR-NOW. This is a free resource providing counseling, [...] This Visit (last charted value for your 01/02/2022 visit) Hematology 12/26/2021 10:43 AM WBC: 5.1 K/uL -- Normal range between ( 3.6 and 9.5 ) RBC: 4.79 Million/uL -- Normal range between ( 4.20 and 5.70 ) Hct: 44.1 % -- Normal range between ( 40.1 and 51.0 ) Hgb: 15.1 g/dL -- Normal range between ( 13.5 and 17.3 ) Platelet Count: 142 K/uL -- Normal range between ( 163 and 369 ) MCH: 31.5 pg -- Normal range between ( 25.6 and 32.2 ) MCHC: 34.2 Gram/dL -- Normal range between ( 32.2 and 36.5 ) MCV: 92.1 fL -- Normal range between ( 79.0 and 94.8 ) Slide Review: No RDW: 12.7 % -- Normal range between ( 11.7 and 14.9 ) MPV: 9.4 fL -- Normal range between ( 9.4 and 12.4 ) Urinalysis 12/26/2021 10:59 AM Ur RBC: NONE /HPF Urine Nitrite: Negative Urine Leukocyte Esterase: Negative Urine Appearance: Clear Urine Glucose Dipstick: Normal Urine Blood Dipstick: Negative Urine Type: U CleanCatch Urine Urobilinogen Dipstick: Normal EU/dL Urine Protein Dipstick: Negative Ur Bacteria: NONE Ur Squamous Epithelial Cells: NONE /HPF Urine Color: Yellow Ur WBC: 0-2 /HPF Urine Ketones Dipstick: Negative Ur Mucous: 1+ Urine pH Dipstick: 5.5 -- Normal range between ( 6.0 and 8.0 ) Urine Bilirubin Dipstick: Negative Urine Specific [place]: 1.022 -- Normal range between ( 1.005 and 1.030 ) General Chemistry 12/26/2021 10:43 AM Creatinine Level: 1.00 mg/dL -- Normal range between ( 0.70 and 1.30 ) Sodium Level: 137 mmol/L -- Normal range between ( 136 and 146 ) Potassium Level: 3.9 mmol/L -- Normal range between ( 3.5 and 5.1 ) Chloride Level: 106 mmol/L -- Normal range between ( 102 and 112 ) Carbon Dioxide Level: 28 mmol/L -- Normal range between ( 21 and 32 ) Anion Gap: 7 -- Normal range between ( 9 and 20 ) Bun/Creatinine: 14.5 -- Normal range between ( 8.0 and 20.0 ) Calcium Level: 8.8 mg/dL -- Normal range between ( 8.4 and 10.1 ) eGFR : >60 mL/min/1.73m2 eGFR NonAfrican: >60 mL/min/1.73m2 Glucose Level: 130 mg/dL -- Normal range between ( 74 and 106 ) Blood Urea Nitrogen: 16 mg/dL -- Normal range between ( 7 and 22 ) Patient Name:BAYLEE LING I have received this information and was given the opportunity to ask questions. Patient/Jacquard Card Lacer Name: Patient/Jacquard Card Lacer Signature: Relationship to Patient: Clinician/Hospital Jacquard Card Lacer Signature: Date: Electronically signed by Juanis, [facility] Conversion Fiberglass Finisher Cerner at 08/13/2022 6:31 PM CDT documented in this encounter Plan of Treatment Not on file documented as of this encounter Visit Diagnoses Not on filedocumented in this encounter Care Teams Pleat Taper Relationship Specialty Start Date End Date Kostas Campa MD [address] [place] [facility] [address] [place] [id number] PCP - General Family Medicine 04/03/24 06/25/24 Kostas Campa MD [address] [facility] [address] [place] [address] PCP - General Family Medicine 06/26/24 documented as of this encounter
--- OUTSIDE RECORDS SUMMARY | 2025-04-13 06:19 | XMS_ITS | Encounter Summary ---
Author Organization [employer] ([place], [place], [place], [place], [place]) Address [address] [place] [address] Care Team Providers Care Industrial Organization Manager Name Role Phone Kostas Campa MD Primary Care Provider + [phone] Kostas Campa MD Primary Care Provider + [phone] Encounter Details Date Type Department Care Team (Late st Contact Info) Description 08/13/2020 Transcribed Document [facility] [place] [facility] [place] [address] ProviderLance MD [address] [place] [id number] Social History Tobacco Use Types Packs/Day Years Used Date Smoking Tobacco: Never Assessed Sex and Gender Information Value Date Recorded Sex Assigned at Not on file Legal Sex Male 6:57 PM CDT Gender Identity Not on file Sexual Orientation Not on file documented as of this encounter Miscellaneous Notes * Cerner Conversion Note - Lance ProviderMD - 08/13/2020 5:00 PM CDT [facility] Main OR Preop Summary Primary Physician: CHRIS BOWERS MD Finalized Date/Time: 08/13/20 16:13:54 Pt. Name: BAYLEE LING D.O.B./Sex: 1950 Male Med Rec #: [id number] Physician: CHRIS BOWERS MD Financial #: [id number] Pt. Type: O Room/Bed: /1 Admit/Disch: 08/13/20 10:43:00 - Institution: [facility] PreOp Case Times Entry 1 In Preop 08/13/20 11:44:00 Ready for Holding n/a Room Patient Ready for 08/13/20 12:10:00 Surgery Patient Out of Preop 08/13/20 15:36:00 Patient Out of n/a Holding Room Last Modified By: RAMIRO GARCIA RN 08/13/20 16:13:50 [facility] PreOp Case Times Audit 08/13/20 16:13:50 Roll Over Press Operator: [id number] Modifier: [email or web address] <+> 1 Patient Out of Preop Finalized By: RAMIRO GARCIA, RN Document Signatures Signed By: RAMIRO GARCIA RN 08/13/20 16:13 Electronically signed by Juanis [facility] Conversion Outbound Sales Advisor Cerner at 08/13/2022 6:41 PM CDT documented in this encounter Plan of Treatment Not on file documented as of this encounter Visit Diagnoses Not on filedocumented in this encounter Care Teams Industrial Organization Manager Relationship Specialty Start Date End Date Kostas Campa MD [address] [facility] [address] [place] [id number] PCP - General Family Medicine 04/03/24 06/25/24 Kostas Campa MD [address] [facility] [address] [place] [id number] PCP - General Family Medicine 06/26/24 documented as of this encounter
--- OUTSIDE RECORDS SUMMARY | 2025-04-13 06:19 | XMS_ITS | Encounter Summary ---
Author Organization [employer] ([place], [place], [place], [place], [place]) Address [address] [place] [address] Care Team Providers Care Automatic Grinding Machine Operator Name Role Phone Kostas Campa MD Primary Care Provider + [phone] Kostas Campa MD Primary Care Provider + [phone] Encounter Details Date Type Department Care Team (Late st Contact Info) Description 06/10/2019 Transcribed Document [facility] [place] Family Medicine [address] [place] [address] ProviderLance MD [address] [place] [id number] Social History Tobacco Use Types Packs/Day Years Used Date Smoking Tobacco: Never Assessed Sex and Gender Information Value Date Recorded Sex Assigned at Not on file Legal Sex Male 6:57 PM CDT Gender Identity Not on file Sexual Orientation Not on file documented as of this encounter Miscellaneous Notes * Cerner Conversion Note - Lance ProviderMD - 06/10/2019 9:47 AM ENTRY EXAMINER Patient: BAYLEE LING Age: 68 Years Sex: Male : 1950 FOLLOWUP DATE OF SERVICE: 06/06/2019 CHIEF COMPLAINT: Low back pain, bilateral knee pain, foot pain. HISTORY OF PRESENT ILLNESS: The patient is a 68-year-old male who returns to the clinic today with a long-standing history of low back pain which radiates into the patient's right hip and right leg. The patient states that his pain has been severe over the last five days. He has had a previous history of a Medtronics spinal cord stimulator implant with revision to a Nevro spinal cord stimulator system. He states that he has not had any trauma over the last five days that would result into the severe right hip and leg pain that he is currently experiencing. He describes his pain level today as 7/10 on the numerical pain scale rating. He does get good pain relief with the use of Percocet 7.5/325 mg three times daily dosing along with MS Contin Extended Release 15 mg twice daily dosing, Flexeril 10 mg one at bedtime, Lyrica 150 mg twice daily dosing. He states that Percocet and MS Contin are currently providing 75% pain relief for a duration of two hours, per his report. Nursing intake is reviewed and on today's visit this individual has a BP 149/56, heart rate 76, respiratory rate 18, O2 SATs 95% on room air, height 5'6 , weight 230 lb. HISTORY: Allergies: This individual reports none. SOCIAL HISTORY: Marital status: . Current work status: He does not list occupation at this time. Current tobacco use: Denies. Illicit drug use: Denies. Alcohol use: Typically three drinks a week. Caffeine use: Uses daily. Past Medical History: Osteoarthritis. Colon cancer. Heartburn. Hypertension. Obstructive sleep apnea. Prostate disease. Prostate enlargement. Past Surgical History: Myringotomy. Hemicolectomy. Right total knee replacement surgery. Right arthroscopic knee surgery. Prostate surgery. Sinus surgery. Spinal surgery of the lumbar spine. Vasectomy. Spinal cord stimulator trial with subsequent implant (Medtronic system), with explant Medtronic system with replacement of Nevro spinal cord stimulator implant. Past Family History: Cancer. Lung disease. Type 2 diabetes. Heart disease. Acid-reflux disease. REVIEW OF SYSTEMS: The patient's ten system Review of Systems was reviewed and at today's visit this individual has complaints of the following: General: Fatigue. Respiratory: Negative. Neurological: Numbness/tingling. Gastrointestinal: Negative. Musculoskeletal: Joint pain/stiffness, back pain. Cardiovascular: Leg pain with walking. Psychiatric: Negative. HEENT: Negative. Endocrine: Negative. Hematology: Negative. Skin: Negative. Genitourinary: Negative. PHYSICAL EXAMINATION: Constitutional: Conversant and well-nourished. Vital signs reviewed today. Integumentary: Deferred. HEENT: Deferred. Neck: Deferred. Chest and Lung: Deferred. Cardiovascular: Deferred. Abdomen: Deferred. Peripheral Vascular: Deferred. Neurologic: The patient does present with a positive straight leg raise sign on the right and negative on the left. Deep tendon reflexes were absent of the bilateral patellar tendons but it is noted that he did have a total knee replacement on the right side. Psychiatric: The patient is alert and oriented to self, time and place today. The patient has a normal mood and affect at today's visit and there is moderate depression on the depression questionnaire that was completed today. Musculoskeletal: The patient does present with bilateral lower lumbar facet loading pain with maneuvers with the right side being worse than the left side. Muscle strength of the bilateral lower extremities was a 4/5 of the right lower extremity and 5/5 of the left lower extremity with flexion and extension abduction and adduction. ASSESSMENT: 1. Chronic pain syndrome. 2. Lumbar degenerative disc disease. 3. 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 4. Lumbar radiculitis involving the right lower extremity, status post spinal cord stimulator implantation (Nevro system). 5. Lumbar spondylosis. CURRENT PLAN: This individual is going to undergo an increase in his Lyrica to 250 mg three times daily dosing. This individual had requested a surgical consultation as soon as possible. I am going to see if I can get him in the see Dr. Willian Warner for a surgical consultation of the lumbar spine. I am going to schedule this individual for a CT myelogram of the lumbar spine as well as BUN and creatinine levels. The patient medicines other than the Lyrica will not be changed. We will see the patient back in the clinic in two months for a followup appointment. ELIZ Davidson/baron Electronically signed by [facility] Conversion Precision Farming Coordinator Cerner at 08/13/2022 6:16 PM CDT documented in this encounter Plan of Treatment Not on file documented as of this encounter Visit Diagnoses Not on filedocumented in this encounter Care Teams Automatic Grinding Machine Operator Relationship Specialty Start Date End Date Kostas Campa MD [address] [facility] [address] [place] [id number] PCP - General Family Medicine 04/03/24 06/25/24 Kostas Campa MD [address] [place] [address] PCP - General Family Medicine 06/26/24 documented as of this encounter
--- OUTSIDE RECORDS SUMMARY | 2025-04-13 06:19 | XMS_ITS | Encounter Summary ---
Author Organization [employer] ([place], [place], [place], [place], [place]) Address [address] [place] [address] Care Team Providers Care Maturity Checker Name Role Phone Kostas Campa MD Primary Care Provider + [phone] Kostas Campa MD Primary Care Provider + [phone] Encounter Details Date Type Department Care Team (Late st Contact Info) Description 08/14/2019 Transcribed Document [facility] [place] [address] [place] [address] ProviderLance MD [address] [place] [address] [id number] Social History Tobacco Use Types Packs/Day Years Used Date Smoking Tobacco: Never Assessed Sex and Gender Information Value Date Recorded Sex Assigned at Not on file Legal Sex Male 6:57 PM CDT Gender Identity Not on file Sexual Orientation Not on file documented as of this encounter Miscellaneous Notes * Cerner Conversion Note - Lance ProviderMD - 08/14/2019 9:16 AM CDT Patient: BAYLEE LING Age: 69 Years Sex: Male : 1950 FOLLOWUP DATE OF SERVICE: 08/02/2019 CHIEF COMPLAINT: Lower back and leg pain. HISTORY OF PRESENT ILLNESS: The patient is a 69-year-old male who returns to the clinic for followup on his low back pain that goes to his knees and feet. He states the Lyrica increased to three times a day makes him too shaky and even though it helps his legs, he cannot tolerate it and he wants to go back to two a day. He does have an appointment with a neurosurgeon, Dr. Warner in August 2019. He had a CT myelogram ordered at his last visit. He rates his pain as 6/10 on the pain scale. Quality is aching, burning numbness/tingling, dull and sharp. He gets 35% relief with his current medication. Fall risk information sheet provided. He is wondering if his medication could be adjusted somewhat until he sees the surgeon. HISTORY: Allergies: Not listed. SOCIAL HISTORY: Marital status: . Current work status: Not [...] of the back. Vasectomy. Spinal cord stimulator implantation. Past Family History: Lung cancer. Diabetes. Heart disease. Acid-reflux. REVIEW OF SYSTEMS: The patient's ten system Review of Systems was reviewed. General: Fatigue. Respiratory: Negative. Neurological: Numbness/tingling. Gastrointestinal: Negative. Musculoskeletal: Joint pain/stiffness, back pain. Cardiovascular: Leg pain with walking. Psychiatric: Negative. HEENT: Negative. Endocrine: Negative. Hematology: Negative. Skin: Negative. Genitourinary: Negative. VITAL SIGNS: Vital signs are reviewed. BP 146/88, heart rate 77, respiratory rate 16, O2 SATs 95%, height not recorded, weight not recorded. PHYSICAL EXAMINATION: Constitutional: Freely conversant and in no acute distress. Integumentary: Deferred. HEENT: Deferred. Neck: Deferred. Chest and Lung: Deferred. Cardiovascular: Deferred. Abdomen: Deferred. Peripheral Vascular: Deferred Neurologic: Deferred. Neuropsychiatric: Alert and oriented x3. He scored a 12 on his depression questionnaire. He has suicidal ideation but no plan to harm himself. Musculoskeletal: His gait is antalgic. He uses a cane. MEDICAL DECISION MAKING: ISHAAN is reviewed and is appropriate. Patient???s medications are reviewed. See list in patient???s file. PROCEDURE/TEST ORDERED: Not present. ASSESSMENT: Stable. 1. Chronic pain syndrome. 2. Lumbar degenerative disc disease. 3. 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 4. Lumbar radiculitis to the right lower extremity, status post spinal cord stimulator implantation ([employer] system). 5. Lumbar spondylosis. CURRENT PLAN: I am going to decrease Mr. Ling's Lyrica down to 150 mg q.12h. I am going to continue his Flexeril 10 mg q.h.s., MS Contin Extended Release 15 mg q.12h, Klonopin 1 mg q.h.s. After reviewing his MRI I am going to increase his Percocet from 7.5 to 10 mg q.8h. He denies any side-effects. He also has had a spinal cord stimulator reprogramming by [employer] today. He used to have a [employer] system and now it is [employer]. I reviewed his CT myelogram with him. This was done on 06/22/2019. It did show L2-L3 posterior facet hypertrophy creating mass effect posteriorly on the thecal sac with broad-based disc bulge. Moderate central spinal canal stenosis is identified. Thickening of the posterior ligamentum flavum, bilateral nerve root contact cannot be excluded. L3-L4 posterior facet and thickening of the posterior ligamentum flavum. Moderate central spinal canal stenosis is identified. Nerve root contact and compromise cannot be excluded bilaterally. L4-L5 large right paracentral disc protrusion creating mass effect on the rightward aspect of the thecal sac and compromise of the right nerve root. Moderate central canal stenosis with severe narrowing of the right neural foramen. He is in agreement with the above plan. We will see him back in followup in two months. Lena Bai M.D. SIMON/baron Electronically signed by Juan[facility] Conversion Package Center Supervisor Cerner at 08/13/2022 6:16 PM CDT documented in this encounter Plan of Treatment Not on file documented as of this encounter Visit Diagnoses Not on filedocumented in this encounter Care Teams Maturity Checker Relationship Specialty Start Date End Date Kostas Campa MD [address] [place] [facility] [address] [place] [id number] PCP - General Family Medicine 04/03/24 06/25/24 Kostas Campa MD [address] [place] [facility] [address] [place] [id number] PCP - General Family Medicine 06/26/24 documented as of this encounter
--- OUTSIDE RECORDS SUMMARY | 2025-04-13 06:19 | XMS_ITS | Encounter Summary ---
Author Organization [employer] ([place], [place], [place], [place], [place]) Address [address] [place] [address] Care Team Providers Care Behavioral Health Worker Name Role Phone Kostas Campa MD Primary Care Provider + [phone] Kostas Campa MD Primary Care Provider + [phone] Encounter Details Date Type Department Care Team (Late st Contact Info) Description 09/26/2019 Transcribed Document [facility] [place] [address] [place] [address] ProviderLance MD [address] [place], [place] [address] Social History Tobacco Use Types Packs/Day Years Used Date Smoking Tobacco: Never Assessed Sex and Gender Information Value Date Recorded Sex Assigned at Not on file Legal Sex Male 6:57 PM CDT Gender Identity Not on file Sexual Orientation Not on file documented as of this encounter Miscellaneous Notes * Cerner Conversion Note - Lance ProviderMD - 09/26/2019 9:43 AM CDT PAT Adult Entered On: 09/26/2019 9:44 EDT Performed On: 09/26/2019 9:43 EDT by BRANDON NEWBY RN Vital Measurements Temperature Source : Temporal artery scanning Temperature Mode : Fahrenheit Temperature, Fahrenheit : 99 Deg F Clinical Temperature, C : 37.2 Deg C Pulse Method : Pulse Oximetry Peripheral Pulse Rate : 71 bpm Respiratory Rate : 20 Breaths/Min Blood Pressure Location : Arm, left upper Blood Pressure Source : Non-Invasive BP Device Blood Pressure Position : Sitting Systolic Blood Pressure : 122 mmHg Diastolic Blood Pressure : 61 mmHg Oxygen Saturation : 100 % Oxygen Therapy Mode : Room air BRANDON NEWBY RN - 09/26/2019 9:46 EDT Height and Weight, Clinical Dosing Height Source : Measured Height Entry Format : [facility] Height, Feet : 0 ft(Converted to: 0 cm, 0 Inch) Height, Inches : 68.5 Inch(Converted to: 5 ft 8 Inch, 173.99 cm) Clinical Height : 173.99 cm Weight Source : Standing scale Weight Entry Format : [place] Clinical Dosing Weight : 106.82 kg Weight, Pounds : 235 lb Body Surface Area (BSA) : 2.2 m2 Body Mass Index : 35.3 kg/m2 (HI) [place] Body Weight : 69 kg BRANDON NEWBY RN - 09/26/2019 9:43 EDT Health Histories Smoking Status : Never (less than 100 in lifetime; none in last 30 days) Smokeless Tobacco Status : Never BRANDON NEWBY RN - 09/26/2019 9:43 EDT Social History (As Of: 09/26/2019 09:44:56 EDT) Tobacco: Never (less than 100 in lifetime) Smoking Status. Never Smokeless Tobacco Status. None Smokeless Tobacco Use History. (Last Updated: 09/26/2019 09:44:28 EDT by BRANDON NEWBY RN) Alcohol: Alcohol Use History Yes. Days/Week: 2. Date/Time of Last Drink: 2-3 drinks/week. Use in Last 12 Months: Yes. (Last Updated: 09/26/2019 09:44:52 EDT by BRANDON NEWBY RN) Infectious Disease History Has the patient ever been tested for COVID-19? : No, Screening today for COVID-19 COVID19 Screening : No Experiencing Infectious Disease Symptoms : No symptoms Physical contact outside [place] in the last 30 days : No Infectious Disease Symptoms Score : 0 Infectious Disease History : None Tuberculosis Symptoms : None BRANDON NEWBY RN - 09/26/2019 9:46 EDT COVID19 PreProcedure Screening Is this an Emergent or Add on Procedure? : No BRANDON NEWBY RN - 09/26/2019 9:46 EDT Anesthesia/Transfusion History Family History of Anesthesia Reaction : None BRANDON NEWBY RN - 09/26/2019 9:46 EDT Family History of Anesthesia Reaction : No prior transfusion(s) Blood Transfusion Acceptable to Patient : Yes Transfusion History : Prior anesthesia without reaction BRANDON NEWBY RN - 09/26/2019 9:43 EDT Advance Directive Patient has Advance Directive *Q : No, patient refuses Advance Directive information BRANDON NEWBY RN - 09/26/2019 9:46 EDT Spiritual/Cultural Needs Any Spiritual/Cultural Needs or Requests : No BRANDON NEWBY RN - 09/26/2019 9:46 EDT [place] Suicide Severity Rating Scale (C-SSRS) CSSRS Past Month Wish to be : No CSSRS Past Month Suicidal Thoughts : No CSSRS Lifetime Suicide Behavior : No Suicide Severity Rating Score : 0 Suicide Severity Rating : No Additional Care Required at this time BRANDON NEWBY RN - 09/26/2019 9:46 EDT Psychosocial History Do You Have a History of the Following? : Patient denies history Currently in Unsafe Situation : No BRANDON NEWBY RN - 09/26/2019 9:46 EDT Teaching/Learning Assessment Barriers To Learning : None evident Individuals Taught : Patient Readiness to Learn : Cooperative BRANDON NEWBY RN - 09/26/2019 9:46 EDT Education Topics, Periop Preadmission Perioperative Education Grid Arrival Time/Place : Verbalizes understanding CHG Preoperative Bathing/Cloths : Verbalizes understanding Infection Control : Verbalizes understanding IV's : Verbalizes understanding NPO Status/Directions : Verbalizes understanding Preprocedure Preparations : Verbalizes understanding Preprocedure Tests/Labs : Verbalizes understanding Remove Body Piercings : Verbalizes understanding Responsible Adult : Verbalizes understanding Take/Hold Medications Pre-Procedure : Verbalizes understanding Other : Verbalizes understanding (Comment: Bactroban [BRANDON NEWBY RN - 09/26/2019 9:46 EDT] ) General Info Support Person/Patient Chart Changer : Yes Support Person/Pt Rep Name : Neil Support Person/Pt Rep Contact Information : Want Family/Rep/Phys Notified of Admit : No Emergency Contact #1 : Neil Villanueva Emergency Contact #1 Emergency Contact #1 Relationship : Emergency Contact #2 : n Emergency Contact #2 Phone Number : n Emergency Contact #2 Relationship : n Information Obtained From : Patient Primary Language : [place] Islander Preferred Communication Mode : Verbal Communication Barrier : None Objects to Sharing Info w Family : No BRANDON NEWBY RN - 09/26/2019 9:46 EDT Lance Scale Lance Sensory Perception : Very limited Lance Moisture : Moist Lance Activity : Walks occasionally Lance Mobility : Very limited Lance Nutrition : Excellent Lance Friction and Shear : No apparent problem Lance Score : 16 BRANDON NEWBY RN - 09/26/2019 9:46 EDT Sleep Apnea Risk Assmt BiPAP/CPAP Ordered for Home Use : Yes Hx of Obstructive Sleep Apnea Diagnosis : Yes BiPAP/CPAP Used at Home : Yes Age over 50 Years Old : Yes Gender Male : Yes BRANDON NEWBY RN - 09/26/2019 9:43 EDT Electronically signed by [facility] Conversion Spanner Operator Cerner at 08/13/2022 6:28 PM CDT documented in this encounter Plan of Treatment Not on file documented as of this encounter Visit Diagnoses Not on filedocumented in this encounter Care Teams Behavioral Health Worker Relationship Specialty Start Date End Date Kostas Campa MD [address] [facility] [address] [place] [phone] PCP - General Family Medicine 04/03/24 06/25/24 Kostas Campa MD [address] [facility] [address] [place] [phone] PCP - General Family Medicine 06/26/24 documented as of this encounter
--- OUTSIDE RECORDS SUMMARY | 2025-04-13 06:19 | XMS_ITS | Encounter Summary ---
Author Organization [employer] ([place], [place], [place], [place], [place]) Address [address] [place] [address] Care Team Providers Care Edge Bander Hand Name Role Phone Kostas Campa MD Primary Care Provider + [phone] Kostas Campa MD Primary Care Provider + [phone] Encounter Details Date Type Department Care Team (Late st Contact Info) Description 01/02/2022 Transcribed Document [facility] [place] Family [place] [facility] [place] [address] ProviderLance MD [address] [place] [id number] Social History Tobacco Use Types Packs/Day Years Used Date Smoking Tobacco: Never Assessed Sex and Gender Information Value Date Recorded Sex Assigned at Not on file Legal Sex Male 6:57 PM CDT Gender Identity Not on file Sexual Orientation Not on file documented as of this encounter Miscellaneous Notes * Cerner Conversion Note - Lance ProviderMD - 01/02/2022 8:43 AM CDT [facility] Main OR IntraOp Summary Primary Physician: BETHANY HOUSE MD-SNU Finalized Date/Time: 01/05/22 13:01:03 Pt. Name: ANURADHABAYLEEO.B./Sex: 1950 Male Med Rec #: [id number] Physician: BETHANY HOUSE MD-SNU Financial #: [id number] Pt. Type: O Room/Bed: /8 Admit/Disch: 01/02/22 06:47:00 - 01/02/22 11:34:00 Institution: [facility] IntraOp Case Attendance Entry 1 Entry 2 Entry 3 Case Attendee BETHANY HOUSE MD-SNU CORNEA, MD TESSA-KWESI MCMANUS PA Role Performed Surgeon/Proceduralist, Anesthesiologist of Physician ophthalmic medical assistant First Record Time In 01/02/22 08:07:00 01/02/22 08:07:00 01/02/22 08:07:00 Time Out 01/02/22 09:31:00 01/02/22 09:31:00 01/02/22 09:31:00 Procedure Intrathecal Pain Pump Intrathecal Pain Pump Intrathecal Pain Pump Insertion Insertion Insertion Other Attendee Superficial Wound Closed By: Last Modified By: Bethany Yung I, Bethany Cintron I, RN Bethany Yung RN 01/02/22 09:32:02 01/02/22 09:32:02 01/02/22 09:32:02 Entry 4 Entry 5 Entry 6 Case Attendee JOHANNE JAVED WASSON, SANDRA D, RN Bethany Yung I, RN RN-PATIENT CARE BEDSIDE NON-EXEMPT Role Performed Superintendent Warehouse, Third Superintendent Warehouse, Second Superintendent Warehouse, First Time In 01/02/22 08:07:00 01/02/22 08:07:00 01/02/22 08:07:00 Time Out 01/02/22 09:31:00 01/02/22 09:31:00 01/02/22 09:31:00 Procedure Intrathecal Pain Pump Intrathecal Pain Pump Intrathecal Pain Pump Insertion Insertion Insertion Other Attendee Superficial Wound Closed By: Last Modified By: Bethany Yung I, Bethany Cintron I, Bethany Cintron I, CAROL 01/02/22 09:32:02 01/02/22 09:32:02 01/02/22 09:32:02 Entry 7 Entry 8 Entry 9 Case Attendee JESSICA MOTA ST Gordon, Mark, MOTORS AND GENERATORS INSPECTOR OTHER, ATTENDEE #1 Role Performed Scrub, First MOTORS AND GENERATORS INSPECTOR/Nurse Clinical Psychologist Private Practice Vendor Time In 01/02/22 08:07:00 01/02/22 08:07:00 01/02/22 08:07:00 Time Out 01/02/22 09:31:00 01/02/22 09:31:00 01/02/22 09:31:00 Procedure Intrathecal Pain Pump Intrathecal Pain Pump Intrathecal Pain Pump Insertion Insertion Insertion Other Attendee Marino Esteban Superficial Wound Closed By: Last Modified By: Bethany Yung RN Kesten, Robert I, RN Kesten, Robert I, RN 01/02/22 09:32:02 01/02/22 09:32:02 01/02/22 09:32:02 Entry 10 Entry 11 Entry 12 Case Attendee ERNIE AVILA Fortner, Bryan, OTHER, ATTENDEE #2 [id number] Driller Brake Lining Role Performed Student Electronics Inspector Student Time In 01/02/22 08:07:00 01/02/22 08:07:00 01/02/22 08:07:00 Time Out 01/02/22 09:31:00 01/02/22 09:31:00 01/02/22 09:31:00 Procedure Intrathecal Pain Pump Intrathecal Pain Pump Intrathecal Pain Pump Insertion Insertion Insertion Other Attendee MOTORS AND GENERATORS INSPECTOR student Josette Arnold - second grade teacher student Superficial Wound Closed By: Last Modified By: Bethany Yung RN Kesten, Robert I, RN Kesten, Robert I, RN 01/02/22 09:32:02 01/02/22 09:32:02 01/02/22 09:32:02 Entry 13 Case Attendee ANGIE SHAIKH RN Role Performed Superintendent Warehouse, First Time In 01/02/22 09:10:00 Time Out 01/02/22 09:31:00 Procedure Intrathecal Pain Pump Insertion Other Attendee RN BREAK RELIEF Superficial Wound Closed By: Last Modified By: Bethany Yung RN 01/02/22 09:32:02 [facility] IntraOp Case Attendance Audit 01/02/22 09:32:02 District Operations Manager: [id number] Modifier: [id number] <+> Time Out 1 <*> Procedure Intrathecal Pain Pump Insertion 2 <+> Time Out 2 <*> Procedure Intrathecal Pain Pump Insertion 3 <+> Time Out 3 <*> Procedure Intrathecal Pain Pump Insertion 4 <+> Time Out 4 <*> Procedure Intrathecal Pain Pump Insertion 5 <+> Time Out 5 <*> Procedure Intrathecal Pain Pump Insertion 6 <+> Time Out 6 <*> Procedure Intrathecal Pain Pump Insertion 7 <+> Time Out 7 <*> Procedure Intrathecal Pain Pump Insertion 8 <+> Time Out 8 <*> Procedure Intrathecal Pain Pump Insertion 9 <+> Time Out 9 <*> Procedure Intrathecal Pain Pump Insertion 10 <+> Time Out 10 <*> Procedure Intrathecal Pain Pump Insertion 11 <+> Time Out 11 <*> Procedure Intrathecal Pain Pump Insertion 12 <+> Time Out 12 <*> Procedure Intrathecal Pain Pump Insertion 13 <+> Time Out 13 <*> Procedure Intrathecal Pain Pump Insertion 01/02/22 09:16:22 District Operations Manager: [id number] Modifier: [id number] <+> 13 Case Attendee <+> 13 Role Performed <+> 13 Time In <+> 13 Procedure <+> 13 Other Attendee 01/02/22 08:49:01 District Operations Manager: [id number] Modifier: [id number] <+> 1 Procedure 2 <*> Procedure Intrathecal Pain Pump Insertion 3 <*> Procedure Intrathecal Pain Pump Insertion 4 <*> Procedure Intrathecal Pain Pump Insertion 5 <*> Procedure Intrathecal Pain Pump Insertion 6 <*> Procedure Intrathecal Pain Pump Insertion 7 <*> Procedure Intrathecal Pain Pump Insertion 8 <*> Procedure Intrathecal Pain Pump Insertion 9 <*> Procedure Intrathecal Pain Pump Insertion 10 <+> Time In 10 <*> Procedure Intrathecal Pain Pump Insertion 11 <+> Time In 11 <*> Procedure Intrathecal Pain Pump Insertion 12 <+> Time In 12 <*> Procedure Intrathecal Pain Pump Insertion 01/02/22 08:37:17 District Operations Manager: [id number] Modifier: [id number] <*> Procedure Intrathecal Pain Pump Insertion 3 <*> Procedure Intrathecal Pain Pump Insertion 4 <*> Procedure Intrathecal Pain Pump Insertion 5 <*> Procedure Intrathecal Pain Pump Insertion 6 <*> Procedure Intrathecal Pain Pump Insertion 7 <*> Procedure Intrathecal Pain Pump Insertion 8 <*> Procedure Intrathecal Pain Pump Insertion 9 <+> Time In 9 <*> Procedure Intrathecal Pain Pump Insertion <+> 10 Case Attendee <+> 10 Role Performed <+> 10 Procedure <+> 10 Other Attendee <+> 11 Case Attendee <+> 11 Role Performed <+> 11 Procedure <+> 12 Case Attendee <+> 12 Role Performed <+> 12 Procedure <+> 12 Other Attendee 01/02/22 08:14:32 District Operations Manager: [id number] Modifier: [id number] <+> 1 Time In 2 <+> Time In 2 <*> Procedure Intrathecal Pain Pump Insertion 3 <+> Time In 3 <*> Procedure Intrathecal Pain Pump Insertion 4 <+> Time In 4 <*> Procedure Intrathecal Pain Pump Insertion 5 <+> Time In 5 <*> Procedure Intrathecal Pain Pump Insertion 6 <+> Time In 6 <*> Procedure Intrathecal Pain Pump Insertion 7 <+> Time In 7 <*> Procedure Intrathecal Pain Pump Insertion 8 <+> Time In 8 <*> Procedure Intrathecal Pain Pump Insertion <+> 9 Case Attendee <+> 9 Role Performed <+> 9 Procedure <+> 9 Other Attendee [facility] IntraOp Case Times Entry 1 Patient In Room Time 01/02/22 08:07:00 Out Room Time 01/02/22 09:31:00 Anesthesia Start Time 01/02/22 08:07:00 Stop Time 01/02/22 09:30:00 Surgery / Procedure Times Start Time 01/02/22 08:43:00 Stop Time 01/02/22 09:21:00 Last Modified By: Bethany Yung RN 01/02/22 09:31:35 [facility] IntraOp Case Times Audit 01/02/22 09:31:35 District Operations Manager: [id number] Modifier: [id number] <+> 1 Out Room Time <+> 1 Stop Time 01/02/22 09:21:13 District Operations Manager: [id number] Modifier: [id number] <+> 1 Stop Time 01/02/22 08:45:10 District Operations Manager: [id number] Modifier: [id number] <+> 1 Start Time [facility] IntraOp Cautery Entry 1 Entry 2 ESU Identification Cautery Type Monopolar ESU BiPolar ESU Cautery Type Comments ID Number [id number] ID Type Hospital Number Hospital Number Cautery Settings Cut Setting 45 8 Coag Setting 45 45 Blend Setting Bipolar Setting Argon Setting Argon Garcia ESU Grounding Pad Ground Pad Type Adult Grounding Pad Type Comment Grounding Pad Site Right thigh Grounding Pad Site WNL Comment Grounding Pad Bethany Yung RN Applied By Grounding Pad Site Warm, Dry, Intact Skin Condition Before Cautery Site Skin Condition Before Comment Grounding Pad Site Unchanged Skin Condition After Cautery Site Skin Condition After Comment Last Modified By: Bethany Yung RN Kesten, Robert I, RN 01/02/22 08:37:34 01/02/22 07:35:19 [facility] IntraOp Cautery Audit 01/02/22 08:37:34 District Operations Manager: [id number] Modifier: [id number] <+> 1 Grounding Pad Site <+> 1 Grounding Pad Applied By [facility] IntraOp Communication Entry 1 Communication To Family/Significant other Comment start Communication By Bethany Yung RN Date and Time 01/02/22 08:44:00 Last Modified By: Bethany Yung RN 01/02/22 08:45:07 [facility] IntraOp Counts Verification Entry 1 Procedure Intrathecal Pain Pump Insertion Count Info Count Type Sponge, Sharps, Miscellaneous Counts Verification Baseline/pre-procedure Sequence Count Results Not Applicable Counts Performed By Count Performed By JESSICA MOTA ST (Scrub) Count Performed By JOHANNE JAVED (RN) RN-PATIENT CARE BEDSIDE NON-EXEMPT Last Modified By: Bethany Yung RN 01/02/22 07:34:21 [facility] IntraOp Counts Final Entry 1 Procedure Intrathecal Pain Pump Insertion Final Count Info Count Type Sponge, Sharps, Miscellaneous Counts Verification Skin Closure/end of Sequence procedure Count Results Correct, surgeon notified Counts Performed By Count Performed By JESSICA MOTA ST (Scrub) Count Performed By ANGIE SHAIKH RN (RN) Last Modified By: Bethany Yung RN 01/02/22 09:21:10 [facility] IntraOp Counts Final Audit 01/02/22 09:21:10 District Operations Manager: [id number] Modifier: [id number] 1 <*> Procedure Intrathecal Pain Pump Insertion 1 <+> Count Performed By (RN) [facility] IntraOp Delays Entry 1 Delay Reason Surgeon late - no reason Duration 7 Minute(s) Last Modified By: Bethany Yung RN 01/02/22 08:13:31 [facility] IntraOp Departure from OR Entry 1 Integumentary Assessment Integumentary WDL Assessment WDL Transfer/Handoff Transfer to PACU Phase I Handoff Method Bedside/Face to face, Phone call, Online nursing summary Post-op Transport Stretcher/Gurney Via Patient Transport Aldair Obrien CRNA, Accompanied by ERNIE AVILA, [id number] Last Modified By: Bethany Yung RN 01/02/22 09:30:24 [facility] IntraOp Departure from OR Audit 01/02/22 09:30:24 District Operations Manager: [id number] Modifier: [id number] 1 <*> Patient Transport Accompanied by KWESI TRAN PA [facility] IntraOp Dressing and Packing Entry 1 Type Dressing Location Opsite Wound Dressing Item Occlusive dressing Applied By KWESI TRAN PA Other Comments NEOSPORIN OINTMENT, COVADERMS Last Modified By: Bethany Yung RN 01/02/22 09:26:54 [facility] IntraOp Fire Risk Assessment Entry 1 Fire Info Surgical Site or 0- No Incision Above the Xyphoid Open O2 Source 0- No (Mask or Cannula) Available Ignition 1- Yes (ESU, Laser, Light Source) Fire Risk 1 Assessment Score Fire Score Fire Risk Yes Assessment Complete Fire Risk Bethany Yung RN Assessment Verified By Fire Risk 01/02/22 08:43:00 Assessment Verified Date/Time Fire Risk Standard Fire Yes Safety Precautions Followed Last Modified By: Bethany Yung RN 01/02/22 08:45:19 [facility] IntraOp Fire Risk Assessment Audit 01/02/22 08:45:19 District Operations Manager: [id number] Modifier: [id number] <+> 1 Fire Risk Assessment Verified Date/Time [facility] IntraOp General Case Manufacturing [place] 1 Case Information OR OR 11 [facility] Case Level 1 Room Verified Yes Wound Class 1 - Clean Specialty Neurosurgery Anesthesia Type General ASA Class 3 Diagnosis Preop Diagnosis chronic pain syndrome Postop Same As Preop No Postop Diagnosis see MD postop notes Wound Class Definitions Last Modified By: Bethany Yung RN 01/02/22 08:46:35 [facility] IntraOp Implant Log Entry 1 Entry 2 Type Implant (Synthetic) Implant (Synthetic) Implant Log Implant Type Pump Catheter(s) Tissue Implant Type Implant PUMP INFUS SYNCHROMED CATH ASCENDA Identification II 20 [id number] INTRATHECAL [id number] Description Implant Quantity 1 1 Implant Site back back Implant Identification Model Number Implant [id number] Identification Serial Number Implant [id number] Identification Lot Number Implant Medtronic:Neuro:Neuro Medtronic:Neuro:Neuro Identification Surg Surg Production Supply Equipment Tender Name: Implant [id number] Identification Catalog Number Implant Size Implant Has an Yes Yes Expiration Date Implant Expiration 05/23/23 12/17/23 Date Wasted Radioactive Material Time Implanted Tissue Implant Continue for Tissue Implant Documentation Tissue Identification Number Graft Prep Per Production Supply Equipment Tender Instructions: Tissue Preparation Method: Reconstitution Solution: Reconstitution Solution Lot Number Reconstitution Solution Expiration Date: Thawing Solution Thawing Solution Lot Number Thawing Solution Expiration Date Preparation Materials, Other Preparation Materials, Other Lot Number Preparation Materials, Other Expiration Date Tissue Prepared/Processed By Production Supply Equipment Tender Paperwork Completed Implant Type Comment Last Modified By: Bethany Yung RN Kesten, Robert I, RN 01/02/22 09:08:56 01/02/22 09:08:56 [facility]Op Intraoperative Assessment Entry 1 Handoff Method Bedside/Face to face, Online nursing summary Valid History / Yes Physical in Chart Preoperative Yes Checklist Reviewed/Evaluated Allergies Reviewed Yes Patient is Latex No Sensitive Isolation Not applicable Precautions Noted Level of WDL Consciousness (WDL = Alert, Oriented to Person, Place, and Time) Skin Assessment No Verified Present Upon IVs Arrival to OR Last Modified By: Bethany Yung RN 01/02/22 09:21:50 [facility] IntraOp Intraoperative Assessment Audit 01/02/22 09:21:50 District Operations Manager: [id number] Modifier: [id number] <+> 1 Patient is Latex Sensitive 01/02/22 08:49:11 District Operations Manager: [id number] Modifier: [id number] <*> Skin Assessment Verified Yes 1 <*> Handoff Method Bedside/Face to face [facility] IntraOp Intraoperative Equipment Entry 1 Entry 2 Type Equipment Equipment Equipment Equipment Yosvany Suction System Smoke evacuator ID Number [id number] Setting Intraop Monitoring Electrocardiogram (ECG) Electrode Placement Blood Pressure Source Blood Pressure Location Pulse Oximeter Probe Site Antiembolic Devices Antiembolic Devices Sequential compression device, knee high Antiembolic Device Bilateral Location Antiembolic Device [id number] ID Number Antiembolic Device Setting Scopes Flexible Endoscopes Used Scope Serial Number/Identificatio n Number Photo/Video Documentation Photo Video Intraop Equipment Comment Last Modified By: Bethany Yung RN Kesten, Robert I, RN 01/02/22 08:47:20 01/02/22 08:47:20 [facility] IntraOp Medication Admin Entry 1 Medication/Irrigant Neosporin 15Gm ointment - [id number] Route of TOPICAL Administration Dose Dose 1 Unit of Measure pkt Administered By KWESI TRAN PA Procedure Irrigation Last Modified By: Bethany Yung RN 01/02/22 09:21:38 [facility] IntraOp Patient Positioning Entry 1 Procedure Intrathecal Pain Pump Insertion Body Position Lateral, right side up Left Arm Position Secured on padded arm board Right Arm Position Secured on padded arm board Left Leg Position Uncrossed, parallel Right Leg Position Uncrossed, parallel Feet Uncrossed Yes Pressure Points Yes Checked Positioning Devices Roll(s), Chest, Pillows, Safety Strap, Leg(s) Device Position Niels pillow, yellow arm positioners in place Positioned By Bethany Yung RN, BETHANY HOUSE MD-VASQUEZ, Aldair Obrien, LEE, KWESI TRAN PA Position Verified Positioning Yes Verified by Anesthesia Positioning Yes Verified by Surgeon Last Modified By: Bethany Yung RN 01/02/22 08:47:45 [facility] Intra[facility] Sign In Entry 1 Patient, Site, Yes Procedure Identified Surgical Consent Yes Confirmed Relevant Surgical Yes Documents Available Surgical Site Yes Marked by person performing procedure Anesthesia Machine Yes Check Completed Medication Checks Yes Completed Allergies Yes Airway Difficult No Airway/Aspiration Risk Difficult Yes Airway/Aspiration Intervention Equipment Available Blood Loss Risk No Blood Loss Yes Intervention Equipment Prepared and Ready Blood Identifiers Not applicable Verified Per Policy Hypothermia Risk No Warming Measures Yes Taken Last Modified By: Bethany Yung RN 01/02/22 08:47:56 [facility] Sign Out Entry 1 RN Confirmation Surgical Yes Procedure(s) Identified Instrument, Sponge Yes and Sharps Counts Correct/Documented Equipment Problems Yes Documented Specimen Labeled N/A Correctly Urinary Catheter N/A Documented in IView Wound Yes classification reviewed, verified and updated post case in both the General Case Data and Procedure segments Mustafa Patient Yes Recovery Concerns Reviewed with Anesthesia Provider, Surgeon and RN Mustafa Patient Yes Management Concerns Reviewed with Anesthesia Provider, Surgeon and RN Safety Checklist Yes Elements Complete? RN Sign Out Bethany Yung RN Signature RN Sign Out 01/02/22 09:31:00 Signature Date/Time Plan of Care Outcome - [...] related to extraneous objects Last Modified By: Bethany Yung RN 01/02/22 09:31:56 [facility] Sign Out Audit 01/02/22 09:31:56 District Operations Manager: [id number] Modifier: [id number] <+> 1 Urinary Catheter Documented in IView 01/02/22 09:31:44 District Operations Manager: [id number] Modifier: [id number] <+> 1 Wound classification reviewed, verified and updated post case in both the General Case Data and Procedure segments 01/02/22 09:31:40 District Operations Manager: [id number] Modifier: [id number] <+> 1 RN Sign Out Signature Date/Time [facility] Intra[facility] Skin Prep Entry 1 Procedure Intrathecal Pain Pump Insertion Prescribed Yes Pre-Surgical Prep Completed Prep Area Opsite Intraop Prep Integumentary WDL Assessment WDL Prep Agents Chloraprep Prep by JOHANNE JAVED RN-PATIENT CARE BEDSIDE NON-EXEMPT Hair Removal Methods Clipper/Scissors Hair Removal Site back Hair Removal By BETHANY HOUSE MD-SNU Last Modified By: Bethany Yung RN 01/02/22 08:48:20 [facility] Intra[facility] Surgical Procedures Entry 1 Procedure Intrathecal Pain Pump Insertion Additional (PLACEMENT OF MEDTRONIC Procedure INTRATHECAL PAIN PUMP) Description Primary Procedure Yes Primary Surgeon BETHANY HOUSE MD-SNU Start 01/02/22 08:43:00 Stop 01/02/22 09:21:00 Anesthesia Type General Specialty Neurosurgery Wound Class 1 - Clean Last Modified By: Bethany Yung RN 01/02/22 09:32:00 [facility] Surgical Procedures Audit 01/02/22 09:32:00 District Operations Manager: [id number] Modifier: [id number] <+> 1 Stop [facility] Temp Regulation Devices Entry 1 Temp Regulation Temperature Warm blankets Regulation Device Temperature Lower body, Upper body Regulation Site Temperature Bethany Yung I, RN Regulation Device Applied by Temperature temperature monitored Regulation Comment by lulu goldberg available Last Modified By: Bethany Yung RN 01/02/22 08:48:52 [facility] IntraOP Time Out Entry 1 Procedure to be Intrathecal Pain Pump Performed Insertion Time Out Time Out Pause Time 01/02/22 08:43:00 All activity Yes suspended (unless life threatening emergency) Team Verbally Correct patient Confirms Information identity, Correct side and site are marked, Consent form is present and accurate, Agreement [...] None expected Nursing Assures Sterility of instruments, Implant Availability Essential Imaging Yes Labeled and Displayed Last Modified By: Bethany Yung RN 01/02/22 08:45:36 [facility] IntraOP Time Out Audit 01/02/22 08:45:36 District Operations Manager: [id number] Modifier: [id number] 1 <+> Time Out Pause Time 1 <*> Procedure to be Performed Intrathecal Pain Pump Insertion [facility] X-Ray and Images Entry 1 X-Ray/Imaging Type Fluoroscopy Fluoroscopy Type C-Arm Site BACK Cut Off Man Name Jaylon Ontiveros, Driller Brake Lining Protective Devices Yes Used Last Modified By: Bethany Yung RN 01/02/22 08:38:18 Case Comments <None> Finalized By: KELI GARCIA Document Signatures Signed By: Bethany Yung RN 01/02/22 09:32 KELI GARCIA 01/05/22 13:01 Unfinalized History Date/Time Username Reason for Unfinalizing Freetext Reason for Unfinalizing 01/05/22 12:59 [email or web address] Correct Billing Electronically signed by Juanis [facility] Conversion Herbarium Curator Cerner at 08/13/2022 6:34 PM CDT documented in this encounter Plan of Treatment Not on file documented as of this encounter Visit Diagnoses Not on filedocumented in this encounter Care Teams Edge Bander Hand Relationship Specialty Start Date End Date Kostas Campa MD [address] [facility] [address] [place] [phone] PCP - General Family Medicine 04/03/24 06/25/24 Kostas Campa MD [address] [facility] [address] [place] [phone] PCP - General Family Medicine 06/26/24 documented as of this encounter
--- OUTSIDE RECORDS SUMMARY | 2025-04-13 06:19 | XMS_ITS | Encounter Summary ---
Author Organization [employer] ([place], [place], [place], [place], [place]) Address [address] [place] [address] Care Team Providers Care Seed Specialist Name Role Phone Kostas Campa MD Primary Care Provider + [phone] Kostas Campa MD Primary Care Provider + [phone] Encounter Details Date Type Department Care Team (Late st Contact Info) Description 01/02/2022 Transcribed Document [facility] [place] [facility] [place] [address] ProviderLance MD [address] [place] [address] [id number] Social History Tobacco Use Types Packs/Day Years Used Date Smoking Tobacco: Never Assessed Sex and Gender Information Value Date Recorded Sex Assigned at Not on file Legal Sex Male 6:57 PM CDT Gender Identity Not on file Sexual Orientation Not on file documented as of this encounter Miscellaneous Notes * Cerner Conversion Note - Lance ProviderMD - 01/02/2022 8:43 AM CDT [facility] Main OR PACU Summary Primary Physician: EBTHANY HOUSE MD-VASQUEZ Finalized Date/Time: 01/02/22 10:17:40 Pt. Name: ANURADHA BAYLEEMADY GutierrezO.B./Sex: 1950 Male Med Rec #: [id number] Physician: BETHANY HOUSE MD-VASQUEZ Financial #: [id number] Pt. Type: O Room/Bed: /8 Admit/Disch: 01/02/22 06:47:00 - Institution: [facility] Main OR PACU I Case Times Entry 1 In PACU I 01/02/22 09:33:00 Ready for PACU 01/02/22 09:55:00 Discharge Discharge from PACU 01/02/22 10:17:00 I Last Modified By: Isa Hook RN-PATIENT CARE BEDSIDE NON-EXEMPT 01/02/22 10:17:28 [facility] Main OR PACU Acuity Entry 1 Start Time 01/02/22 09:55:00 Stop Time 01/02/22 10:17:00 Acuity Level [facility] PACU Acuity I Last Modified By: Isa Hook RN-PATIENT CARE BEDSIDE NON-EXEMPT 01/02/22 10:17:38 Finalized By: Isa Hook RN-PATIENT CARE BEDSIDE NON-EXEMPT Document Signatures Signed By: Isa Hook RN-PATIENT CARE BEDSIDE NON-EXEMPT 01/02/22 10:17 Electronically signed by Juanis [facility] Conversion Top Frame Maker Cerner at 08/13/2022 6:30 PM CDT documented in this encounter Plan of Treatment Not on file documented as of this encounter Visit Diagnoses Not on filedocumented in this encounter Care Teams Seed Specialist Relationship Specialty Start Date End Date Kostas Campa MD [address] [place] [place] [place] [phone] PCP - General Family Medicine 04/03/24 06/25/24 Kostas Campa MD [address] [facility] [address] [place] [phone] PCP - General Family Medicine 06/26/24 documented as of this encounter
--- OUTSIDE RECORDS SUMMARY | 2025-04-13 06:19 | XMS_ITS | Encounter Summary ---
Author Organization [employer] ([place], [place], [place], [place], [place]) Address [address] [place] [address] Care Team Providers Care Control Operator Flow Coat Name Role Phone Kostas Campa MD Primary Care Provider + [phone] Kostas Campa MD Primary Care Provider + [phone] Encounter Details Date Type Department Care Team (Late st Contact Info) Description 04/25/2019 Transcribed Document [facility] Family Medicine [address] [place] [address] ProviderLance MD [address] [place] [id number] Social History Tobacco Use Types Packs/Day Years Used Date Smoking Tobacco: Never Assessed Sex and Gender Information Value Date Recorded Sex Assigned at Not on file Legal Sex Male 6:57 PM CDT Gender Identity Not on file Sexual Orientation Not on file documented as of this encounter Miscellaneous Notes * Cerner Conversion Note - Lance ProviderMD - 04/25/2019 4:06 PM PRODUCTION STAGE MANAGER Patient: BAYLEE LING Age: 68 Years Sex: Male : 1950 FOLLOWUP DATE OF SERVICE: 04/11/2019 CHIEF COMPLAINT: Chronic pain. HISTORY OF PRESENT ILLNESS: Mr. 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 He has a history of lumbar spondylosis, lumbar disc disease and lumbar radiculitis. We have had him under our care for a number of years. He is currently involved in a multimodal approach. We have done injective therapy and he has also had a dorsal column stimulator placed. Recently, he has had a switch-out to a different system, a high-frequency Nevro system. The patient states that he is still doing some reprogramming with this system but by and large he has been stable in that respect. He has otherwise been involved with medication management utilizing MS Contin 15 mg q.12, Hydrocodone 10 mg q.8, Lyrica 150 mg q.12, Klonopin 1 mg q.h.s. just for sleep. The patient reports an increased level of pain. He recently had, about three weeks ago a total knee arthroplasty on the right knee. He says during that time period he was actually written a prescription for Percocet and he said that actually worked better than the Hydrocodone. He is reporting he is getting ready to start physical therapy and was wanting to know if we could maintain the Percocet at this time instead of the Hydrocodone with maintaining the other medicines the same. He is also in contact with the Nev[employer] underwriting sales representative for reprogramming on the Nevro system. PAST MEDICAL HISTORY: Nurse's intake is reviewed with the patient and is consistent with what we have previously documented. Again, he had the right total knee arthroplasty done approximately three weeks ago. PHYSICAL EXAMINATION: Vital signs: Blood pressure is 142/83, heart rate is 78. Constitutional: The patient is conversant in no acute distress. Psychiatric: The patient demonstrates normal mood and affect with no signs of impairment. Musculoskeletal: The patient is noted to have a well-healed incision over the area of the right knee. Range of motion is somewhat limited with flexion but no erythema is noted significantly through the area of the right knee. It seems to be healing nicely. IMPRESSION: 1. 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 2. Lumbar disc disease. 3. Lumbar radiculitis status post dorsal column stimulator. 4. Right knee pain status post recent arthroplasty. DISCUSSION: Mr. Ling and I have discussed things at length. I am going to discontinue the Hydrocodone and put him on Percocet 7.5 q.8. This essentially keeps his overall Morphine equivalent the same. We will maintain the Extended Release Morphine the same. We will see him back in about an eight-week followup. Again, he will be in contact with the [facility] underwriting sales representative for reprogramming on the dorsal column stimulator. Currently though, Mr. Ling is clinically stable. He is going to submit for a urine drug screen today. He has been reporting about 75% relief with his medication to this point. Hamilton Petty II, M.D. JEANNIE/nu Electronically signed by [facility], [facility] Conversion Digital Asset Specialist Cerner at 08/13/2022 6:34 PM CDT documented in this encounter Plan of Treatment Not on file documented as of this encounter Visit Diagnoses Not on filedocumented in this encounter Care Teams Control Operator Flow Coat Relationship Specialty Start Date End Date Kostas Campa MD [address] [facility] [address] [place] [id number] PCP - General Family Medicine 04/03/24 06/25/24 Kostas Campa MD [address] [facility] [address] [place] [phone] PCP - General Family Medicine 06/26/24 documented as of this encounter
--- OUTSIDE RECORDS SUMMARY | 2025-04-13 06:19 | XMS_ITS | Encounter Summary ---
Author Organization [employer] ([place], [place], [place], [place], [place]) Address [address] [place] [address] Care Team Providers Care Sole Leveling Machine Operator Name Role Phone Kostas Campa MD Primary Care Provider + [phone] Kostas Campa MD Primary Care Provider + [phone] Encounter Details Date Type Department Care Team (Late st Contact Info) Description 08/13/2020 Transcribed Document [facility] Family Medicine [address] [place] [address] ProviderLance MD [address] [place] [address] [id number] Social History Tobacco Use Types Packs/Day Years Used Date Smoking Tobacco: Never Assessed Sex and Gender Information Value Date Recorded Sex Assigned at Not on file Legal Sex Male 6:57 PM CDT Gender Identity Not on file Sexual Orientation Not on file documented as of this encounter Miscellaneous Notes * Cerner Conversion Note - Lance Rosales MD - 08/13/2020 4:36 PM CDT Patient Education Materials Follows: Outpatient Surgery, Adult, Care After These instructions [...] and water are not available, use hand fabric designer. ? Change your dressing as told by [...] or a bad smell. Medicines ??? Take qabu-rhe-cncypde and prescription medicines only as told by [...] provider. Document Revised: 07/11/2018 Document Reviewed: 08/02/2016 [employer] Patient Education ? 2020 [employer] documented in this encounter Plan of Treatment Not on file documented as of this encounter Visit Diagnoses Not on filedocumented in this encounter Care Teams Sole Leveling Machine Operator Relationship Specialty Start Date End Date Kostas Campa MD [address] [facility] [address] [place] [phone] PCP - General Family Medicine 04/03/24 06/25/24 Kostas Campa MD [address] [facility] [address] [place] [phone] PCP - General Family Medicine 06/26/24 documented as of this encounter
--- OUTSIDE RECORDS SUMMARY | 2025-04-13 06:19 | XMS_ITS | Encounter Summary ---
Author Organization [employer] ([place], [place], [place], [place], [place]) Address [address] [place] [address] Care Team Providers Care Vault Cashier Name Role Phone Kostas Campa MD Primary Care Provider + [phone] Kostas Campa MD Primary Care Provider + [phone] Encounter Details Date Type Department Care Team (Late st Contact Info) Description 01/02/2022 Transcribed Document [facility] Family Medicine [facility] [place] [address] ProviderLance MD [address] [place] [address] [phone] Social History Tobacco Use Types Packs/Day Years Used Date Smoking Tobacco: Never Assessed Sex and Gender Information Value Date Recorded Sex Assigned at Not on file Legal Sex Male 6:57 PM CDT Gender Identity Not on file Sexual Orientation Not on file documented as of this encounter Miscellaneous Notes * Cerner Conversion Note - Lance ProviderMD - 01/02/2022 8:00 AM CDT [facility] Main OR Preop Summary Primary Physician: BEHTANY HOUSE MD-SNU Finalized Date/Time: 01/02/22 08:15:54 Pt. Name: ANURADHABAYLEEO.B./Sex: 1950 Male Med Rec #: [id number] Physician: BETHANY HOUSE MD-SNU Financial #: [id number] Pt. Type: O Room/Bed: /8 Admit/Disch: 01/02/22 06:47:00 - Institution: [facility] PreOp Case Times Entry 1 In Preop 01/02/22 05:58:00 Ready for Holding n/a Room Patient Ready for 01/02/22 06:47:00 Surgery Patient Out of Preop 01/02/22 08:10:00 Patient Out of n/a Holding Room Last Modified By: MEG VILLARREAL RN 01/02/22 08:15:32 [facility] PreOp Case Times Audit 01/02/22 08:15:32 Cupola Mechanic: ROMEROAV Modifier: ROMEROAV <+> 1 Patient Out of Preop 01/02/22 06:47:53 Cupola Mechanic: ROMEROAV Modifier: ROMEROAV <+> 1 Patient Ready for Surgery Finalized By: MEG VILLARREAL V. RN Document Signatures Signed By: MEG VILLARREAL RN 01/02/22 08:15 Electronically signed by [facility] Conversion Jd Edwards Consultant Cerner at 08/13/2022 6:19 PM CDT documented in this encounter Plan of Treatment Not on file documented as of this encounter Visit Diagnoses Not on filedocumented in this encounter Care Teams Vault Cashier Relationship Specialty Start Date End Date Kostas Campa MD [address] [place] [address] [address] [place] [phone] PCP - General Family Medicine 04/03/24 06/25/24 [place] [address] [place] [address] [address] [place] [phone] PCP - General Family Medicine 06/26/24 documented as of this encounter
--- OUTSIDE RECORDS SUMMARY | 2025-04-13 06:19 | XMS_ITS | Encounter Summary ---
Author Organization [employer] ([place], [place], [place], [place], [place]) Address [address] [place] [address] Care Team Providers Care Hydraulic Blocker Name Role Phone Kostas Campa MD Primary Care Provider + [phone] Kostas Campa MD Primary Care Provider + [phone] Encounter Details Date Type Department Care Team (Late st Contact Info) Description 08/13/2020 Transcribed Document [facility] Family Medicine [address] [place] [address] ProviderLance MD [address] [place] [address] [phone] Social History Tobacco Use Types Packs/Day Years Used Date Smoking Tobacco: Never Assessed Sex and Gender Information Value Date Recorded Sex Assigned at Not on file Legal Sex Male 6:57 PM CDT Gender Identity Not on file Sexual Orientation Not on file documented as of this encounter Miscellaneous Notes * Cerner Conversion Note - Lance Rosales MD - 08/13/2020 5:24 PM CDT DATE OF PROCEDURE: 08/13/2020 NEUROSURGERY OPERATIVE REPORT SURGEON: Willian Warner MD INSPECTOR CLIP ON SUNGLASSES: Roberto Carlos Drummond PA-C. Scrubbed and present assisting in cleaning and closure of the wound. 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 POSTOPERATIVE DIAGNOSIS: Recurrent right L4-5 disk herniation with associated radiculopathy. PROCEDURE: Redo right L4-5 MIS microdiskectomy. ANESTHESIA: General endotracheal anesthesia. ESTIMATED BLOOD LOSS: Minimal. COMPLICATIONS: None. FINDINGS: A large extruded disk fragment. BRIEF HISTORY: Mr. Gonzalez is a 70-year-old gentleman who presented to our clinic for evaluation of his right leg pain; history of chronic pain, maintained on the large course of narcotics. He has a spinal cord stimulator and unable to get MRI. We performed a CT myelogram because of recurrent symptoms. He has had a previous lumbar diskectomy in the past. Myelogram indicated recurrent disk herniation. Treatment options were discussed. Recommend proceeding with a redo lumbar diskectomy to address this problem. OPERATIVE DETAILS: The patient was intubated without incident, flipped from the supine to the prone position onto the operating table. The pressure points were identified and padded. Lumbar spine was prepped and draped. Time-out performed. Antibiotics were given. Films were available and reviewed in the room prior to incision. The incision was localized with C-arm fluoroscopy and spinal needle. A right paramedian incision was performed with a 15-blade knife, cautery dissection through subcu fat. The lumbar fascia was incised. The METRx dilators were docked over the inferior L4 lamina. A 6 cm x 18 mm tube was secured into place. The operative microscope was brought into the field. A periosteal dissection was undertaken exposing the previous laminotomy defect and lamina. The laminotomy was extended both laterally and inferiorly. The scar was mobilized and removed. We were able to define now the thecal sac in the recess as well as the disk space. An annulotomy was performed sweeping with the ball hook. Several large herniated disk fragments were removed. The foraminotomy was performed over the transversing nerve root. Sweeping with the ball hook, several further fragments were removed from just above the disk space. The wound was copiously irrigated and diskectomy had been completed. The METRx tubes were removed. Meticulous hemostasis was achieved. The fascia and subcuticular layers were closed separately. Steri-Strips were placed over the skin for final wound closure, dressing placed over the wound. The patient was flipped from prone to supine position, extubated without incident, and left the OR in stable condition. /[id number] Willian Warner MD GP/AQ / GP / MODL /[id number] Electronically signed by [facility], [facility] Conversion Assistant Loan Processor Cerner at 08/13/2022 6:26 PM CDT documented in this encounter Plan of Treatment Not on file documented as of this encounter Visit Diagnoses Not on filedocumented in this encounter Care Teams Hydraulic Blocker Relationship Specialty Start Date End Date Kostas Campa MD [address] [facility] [address] [place] [phone] PCP - General Family Medicine 04/03/24 06/25/24 Kostas Campa MD [facility] [facility] [address] [place] [phone] PCP - General Family Medicine 06/26/24 documented as of this encounter
--- OUTSIDE RECORDS SUMMARY | 2025-04-13 06:19 | XMS_ITS | Patient Health Record ---
[facility] Organization [facility] Address [address] [facility] [address] [place] [id number] Care Team Providers Care Esl Professor Name Role Phone Earnestine Kurtz Primary Care Provider Kostas Campa Unavailable [phone] Katarzyna Metcalf Unavailable [phone] Allergies Allergen (clinical drug ingredient) Drug/Non Drug Allergy documented on EMR Reaction Allergy Type Onset Date Status gabapentin Neurontin pin needles in feet, making feet hot Drug Allergy Active Results Component Value Reference Range Notes P-Culture, Anaerobic and Aer obic w/Gram Stain Reviewed date:07/22/2024 11:50:18 AM Interpretation: Performing Lab: Notes/Report: Test performed by [facility], [employer] [address] [place] [address] , [place] [address] Po Hadley MD, Elev[employer] CLIA: [id number] Specimen Source Abscess - open wound Culture, Anaerobic and Aerobic w/Gram Stain See Below Final Report : No Anaerobes isolated Sensitivity Panel See Below _ Organism Antibiotic _ Ceftaroline Clindamycin Daptomycin Erythromycin Gentamicin Levofloxacin Linezolid Moxifloxacin Oxacillin Penicillin Rifampin Tetracycline Trimeth/Sulfa Vancomycin S=SUSCEPTIBLE I=INTERMEDIATE R=RESISTANT P-Culture, Miscellaneous Aer obic w/Gram Stain Reviewed date:07/22/2024 11:49:56 AM Interpretation: Performing Lab: Notes/Report: Test performed by [facility], [address] , [facility], [place] [address] Po Hadley MD, Elevator Operator [employer] CLIA: [id number] Specimen Source Abscess - open wound Gram Stain See Below No polymorphonuclear leukocytes seen No organisms seen Culture, Miscellaneous Aerobic w/Gram Stain See Below Preliminary Report : Pending, reincubate Methicillin Resistant Staphylococcus aureus Light Growth Methicillin Resistant Staphylococcus aureus Only sensitive results for Bactrim (Trimethoprim/Sulfametho xazole) are reported for Staphylococcus aureus. Resistance to Bactrim is not reported due to the upper breakpoint encompassing the sensitive/resistant range, which could lead to increased reporting of false resistance. Consider alternate antimicrobial treatment if clinically indicated. Sensitivity Panel See Below _ Organism MRSA Antibiotic INTERP _ Ceftaroline S Clindamycin S Daptomycin S Erythromycin R Gentamicin S Levofloxacin I Linezolid S Moxifloxacin S Oxacillin R Penicillin R Rifampin S Tetracycline S Trimeth/Sulfa S Vancomycin S S=SUSCEPTIBLE I=INTERMEDIATE R=RESISTANT P-Comprehensive Metabolic Pa kriss (CMP) Reviewed date:08/15/2024 05:13:24 PM Interpretation:glu 195 Performing Lab: Notes/Report: Test performed by [facility] [address] [place], [place] [address] [place] , [facility], [place] [address] Po Hadley MD, Elevator Operator [employer] CLIA: [id number] Sodium 137 135-145 mmol/L Potassium 3.9 3.5-5.3 [...] Interpretation:Normal Performing Lab: Notes/Report: Test performed by [facility] [address] [place] [address] , [address], [place] [address] Po Hadley MD, Elevator Operator [employer] CLIA: [id number] Ferritin 89.1 30.0-400.0 ng/mL P-Hemoglobin A1C Reviewed date:08/15/2024 05:13:24 PM Interpretation:7.2 Performing Lab: Notes/Report: Test performed by [facility] [address] [place] [address] , [address], [place] [address] Po Hadley MD, Elevator Operator [employer] CLIA: [id number] Hemoglobin A1C 7.2 <5.7 % The following HbA1c ranges recommended by the [place] [employer] (ADA) may be used as an aid in the diagnosis of diabetes mellitus. HbA1c Suggested Diagnosis >=6.5% Diabetic 5.7% - 6.4% Pre-Diabetic <5.7% Non-Diabetic P-Vitamin D 25-Hydroxy Reviewed date:08/15/2024 05:13:24 PM Interpretation:24.7 Performing Lab: Notes/Report: Test performed by [facility] [address] [place] [address] , [address], [place] [address] Po Hadley MD, Elevator Operator [employer] CLIA: [id number] Vitamin D 25-Hydroxy 24.7 30.0-100.0 ng/mL Interpretation of Vitamin D 25 [place]: < 20 ng/mL - Deficiency 20 - 29 ng/mL - Insufficiency 30 - 100 ng/mL - Sufficiency > 100 ng/mL - Super-therapeutic- toxicity may occur above this level. Clinical correlation required. Estimated Average Glucose Reviewed date:08/15/2024 05:13:24 PM Interpretation:160 Performing Lab: Notes/Report: Test performed by [facility] [address] [place] [address] , [address], [place] [address] Po Hadley MD, Elevator [employer] CLIA: [id number] Estimated Average Glucose (eAG) 160 Estimated Average Glucose (eAG) is calculated using the equation eAG = (28.7 x HbA1c) - 46.7 based on the guidelines established by the ADA. If the patient has certain diseases including kidney disease, sickle cell anemia, thalassemia, or is taking medications such as dapsone, erythropoietin, or iron, eAG should not be evaluated. Glucose (In-House) Reviewed date:12/11/2024 10:49:38 AM Interpretation: Performing Lab: Notes/Report: blood glucose 135 74 - 106 mg/dL Glycohemoglobin A1c (in hous e) Reviewed date:12/11/2024 10:49:26 AM Interpretation: Performing Lab: Notes/Report: glycohemoglobin 6.5% 5 - 6.5 % P-Vitamin D 25-Hydroxy Reviewed date:12/12/2024 08:57:01 AM Interpretation:28.5 Performing Lab: Notes/Report: Test performed by [employer] [address], [place] [address] Po Hadley MD, Elevator Operator [employer] CLIA: [id number] Vitamin D 25-Hydroxy 28.5 30.0-100.0 ng/mL Interpretation of Vitamin D 25 OH: < 20 ng/mL - Deficiency 20 - 29 ng/mL - Insufficiency 30 - 100 ng/mL - Sufficiency > 100 ng/mL - Super-therapeutic- toxicity may occur above this level. Clinical correlation required. P-Basic Metabolic Panel (BMP ) Reviewed date:04/24/2024 10:05:23 AM Interpretation:Na 134, cl 95, gluc 142 Performing Lab: Notes/Report: Test performed by [facility] [address] [place] [address] [place] [address] Po Hadley MD, Elevator [employer] CLIA: [id number] Sodium 134 135-145 mmol/L Potassium 4.0 3.5-5.3 mmol/L Chloride 95 97-108 mmol/L CO2 25 22-32 mmol/L Glucose 142 65-99 mg/dL BUN 9 8-23 mg/dL Creatinine 0.85 0.70-1.30 mg/dL Calcium 9.1 8.6-10.4 mg/dL eGFR by Creatinine 92 >59 mL/min/1.73m2 P-CBC With Platelet And Diff erential Reviewed date:04/24/2024 10:05:23 AM Interpretation:Normal Performing Lab: Notes/Report: Test performed by [facility] [address] [place] [address] [place] [address] Po Hadley MD, Elevator [employer] CLIA: [id number] WBC 5.2 3.8-11.5 K/uL Red Blood Cell Count (RBC) 5.05 4.20-5.70 M/mm3 Hemoglobin (Hgb) 15.5 13.1-17.5 gm/dL Hematocrit (HCT) 45.6 39.0-51.0 % MCV 90.3 79.0-99.0 fL MCH 30.7 26.9-35.0 pg MCHC 34.0 30.4-34.8 g/dL RDW 44.2 38.2-53.0 fL Platelet Count 148 137-397 K/cumm Neutrophils Automated 62.9 41.0-77.0 % Lymphocytes Automated 29.6 14.0-48.0 % Monocytes Automated 6.5 4.0-13.0 % Eosinophils Automated 0.2 0.0-8.0 % Basophils Automated 0.6 0.0-1.5 % Immature Granulocyte Automated 0.2 0.0-1.0 % Urinalysis - Inhouse Reviewed date:05/26/2024 08:55:55 AM [...] Interpretation: Performing Lab: Notes/Report: Test performed by [facility], [employer] [address] [place] [address] , [address], [place] [address] Po Hadley MD, Elevator Operator [employer] CLIA: [id number] Sodium 140 135-145 mmol/L Potassium 4.2 3.5-5.3 [...] 0.3 <0.2-1.2 mg/dL A/G Ratio 1.7 1.1-2.5 Medications Medication SIG (Take, Route, Frequency, Duration) Notes Start Date End Date Status Potassium Chloride ER 10 MEQ 1 tablet wi food Orally Once a day; Duration: 90 days Active Furosemide 20 MG TAKE 2 TABLETS BY UT ONCE DAILY; Duration: 90 Active Loratadine 10 MG 1 tablet Orally Once a day; Duration: 30 days Active Losartan Potassium 25 MG 1 tablet Orally Once a day; Duration: 30 days Active metFORMIN HCl ER 500 MG 1 tablet with ev ening meal Orally Once a day; Duration: 30 days Active Cyclobenzaprine HCl 5 MG 1 tablet as nee ded Orally Three times a day 08/14/2024 Active Lyrica 150 MG 1 cap(s) orally 2 ti mes a day Active Flonase Allergy Relief 50 MCG/ACT 1 spray in each nostril Nasally Once a day 07/08/2023 Active Omeprazole 40 MG 1 capsule Orally twi ce a day; Duration: 30 days Active Carafate 1 GM 1 tablet on an empty stomach Orally Three times a day; Duration: 30 day(s) 04/21/2024 Active Flomax 0.4 MG 1 capsule Orally Onc e a day 05/25/2024 Active hydrOXYzine HCl 25 MG 1 or 2 tablets Ora lly Once a day at bedtime Active Celecoxib 200 MG 1 capsule with food Orally Once a day; Duration: 30 days Active Tadalafil 5 MG TAKE 1 TABLET BY ONCE DAILY; Duration: 30 Active Vitamin B Complex - 1 tab(s) orally once a day; Duration: 30 day(s) 06/24/2020 Active Vitamin D3 50 MCG (1999) 2 tablet Ora lly Once a day; Duration: 30 days 12/15/2024 Active CareTouch CPAP & BIPAP Hose 1 DIRECTED 07/07/19 Active Align 4 MG as directed Orally 02/16/2023 Active Colace 100 MG 1 capsule as needed Orally Once a day 02/16/2023 Active Immunizations Vaccine Route Administration Date Status Comme nts Tetanus Tdap-Adacel (over 7yrs) IM Intramuscular 12/19/2013 Administered Tetanus Tdap-Adacel (over 7yrs) Unknown 12/14/2016 Pending Prevnar (PCV20) IM Intramuscular 12/11/2024 Administered DT, 7 YEARS OR OLDER Unknown 06/27/1996 Administered Problems Problem Type SNOMED Code ICD Code Onset Dates Problem Status W/U Status Risk Notes Problem Essential hypertension (90640277) Essential (primary) hypertension (I10) Active confirmed Problem Vitamin D deficiency (00248163) Vitamin D deficiency (E55.9) Active confirmed Problem Essential hypertension (91181814) Essential hypertension (I10) Active confirmed Problem History of malignant neoplasm of colon (539799925) History of colon cancer (Z85.038) Active confirmed Problem Mixed anxiety and depressive disorder (151363494) Depression with anxiety (F41.8) Active confirmed Problem Restless legs syndrome (33087098) Restless leg syndrome (G25.81) Active confirmed Problem Obese class I (694958936364911) BMI 33.0-33.9,adult (Z68.33) Active confirmed Problem Mixed hyperlipidemia (840356562) Mixed hyperlipidemia (E78.2) Active confirmed Problem Opioid dependence (60283425) Opioid dependence, uncomplicated (F11.20) Active confirmed Problem Essential tremor (528188310) Essential tremor (G25.0) Active confirmed Problem Chronic pain (84192697) Other chronic pain (G89.29) Active confirmed Problem Hesitancy of micturition (5408237) Hesitancy of micturition (R39.11) Active confirmed Problem Urinary hesitancy (8549783) Urinary hesitancy (R39.11) Active confirmed Problem Thrombocytopenia (169339078) Thrombocytopenia (D69.6) Active confirmed Problem Obstructive sleep apnea syndrome (34536107) Obstructive sleep apnea syndrome (G47.33) Active confirmed Problem Gastroesophageal reflux disease (441438275) Gastroesophageal reflux disease, esophagitis presence not specified (K21.9) Active confirmed Problem Erectile dysfunction (disorder) (432049430) Erectile dysfunction, unspecified erectile dysfunction type (N52.9) Active confirmed Problem Insomnia (185994521) Insomnia, unspecified type (G47.00) Active confirmed Problem Lower urinary tract symptoms due to benign prostatic hypertrophy (89856811674784) Benign prostatic hyperplasia with lower urinary tract symptoms, unspecified morphology (N40.1) Active confirmed Problem Body mass index 30.00 to 34.99 (942332984478114) BMI 34.0-34.9,adult (Z68.34) Active confirmed Problem Type II diabetes mellitus without complication (259654293) Type 2 diabetes mellitus without complication, without long-term current use of insulin (E11.9) Active confirmed Problem Impaired fasting glycaemia (628148777) IFG (impaired fasting glucose) (R73.01) Active confirmed Problem Sacroiliac disorder (368796536) 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) Active confirmed Problem Lower urinary tract symptoms due to benign prostatic hypertrophy (25469758369300) Benign prostatic hyperplasia with lower urinary tract symptoms (N40.1) Active confirmed Problem Arthritis of right hip (4056159160692205) Arthritis of right hip (M16.11) Active confirmed Problem Raynaud's disease (477140620) Raynaud's disease without gangrene (I73.00) Active confirmed Problem Seasonal allergic rhinitis (406813356) Seasonal allergic rhinitis, unspecified trigger (J30.2) Active confirmed Problem Diabetic peripheral neuropathy associated with type 2 diabetes mellitus (1007335298880) Type 2 diabetes mellitus with diabetic neuropathy, unspecified whether intermodal owner operator truck driver insulin use (E11.40) Active confirmed Problem Gastroesophageal reflux disease (630927748) Gastroesophageal reflux disease, unspecified whether esophagitis present (K21.9) Active confirmed Problem Rheumatoid arthritis (21600250) Rheumatoid arthritis, involving unspecified site, unspecified whether rheumatoid factor present (M06.9) Active confirmed Vital Signs Heart Rate 77 /min 12/11/2024 Blood pressure diastolic 72 mm Hg 12/11/2024 Height 70 in 12/11/2024 Blood pressure systolic 124 mm Hg 12/11/2024 Weight 238.8 lbs 12/11/2024 BMI 34.26 kg/m2 12/11/2024 Encounters Encounter Location Date Provider Diagnosis [facility] [address] [facility] [address] [place] [id number] 04/21/2024 Kostas [place] Pneumonia due to infectious organism, unspecified laterality, unspecified part of lung J18.9 ; Gastroesophageal reflux disease, esophagitis presence not specified K21.9 and Essential (primary) hypertension I10 [facility] [address] [facility] [address] [place], [place] [id number] 05/05/2024 Kostas [place] Restless leg syndrom e G25.81 [facility] [address] [facility] [address] [place], [place] [id number] 05/25/2024 Katarzyna Metcalf Urinary hesitancy R3 9.11 [facility] [address] [facility] [address] [place], [place] [id number] 06/27/2024 Kostas [place] Peripheral edema R60 .0 ; IFG (impaired fasting glucose) R73.01 and Depressive disorder F32.A [facility] [address] [facility] [address] [place], [place] [id number] 07/17/2024 Kostas [place] Open wound of left l ower extremity, initial encounter S81.802A and Left leg cellulitis L03.116 [facility] [place] [address] [facility] [address] [place], [place] [id number] 08/14/2024 Kostas [place] Peripheral edema R60 .0 ; Vitamin D deficiency E55.9 ; Restless leg syndrome G25.81 ; IFG (impaired fasting glucose) R73.01 ; Other chronic pain G89.29 ; Mixed hyperlipidemia E78.2 ; Essential hypertension I10 ; Opioid dependence, uncomplicated F11.20 and BMI 33.0-33.9,adult Z68.33 [facility] [address] [facility] [address] [place], [place] [id number] 12/11/2024 Kostas [place] Type 2 diabetes casper itus without complication, without long-term current use of insulin E11.9 ; Vitamin D deficiency E55.9 ; Insomnia, unspecified type G47.00 ; Encounter for immunization Z23 ; Colon cancer screening Z12.11 ; Type 2 diabetes mellitus with diabetic neuropathy, unspecified whether senior living insulin use E11.40 ; Rheumatoid arthritis, involving unspecified site, unspecified whether rheumatoid factor present M06.9 and BMI 34.0-34.9,adult Z68.34 [facility] [address] [place], [place] [id number] 04/17/2024 Kostas [place] [facility] [address] [place], [place] [id number] 04/20/2024 Earnestine Kurtz [facility] [address] [place], [place] [id number] 04/24/2024 Kostas [place] [facility] [address] [place] [id number] 06/21/2024 Kostas [place] [facility] [address] [place], [place] [id number] 07/19/2024 Kostas [place] [facility] [address] [place], [place] [id number] 07/21/2024 Kostas [place] Left leg cellulitis L03.116 [facility] [address] [place], [place] [id number] 08/01/2024 Kostas [place] [facility] [address] [place] [id number] 08/15/2024 Kostas [place] [facility] [address] [place], [place] [id number] 12/12/2024 Kostas [place] [facility] [address] [place], [place] [id number] 03/27/2025 Kostas [place] Other chronic pain G 89.29 Assessments Encounter Date Diagnosis (ICD Code) Assessment Notes Treatment Notes Treatment Clinical Notes Section Notes 04/21/2024 Gastroesophageal reflux disease, esophagitis presence not specified (ICD-10 - K21.9) 04/21/2024 Pneumonia due to infectious organism, unspecified laterality, unspecified part of lung (ICD-10 - J18.9) 05/05/2024 Restless leg syndrome (ICD-10 - G25.81) 05/25/2024 Urinary hesitancy (ICD-10 - R39.11) 06/27/2024 IFG (impaired fasting glucose) (ICD-10 - R73.01) OK to not take Metformin and recheck labs next month 06/27/2024 Peripheral edema (ICD-10 - R60.0) Call if symptoms return/worsen 07/17/2024 Left leg cellulitis (ICD-10 - L03.116) 07/17/2024 Open wound of left lower extremity, initial encounter (ICD-10 - S81.802A) 07/21/2024 Left leg cellulitis (ICD-10 - L03.116) 08/14/2024 Vitamin D deficiency (ICD-10 - E55.9) 08/14/2024 Peripheral edema (ICD-10 - R60.0) 12/11/2024 Vitamin D deficiency (ICD-10 - E55.9) 12/11/2024 Type 2 diabetes mellitus without complication, without long-term current use of insulin (ICD-10 - E11.9) 03/27/2025 Other chronic pain (ICD-10 - G89.29) 12/11/2024 Insomnia, unspecified type (ICD-10 - G47.00) 08/14/2024 Restless leg syndrome (ICD-10 - G25.81) 06/27/2024 Depressive disorder (ICD-10 - F32.A) 04/21/2024 Essential (primary) hypertension (ICD-10 - I10) 12/11/2024 Encounter for immunization (ICD-10 - Z23) 08/14/2024 IFG (impaired fasting glucose) (ICD-10 - R73.01) 08/14/2024 Other chronic pain (ICD-10 - G89.29) 12/11/2024 Colon cancer screening (ICD-10 - Z12.11) 08/14/2024 Mixed hyperlipidemia (ICD-10 - E78.2) 12/11/2024 Type 2 diabetes mellitus with diabetic neuropathy, unspecified whether senior living insulin use (ICD-10 - E11.40) 12/11/2024 Rheumatoid arthritis, involving unspecified site, unspecified whether rheumatoid factor present (ICD-10 - M06.9) 08/14/2024 Essential hypertension (ICD-10 - I10) 08/14/2024 Opioid dependence, uncomplicated (ICD-10 - F11.20) 12/11/2024 BMI 34.0-34.9,adult (ICD-10 - Z68.34) 08/14/2024 BMI 33.0-33.9,adult (ICD-10 - Z68.33) Plan Of Treatment Pending Test Test Name Order Date colonoscopy 12/11/2024 Next Appt Details Provider Name:Kostas Workman ry, 04/30/2025 11:00:00 AM, [address], [place], [id number], Insurance Providers Payer Name Payer Address Payer Phone Subscriber Number Group Number Insured Name Patient Relationship to Insured Coverage Start Date Coverage End Date [facility] MED[facility] [address] [place] [address] [id number] PATRICIA CORNELL Self - patient is the insured MEDICARE PART B [address] [address] [place] [address] [id number] PATRICIA CORNELL Self - patient is the insured Medications Administered Medication Instructions Date of Administration Dosage Notes Dexamethasone 12/10/2007 4 mg Dexamethasone 04/27/2017 1 mL Medical (General) History Medical History History ICD Code Chronic Shoulder and Back Pain, followed by pain management Hypertension Seasonal Affective Disorder Prostatitis Restless Leg Syndrome Colon Cancer, followed by Dr. Amanda, Bacteremia, Group A Strep, 02/2018 neuropathy type 2 diabetes Surgical History Surgery Date(Month/Year) Prostiva Procedure with Bladder Neck Inc ision Back Surgery- Rob Jimenes 09/04/2005 PE tubes 1993 Back Surgery 03/13/2009 Sigmoid Colon Resection 09/17/2009 RT Knee 2013 LT Leg Repair 2016 Dental Surgery x 3 LT Knee Cortizone Injection 08/2017 Low Back Nerve Stimulator 05/2018 RT Knee Replacement 02/2019 Bulging Disc Repair, Back 09/2019 Hospitalization History Reason Date(Month/Year) [place] [facility] [place] A Bacteremia, Leg Cellulitis- [facility] 02/26-11/2017 Stomach Pain- [facility] ER 04/29/2013
--- OUTSIDE RECORDS SUMMARY | 2025-04-13 06:19 | XMS_ITS | Encounter Summary ---
Author Organization [employer] ([place], [place], [place], [place], [place]) Address [address] [place] [address] Care Team Providers Care Core Sucker Name Role Phone Kostas Campa MD Primary Care Provider + [phone] Kostas Campa MD Primary Care Provider + [phone] Encounter Details Date Type Department Care Team (Late st Contact Info) Description 09/29/2019 Transcribed Document [facility] [place] [address] [place] [address] ProviderLance MD [address] [place], [place] [address] Social History Tobacco Use Types Packs/Day Years Used Date Smoking Tobacco: Never Assessed Sex and Gender Information Value Date Recorded Sex Assigned at Not on file Legal Sex Male 6:57 PM CDT Gender Identity Not on file Sexual Orientation Not on file documented as of this encounter Miscellaneous Notes * Cerner Conversion Note - Lance Rosales MD - 09/29/2019 5:41 PM CDT Patient Education Materials Follows: General Anesthesia, Adult, Care After This sheet [...] activities are safe for you. ??? Take [id number] and prescription medicines only as told by [...] 07/19/2001 Document Revised: 11/26/2017 Document Reviewed: 11/26/2017 [email or web address] Interactive Patient Education ? 2020 [employer]. documented in this encounter Plan of Treatment Not on file documented as of this encounter Visit Diagnoses Not on filedocumented in this encounter Care Teams Core Sucker Relationship Specialty Start Date End Date Kostas Campa MD [address] [facility] [address] [place] [phone] PCP - General Family Medicine 04/03/24 06/25/24 Kostas Campa MD [address] [facility] [address] [place] [phone] PCP - General Family Medicine 06/26/24 documented as of this encounter
--- OUTSIDE RECORDS SUMMARY | 2025-04-13 06:19 | XMS_ITS | Data Portability ---
Author Organization [facility] Address [address] [place] [address] Care Team Providers Care Chiseler Head Name Role Phone MICHSEVEN MUKUL Primary Care Provider BRENNEN GODWIN Referring Provider LOS VÁZQUEZ Patient Case Manager Assessment Encounter Date Assessment Date Assessment LastModified by Organization Details LastModified Time 04/27/2024 04/27/2024 Mr. Villanueva presents today status post L3-L4 Laminectomy 04/10. Nicho were removed with no issues or concerns. All questions answered. [email or web address] Not available 04/27/2024 13:23:00 05/25/2024 05/25/2024 Multiple lumbar surgeries. Status post L3-4 laminectomy for back and severe left leg pain by me most recently.Severe pain has resolved. He looks good on exam. His incisions healed nicely. Follow-up as needed. He and are happy with plan. [email or web address] Not available 05/25/2024 11:19:32 06/29/2024 06/29/2024 ASSESSMENT: Mr. Ling returns to the office after last being seen 05/25/2024 reporting significant low back and lower extremity pain that got so severe on 06/26/24, that he was evaluated at the emergency department. He most recently had an L3-[address] House on 04/10/2024. He is accompanied by his . She started to track him having significantly increased symptoms almost a month ago, on June 06. She has notes of several days where his pain was severe but interspersed among those days, he had days where his pain was very well-controlled. He reports pain that starts in his low back and goes down both of his lower extremities that he feels like is the entire leg . His most severe pain is in his feet that feels like it is again, his entire foot, and starts on 1 side or the other but then progress to both feet. He reports when this pain is so severe that even the smell of things will make him nauseous. He does still have an intrathecal pain pump that is now only filled with morphine and bupivacaine as they report that they removed the Prialt in April of this year because it was causing him to be dizzy. He does still have a spinal cord stimulator that he uses, though he reports is not as effective as it previously was since it does not have as many settings he can use. They report on June 27, when he was turning over in bed, he felt a pop in his back which did make the pain in his feet seem better, but then he felt like his lower extremities were very wobbly when he tried to get out of bed. He is continuing to take pregabalin and Celebrex. He is scheduled to have his pump checked today for them to assess if there is any discrepancy in the volume remaining in the number of doses that should have been dispensed. He is concerned that there is a problem with the pump and that possibly when he is moving if something is getting pinched with the system. They are scheduled to have an epidural with Dr. Godwin tomorrow unless Dr. House feels that they should not do that. He is unable to have an MRI due to his spinal cord stimulator. He denies any bowel or bladder control issues. IMAGING: CT of the abdomen taken at [facility] 06/26/2024. Dr. House and I have reviewed the images personally and read the radiologist's report. This reveals that his pain pump is intact with postoperative changes visualized at L3-4 with paraspinal fluid collection at this level. A review of his lab work from the hospital revealed a CRP <0.29 and a WBC of 5.5. Dr. House was consulted on this case for imaging review and plan of care development. Nurse practitioner visit PLAN: Lumbar AP, lateral, flexion, extension x-rays Lumbar CT myelogram with a note to not do the lumbar puncture at the L3-4 level Follow-up with Dr. House Mr. Ling is going to move forward with the pump interrogation scheduled for today. If there is an issue identified with this, he will continue to work with Dr. Godwin to address that situation and they will contact our office if needed. He will move forward with the epidural with Dr. Godwin. If the epidural relieves his symptoms, he will continue to work with Dr. Godwin for interventional management of his symptoms. However, if his symptoms or not improved with the epidural and the pain pump is not identified as a source of the problem, he is going to move forward with a CT myelogram to evaluate for any neural impingement or central stenosis that could be causing his symptoms. There will be a note on this order to not do the lumbar puncture at L3-4 due to the risk for spinal fluid leak. We did discuss he would need to stop the 81 mg aspirin prior to this procedure. He will also get lumbar x-rays to include flexion-extension to evaluate for any instability. He will follow-up with Dr. House when these tests are complete to review these results to determine if he would be a candidate for injections or further surgical interventions. They both verbalized understanding of these instructions and are agreeable to this plan. They have no further questions or concerns at this time. They are satisfied with this plan of care. [email or web address] Not available 06/29/2024 12:14:29 07/25/2024 07/25/2024 Patient with chronic pain. Status post L3-4 laminectomy in March. Did well for a while then comes back with worsening bilateral nondermatomal leg pain and some low back pain. CT myelogram was negative. His incision looks fine. There is no history concerning for infection and he had lab work a few weeks ago that was completely normal with respect to inflammatory markers. I do not have an obvious explanation for his symptoms. He is neurologically intact. He is can to see Dr. Godwin next week. I will discuss his case with Dr. Godwin. I do not have much else to add right now. While disappointed, explained everything from a surgical standpoint why do not see any new obvious surgical pathology. He and his understand. [email or web address] Not available 07/25/2024 16:16:18 Plan of Treatment Reminders Order Date Submit Date Provider Last Modified By Organization Details Last Modified Time Details Appointments None record ed. Lab None record ed. Referral None record ed. Procedures None record ed. Surgeries None record ed. Imaging None record ed. Medication Orders None record ed. Patient TargetsNo targets recorded. Patient InstructionsNo instructions recorded. Reason for Referral None Reported. Results Created Date Observation Date Name Description Value Unit Range Abnormal Flag Note LastModifiedBy Organization Detail LastModifiedTime 03/21/20 24 03/21/2024 XR, lumbo sacra l spine , 2 or 3 view, bendi ng only [address] [place] [address] Drea man Name: CECILIO man : 955 Drea man 4 Orderi ng Provid er: BETHANY PETEEN EXAM DATE: 2023 EXAM: XR LUMBAR SPINE FLEX/E XT ONLY CLINIC AL INFORM ATION: Back pain. IMAGES PROVID ED: Latera l views of the lumbar spine in flexio n and extens ion. COMPAR SHANTA: None. FINDIN GS: Verteb ral body height s are normal . Some limita tion due to overla pping lumbar spine struct ures with metall ic implan t. Diffus e degene rative disc diseas e spurri ng is presen t. No abnorm ality of alignm ent is seen. No instab ility is seen on flexio n or extens ion. No radiog raphic eviden ce of injury is noted. IMPRES MOY: Mild to modera te diffus e DDD. No instab ility. Interp reted By: Gregg Salas MD Electr onical ly Signed By: Gregg Salas MD on 2023 4:[address] [place] [address], [address], 05/08/2024 22:29:19 07/19/1907/18/2024 XR, lumbo sacra l spine , 4 or more view [address] [facility] [place] [address] Paticarrington t Name: CECILIO man : 953 Drea man 4 Orderi ng Provid er: IDA Man EXAM DATE: 2024 EXAM: XR LUMBAR SPINE AP/LAT /FLEX/ EXT CLINIC AL INFORM ATION: Back pain. Lower back pain extend ing into both legs. IMAGES PROVID ED: AP, latera l and coned- down views of the lumbar spine with additi onal latera l views in flexio n and extens ion. COMPAR SHANTA: Lumbar spine 2023 FINDIN GS AND IMPRES MOY: There is mild disc space narrow ing and spurri ng at L2-3 and L5-S1 as well as slight disc space narrow ing at L4-5. These findin gs are unchan ged from 2023. The overal l alignm ent appear s normal and no sublux ation occurs during flexio n and extens ion. Interp reted By: Charmaine bravo MD Electr onical ly Signed By: Charmaine bravo MD on 025 12:04 PM [email or web address] [facility] Radiology [address], [address], 07/26/2024 15:50:13 Result Notes Documentation Provider Name and Address Organization Details Recorded Time Xr, Lumbosacral Spine, 4 Or More View : [address] [address] Patient Name: CECILIO LING Patient : 1950 Patient Ordering Provider: IDA PEREZ EXAM DATE: 07/18/2024 EXAM: XR LUMBAR SPINE AP/LAT/FLEX/EXT CLINICAL INFORMATION: Back pain. Lower back pain extending into both legs. IMAGES PROVIDED: AP, lateral and coned-down views of the lumbar spine with additional lateral views in flexion and extension. COMPARISON: Lumbar spine 03/21/2024 FINDINGS AND IMPRESSION: There is mild disc space narrowing and spurring at L2-3 and L5-S1 as well as slight disc space narrowing at L4-5. These findings are unchanged from 03/21/2024. The overall alignment appears normal and no subluxation occurs during flexion and extension. Interpreted By: Charmaine Crespo MD PEERZ, [employer]NAGEMENT OFFICER [address] [place], [address], [facility] 07/26/2024 15:50:13 Problems Name Problem SNOMED Code Status Onset Date Resolution Date Notes Provider Name and Address Organization Details Recorded Time [facility] Actinic keratosis Active Alla mata [facility] 10:30:01 Problem Notes None recorded. Procedures Surgical History Date Name Laterality Status Provider Name and Address Organization Details Recorded Time 01/31/20 24 DAK - Cryo AK completed Alla Martinez [facility] 01/31/2024 10:29:55 01/31/20 24 DAK - Skin Tag Removal completed Alla Martinez [facility] 01/31/2024 10:28:51 01/03/20 22 IMPLANTATION OR REPLACEMENT OF PAIN PUMP DEVICE; PROGRAMMABLE PUMP (SURG) completed Soni Khoury [facility] 01/23/2022 08:36:43 Back Surgery completed Geetha Verduzco [facility] 02/24/2024 10:01:16 Imaging Results None recorded. Procedure Notes None recorded. Medical Equipment None Reported. Allergies No known drug allergies Medications Name Sig Start Date Stop Date Status Note LastModified by Organization Details LastModified Time celecoxib 200 mg capsule TAKE 1 CAPSULE BY MOUTH EVERY DAY active Not Available Not Available No t Available cyclobenzap rine 10 mg tablet TAKE 1 TABLET BY MOUTH AT BEDTIME active dc Not Available Not Available No t Available furosemide 40 mg tablet active Not Available Not Available Not Available promethazin e-DM 6.25 mg-15 mg/5 mL oral syrup active dc Not Available Not Available Not Available potassium chloride ER 10 mEq capsule,ext ended release active dc Not Available Not Available Not Available clindamycin HCl 300 mg capsule active dc Not Available Not Available Not Available meloxicam 15 mg tablet TAKE ONE TABLET BY MOUTH DAILY NEEDED FOR PAIN. TAKE WITH FOOD active Not Available Not Available No t Available prednisone 20 mg tablet active dc Not Available Not Available Not Available clonazepam 1 mg tablet TAKE 1 TABLET BY MOUTH AT BEDTIME active Not Available Not Available No t Available sulfamethox azole 800 mg-trimetho prim 160 mg tablet active dc Not Available Not Available Not Available omeprazole 40 mg capsule,del ayed release active Not Available Not Available Not Available ondansetron 8 mg disintegrat ing tablet Place 1 tablet twice a day by transling ual route. 2023 active Not Available Not Available Not Avai lable oxycodone-a cetaminophe n 10 mg-325 mg tablet TAKE 1 TABLET BY MOUTH EVERY 8 HOURS ( MAY CAUSE DROWSINES S ) active dc Not Available Not Available No t Available cephalexin 500 mg capsule 02/23 completed Not Available Not Available Not Available lidocaine 5 % topical patch active Not Available Not Available Not Available hydroxyzine HCl 25 mg tablet active Not Available Not Available Not Available morphine ER 15 mg tablet,exte nded release TAKE 1 TABLET BY MOUTH EVERY 12 HOURS MAY CAUSE DROWSINES S active dc Not Available Not Available No t Available furosemide 20 mg tablet active Not Available Not Available Not Available cefuroxime axetil 500 mg tablet active dc Not Available Not Available No t Available Percocet 5 mg-325 mg tablet Take 1 tablet every 6 hours by oral route as needed. 2023 active Not Available Not Available Not Avai lable losartan 100 mg tablet TAKE ONE TABLET BY MOUTH EVERY DAY active Not Available Not Available No t Available ciprofloxac in 0.3 %-dexametha sone 0.1 % ear drops,suspe nsion active Not Available Not Available Not Available bupropion HCl XL 150 mg 24 hr tablet, extended release active dc Not Available Not Available Not Available sildenafil (pulmonary hypertensio n) 20 mg tablet active Not Available Not Available Not Available pregabalin 150 mg capsule TAKE 1 CAPSULE BY MOUTH EVERY 12 HOURS active Not Available Not Available No t Available omeprazole 01/30 completed Not Available Not Available Not Available tadalafil active Not Available Not Britt ilable Not Available Vitals Date Recorded Body height Body mass index (BMI) Body weight Systolic And Diastolic Provider Name and Address Organization Details Last Updated DateTime 05/25/2024 177.8 cm 33 kg/m2 013630.25 g 122/74 mm[Hg] [facility] 05/25/2024 11:14:26 Date Recorded Body height Body mass index (BMI) Body weight Systolic And Diastolic Provider Name and Address Organization Details Last Updated DateTime 06/29/2024 177.8 cm 33 kg/m2 806673.25 g 130/82 mm[Hg] Geetha Verduzco [facility] 06/29/2024 10:24:56 Date Recorded Body height Body mass index (BMI) Body weight Systolic And Diastolic Provider Name and Address Organization Details Last Updated DateTime 07/25/2024 177.8 cm 33 kg/m2 491005.25 g 124/78 mm[Hg] Pina Gonzalez [facility] 07/25/2024 14:06:41 Social History None recorded. Functional Status None recorded. Mental Status None recorded. Family History Relationship Description Onset Age of this Age Resolved Age Notes LastModified by Organization Details LastModified Time Unspecified Relation Malignant neoplastic disease [email or web address] Not available 02/23 10:00:29 Unspecified Relation Diabetes mellitus [email or web address] Not available 02/23 10:00:36 Unspecified Relation Hypertensive disorder [email or web address] Not available 02/23 10:00:40 Unspecified Relation Myocardial infarction [email or web address] Not available 01/26 10:00:46 Medical History Condition Response TENS Unit for current problem N Traction for current problem N Massage Therapy for current problem N Other N Gout N Neuro-modulating Drugs for current probl em N Hyperthyroidism N Narcotic Pain Medication for current pro blem N Emphysema N Black Lung N Steroid Pack for current problem N NSAID Use N Hypothyroidism N COPD N Injections for current problem N Osteoporosis/Osteopenia N Heart Attack ([place]) N Deep Vein Thrombosis N Mental Illness N Diabetes N Bleeding Disorder N Arthritis Y Tuberculosis N Genetic Disorder N AIDS/HIV N Kidney Failure N Chiropractor treatment for current probl em N Cancer Y Stroke N Ultrasound Treatment for current problem N Asthma N Epilepsy/Seizures N Sleep Apnea Y Thyroid Disorder N High Cholesterol N Physical Therapy Treatments for current problem N Liver Disease N Pulmonary Embolism N Fibromyalgia N Dialysis N Hypertension N Kidney Disease N Past Encounters Encounter ID Performer Location Encounter Start Date Encounter Closed Date Diagnosis/Indication Diagnosis SNOMED-CT Code Diagnosis ICD10 Code Diagnosis IMO Codes Diagnosis Note [id number] LEATHA HENSLEY PA-C [facility] [address] [place] [address] 10/28/2021 08:02:32 10/29/2021 11:36:18 Chronic pain syndrome 458401646 G89.4 [id number] BETHANY HOUSE MD [facility] [address] [place] [address] 01/20/2022 14:38:21 01/22/2022 08:43:11 [id number] BETHANY HOUSE MD SURGERY SCHEDULE [address] [place] [address] 01/29/2022 13:32:04 01/29/2022 14:11:47 [id number] LOS VÁZQUEZ PA-C [place] [address] [place] [address] 01/31/2024 09:49:33 01/31/2024 12:27:32 Multiple benign melanocytic nevi 131628958 D22.5 - Benign moles seen on exam today - SPF 30 or higher broad-spec trum sunscreen recommende d with re-applica tion every 2 hours - Discussed sun protection measures, including wide-brimm ed hat, sun-protec tive clothing, and avoidance of sun during peak hours of 10am-4pm - Avoid tanning beds as these can increase the chances of all 3 types of skin cancer - Instructed to monitor for changes and to call us for appointmen t with any changing or worrisome lesions Seborrheic keratosis 394 210288 L82.1 - Benign overgrowth s of skin - Hereditary Senile angioma 8225723 I 78.1 - Benign blood vessel growths - Hereditary Solar lentigo 50621749 L 81.4 - Benign brown spots - Sun-induce d Skin tag 739740756 L91.8 L53.8 Skin tags are benign but may be bothersome . Removal with liquid nitrogen is an option. This may leave discolorat ion, or the tag may persist or recur at the treatment site. Actinic keratosis 007 L57.0 Actinic keratoses are precancero us lesions that may progress to squamous cell carcinoma if untreated. UV light and genetics may increase risk. Treated lesions should blister, scab over, and heal within a few weeks. If treated lesion(s) does not resolve within 1-2 months, patient agrees to follow up for re-evaluat ion. [id number] IDA PEREZ APRN [facility] [address] [place] [address] 02/24/2024 09:31:27 02/24/2024 15:42:51 Lumbar radiculopathy 204132699 M54.16 [id number] LEATHA HENSLEY PA-C [facility] [address] [place] [address] 03/21/2024 13:57:19 03/22/2024 04:15:27 Spinal stenosis of lumbar region 16564513 M48.062 [id number] BETHANY HOUSE MD SURGERY SCHEDULE [address] [place] [address] 04/20/2024 07:20:34 04/25/2024 14:53:00 [id number] BETHANY HOUSE MD [facility] [address] [place] [address] 04/27/2024 12:31:15 05/02/2024 04:05:23 [id number] BETHANY HOUSE MD [facility] [address] [place] [address] 05/25/2024 10:46:59 05/26/2024 04:36:24 Spinal stenosis of lumbar region 10961983 M48.062 [id number] IDA PEREZ APRN [facility] [address] [place] [address] 06/29/2024 09:47:05 07/07/2024 11:27:00 Lumbar radiculopathy 063320384 M54.16 Lumbar spondylosis 18474 0009 M47.896 [id number] BETHANY HOUSE MD [facility] [address] [place] [address] 07/25/2024 13:35:13 07/26/2024 09:15:23 Chronic pain syndrome 422342904 G89.4 Health Concerns Section Related Observation LastModified by Organization Detai ls LastModified Time None Recorded Concern Status LastModified by Organization Details LastModified Time None Recorded Advance Directives Directive None Recorded Payers Insurance Date Sequence Insurance Name Policy Number Policy Khan Covered Member ID Khan Member ID Guarantor Name 07/11/2024 1 [place] Cecilio Ling [id number] Cecilio Luis Alfredo Ling 07/26/2024 1 [place]MEDICARE REPLACEMENT REGIONAL PPO) [id number] Cecilio Ling [id number] Cecilio Ling 01/31/2024 1 [employer] (POS) Neil Ling [id number] Ceciliobreanna Ling 07/11/2024 1 [place] Valente Ling [id number] Cecilio Ling 10/28/2021 1 [employer] (MEDICARE REPLACEMENT/A DVANTAGE - PPO) Neil Ling [id number] Cecilio Ling 07/11/2024 2 [place] Cecilio Ling [id number] Cecilio Ling Notes Date Note Type Note Provider Name and Address Organization Details Recorded Time text/html Surgical history: Lumbar [place] [address] Parmar surgery [address] BoyleL4-[address] Quiroga in 2007Right L4-[address] Warner 2019Right L4-[address] Warner reexploration spinal cord stimulator surgeries by unknown Surgeon last 1 was about 5 years agoPlacement of intrathecal narcotic pain pump [place] 9687A1-1 laminectomy by ms 2023 Mr. Villanueva follows up after his L3-4 laminectomy which I performed on April 10. He had very severe back and left lower extremity pain. Since surgery is done well overall. The severe leg pain has resolved. He is having a fair bit of pain last week but in the last few days has not had any pain except that he woke up with some left hip region pain today. His confirms that overall he is doing well.He has had some problems with starting his urine stream. He states that he has prostate problems. He does not describe any cauda equina syndrome type symptoms at all. BETHANY HOUSE MD [address] [place] [address], [address], [facility] 05/25/2024 11:20:08 5 text/html ROS as noted in the HPI Mr. Ling returns to the office after last being seen 05/25/2024 reporting significant low back and lower extremity pain that got so severe on 06/26/24, that he was evaluated at the emergency department. He most recently had an L3-[address] House on 04/10/2024. Lumbar surgery history:[place]umbar [place] [address] Parmar surgery [address] BoyleL4-[address] Quiroga in 2007Right L4-[address] Warner 2019Right L4-[address] Warner reexploration spinal cord stimulator surgeries by unknown Surgeon last 1 was about 5 years agoPlacement of intrathecal narcotic pain pump system by ms in 8481S8-2 laminectomy by ms 2023 IDA PEREZ APRN [address] [place] [address], [address], [facility] 06/29/2024 12:15:08 5 text/html Surgical history: Lumbar [place] [address] Parmar surgery [address] BoyleL4-[address] Quiroga in 2007Right L4-[address] Warner 2020Right L4-[address] Warner reexploration spinal cord stimulator surgeries by unknown Surgeon last 1 was about 5 years agoPlacement of intrathecal narcotic pain pump system by ms in 1705N7-9 laminectomy by ms 2023 The patient underwent an L3-4 laminectomy for severe stenosis on April 10. When I saw him on May 25 he was doing a lot better. He had no left leg pain. This was the main new symptom that led to the lumbar laminectomy. Sometime in June she showed up in the emergency room in the middle of the night. Is complaining of severe back and bilateral leg pain. An abdomen pelvis CT scan showed postoperative changes. His pain pump catheter was in continuity. He had lab work consisting of a procalcitonin and CRP and white count with differential all of which were normal. He saw a nurse practitioner Sean on June 29. She talk to me. We had him undergo CT myelogram to make sure he is not developed any new areas of stenosis. He follows up for these results today. He states that he has a week or so of controlled pain and then he will have a few days of very severe pain in the back and then diffusely down the lower extremities. The pain is episodic.He saw Dr. Pemberton a week or 2 ago. They checked the pump volume. The residual volume was normal it sounds like. He tried him on some medications. He sees Dr. Godwin next week.He states when he has severe pain I will have a peculiarDisturbance with his sense of smell as well. BETHANY HOUSE MD [facility] [place], [address], [facility] 07/25/2024 16:16:47
--- OUTSIDE RECORDS SUMMARY | 2025-04-13 06:20 | XMS_ITS | Clinical Summary ---
Author Organization [facility] Address [address] [place] [address] Care Team Providers Care Aurist Name Role Phone Kostas Campa MD Primary Care Provider [phone] Allergies No known active allergies Medications pregabalin (LYRICA) 150 MG capsule 3 (Three) Times a Day. 06/13/2019 Active Morphine (MS CONTIN) 15 MG 12 hr tablet Takes 2 at bedtime 06/02/2019 Active losartan (COZAAR) 100 MG tablet Daily. Takes 1/2 tablet daily 05/28/2019 Active omeprazole (priLOSEC) 40 MG capsule Daily. 06/09/2019 Active cyclobenzaprine (FLEXERIL) 10 MG tablet Every Night. 05/28/2019 Active clonazePAM (KlonoPIN) 1 MG tablet Every Night. 06/13/2019 Active celecoxib (CeleBREX) 200 MG capsule Daily. 06/09/2019 Active aspirin 81 MG EC tablet Take 1 tablet by mouth Daily. Active oxyCODONE-aceta minophen (PERCOCET) 10-325 MG per tablet 10/08/2019 Active alfuzosin (UROXATRAL) 10 MG 24 hr tablet 10/16/2024 Act yohana potassium chloride 10 MEQ CR tablet 08/14/2024 Active tadalafil (CIALIS) 5 MG tablet Take 1 tablet by mouth. Active hydrOXYzine (ATARAX) 25 MG tablet Take 1 tablet by mouth 3 (Three) Times a Day As Needed for Itching. Active furosemide (LASIX) 20 MG tablet Take 1 tablet by mouth 2 (Two) Times a Day. Active Lido-Capsaicin- Men-Methyl Thiago (OEEB-WLTYJ-OUI OCAINE EX) Apply topically. Active Active Problems No known active problems Family History Medical History Relation Name Comments Diabetes Mother Relation Name Status Comments Mother Social History Tobacco Use Types Packs/Day Years Used Date Smoking Tobacco: Never Passive Smoke Exposure: Never Smokeless Tobacco: Never Tobacco Cessation:Counseling Given: No Alcohol Use Standard Drinks/Week Comments Yes 0 (1 standard drink = 0.6 oz pure alcohol) 2-3 beers every couple of weeks Abuse Screen Answer Date Recorded Unsafe at Home or Work/School Not on file Feels Threatened by Someone? Not on file 02/2023 Does Anyone Keep You from Co ntacting Others or Doint Things Outside the Home? Not on file 02/03/2023 Physical Sign of Abuse Present Not on file 1 Housing Stability Answer Date Recorded Current Living Arrangements Not on file 01/24 Potentially Unsafe Housing Conditions Not on jaylon e 02/03/2023 Family and Community Support Answer Jose e Recorded Help with Day-to-Day Activities Not on file 02/03/2023 Lonely or Isolated Not on file 02/03/2023 Employment Answer Date Recorded Do you want help finding or keeping work or a debbie b? Not on file 02/03/2023 Disabilities Answer Date Recorded Concentrating, Remembering, or Making Decisions Difficulty Not on file 02/03/2023 Doing Errands Independently Difficulty Not on fi le 02/03/2023 Education Answer Date Recorded Help with school or training? Not on file Preferred Language Not on file 02/03/2023 Sex and Gender Information Value Date Recorded Sex Assigned at Not on file Legal Sex Male 10:43 AM EDT Gender Identity Not on file Sexual Orientation Not on file Last Filed Vital Signs Vital Sign Reading Time Taken Comments Blood Pressure 128/84 11/07/2024 9:33 AM EDT Pulse 87 11/07/2019 10:21 AM EDT Temperature 36.4 C (97.6 F) 06/22/2019 8:11 AM EST Respiratory Rate 18 06/22/2019 11:45 AM EST Oxygen Saturation 97% 11/07/2019 10:21 AM EDT Inhaled Oxygen Concentration - - Weight 109 kg (240 lb) 11/07/2024 9:33 AM EDT Height 167.6 cm (5' 5.98 ) 11/07/2024 9:33 AM ED T Body Mass Index 38.76 11/07/2024 9:33 AM EDT Plan of Treatment Health Maintenance Due Date Last Done Comments TDAP/TD VACCINES (1 - Tdap) 07/14/1971 COLOGUARD 1997 COLON CANCER SCREENING 5 YEA R SIGMOIDOSCOPY 1997 COLONOSCOPY 1997 COLORECTAL CANCER SCREENING 1997 CT COLONOGRAPHY 1997 FECAL OCCULT BLOOD TEST 1997 FIT Testing (1 year) 1997 ZOSTER VACCINE (1 of 2) 2002 ANNUAL WELLNESS VISIT 09/11/2016 HEPATITIS C SCREENING 09/11/2016 PT PLAN OF CARE 09/14/2016 Pneumococcal Vaccine 50+ (2 of 2 - PCV) 03/03/2019 1 05/03/2017 COVID-19 Vaccine (3 - Moderna risk series) 01/22/2021 12/25/2020, 06/26/2020 INFLUENZA VACCINE 11/24/2024 03/03/2018 Insurance MEDICARE ADVANTAGE PPO Care Teams Aurist Relationship Specialty Start Date End Date Kostas Campa MD [address] [facility] [address] [place] [address] PCP - General Family Medicine 11/03/24
--- OUTSIDE RECORDS SUMMARY | 2025-04-13 06:20 | XMS_ITS | Encounter Summary ---
Author Organization [employer] ([place], [place], [place], [place], [place]) Address [address] [place] [address] Care Team Providers Care Deliver Driver Name Role Phone Kostas Campa MD Primary Care Provider + [phone] Kostas Campa MD Primary Care Provider + [phone] Encounter Details Date Type Department Care Team (Late st Contact Info) Description 08/13/2020 Transcribed Document [facility] [place] Family Medicine [facility] [place] [address] ProviderLance MD [address] [place] [address] [id number] Social History Tobacco Use Types Packs/Day Years Used Date Smoking Tobacco: Never Assessed Sex and Gender Information Value Date Recorded Sex Assigned at Not on file Legal Sex Male 6:57 PM CDT Gender Identity Not on file Sexual Orientation Not on file documented as of this encounter Miscellaneous Notes * Cerner Conversion Note - Lance ProviderMD - 08/13/2020 11:52 AM CDT Patient: BAYLEE LING Age: 70 years Sex: Male : 1950 Associated Diagnoses: None Author: BRODIE EDWARDS, SEWER CONTRACTOR Chief Complaint back, mimi LE pain Review of Systems ROS reviewed as documented in chart no change since last seen by surgeon Health Status Allergies: Allergic Reactions (Selected) No Known Allergies, No qualifying data available Current medications: (Selected) Inpatient Medications Ordered Ancef: 2 Gram, 50 mL, 100 mL/Hr, IV Piggyback, PREOP Percocet 5/325 oral tablet: 2 Tab, Oral, Q4H, PRN: Pain (Moderate 4-6) Tylenol: 650 mg, Oral, Q6H, PRN: Pain (Mild 1-3) Valium: 5 mg, Oral, Q6H, PRN: Spasms Zofran: 4 mg, IV Push, Q4H, PRN: Nausea morphine: 2 mg, IV Push, Q2H, PRN: Pain (Severe 7-10) Documented Medications Documented Lyrica 150 mg oral capsule: 1 Cap, Oral, BID, 0 Refill(s) Percocet 10 mg-325 mg oral tablet: 1 Tab, Oral, TID, PRN: as needed for pain, 0 Refill(s) Vitamin B Complex oral tablet: 1 Tab, Oral, Daily, 0 Refill(s) aspirin 81 mg oral delayed release tablet: 1 Tab, Oral, Daily, 30 Tab, 0 Refill(s) celecoxib: 200 mg, Oral, Daily, 0 Refill(s) clonazePAM 1 mg oral tablet: 1 Tab, Oral, At Bedtime, 0 Refill(s) cyclobenzaprine 10 mg oral tablet: 1 Tab, Oral, Daily, PRN: as needed for spasm, 30 Tab, 0 Refill(s) losartan 100 mg oral tablet: 1 Tab, Oral, Daily, 0 Refill(s) morphine 15 mg oral tablet: 1 Tab, Oral, BID, 0 Refill(s) omeprazole 40 mg oral delayed release capsule: 1 Cap, Oral, Daily, 0 Refill(s) sildenafil 20 mg oral tablet: 1 Tab, Oral, Daily, 0 Refill(s), Home Medications (11) Active aspirin 81 mg oral delayed release tablet 81 mg = 1 Tab, Oral, Daily celecoxib 200 mg, Oral, Daily clonazePAM 1 mg oral tablet 1 mg = 1 Tab, Oral, At Bedtime cyclobenzaprine 10 mg oral tablet 10 mg = 1 Tab, PRN, Oral, Daily losartan 100 mg oral tablet 100 mg = 1 Tab, Oral, Daily Lyrica 150 mg oral capsule 150 mg = 1 Cap, Oral, BID morphine 15 mg oral tablet 15 mg = 1 Tab, Oral, BID omeprazole 40 mg oral delayed release capsule 40 mg = 1 Cap, Oral, Daily Percocet 10 mg-325 mg oral tablet 1 Tab, PRN, Oral, TID sildenafil 20 mg oral tablet 20 mg = 1 Tab, Oral, Daily Vitamin B Complex oral tablet 1 Tab, Oral, Daily , Medications (1) Active Scheduled: (1) ceFAZolin/D5w 2 Gram 50 mL, IV Piggyback, PREOP Continuous: (0) PRN: (0) Problem list: All Problems Edema (feet and ankles when walk) / SNOMED CT 789808603 / Confirmed Sleep apnea (cpap) / SNOMED CT 807538563 / Confirmed Peripheral neuropathy (bilat LE) / SNOMED CT 7939336687 / Confirmed Jaundice (remote hx of) / SNOMED CT 79230817 / Confirmed Immunosuppression (RA) / SNOMED CT 88740827 / Confirmed History of obstructive sleep apnea / IMO 36011053 / Confirmed High blood pressure / SNOMED CT 98152627 / Confirmed Hiatal hernia / SNOMED CT 710561373 / Confirmed Hard of hearing (no hearing aids) / SNOMED CT 189570057 / Confirmed GERD - Gastro-esophageal reflux disease / SNOMED CT 3388765373 / Confirmed Shortness of breath (TELLEZ) / SNOMED CT 330475352 / Confirmed Dizzy spells (occasional) / SNOMED CT 993964805 / Confirmed Disorder of prostate (hx of) / SNOMED CT 26637606 / Confirmed DDD (degenerative disc disease), lumbar / SNOMED CT 20314683 / Confirmed Cancer of colon / SNOMED CT 0640331099 / Confirmed Arthritis (osteo and rheumatoid) / SNOMED CT 8600260 / Confirmed, Active Problems (16) Arthritis (osteo and rheumatoid) Cancer of colon DDD (degenerative disc disease), lumbar Disorder of prostate (hx of) Dizzy spells (occasional) Edema (feet and ankles when walk) GERD - Gastro-esophageal reflux disease Hard of hearing (no hearing aids) Hiatal hernia High blood pressure History of obstructive sleep apnea Immunosuppression (RA) Jaundice (remote hx of) Peripheral neuropathy (bilat LE) Shortness of breath (TELLEZ) Sleep apnea (cpap) Histories Past Medical History: No active or resolved past medical history items have been selected or recorded. Family History: No family history items have been selected or recorded. Procedure history: knee replacement surgery in the month of 02/2019 at 68 Years. colon resection in 2010 at 58 Years. spinal cord stimulator x4. Comments: 09/26/2019 9:32 BRANDON CADENA RN 2018 (most recent) discectomy x 5. Comments: 09/26/2019 9:32 BRANDON CADENA RN 1976, 1984 (x2), 2011 prostate surgery (x2). infected leg hardware removed. Comments: 09/26/2019 9:35 BRANDON CADENA RN total of 4 surgeries leg fracture repair x3. dental implants. sinus cyst removed. Vasectomy (05005807). Thumb surgery (8675689718). Colonoscopy (474511817). Social History Social & Psychosocial Habits Alcohol 08/12/2020 Alcohol Use History, Social Habits Yes Days Per Week of Alcohol Use 2 Number of Drinks per Day 2 Total Drinks Per Week 4 Alcohol Use in Last Twelve Months Yes Substance Abuse 08/12/2020 Recreational Drug Use History No Recreational Drug Use Last 12 Months No Tobacco 09/26/2019 Smoking Status Never (less than 100 in l Smokeless Tobacco Status Never Smokeless Tobacco Use History None . Physical Examination VS/Measurements No qualifying data available, Measurements from flowsheet : Measurements 08/12/2020 14:24 EDT Height Source Measured Height Entry Format [place] Height/Length, GREEN[place] (ft) 0 ft Height/Length GREENLAND[place] 69.5 Inch CLINICALHEIGHT 176.53 cm [place] Body Weight 71 kg Weight Source Standing scale Weight Entry Format [place] Weight Samoan lb 221.8 lb CLINICALWEIGHT 100.82 kg Body Surface Area (BSA) 2.17 m2 Body Mass Index 32.4 kg/m2 HI General: Alert and oriented, No acute distress, obese. Eye: Pupils are equal, round and reactive to light, Extraocular movements are intact, glasses. HENT: Normocephalic, slightly [place]IL [place]. Neck: Supple, Non-tender. Respiratory: Lungs are clear to auscultation, Respirations are non-labored. Cardiovascular: Normal rate, Regular rhythm, No murmur, No gallop, LLE 1+ edema. Gastrointestinal: Soft, Non-tender. Genitourinary: No costovertebral angle tenderness. Lymphatics: No lymphadenopathy neck, axilla, groin. Musculoskeletal: painful ROM back, RLE weakness, uses cane/wc to ambulate, SCS R lower back area. Integumentary: Warm, Dry, [place]. Neurologic: Alert, Oriented. Psychiatric: Cooperative, Appropriate mood & affect. Review / Management Results review: No qualifying data available. Impression and Plan Condition: Stable. documented in this encounter Plan of Treatment Not on file documented as of this encounter Visit Diagnoses Not on filedocumented in this encounter Care Teams Deliver Driver Relationship Specialty Start Date End Date Kostas Campa MD [address] [place] [id number] PCP - General Family Medicine 04/03/24 06/25/24 Kostas Campa MD [address] [place] [address] PCP - General Family Medicine 06/26/24 documented as of this encounter
--- OUTSIDE RECORDS SUMMARY | 2025-04-13 06:20 | XMS_ITS | Encounter Summary ---
Author Organization [employer] ([place], [place], [place], [place], [place]) Address [address] [place] [address] Care Team Providers Care Technical Staff Assistant Name Role Phone Kostas Campa MD Primary Care Provider + [phone] Kostas Campa MD Primary Care Provider + [phone] Encounter Details Date Type Department Care Team (Late st Contact Info) Description 07/22/2020 Transcribed Document [facility] [place] [address] ProviderLance MD [address] [place] [address] [id number] Social History Tobacco Use Types Packs/Day Years Used Date Smoking Tobacco: Never Assessed Sex and Gender Information Value Date Recorded Sex Assigned at Not on file Legal Sex Male 6:57 PM CDT Gender Identity Not on file Sexual Orientation Not on file documented as of this encounter Miscellaneous Notes * Cerner Conversion Note - Lance Rosales MD - 07/22/2020 4:02 PM CDT Patient: BAYLEE LING Age: 70 years Sex: Male : 1950 Associated Diagnoses: None Author: KELLY SHEPPARD PA-C Fluoroscopically guided lumbar puncture was perfomed at the L4-L5 level and 12 mls of Isovue M 200 contrast injected. The patient tolerated the procedure well. Lumbar myelogram was then performed. CT and report to follow. Electronically signed by Sergio Olivarez Conversion Architectural Design Professor Cerner at 08/13/2022 6:36 PM CDT documented in this encounter Plan of Treatment Not on file documented as of this encounter Visit Diagnoses Not on filedocumented in this encounter Care Teams Technical Staff Assistant Relationship Specialty Start Date End Date Kostas Campa MD [address] [facility] [address] [place] [address] PCP - General Family Medicine 04/03/24 06/25/24 Kostas Campa MD [address] [facility] [address] [place] [address] PCP - General Family Medicine 06/26/24 documented as of this encounter
--- OUTSIDE RECORDS SUMMARY | 2025-04-13 06:20 | XMS_ITS | Clinical Summary ---
Author Organization [facility] Address [address] [place] [address] Care Team Providers Care Pot Operator Name Role Phone Kostas Campa MD Primary Care Provider [phone] Social History Tobacco Use Types Packs/Day Years Used Date Smoking Tobacco: Never Sex and Gender Information Value Date Recorded Sex Assigned at Not on file Legal Sex Male 8:37 PM EDT Gender Identity Not on file Sexual Orientation Not on file Last Filed Vital Signs Vital Sign Reading Time Taken Comments Blood Pressure - - Pulse - - Temperature - - Respiratory Rate - - Oxygen Saturation - - Inhaled Oxygen Concentration - - Weight 106 kg (233 lb 4 oz) 03/13/2016 9:[address] Height 177.2 cm (5' 9.75 ) 03/13/2016 9:56 AM ES T Body Mass Index 33.71 03/13/2016 9:56 AM EST Plan of Treatment Not on file Care Teams Pot Operator Relationship Specialty Start Date End Date Kostas Campa MD [address] [place] [address] PCP - General 09/06/20
--- OUTSIDE RECORDS SUMMARY | 2025-04-13 06:20 | XMS_ITS | Encounter Summary ---
Author Organization [employer] ([place], [place], [place], [place], [place]) Address [address] [place] [address] Care Team Providers Care Phototypesetting Equipment Monitor Name Role Phone Kostas Campa MD Primary Care Provider + [phone] Kostas Campa MD Primary Care Provider + [phone] Encounter Details Date Type Department Care Team (Late st Contact Info) Description 07/22/2020 Transcribed Document [facility] Family [place] [address] ProviderLance MD [address] [place] [id number] Social History Tobacco Use Types Packs/Day Years Used Date Smoking Tobacco: Never Assessed Sex and Gender Information Value Date Recorded Sex Assigned at Not on file Legal Sex Male 6:57 PM CDT Gender Identity Not on file Sexual Orientation Not on file documented as of this encounter Miscellaneous Notes * Cerner Conversion Note - Lance Rosales MD - 07/22/2020 5:07 PM CDT Patient Education Materials Follows: FAQ - Patient COVID-19 testing Why do I need a COVID-19 test in the hospital? We are testing patients as part of an overall effort to ensure the safety of our patients, staff and providers, and to limit the spread of the novel coronavirus throughout our community. What happens if I test positive for COVID-19? Any scheduled elective procedure will be postponed and treatment for the coronavirus will follow the protocol that is currently in place. If you are admitted to the hospital, we will use droplet precautions for patients who test positive for COVID-19. If I'm a patient, should I wear a mask? Yes. When you are in your room alone, you may remove your mask. When anyone enters your room, you should put your mask back on. Will I be allowed to have visitors if I am admitted to the hospital with COVID-19? As part of the standard care for COVID-19 patients, visitors will not be allowed to protect them from potential exposure to the novel coronavirus. If you have a health care support person with you during a pending test and the test comes back positive, your visitor will be asked to leave and follow up with their primary care provider. Public health may reach out to them to complete contact tracing. Will my status as COVID-19 positive be reported? Because COVID-19 is a public health threat, all positive cases are reported through the local health department and the [place] Department for Public Health. Those organizations are responsible for monitoring public health threats. What is contact tracing? The public health departments at the state and local levels use contact tracing to prevent the spread of infectious disease. They will work to identify people who have COVID-19 and their contacts who may have been exposed. What does contact tracing involve? Typically, a contact tracer will interview patients with COVID-19 to identify everyone with whom they have had close contact during the time they may have been infectious and then notify those contacts of potential exposure and refer them for testing. They may monitor the contacts for symptoms of COVID-19 and connect the contacts with services they may need during a recommended self-quarantine period. The patient's name is not revealed to anyone during the contact tracing interviews, even if a contact asks. Who would be considered a close contact ? According to the CDC, a close contact is defined as someone who was within 6 feet of an infected person for at least 15 minutes, starting from 48 hours before the person began feeling sick until the time the patient was isolated. What can a close contact expect during this process? A contact tracer from the health department will contact that person to inform them they have been exposed to COVID-19. If that happens, the contact should self-quarantine for 14 days, starting from the last date of possible exposure, monitor their health, wear a face covering and maintain social distancing - at least 6 feet from others at all times. Should a close contact seek medical care? Close contacts should take their temperature twice a day, watch for COVID-19 symptoms and notify the health department if they develop symptoms. They should also notify people with whom they have had recent close contact if they become ill. They should seek medical care if symptoms worsen or become severe, including trouble breathing, persistent pain or pressure in the chest, confusion, inability to wait or stay awake, or bluish lips or face. Steps to Help Prevent the Spread of COVID-19 if You Are Sick In all cases, follow the guidance of your health care provider and local health department. Your local health department determines the length of time for quarantine and will notify you with detailed information. Monitor your symptoms. Common symptoms of COVID-19 include fever, fatigue, diarrhea/vomiting, loss of taste and smell, and cough. Trouble breathing is a more serious symptom that means you should get medical attention. If you develop emergency warning signs for COVID-19 get medical attention immediately. Emergency warning signs include*: ??? Trouble breathing ??? Persistent pain or pressure in the chest ??? New confusion or inability to arouse ??? Bluish lips or face *This list is not all inclusive. Please consult your medical provider for any other symptoms that are severe or concerning. Call 911 if you have a medical emergency. If you have a medical emergency and need to call 911, notify the bar finish operator that you have, or think you might have, COVID-19. If possible, put on a facemask before medical help arrives. Stay home except to get medical care. ??? Stay home: Most people with COVID-19 have mild illness and can recover at home without medical care. Do not leave your home, except to get medical care. Do not visit public areas. ??? Stay in touch with your doctor. Call before you get medical care. Be sure to get care if you have trouble breathing, or have any other emergency warning signs, or if you think it is an emergency. Separate yourself from other people in your home; this is known as home isolation. ??? Stay away from others: As much as possible, stay away from others. You should stay in a specific sick room if possible, and away from other people in your home. Use a separate bathroom, if available. Call ahead before visiting your doctor. ??? Call ahead: Many medical visits for routine care are being postponed or done by phone or telemedicine. If you have a medical appointment that cannot be postponed, call your doctor's office, and tell them you have or may have COVID-19. This will help the office protect themselves and other patients. If you are sick, wear a facemask in the following situations, if available. ??? If you are sick: You should wear a facemask, if available, when you are around other people (including before you enter a health care provider's office). ??? If you are caring for others: If the person who is sick is not able to wear a facemask (for example, because it causes trouble breathing), then as their caregiver, you should wear a facemask when in the same room with them. Visitors, other than caregivers, are not recommended. Cover your coughs and sneezes. ??? Cover: Cover your mouth and nose with a tissue when you cough or sneeze. ??? Dispose: Throw used tissues into a lined trash can. ??? Wash hands: Immediately wash your hands with soap and water for at least 20 seconds. If soap and water are not available, clean your hands with an alcohol-based hand deckhand oyster dredge that contains at least 60% alcohol. Clean your hands often. ??? Wash hands: Wash your hands often with soap and water for at least 20 seconds when visibly dirty. This is especially important after blowing your nose, coughing or sneezing, and going to the bathroom, and before eating or preparing food. ??? Hand deckhand oyster dredge: Use an alcohol-based hand deckhand oyster dredge with at least 60% alcohol, covering all surfaces of your hands and rubbing them together until they feel dry. ??? Avoid touching: Avoid touching your eyes, nose and mouth with unwashed hands. Avoid sharing personal household items. ??? Do not share: Do not share dishes, drinking glasses, cups, eating utensils, towels or bedding with other people in your home. ??? Wash thoroughly after use: After using these items, wash them thoroughly with soap and water or put them in the pad machine feeder. Clean all high-touch surfaces every day. Clean high-touch surfaces in your isolation area ( sick room and bathroom) every day; let a caregiver clean and disinfect high-touch surfaces in other areas of the home. ??? Clean and disinfect: Routinely clean high-touch surfaces in your sick room and bathroom. Let someone else clean and disinfect surfaces in common areas, but not your bedroom and bathroom. ? If a caregiver or other person needs to clean and disinfect a sick person's bedroom or bathroom, they should do so on an as-needed basis. The caregiver/other person should wear a mask and wait as long as possible after the sick person has used the bathroom. ? High-touch surfaces include phones, remote controls, counters, tabletops, doorknobs, bathroom fixtures, toilets, keyboards, tablets and bedside tables. ??? Clean and disinfect areas that may have blood, stool, or body fluids on them. ??? Household autism tutor and disinfectants: Clean the area or item with soap and water or another detergent if it is dirty. Then, use a household disinfectant. ?? Be sure to follow the instructions on the label to ensure safe and effective use of the product. Many products recommend keeping the surface wet for several minutes to ensure germs are killed. Many also recommend precautions such as wearing gloves and making sure you have good ventilation during use of the product. ?? Most EPA-registered household disinfectants should be effective. A full list of disinfectants can be found here: https://www.epa.gov/pesticide-registration/jxty-o-bmkauquldyxxz-arq-nwcaisv-sg rs-cov-2 Lumbar Puncture, Care After This sheet gives you information about how to care for yourself after your procedure. Your health care provider may also give you more specific instructions. If you have problems or questions, contact your health care provider. What can I expect after the procedure? After the procedure, it is common to have: ??? Mild discomfort or pain at the puncture site. ??? A mild headache that is relieved with pain medicines. Follow these instructions at home: Activity ??? Lie down flat or rest for as long as directed by your health care provider. ??? Return to your normal activities as told by your health care provider. Ask your health care provider what activities are safe for you. ??? Avoid lifting anything heavier than 10 lb (4.5 kg) for at least 12 hours after the procedure. ??? Do not drive for 24 hours if you were given a medicine to help you relax (sedative) during your procedure. ??? Do not drive or use heavy machinery while taking prescription pain medicine. Puncture site care ??? Remove or change your bandage (dressing) as told by your health care provider. ??? Check your puncture area every day for signs of infection. Check for: ? More pain. ? Redness or swelling. ? Fluid or blood leaking from the puncture site. ? Warmth. ? Pus or a bad smell. General instructions ??? Take zrew-zfw-tpbokbg and prescription medicines only as told by your health care provider. ??? Drink enough fluids to keep your urine clear or pale yellow. Your health care provider may recommend drinking caffeine to prevent a headache. ??? Keep all follow-up visits as told by your health care provider. This is important. Contact a health care provider if: ??? You have fever or chills. ??? You have nausea or vomiting. ??? You have a headache that lasts for more than 2 days or does not get better with medicine. Get help right away if: ??? You develop any of the following in your legs: ? Weakness. ? Numbness. ? Tingling. ??? You are unable to control when you urinate or have a bowel movement (incontinence). ??? You have signs of infection around your puncture site, such as: ? More pain. ? Redness or swelling. ? Fluid or blood leakage. ? Warmth. ? Pus or a bad smell. ??? You are dizzy or you feel like you might faint. ??? You have a severe headache, especially when you sit or stand. Summary ??? A lumbar puncture is a procedure in which a small needle is inserted into the lower back to remove fluid that surrounds the brain and spinal cord. ??? After this procedure, it is common to have a headache and pain around the needle insertion area. ??? Lying flat, staying hydrated, and drinking caffeine can help prevent headaches. ??? Monitor your needle insertion site for signs of infection, including warmth, fluid, or more pain. ??? Get help right away if you develop leg weakness, leg numbness, incontinence, or severe headaches. This information is not intended to replace advice given to you by your health care provider. Make sure you discuss any questions you have with your health care provider. Document Revised: 05/26/2017 Document Reviewed: 05/26/2017 [employer] Patient Education ? 2020 [employer] Myelogram A myelogram is an imaging test. This test checks for problems in the spinal cord and the places where nerves attach to the spinal cord (nerve roots). A dye (contrast material) is put into your spine before the X-ray. This provides a clearer image for your doctor to see. You may need this test if you have a spinal cord problem that cannot be diagnosed with other imaging tests. You may also have this test to check your spine after surgery. Tell a doctor about: ??? Any allergies you have, especially to iodine. ??? All medicines you are taking, including vitamins, herbs, eye drops, creams, and futi-qys-ezgvasz medicines. ??? Any problems you or family members have had with anesthetic medicines or dye. ??? Any blood disorders you have. ??? Any surgeries you have had. ??? Any medical conditions you have or have had, including asthma. ??? Whether you are or may be . What are the risks? Generally, this is a safe procedure. However, problems may occur, including: ??? Infection. ??? Bleeding. ??? Allergic reaction to medicines or dyes. ??? Damage to your spinal cord or nerves. ??? Leaking of spinal fluid. This can cause a headache. ??? Damage to kidneys. ??? Seizures. This is rare. What happens before the procedure? Follow instructions from your doctor about what you cannot eat or drink. You may be asked to drink more fluids. ??? Ask your doctor about changing or stopping your normal medicines. This is important if you take diabetes medicines or blood thinners. ??? Plan to have someone take you home from the hospital or clinic. ??? If you will be going home right after the procedure, plan to have someone with you for 24 hours. What happens during the procedure? You will lie face down on a table. ??? Your doctor will find the best injection site on your spine. This is most often in the lower back. ??? This area will be washed with soap. ??? You will be given a medicine to numb the area (local anesthetic). ??? Your doctor will place a long needle into the space around your spinal cord. ??? A sample of spinal fluid may be taken. This may be sent to the lab for testing. ??? The dye will be injected into the space around your spinal cord. ??? The exam table may be tilted. This helps the dye flow up or down your spine. ??? The X-ray will take images of your spinal cord. ??? A bandage (dressing) may be placed over the area where the dye was injected. The procedure may vary among doctors and hospitals. What can I expect after the procedure? You may be monitored until you leave the hospital or clinic. This includes checking your blood pressure, heart rate, breathing rate, and blood oxygen level. ??? You may feel sore at the injection site. You may have a mild headache. ??? You will be told to lie flat with your head raised (elevated). This lowers the risk of a headache. ??? It is up to you to get the results of your procedure. Ask your doctor, or the department that is doing the procedure, when your results will be ready. Follow these instructions at home: ??? Rest as told by your doctor. Lie flat with your head slightly elevated. ??? Do not bend, lift, or do hard work for 24?48 hours, or as told by your doctor. ??? Take txoc-vyf-ucwickc and prescription medicines only as told by your doctor. ??? Take care of your bandage as told by your doctor. ??? Drink enough fluid to keep your pee (urine) pale yellow. ??? Bathe or shower as told by your doctor. Contact a doctor if: ??? You have a fever. ??? You have a headache that lasts longer than 24 hours. ??? You feel sick to your stomach (nauseous). ??? You vomit. ??? Your neck is stiff. ??? Your legs feel numb. ??? You cannot pee. ??? You cannot poop (no bowel movement). ??? You have a rash. ??? You are itchy or sneezing. Get help right away if: ??? You have new symptoms or your symptoms get worse. ??? You have a seizure. ??? You have trouble breathing. Summary ??? A myelogram is an imaging test that checks for problems in the spinal cord and the places where nerves attach to the spinal cord (nerve roots). ??? Before the procedure, follow instructions from your doctor. You will be told what not to eat or drink, or what medicines to change or stop. ??? After the procedure, you will be told to lie flat with your head raised (elevated). This will lower your risk of a headache. ??? Do not bend, lift, or do any hard work for 24?48 hours, or as told by your doctor. ??? Contact a doctor if you have a stiff neck or numb legs. Get help right away if your symptoms get worse, or you have a seizure or trouble breathing. This information is not intended to replace advice given to you by your health care provider. Make sure you discuss any questions you have with your health care provider. Document Revised: 06/21/2019 Document Reviewed: 06/22/2019 [employer] Patient Education ? 2020 [employer] documented in this encounter Plan of Treatment Not on file documented as of this encounter Visit Diagnoses Not on filedocumented in this encounter Care Teams Phototypesetting Equipment Monitor Relationship Specialty Start Date End Date Kostas Campa MD [address] [facility] [address] [place] [id number] PCP - General Family Medicine 04/03/24 06/25/24 Kostas Campa MD [address] [place] [facility] [address] [place] [id number] PCP - General Family Medicine 06/26/24 documented as of this encounter
--- OUTSIDE RECORDS SUMMARY | 2025-04-13 06:20 | XMS_ITS | Encounter Summary ---
Author Organization [employer] ([place], [place], [place], [place], [place]) Address [address] [place] [address] Care Team Providers Care Supervisor Landscape Name Role Phone Kostas Campa MD Primary Care Provider + [phone] Kostas Campa MD Primary Care Provider + [phone] Encounter Details Date Type Department Care Team (Late st Contact Info) Description 07/22/2020 Transcribed Document [facility] [place] Family Medicine [address] [place] [address] ProviderLance MD [address] [place] [id number] Social History Tobacco Use Types Packs/Day Years Used Date Smoking Tobacco: Never Assessed Sex and Gender Information Value Date Recorded Sex Assigned at Not on file Legal Sex Male 6:57 PM CDT Gender Identity Not on file Sexual Orientation Not on file documented as of this encounter Miscellaneous Notes * Cerner Conversion Note - Lance Rosales MD - 07/22/2020 5:09 PM CDT [facility] [place] [address] BAYLEE LING :1950 Visit Time:07/22/2020 Your Visit Summary Your Care Team Admitting Physician - CHRIS BOWERS MD Attending Physician - CHRIS BOWERS MD Primary Care Physician - CYNTHIA, UNKNOWN Referring Physician - CHRIS BOWERS MD Your Diagnosis Dorsalgia, unspecified, Dorsalgia, unspecified Discharge Vitals Temperature 36.1 ??C Heart Rate (Monitored) 70 Blood Pressure 123/68 What to do next Follow-Up Appointments Follow Up with CHRIS BOWERS MD When Within 1 week Comments Call for follow up appointment for results. Where: [address] [facility] [address] [place] [address]- Medications What How Much When Instructions Next Dose clonazePAM 1 Milligram(s) Oral At Bedtime morphine 15 Milligram(s) Oral Every 12 hours as needed for as needed for pain states takes at night pregabalin (Lyrica) 150 Milligram(s) Oral Two Times A Day acetaminophen-oxyCODONE (Percocet 7.5/ 325) 1 Tablet(s) Oral Three Times A Day aspirin 81 Milligram(s) Oral Every Day celecoxib 200 Milligram(s) Oral Every Day cyclobenzaprine 10 Milligram(s) Oral At Bedtime losartan 100 Milligram(s) Oral At Bedtime omeprazole 40 Milligram(s) Oral At Bedtime sildenafil 20 Milligram(s) Oral Every Day as [...] Please dispose of unused and medications per your retail pharmacy guidance. Allergies No Known Allergies Immunizations This Visit No Immunizations Found Education Materials FAQ ??? Patient COVID-19 testing Why do I need [...] patients who test positive for COVID-19. If I???m a patient, should I wear a mask? [...] through the local health department and the [place] Department for Public Health. Those organizations are [...] need during a recommended self-quarantine period. The patient???s name is not revealed to anyone during the contact tracing interviews, even if a contact asks. Who would be considered a ???close contact?? ? According to the CDC, a close [...] a face covering and maintain social distancing ??? at least 6 feet from others at [...] and need to call 911, notify the automatic quilling machine operator that you have, or think you [...] others. You should stay in a specific ???sick room?? if possible, and away from other people [...] (including before you enter a health care provider???s office). ??? If you are caring for [...] clean your hands with an alcohol-based hand hookman that contains at least 60% alcohol. Clean your hands often. ??? Wash hands: Wash your hands often with soap and water for at least 20 seconds when visibly dirty. This is especially important after blowing your nose, coughing or sneezing, and going to the bathroom, and before eating or preparing food. ??? Hand hookman: Use an alcohol-based hand hookman with at least 60% alcohol, covering all [...] and water or put them in the manager fraud. Clean all high-touch surfaces every day. Clean high-touch surfaces in your isolation area (???sick room?? and bathroom) every day; let a caregiver clean and disinfect high-touch surfaces in other areas of the home. ??? Clean and disinfect: Routinely clean high-touch surfaces in your ???sick room?? and bathroom. Let someone else clean and disinfect surfaces in common areas, but not your bedroom and bathroom. ? If a caregiver or other person needs to clean and disinfect a sick person???s bedroom or bathroom, they should do so [...] or body fluids on them. ??? Household door core assembler and disinfectants: Clean the area or item with soap and water or another detergent if it is dirty. Then, use a household disinfectant. ??? Be sure to follow the instructions on the label to ensure safe and effective use of the product. Many products recommend keeping the surface wet for several minutes to ensure germs are killed. Many also recommend precautions such as wearing gloves and making sure you have good ventilation during use of the product. ??? Most EPA-registered household disinfectants should be effective. A full list of disinfectants can be found here: https://www.epa.gov/pesticide-registration/qaul-s-svjfcxdqplsse-ypq-ksumchb-qw rs-cov-2 Lumbar Puncture, Care After This sheet [...] a bad smell. General instructions ??? Take bxrk-hzv-tkvvncy and prescription medicines only as told by [...] provider. Document Revised: 05/26/2017 Document Reviewed: 05/26/2017 [employer] Patient Education ?? 2020 [employer]. Myelogram A myelogram is an imaging test. [...] including vitamins, herbs, eye drops, creams, and ahza-grk-rijuhfk medicines. ??? Any problems you or family [...] bend, lift, or do hard work for 24???48 hours, or as told by your doctor. ??? Take xjjd-slt-lqfubqx and prescription medicines only as told by [...] lift, or do any hard work for 24???48 hours, or as told by your doctor. [...] provider. Document Revised: 06/21/2019 Document Reviewed: 06/22/2019 [employer] Patient Education ?? 2020 [employer] Emergency Awareness and Preventative Care STROKE [...] Assistance with quitting is available by contacting 8-092-ZHOFNOW. This is a free resource providing counseling, support, and referral. Or you may contact your personal physician. [employer] Suicide Prevention Lifeline: The National Suicide Prevention [...] CPR? There are two easy steps: Call 9-1-1 if you see a teen or adult [...] This Visit (last charted value for your 07/22/2020 visit) General Chemistry 07/22/2020 2:25 PM eGFR : 73 mL/min/1.73m2 eGFR NonAfrican: 60 mL/min/1.73m2 Creatinine POC: 1.2 mg/dL -- Normal range between ( 0.6 and 1.3 ) BUN POC: 35 mg/dL -- Normal range between ( 8 and 26 ) Diagnostic Radiology 07/22/2020 4:06 PM CR Myelography Lumbar W Inj: CR Myelography Lumbar W Inj Patient Name:BAYLEE LING I have received and understand this information and was given the opportunity to ask questions. Patient/Body Service Team Member Name: Patient/Body Service Team Member Signature: Relationship to Patient: Clinician/Hospital Body Service Team Member Signature: Date: documented in this encounter Plan of Treatment Not on file documented as of this encounter Visit Diagnoses Not on filedocumented in this encounter Care Teams Supervisor Landscape Relationship Specialty Start Date End Date Kostas Campa MD [address] [facility] [address] [place] [phone] PCP - General Family Medicine 04/03/24 06/25/24 Kostas Campa MD [address] [facility] [address] [place] [address] PCP - General Family Medicine 06/26/24 documented as of this encounter
--- OUTSIDE RECORDS SUMMARY | 2025-04-13 06:20 | XMS_ITS | Encounter Summary ---
Author Organization [employer] ([place], [place], [place], [place], [place]) Address [address] [place] [address] Care Team Providers Care Interpretative Dancer Name Role Phone Kostas Campa MD Primary Care Provider + [phone] Kostas Campa MD Primary Care Provider + [phone] Encounter Details Date Type Department Care Team (Late st Contact Info) Description 07/22/2020 Transcribed Document [facility] [place] Family [place] [facility] [place] [address] ProviderLance MD [address] [place] [id number] Social History Tobacco Use Types Packs/Day Years Used Date Smoking Tobacco: Never Assessed Sex and Gender Information Value Date Recorded Sex Assigned at Not on file Legal Sex Male 6:57 PM CDT Gender Identity Not on file Sexual Orientation Not on file documented as of this encounter Miscellaneous Notes * Cerner Conversion Note - Lance ProviderMD - 07/22/2020 5:08 PM CDT Nursing Discharge Summary Entered On: 07/22/2020 17:09 EDT Performed On: 07/22/2020 17:08 EDT by ROSY SOTO RN Discharge Documentation Discharge Date/Time : 07/22/2020 18:00 EDT Patient Disposition, General : Discharge Discharge To : Home with ambulatory/outpatient follow-up Mode Of Departure, General Discharge : Private vehicle, Wheelchair Accompanied By, Discharge : Spouse IV Discontinued : Not applicable Personal Belongings With Patient : Yes Discharge Instructions Reviewed With, Opportunity For Questions Given : Patient, Spouse Patient Education Completed : Yes Teaching Method : Explanation, Printed materials Teaching Evaluation : Verbalizes understanding ROSY SOTO, RN - 07/22/2020 17:08 EDT Electronically signed by Juanis [facility] Conversion Career Based Intervention Coordinator Cerner at 08/13/2022 6:30 PM CDT documented in this encounter Plan of Treatment Not on file documented as of this encounter Visit Diagnoses Not on filedocumented in this encounter Care Teams Interpretative Dancer Relationship Specialty Start Date End Date Kostas Campa MD [address] [facility] [address] [place] [phone] PCP - General Family Medicine 04/03/24 06/25/24 Kostas Campa MD [address] [facility] [address] [place] [phone] PCP - General Family Medicine 06/26/24 documented as of this encounter
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
--- OUTSIDE RECORDS SUMMARY | 2025-04-13 06:20 | XMS_ITS | Encounter Summary ---
Author Organization [employer] ([place], [place], [place], [place], [place]) Address [address] [place] [address] Care Team Providers Care Child Care Supervisor Name Role Phone Kostas Campa MD Primary Care Provider + [phone] Kostas Campa MD Primary Care Provider + [phone] Encounter Details Date Type Department Care Team (Late st Contact Info) Description 08/13/2020 Transcribed Document [facility] [place] [facility] [place] [address] ProviderLance MD [address] [place] [id number] Social History Tobacco Use Types Packs/Day Years Used Date Smoking Tobacco: Never Assessed Sex and Gender Information Value Date Recorded Sex Assigned at Not on file Legal Sex Male 6:57 PM CDT Gender Identity Not on file Sexual Orientation Not on file documented as of this encounter Miscellaneous Notes * Cerner Conversion Note - Lance ProviderMD - 08/13/2020 4:22 PM CDT [facility] Main OR PACU Summary Primary Physician: CHRIS BOWERS MD Finalized Date/Time: 08/13/20 18:45:36 Pt. Name: BAYLEE LING D.O.B./Sex: 1950 Male Med Rec #: [id number] Physician: CHRIS BOWERS MD Financial #: [id number] Pt. Type: O Room/Bed: /1 Admit/Disch: 08/13/20 10:43:00 - Institution: [facility] Main OR PACU I Case Times Entry 1 In PACU I 08/13/20 17:43:00 Ready for PACU 08/13/20 18:25:00 Discharge Discharge from PACU 08/13/20 18:25:00 I Last Modified By: BRIONNA REHMAN RN 08/13/20 18:45:26 Finalized By: BRIONNA REHMAN, RN Document Signatures Signed By: BRIONNA REHMAN RN 08/13/20 18:45 Electronically signed by Juanis [facility] Conversion Grain Wafer Machine Operator Cerner at 08/13/2022 6:17 PM CDT documented in this encounter Plan of Treatment Not on file documented as of this encounter Visit Diagnoses Not on filedocumented in this encounter Care Teams Child Care Supervisor Relationship Specialty Start Date End Date Kostas Campa MD [address] [facility] [address] [place] [phone] PCP - General Family Medicine 04/03/24 06/25/24 Kostas Campa MD [address] [facility] [address] [place] [phone] PCP - General Family Medicine 06/26/24 documented as of this encounter
--- OUTSIDE RECORDS SUMMARY | 2025-04-13 06:20 | XMS_ITS | Encounter Summary ---
Author Organization [employer] ([place], [place], [place], [place], [place]) Address [address] [place] [address] Care Team Providers Care Medical Office Technologist Name Role Phone Kostas Campa MD Primary Care Provider + [phone] Kostas Campa MD Primary Care Provider + [phone] Encounter Details Date Type Department Care Team (Late st Contact Info) Description 08/13/2020 Transcribed Document [facility] Family Medicine [place] [address] ProviderLance MD [address] [place] [id number] Social History Tobacco Use Types Packs/Day Years Used Date Smoking Tobacco: Never Assessed Sex and Gender Information Value Date Recorded Sex Assigned at Not on file Legal Sex Male 6:57 PM CDT Gender Identity Not on file Sexual Orientation Not on file documented as of this encounter Miscellaneous Notes * Cerner Conversion Note - Lance ProviderMD - 08/13/2020 4:22 PM CDT [facility] Main OR IntraOp Summary Primary Physician: CHRIS BOWERS MD Finalized Date/Time: 08/14/20 09:10:48 Pt. Name: BAYLEE LING D.O.B./Sex: 1950 Male Med Rec #: [id number] Physician: CHRIS BOWERS MD Financial #: [id number] Pt. Type: O Room/Bed: /1 Admit/Disch: 08/13/20 10:43:00 - Institution: [facility] IntraOp Case Attendance Entry 1 Entry 2 Entry 3 Case Attendee CHRIS BOWERS MD Roark, Letitia, ST WILLS, SANDRA R. Role Performed Surgeon/Proceduralist, Scrub, First Scrub, First First Time In 08/13/20 15:41:00 08/13/20 15:41:00 08/13/20 16:15:00 Time Out 08/13/20 17:40:00 08/13/20 16:25:00 08/13/20 17:40:00 Procedure Discectomy Minimally Discectomy Minimally Discectomy Minimally Invasive Invasive Invasive Other Attendee Superficial Wound Closed By: Last Modified By: Zaida Pérez, Zaida Lobo RN Poff, Janie, RN 08/13/20 17:38:28 08/13/20 17:38:28 08/13/20 17:38:28 Entry 4 Entry 5 Entry 6 Case Attendee ADRIA ARELLANO PA Fortner, Bryan, COMBEST, ASHLEY P, DETECTIVE INVESTIGATOR Fuel Oil Truck Driver Role Performed Physician after school program assistant Frame Stripper DETECTIVE INVESTIGATOR/Nurse Chef Head Time In 08/13/20 15:41:00 08/13/20 15:41:00 08/13/20 15:41:00 Time Out 08/13/20 17:40:00 08/13/20 17:40:00 08/13/20 17:40:00 Procedure Discectomy Minimally Discectomy Minimally Discectomy Minimally Invasive Invasive Invasive Other Attendee Superficial Wound Closed By: Last Modified By: Zaida Pérez RN Poff, Janie, RN Poff, Janie, RN 08/13/20 17:38:28 08/13/20 17:38:28 08/13/20 17:38:28 Entry 7 Entry 8 Entry 9 Case Attendee TESSA ANG MD-Zaida Motta, Margi Jennings Rn Role Performed Anesthesiologist of Cylinder Block Hole Reliner, First Cylinder Block Hole Reliner, First Record Time In 08/13/20 15:41:00 08/13/20 15:41:00 08/13/20 17:30:00 Time Out 08/13/20 17:40:00 08/13/20 17:38:00 08/13/20 17:40:00 Procedure Discectomy Minimally Discectomy Minimally Discectomy Minimally Invasive Invasive Invasive Other Attendee Superficial Wound Closed By: Last Modified By: Zaida Pérez RN Poff, Janie, Zaida Lobo RN 08/13/20 17:38:29 08/13/20 17:38:29 08/13/20 17:38:29 [facility] IntraOp Case Attendance Audit 08/13/20 17:38:29 Market Manager: MERNA Modifier: PORAJ 7 <*> Procedure Discectomy Minimally Invasive 8 <*> Procedure Discectomy Minimally Invasive 9 <+> Time Out 9 <*> Procedure Discectomy Minimally Invasive 08/13/20 17:38:28 Market Manager: MERNA Modifier: POMANUELJAN 1 <+> Time Out 1 <*> Procedure Discectomy Minimally Invasive 2 <*> Procedure Discectomy Minimally Invasive 3 <+> Time Out 3 <*> Procedure Discectomy Minimally Invasive 4 <+> Time Out 4 <*> Procedure Discectomy Minimally Invasive 5 <+> Time Out 5 <*> Procedure Discectomy Minimally Invasive 6 <+> Time Out 6 <*> Procedure Discectomy Minimally Invasive <+> 7 Time Out 08/13/20 17:38:12 Market Manager: MERNA Modifier: POFFJAN 8 <+> Time Out 8 <*> Procedure Discectomy Minimally Invasive 08/13/20 17:37:58 Market Manager: MERNA Modifier: POMANUELJAN 1 <*> Procedure Discectomy Minimally Invasive 2 [...] In 8 <*> Procedure Discectomy Minimally Invasive <+> 9 Case Attendee <+> 9 Role Performed <+> 9 Time In <+> 9 Procedure [facility] IntraOp Case Times Entry 1 Patient In Room Time 08/13/20 15:41:00 Out Room Time 08/13/20 17:40:00 Anesthesia Start Time 08/13/20 15:41:00 Stop Time 08/13/20 17:40:00 Surgery / Procedure Times Start Time 08/13/20 16:22:00 Stop Time 08/13/20 17:15:00 Last Modified By: Zaida Pérez RN 08/13/20 17:38:26 [facility] IntraOp Case Times Audit 08/13/20 17:38:26 Market Manager: POFFJAN Modifier: POFFJAN <+> 1 Out Room Time <+> 1 Stop Time 08/13/20 17:22:37 Market Manager: POFFJAN Modifier: POFFJAN <+> 1 Stop Time 08/13/20 16:24:56 Market Manager: POFFJAN Modifier: POFFJAN <+> 1 Start Time [facility] IntraOp Cautery Entry 1 ESU Identification Cautery Type Monopolar ESU Cautery Type ConMed System 5000 Comments ID Number Trial equipment ID Type Hospital Number Cautery Settings Cut Setting 40 Coag Setting 40 Bipolar Setting 40 ESU Grounding Pad Ground Pad Type Adult Grounding Pad Site Left thigh Grounding Pad Zaida Pérez RN Applied By Grounding Pad Site Warm, Dry, Intact Skin Condition Before Cautery Grounding Pad Site Unchanged Skin Condition After Cautery Last Modified By: Zaida Pérez RN 08/13/20 16:33:42 [facility] IntraOp Communication Entry 1 Communication To Family/Significant other Comment Start Communication By Zaida Pérez RN Date and Time 08/13/20 16:24:00 Last Modified By: Zaida Pérez RN 08/13/20 16:33:58 [facility] Intra[facility] Counts Verification Entry 1 Procedure Discectomy Minimally Invasive Count Info Count Type Sponge, Sharps, Miscellaneous Counts Verification Baseline/pre-procedure Sequence Count Results Not Applicable Counts Performed By Count Performed By Tiny Figueredo ST (Scrub) Count Performed By Zaida Pérez RN (RN) Last Modified By: Zaida Pérez RN 08/13/20 16:30:08 [facility] Intra[facility] Counts Final Entry 1 Procedure Discectomy Minimally Invasive Final Count Info Count Type Sponge, Sharps, Miscellaneous Counts Verification Skin Closure/end of Sequence procedure Count Results Correct, surgeon notified Counts Performed By Count Performed By ANGIE TELLO (Scrub) Count Performed By Zaida Pérez RN (RN) Last Modified By: Zaida Pérez RN 08/13/20 17:22:45 [facility] IntraOp Counts Final Audit 08/13/20 17:22:45 Market Manager: MERNA Modifier: MERNA 1 <*> Procedure Discectomy Minimally Invasive 1 <+> Count Performed By (RN) [facility] IntraOp Departure from OR Entry 1 Integumentary Assessment Integumentary WDL with patient Assessment WDL specific variances Patient's Normal Surgical incision = back Integumentary Variance(s) Transfer/Handoff Transfer to PACU Phase I Handoff Method Phone call Handoff Reported to BRIONNA REHMAN RN Post-op Transport Bed (including Via specialty) Patient Transport MELO DISLA, Accompanied by Beto HOWARD Janie, RN Last Modified By: Zaida Pérez RN 08/13/20 17:25:08 [facility] IntraOp Departure from OR Audit 08/13/20 17:25:08 Market Manager: MERNA Modifier: POFFJAN <+> 1 Patient Transport Accompanied by <+> 1 Handoff Reported to [facility] IntraOp Dressing and Packing Entry 1 Type Dressing Location Back Wound Dressing Item Other Applied By ADRIA ARELLANO PA Other Comments 2x2 Covaderm Last Modified By: Zaida Pérez RN 08/13/20 17:24:10 [facility] Intra[facility] Dressing and Packing Audit 08/13/20 17:24:10 Market Manager: MERNA Modifier: MERNA <+> 1 Type <+> 1 Location <+> 1 Wound Dressing Item <+> 1 Applied By <+> 1 Other Comments 08/13/20 17:21:04 Market Manager: MERNA Modifier: POFFJOSÉ MIGUEL Entry 1 was deleted. Higher numbered entries shifted one position to fill the gap. <-> 1 Type Dressing <-> 1 Location Back <-> 1 Applied By ADRIA ARELLANO PA [facility] IntraOp Fire Risk Assessment Entry 1 Fire Info Surgical Site or 0- No Incision Above the Xyphoid Open O2 Source 0- No (Mask or Cannula) Available Ignition 1- Yes (ESU, Laser, Light Source) Fire Risk 1 Assessment Score Fire Score Fire Risk Yes Assessment Complete Fire Risk Zaida Pérez RN Assessment Verified By Fire Risk 08/13/20 16:22:00 Assessment Verified Date/Time Fire Risk Standard Fire Yes Safety Precautions Followed Last Modified By: Zaida Pérez RN 08/13/20 16:39:20 [facility] IntraOp Fire Risk Assessment Audit 08/13/20 16:39:20 Market Manager: MERNA Modifier: POFFJAN <+> 1 Fire Risk Assessment Verified Date/Time [facility] IntraOp General Case Photo Mask Pattern Generator 1 Case Information OR OR 05 [facility] Case Level 1 Room Verified Yes Wound Class I - Clean Specialty Neurosurgery Anesthesia Type General ASA Class 3 Diagnosis Preop Diagnosis G89.29 Postop Same As Preop Yes Postop Diagnosis G89.29 Last Modified By: Zaida Pérez RN 08/13/20 16:45:48 [facility] IntraOp General Case Data Audit 08/13/20 16:45:48 Market Manager: MERNA Modifier: POFFJAN <+> 1 Postop Same As Preop <+> 1 Preop Diagnosis <+> 1 Postop Diagnosis 08/13/20 16:30:32 Market Manager: MERNA Modifier: MERNA 1 <*> OR OR 11 [facility] IntraOp Intraoperative Assessment Entry 1 Handoff Method Bedside/Face to face Valid History / Yes Physical in Chart Preoperative Yes Checklist Reviewed/Evaluated Allergies Reviewed Yes Patient is Latex No Sensitive Isolation Not applicable Precautions Noted Level of WDL Consciousness (WDL = Alert, Oriented to Person, Place, and Time) Skin Assessment Yes Verified Present Upon IVs Arrival to OR Last Modified By: Zaida Pérez RN 08/13/20 16:29:49 [facility] IntraOp Intraoperative Assessment Audit 08/13/20 16:29:49 Market Manager: MERNA Modifier: POFFJAN <+> 1 Patient is Latex Sensitive [facility] IntraOp Intraoperative Equipment Entry 1 Type Monitoring Equipment Equipment Yosvany Suction System ID Number [id number] Intraop Monitoring Electrocardiogram Five lead placement (ECG) Electrode Placement Blood Pressure Non-Invasive BP Device Source Antiembolic Devices Scopes Photo/Video Documentation Photo No Video No Last Modified By: Zaida Pérez RN 08/13/20 16:32:08 [facility] IntraOp Medication Admin Entry 1 Entry 2 Entry 3 Medication/Irrigant lidocaine 1% w/ Marcaine 0.25% 30ml Bacitracin powder epinephrine 1:100,000 vial - [id number] 50,000 units in 1000 mL 30ml vial - [id number] .9% NaCl Combo Med List Time Administered Route of LOCAL LOCAL Irrigation Administration Dose Dose 5 10 58506 Unit of Measure ml ml units Volume Administered By CHRIS BOWERS MD PHILLIPS, GABRIEL, MD PHILLIPS, GABRIEL, MD Procedure Irrigation Irrigant Volume In Irrigant Volume Out Last Modified By: Zaida Pérez RN Poff, Janie, RN Poff, Janie, RN 08/13/20 17:23:06 08/13/20 17:23:06 08/13/20 17:23:29 Entry 4 Medication/Irrigant thrombin 5000units topical powder Combo Med List Time Administered Route of Topical, mixed with Gel Administration Foam Dose Dose 5000 Unit of Measure units Volume Administered By CHRIS BOWERS MD Procedure Irrigation Irrigant Volume In Irrigant Volume Out Last Modified By: Zaida Pérez RN 08/13/20 16:38:20 [facility] IntraOp Medication Admin Audit 08/13/20 17:23:29 Market Manager: MERNA Modifier: POFFJAN <+> 3 Dose <+> 3 Unit of Measure 08/13/20 17:23:06 Market Manager: POFFJOSÉ MIGUEL Modifier: POFFJAN 1 <*> Medication/Irrigant lidocaine 1% w/ epinephrine 1:100,000 30ml vial - [id number] 1 <+> Dose 2 <*> Medication/Irrigant Marcaine 0.25% 30ml vial - [id number] 2 <+> Dose [facility] Intra[facility] Patient Positioning Entry 1 Procedure Discectomy Minimally Invasive Body Position Prone Left Arm Position Secured on padded arm board Right Arm Position Secured on padded arm board Left Leg Position Elevated Right Leg Position Elevated Feet Uncrossed Yes Pressure Points Yes Checked Positioning Devices Niels Frame, Pillows, Safety Strap, Leg(s) Positioning Device BLUE arm protectors in Comments place bilateral arms. Niels pillow in place Positioned By Zaida Pérez RN, CHRIS BOWERS MD, ADRIA ARELLANO PA, MELO DISLA, DETECTIVE INVESTIGATOR, Terell, Tiny, ST Position Verified Positioning Yes Verified by Anesthesia Positioning Yes Verified by Surgeon Last Modified By: Zaida Pérez RN 08/13/20 16:29:16 [facility] IntraOp Sign In Entry 1 Patient, Site, Yes Procedure Identified Surgical Consent Yes Confirmed Relevant Surgical Yes Documents Available Surgical Site Yes Marked by person performing procedure Anesthesia Machine Yes Check Completed Medication Checks Yes Completed Allergies Yes Airway Difficult Yes Airway/Aspiration Risk Difficult Yes Airway/Aspiration Intervention Equipment Available Blood Loss Risk Yes Blood Loss Yes Intervention Equipment Prepared and Ready Blood Identifiers Not applicable Verified Per Policy Hypothermia Risk No Warming Measures Yes Taken Last Modified By: Zaida Pérez RN 08/13/20 16:25:18 [facility] Intra[facility] Sign Out Entry 1 RN Confirmation [...] Checklist Yes Elements Complete? RN Sign Out Zaida Pérez RN Signature RN Sign Out 08/13/20 17:38:00 Signature Date/Time Plan of Care Outcome - [...] related to extraneous objects Last Modified By: Zaida Pérez RN 08/13/20 17:38:43 [facility] Intra[facility] Sign Out Audit 08/13/20 17:38:43 Market Manager: MERNA Modifier: POFFJAN <+> 1 RN Sign Out Signature Date/Time 08/13/20 17:24:33 Market Manager: MERNA Modifier: POFFJAN <+> 1 OUTCOME STATEMENT: Absence of signs and symptoms of injury related to extraneous objects [facility] IntraOp Skin Prep Entry 1 Procedure Discectomy Minimally Invasive Prescribed Yes Pre-Surgical Prep Completed Prep Area Back Intraop Prep Integumentary WDL with patient Assessment WDL specific variances WDL Patient Scars on back from Exceptions previous surgical interventions Prep Agents Chlorhexadine gluconate, DuraPrep Prep by CHRIS BOWERS MD Hair Removal Methods Clipper/Scissors Hair Removal Site back Hair Removal By Zaida Pérez RN Last Modified By: Zaida Pérez RN 08/13/20 16:31:44 [facility] IntraOp Surgical Procedures Entry 1 Procedure Discectomy Minimally Invasive Additional LUMBAR L4-5 MIS Procedure DISCECTOMY Description Primary Procedure Yes Primary Surgeon CHRIS BOWERS MD Start 08/13/20 16:22:00 Stop 08/13/20 17:15:00 Anesthesia Type General Specialty Neurosurgery Wound Class I - Clean Last Modified By: Zaida Pérez RN 08/13/20 17:24:15 [facility] IntraOp Surgical Procedures Audit 08/13/20 17:24:15 Market Manager: MERNA Modifier: MERNA <+> 1 Stop 08/13/20 16:39:10 Market Manager: MERNA Modifier: MERNA 1 <*> Procedure Discectomy Minimally Invasive 1 <*> Additional Procedure Description (LUMBAR L4-5 MIS DISCECTOMY 08/13/20 16:38:44 Market Manager: MERNA Modifier: MERNA 1 <*> Procedure Discectomy Minimally Invasive 1 <*> Additional Procedure Description (LUMBAR L4-5 MIS DISCECTOMY) [facility] IntraOp Temp Regulation Devices Entry 1 Temp Regulation Temperature Warm blankets Regulation Device Temperature Lower body Regulation Site Temperature Zaida Pérez RN Regulation Device Applied by Last Modified By: Zaida Pérez RN 08/13/20 16:32:14 [facility] IntraOP Time Out Entry 1 Procedure to be Discectomy Minimally Performed Invasive Time Out Time Out Pause Time 08/13/20 16:22:00 All activity Yes suspended (unless life threatening emergency) Team Verbally Correct patient Confirms Information identity, Consent form is present and accurate, Agreement on the procedure to be done, Correct patient position, Relevant images/results properly labeled/appropriately displayed, Confirm antibiotics have been administered, Confirm the skin prep has dried, Performed in location of procedure after prepped/draped Antibiotic Yes Prophylaxis Administered Or In Progress Within the Last 60 Minutes Beta Elma N/A Administered Venous Yes Thromboembolism Prophylaxis Required Anticipated Critical Events Surgeon None expected Anesthesia Provider None expected Nursing Assures Sterility of instruments Essential Imaging Yes Labeled and Displayed Last Modified By: Zaida Pérez RN 08/13/20 16:29:30 [facility] Intra[facility] Time Out Audit 08/13/20 16:29:30 Market Manager: MERNA Modifier: MERNA 1 <+> Time Out Pause Time 1 <*> Procedure to be Performed Discectomy Minimally Invasive [facility] Intra[facility] X-Ray and Images Entry 1 X-Ray/Imaging Type Fluoroscopy Fluoroscopy Type C-Arm Site BACK Protective Devices Yes Used Last Modified By: Zaida Pérez RN 08/13/20 16:38:29 Case Comments <None> Finalized By: KELI GARCIA Document Signatures Signed By: Zaida Pérez RN 08/13/20 17:38 KELI GARCIA 08/14/20 09:10 Unfinalized History Date/Time Username Reason for Unfinalizing Freetext Reason for Unfinalizing 08/14/20 09:10 [facility] Correct Billing Electronically signed by Juanis [facility] Conversion Nursery Technician Cerner at 08/13/2022 6:20 PM CDT documented in this encounter Plan of Treatment Not on file documented as of this encounter Visit Diagnoses Not on filedocumented in this encounter Care Teams Medical Office Technologist Relationship Specialty Start Date End Date Kostas Campa MD [address] [facility] [address] [place] [id number] PCP - General Family Medicine 04/03/24 06/25/24 Kostas Campa MD [address] [facility] [address] [place] [id number] PCP - General Family Medicine 06/26/24 documented as of this encounter
--- OUTSIDE RECORDS SUMMARY | 2025-04-13 06:20 | XMS_ITS | Encounter Summary ---
Author Organization [employer] ([place], [place], [place], [place], [place]) Address [address] [place] [address] Care Team Providers Care Manager City Name Role Phone Kostas Campa MD Primary Care Provider + [phone] Kostas Campa MD Primary Care Provider + [phone] Encounter Details Date Type Department Care Team (Late st Contact Info) Description 08/07/2021 Transcribed Document [facility] [place] [facility] [place] [address] ProviderLance MD [address] [place] [address] [id number] Social History Tobacco Use Types Packs/Day Years Used Date Smoking Tobacco: Never Assessed Sex and Gender Information Value Date Recorded Sex Assigned at Not on file Legal Sex Male 6:57 PM CDT Gender Identity Not on file Sexual Orientation Not on file documented as of this encounter Miscellaneous Notes * Cerner Conversion Note - Lance ProviderMD - 08/07/2021 1:20 PM CDT Patient: BAYLEE LING Age: 71 Years Sex: Male : 1950 Psychological Pre-surgical Pain Evaluation History of presenting problem: Baylee Ling, a 71-year-old male, was referred for a psychological evaluation by Hamilton Petty M.D. to determine appropriateness for an intrathecal pain pump. He reported a history of chronic lower back pain that radiates into the bilateral lower extremities, with associated numbness and tingling in the feet. Mr. Ling rated his current pain at a level 5 on a 1-10 scale, with 10 being the worst pain imaginable. During the past week, the pain ranged from level 3 to level 8. The pain interferes with his ability to walk, sit, bend and lift objects. The pain impacts his ability to perform family and home responsibilities, work and participate in social and recreational activities. Mr. Ling reported depression and anxiety related to his chronic pain. He reported difficulty maintaining sleep. Psychosocial: Mr. Ling was not aware of any complications during his mother???s . He was not born prematurely. He met all developmental milestones on time. He reported some difficulty learning in school, particularly in spelling. He denied problems with inattention or hyperactivity in childhood. He denied a history of adverse childhood experiences. Mr. Ling completed 7 years of education. He previously worked in construction. He is with three biological children. Mr. Ling does not currently attend outpatient counseling. He denied prior inpatient psychiatric admissions or involuntary hospitalizations. He denied current or prior suicidal ideation, plan or intent. He denied prior suicidal attempts. Mr. Ling denied current or prior problems with substance or tobacco use. He did not provide a comprehensive list of his medications. He is taking Pregabalin, Oxycodone, Morphine ER, Cyclobenzaprine and Clonazepam. Behavioral Observations: Mr. Ling was very cooperative during the evaluation. His affect was flat. He described his mood as, ???My says I am irritable.?? He demonstrated adequate attention and concentration. His judgment and insight were within normal limits. He had no problems understanding test instructions. Rapport was easily established. No unusual behaviors were observed. Tests administered: Pain disability index (PDI) Screener for opioid assessment for patients with pain-revised (SOAPP-R) Pain catastrophizing scale (PCS) Patient health questionnaire-9 (PHQ-9) Generalized anxiety disorder questionnaire-7 (JUVENTINO-7) Assessment results: Emotional functioning: On a screening measure for depression (PHQ-9), Mr. Ling obtained a score consistent with moderately severe depression during the past 2 weeks (). He reported feeling down, depressed or hopeless, and feeling bad about himself several days during the past 2 weeks. He reported a loss of interest or pleasure in activities he used to enjoy, sleep disturbance, fatigue and trouble concentrating nearly every day during the past 2 weeks. Mr. Ling denied suicidal thoughts during the past 2 weeks, although he admitted to passive thoughts he may be better off at times during the past 2 weeks. On a screening measure for anxiety (JUVENTINO-7), Mr. Ling obtained a score consistent with moderate anxiety during the past 2 weeks (14/21). He reported feeling nervous, anxious or on edge and being fearful something awful may happen several days during the past 2 weeks. He reported difficulty controlling worry, worrying too much about different things and restlessness more than half the days during the past 2 weeks. He reported trouble relaxing and irritability nearly every day during the past 2 weeks. Catastrophic thinking patterns related to pain: Results on the PCS indicate that Mr. Ling does not exhibit pain ruminating behaviors. He does not tend to feel helpless associated with his pain, nor does he engage in pain catastrophizing behaviors. Risk associated with opioid use: Results are below cutoff for predicting potential aberrant opioid medication-related behavior during the next 6 months. Mr. Ling denied borrowing pain medications from family or friends, running out of pain medication early, or craving pain medication. Diagnostic impressions: F43.23 Adjustment Disorder with mixed anxiety and depressed mood, exacerbated by chronic pain, treated with psychopharmacological therapy Conclusions: 1. Mr. Ling displays a realistic expectation in regard to his level of pain relief proposed by the interventional pain procedure. He understands the procedure should be expected to reduce his pain but cannot completely cure him of chronic pain. Recommendations: 1. From a psychological perspective, Mr. Ling appears to be able to tolerate an interventional pain procedure at this time (i.e. Intrathecal Pain Pump). 2. Mr. Ling should continue psychopharmacological therapy to manage anxiety and depression. This note was dictated using [employer] voice recognition software. Cc: Hamilton Petty M.D. documented in this encounter Plan of Treatment Not on file documented as of this encounter Visit Diagnoses Not on filedocumented in this encounter Care Teams Manager City Relationship Specialty Start Date End Date Kostas Campa MD [address] [facility] [address] [place] [id number] PCP - General Family Medicine 04/03/24 06/25/24 Kostas Campa MD [address] [facility] [address] [place] [address] PCP - General Family Medicine 06/26/24 documented as of this encounter
--- OUTSIDE RECORDS SUMMARY | 2025-04-13 06:20 | XMS_ITS | Encounter Summary ---
Author Organization [employer] ([place], [place], [place], [place], [place]) Address [address] [place] [address] Care Team Providers Care Port Traffic Manager Name Role Phone Kostas Campa MD Primary Care Provider + [phone] Kostas Campa MD Primary Care Provider + [phone] Encounter Details Date Type Department Care Team (Late st Contact Info) Description 01/02/[address] [facility] [place] [address] ProviderLance MD [address] [place] [id number] Social History Tobacco Use Types Packs/Day Years Used Date Smoking Tobacco: Never Assessed Sex and Gender Information Value Date Recorded Sex Assigned at Not on file Legal Sex Male 6:57 PM CDT Gender Identity Not on file Sexual Orientation Not on file documented as of this encounter Miscellaneous Notes * Cerner Conversion Note - Lance ProviderMD - 01/02/2022 8:43 AM CDT [facility] Main OR PostOp Summary Primary Physician: BETHANY HOUSE MD-SNU Finalized Date/Time: 01/02/22 14:05:07 Pt. Name: ANURADHABAYLEEO.B./Sex: 1950 Male Med Rec #: [id number] Physician: BETHANY HOUSE MD-SNU Financial #: [id number] Pt. Type: O Room/Bed: /8 Admit/Disch: 01/02/22 06:47:00 - Institution: [facility] Main OR PostOp Case Times Entry 1 In PACU II 01/02/22 10:20:00 Ready for PACU II 01/02/22 11:34:00 Discharge Discharge from PACU 01/02/22 11:34:00 II Last Modified By: Roberto Carlos Escamilla RN-PATIENT CARE BEDSIDE NON-EXEMPT 01/02/22 14:05:06 Finalized By: Roberto Carlos Escamilla RN-PATIENT CARE BEDSIDE NON-EXEMPT Document Signatures Signed By: Roberto Carlos Escamilla RN-PATIENT CARE BEDSIDE NON-EXEMPT 01/02/22 14:05 Electronically signed by [facility] Conversion Blood Bank Booking Clerk Cerner at 08/13/2022 6:44 PM CDT documented in this encounter Plan of Treatment Not on file documented as of this encounter Visit Diagnoses Not on filedocumented in this encounter Care Teams Port Traffic Manager Relationship Specialty Start Date End Date Kostas Campa MD [address] [place] [address] [address] [place] [phone] PCP - General Family Medicine 04/03/24 06/25/24 [place] [address] [place] [address] [address] [place] [phone] PCP - General Family Medicine 06/26/24 documented as of this encounter
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
--- OUTSIDE RECORDS SUMMARY | 2025-04-13 06:20 | XMS_ITS | Encounter Summary ---
Author Organization [employer] ([place], [place], [place], [place], [place]) Address [address] [place] [address] Care Team Providers Care Hull Grinder Name Role Phone Kostas Campa MD Primary Care Provider + [phone] Kostas Campa MD Primary Care Provider + [phone] Encounter Details Date Type Department Care Team (Late st Contact Info) Description 07/22/2020 Transcribed Document [place] Family Medicine [facility] [place] [address] ProviderLance MD [address] [place] [id number] Social History Tobacco Use Types Packs/Day Years Used Date Smoking Tobacco: Never Assessed Sex and Gender Information Value Date Recorded Sex Assigned at Not on file Legal Sex Male 6:57 PM CDT Gender Identity Not on file Sexual Orientation Not on file documented as of this encounter Miscellaneous Notes * Cerner Conversion Note - Historical ProviderMD - 07/22/2020 2:21 PM CDT Pre Procedure Adult Entered On: 07/22/2020 14:22 EDT Performed On: 07/22/2020 14:21 EDT by LILIAM SALDIVAR RN Height and Weight, Clinical Dosing Height Source : Stated Height Entry Format : [place] Height, Feet : 5 ft(Converted to: 152 cm, 60 Inch) Height, Inches : 10 Inch(Converted to: 0 ft 10 Inch, 25.40 cm) Clinical Height : 177.8 cm Weight Source : Standing scale Weight Entry Format : [place] Clinical Dosing Weight : 99.55 kg Weight, Pounds : 219 lb Body Surface Area (BSA) : 2.17 m2 Body Mass Index : 31.5 kg/m2 (HI) [place] Body Weight : 72 kg LILIAM SALDIVAR RN - 07/22/2020 14:21 EDT Electronically signed by [facility] Conversion Hair Designer Cerner at 08/13/2022 6:23 PM CDT documented in this encounter Plan of Treatment Not on file documented as of this encounter Visit Diagnoses Not on filedocumented in this encounter Care Teams Hull Grinder Relationship Specialty Start Date End Date Kostas Campa MD [address] [facility] [address] [place] [phone] PCP - General Family Medicine 04/03/24 06/25/24 Kostas Campa MD [address] [facility] [address] [place] [phone] PCP - General Family Medicine 06/26/24 documented as of this encounter
--- OUTSIDE RECORDS SUMMARY | 2025-04-13 06:20 | XMS_ITS | Encounter Summary ---
Author Organization [employer] ([place], [place], [place], [place], [place]) Address [address] [place] [address] Care Team Providers Care Loom Blower Name Role Phone Kostas Campa MD Primary Care Provider + [phone] Kostas Campa MD Primary Care Provider + [phone] Encounter Details Date Type Department Care Team (Late st Contact Info) Description 05/31/2020 Transcribed Document [facility] [place] Family [place] [facility] [place] [address] ProviderLance MD [address] [place] [id number] Social History Tobacco Use Types Packs/Day Years Used Date Smoking Tobacco: Never Assessed Sex and Gender Information Value Date Recorded Sex Assigned at Not on file Legal Sex Male 6:57 PM CDT Gender Identity Not on file Sexual Orientation Not on file documented as of this encounter Miscellaneous Notes * Cerner Conversion Note - Lance ProviderMD - 05/31/2020 2:46 PM BUSPERSON Patient: BAYLEE LING Age: 69 Years Sex: Male : 1950 FOLLOW-UP DATE OF SERVICE: 05/09/2020. CHIEF COMPLAINT: Low back pain, bilateral leg pain, bilateral foot pain. HISTORY OF PRESENT ILLNESS: The patient is a 69-year-old male who returns to the clinic today with complaints of low back pain and bilateral leg pain that has been ongoing since 1984. He has a history significant for a Nevro spinal cord stimulator implant which he states is not helping with his overall pain. He states that he has been having increased pain of both feet at this time. He does report a recent staph infection involving the left lower extremity. The patient states that his pain level today is a 4-5/10 on the numerical pain scale rating. The patient is getting 60% pain relief at this time with the use of Percocet 10/325 mg three times daily dosing, Klonopin 1 mg one at bedtime, Lyrica 150 mg twice daily dosing, Flexeril 10 mg one at bedtime, and MS Contin 15 mg extended release twice daily dosing. Nursing intake was reviewed and on today's visit this individual has a blood pressure 148/82, heart rate 67, respiratory rate 18, O2 SATs 95% on room air, height 5'10 , weight 230 lbs. HISTORY: Allergies to medication: None reported. Social History: Marital status: . Current work status: Disabled. Current tobacco use: Denies. Illicit drug use: Denies. Alcohol use: Typically three drinks a week. Caffeine use: Daily. Past Medical History: Osteoarthritis. Colon cancer. Depression. Heartburn. Hypertension. Obstructive sleep apnea. Prostate disease. Prostate enlargement. Past Surgical History: Myringotomy. Colon resection. Arthroscopic knee surgery. Total knee replacement surgery. Prostate surgery. Sinus surgery. Spinal surgery of the lumbar spine. Vasectomy. Spinal cord stimulator trial and implant with two revisions. Past Family History: Cancer. Lung disease. Rheumatoid arthritis. Type 2 diabetes. Heart disease. Acid reflux disease. REVIEW OF SYSTEMS: The patient's ten system Review of Systems was reviewed and noted at today's visit. This individual has complaints of the following: General: Fatigue, weight gain. Respiratory: Shortness of breath. Neurological: Dizziness, numbness/tingling. Gastrointestinal: Constipation, diarrhea. Musculoskeletal: Joint pain/stiffness, back pain, muscle weakness, muscle aches and pains. Cardiovascular: Leg pain with walking, leg swelling. Psychiatric: Negative. HEENT: Negative. Endocrine: Cold intolerance. Hematology: Negative. Skin: Negative. Genitourinary: Negative. PHYSICAL EXAMINATION: Constitutional: Conversant and well-nourished. Vital signs reviewed today. Integumentary: Deferred. HEENT: Deferred. Neck: Deferred. Chest and Lung: Deferred. Cardiovascular: Deferred. Abdomen: Deferred. Peripheral Vascular: Deferred. Neurologic: Deferred. Psychiatric: The patient is alert and oriented to self, time, and place today. The patient has a normal mood and affect at today's visit and there is moderate depression on the depression questionnaire that was completed today. Musculoskeletal: Deferred. ASSESSMENT: 1. Chronic pain syndrome. 2. Lumbar degenerative disc disease. 3. Lumbar radiculitis involving the bilateral lower extremities. 4. Lumbar spondylosis. 5. Bilateral foot pain. CURRENT PLAN: I am going to continue Mr. Ling on his current medication regimen from our facility at this time. ISHAAN report was appropriate upon review today. The patient is undergoing a urine tox screen today to confirm compliance with medication management from our facility. We will see the patient back in the clinic in two months for a follow-up appointment. He did inquire about his candidacy for the ketamine that was discussed with him several visits ago when he had seen Dr. Petty. I will make sure that we put him on the list again for the ketamine infusion depending on how much and how frequently we will be able to obtain the medication. ELIZ Davidson/dayan Electronically signed by Juanis [facility] Conversion Senior Power Plant Operator Cerner at 08/13/2022 6:44 PM CDT documented in this encounter Plan of Treatment Not on file documented as of this encounter Visit Diagnoses Not on filedocumented in this encounter Care Teams Loom Blower Relationship Specialty Start Date End Date Kostas Campa MD [address] [facility] [address] [place] [phone] PCP - General Family Medicine 04/03/24 06/25/24 Kostas Campa MD [address] [place] [facility] [address] [place] [phone] PCP - General Family Medicine 06/26/24 documented as of this encounter
[2025-04-13 06:43] VITALS: BP 147/65; PULSE 67; RESP 20; TEMP 36.8; O2SAT 97
== END 2025-04-13 06:57 | disposition home or self-care (01) ==
LOC: ER 06:16
PROVIDERS: Emergency Provider Emergency Medicine; PCP Family Medicine
DX: M79.604 Pain in right leg (principal); M79.605 Pain in left leg; M54.9 Dorsalgia, unspecified
CPT/HCPCS: 96374; 96375; 96376; 99283; 99284; J0131; J1885; J2270